=== PATIENT | male | born 1945 | race Caucasian/White ===

== ENCOUNTER → 2016-10-08 | Outpatient (CLI) | payer BC ==
[~2016-10-08] MED LIST: ADVIN10/60 INH; ADVIN25/60 INH; ASPEC325 PO; ATEN-175 PO; ATEN50TA8 PO; HYDR-5688 PO; LISI-729 PO; METF-384 PO; MULT-506 PO; SIMV20TA2 PO; SIMV80TA2 PO; SITA100T3 PO; TRAZ100T29 PO; VENL150C PO; VNTHFA/IN INH
--- NOTE | 2016-10-08 08:49 | DIAGNOSTIC IMAGING REPORT ---
TWO VIEW CHEST CLINICAL HISTORY: Hemoptysis. FINDINGS: PA and lateral chest radiographs are compared to study dated 11/06/2015 and correlated with chest CT dated 03/12/2006. The cardiomediastinal silhouette is unremarkable. There is mild atherosclerotic calcification of the thoracic aorta. Emphysema and chronic interstitial thickening are similar to previous. Scarring in the left upper lobe is again noted. No airspace consolidation or pleural effusion is identified. A nipple shadow projects over the right lower lobe. There is no pneumothorax. The skeletal structures are osteopenic. Mild degenerative change is seen throughout the thoracic spine. IMPRESSION: 1. Emphysema and chronic parenchymal changes as above. No acute cardiopulmonary abnormality is identified. 2. No concerning pulmonary lesion is seen by x-ray. Note that chest x-ray is insensitive in screening for lung cancer. If there is clinical concern for pulmonary neoplasm then a CT scan of the chest should be considered. Electronically signed by: Adrián Armenta M.D. 10/08/2016 8:47 AM Dictated Date/Time: 10/08/2016 8:45 AM
== END | disposition home or self-care (01) ==
LOC: C.RAD1850 08:31
PROVIDERS: ATTEND Internal Medicine Pulmonary Disease
DX: R04.2 Hemoptysis (principal); J43.9 Emphysema, unspecified

== ENCOUNTER → 2016-10-16 | Outpatient (CLI) | payer BC ==
--- NOTE | 2016-10-16 11:45 | DIAGNOSTIC IMAGING REPORT ---
CHEST CT WITHOUT CONTRAST CT DOSE: 267.90 mGy.cm HISTORY: Hemoptysis R04.2 [id number] TECHNIQUE: Multiaxial CT images of the chest were performed without contrast. COMPARISON: 03/12/2006 FINDINGS: Mild/moderate emphysematous change. Several small blebs primarily in the upper lung regions. Several low suspicion mediastinal nodes unchanged from the prior exam. Scattered basilar atelectatic change. This is dependent in nature. Bronchiectatic change. Is a described in the left upper lung has resolved. There is no significant new or interval finding. IMPRESSION: 1. Improved exam . The left upper lobe bronchiectatic change has shown near complete resolution. 3. No new or interval process. 4. Several low suspicion mediastinal nodes unchanged from the prior exam. 5. Mild Baseline emphysematous change unaltered. Electronically signed by: Ludwin Hernandez M.D. 10/16/2016 11:44 AM Dictated Date/Time: 10/16/2016 11:39 AM
== END | disposition home or self-care (01) ==
LOC: C.CTS 10:25
PROVIDERS: ATTEND Internal Medicine Pulmonary Disease
DX: R04.2 Hemoptysis (principal)

== ENCOUNTER → 2017-01-09 | Day surgery (SDC) | payer BC ==
[2016-12-17 12:53] VITALS: BMI 25.0
[~2017-01-09] VITALS: Ht 180.3 cm; Wt 83.2 kg
[~2017-01-09] MED LIST changes: -ADVIN10/60 INH; -ATEN-175 PO; -HYDR-5688 PO; +LIDOCAINE HCL 2% 2 ML VIAL (20MG/ML) ONE; +MIDAZOLAM HCL 1 MG/ML 2ML VIAL ONE; +ONDANSETRON INJ 2 MG/ML 2 ML VIAL ONE; +PROPOFOL IV EMULSION 10 MG/ML 20 ML VIAL IV ONE; -SIMV20TA2 PO; +SODIUM CHLORIDE 0.9% 500ML 500 ML IV ONE
[2017-01-09 08:11] VITALS: Ht 180.3 cm; Wt 83.2 kg
--- NOTE | 2017-01-09 08:48 | Endo History and Physical ---
History & Physical Date of Service: January 09, 2017. Chief Complaint: Anemia Referring Physician: DR ENRIQUE History of Present Illness 71 yo CM who presents for colonoscopy secondary to anemia. Past Surgical History Hx Cardiac Surgery: No Hx Internal Defibrillator: No Hx Pacemaker: No Hx Abdominal Surgery: Yes (APPY) Hx of Implantable Prosthesis: No Hx Post-Op Nausea and Vomiting: No Hx Cancer Surgery: No Hx Thoracic Surgery: No Hx Orthopedic: Yes (RT MIDDLE FINGER AMPUTATION) Hx Urinary Tract Surgery: No Family History None Social History Smoking Status: Former Smoker Hx Substance Use: No Hx Alcohol Use: No Allergies Coded Allergies: NO KNOWN DRUG ALLERGIES (Verified Allergy, Unknown, ., 01/09/17) Current Medications Reported Home Medications Medications Dose Route/Sig Max Daily Dose Days Date Category Ventolin Hfa (Albuterol) 200 Puffs/19067 Mcg Aers 2-4 Puffs INH Q6H PRN 12/17/16 Reported Advair Diskus 250/50 60 Dose (Fluticasone Prop/Salmeterol) 1 Ea Aerp 1 Puff INH BID 12/17/16 Reported Zocor (Simvastatin) 80 Mg Tab 80 Mg PO QPM 12/17/16 Reported Trazodone (Trazodone HCl) 100 Mg Tab 100 Mg PO HS 12/17/16 Reported Multivitamin (Multivitamins) Tab 1 Tab PO QPM 12/17/16 Reported Zestril (Lisinopril) 5 Mg Tab 5 Mg PO QAM 12/17/16 Reported Januvia (Sitagliptin Phosphate) 100 Mg Tab 100 Mg PO QAM 12/17/16 Reported Tenormin (Atenolol) 50 Mg Tab 50 Mg PO QAM 12/17/16 Reported Glucophage (Metformin Hcl) 1,000 Mg Tab 1,000 Mg PO BID 12/02/14 Reported Effexor Xr (Venlafaxine Hcl) 150 Mg Cap 150 Mg PO BID 12/02/14 Reported Ecotrin Or Generic * (Aspirin) 325 Mg Ectab 325 Mg PO QAM 04/08/09 Reported Vital Signs Weight (Kilograms): 83.18 Height (Feet): 5 Height (Inches): 11 Physical Exam General Appearance: WD/WN, no apparent distress Respiratory/Chest: Auscultation: breath sounds normal Cardiovascular: Heart Auscultation: RRR Abdomen: Bowel Sounds: normal Inspection & Palpation: soft, non-distended, no tenderness, guarding & rebound Assessment and Plan Assessment: 71 yo CM who presents for colonoscopy secondary to anemia. Plan: Proceed with colonoscopy.
--- NOTE | 2017-01-09 09:10 | Discharge Instructions ---
Endoscopy Patient Instructions Date / Procedure(s) Performed January 09, 2017. Colonoscopy Allergy Information Coded Allergies: NO KNOWN DRUG ALLERGIES (Verified Allergy, Unknown, ., 01/09/17) Discharge Date / Findings January 09, 2017. Colon polyp Internal hemorrhoids Medication Instructions Stopped Medication(s): NOT SURE WHAT HE WAS TO STOP SO STOPPED ALL MEDS WED NIGHT OK to resume all medications today as prescribed Reported Home Medications Medications Dose Route/Sig Max Daily Dose Days Date Category Ventolin Hfa (Albuterol) 200 Puffs/56771 Mcg Aers 2-4 Puffs INH Q6H PRN 12/17/16 Reported Advair Diskus 250/50 60 Dose (Fluticasone Prop/Salmeterol) 1 Ea Aerp 1 Puff INH BID 12/17/16 Reported Zocor (Simvastatin) 80 Mg Tab 80 Mg PO QPM 12/17/16 Reported Trazodone (Trazodone HCl) 100 Mg Tab 100 Mg PO HS 12/17/16 Reported Multivitamin (Multivitamins) Tab 1 Tab PO QPM 12/17/16 Reported Zestril (Lisinopril) 5 Mg Tab 5 Mg PO QAM 12/17/16 Reported Januvia (Sitagliptin Phosphate) 100 Mg Tab 100 Mg PO QAM 12/17/16 Reported Tenormin (Atenolol) 50 Mg Tab 50 Mg PO QAM 12/17/16 Reported Glucophage (Metformin Hcl) 1,000 Mg Tab 1,000 Mg PO BID 12/02/14 Reported Effexor Xr (Venlafaxine Hcl) 150 Mg Cap 150 Mg PO BID 12/02/14 Reported Ecotrin Or Generic * (Aspirin) 325 Mg Ectab 325 Mg PO QAM 04/08/09 Reported Provider Instructions Activity Restrictions - No exercising or heavy lifting for 24 hours. - Do not drink alcohol the day of the procedure. - Do not drive a car or operate machinery until the day after the procedure. - Do not make any important decisions or sign important papers in 24 hours after the procedure. Following Day: - Return to full activity which may include returning to work/school. Diet Start your diet with liquids and light foods (jello, soup, juice, toast). Then eat your usual diet if not nauseated. Treatment For Common After Affects For mild abdominal pain, bloating, or excessive gas: - Rest - Eat lightly - Lie on right side Follow-Up Information Follow-up with DR ENRIQUE as scheduled Anesthesia Information What You Should Know You have had a procedure that required some medicine to reduce anxiety and discomfort. This treatment is called moderate sedation. After receiving the treatment, you may be sleepy, but you will be able to breathe on your own. The effects of the treatment may last for several hours. Follow these instructions along with Activity/Diet recommendations noted above: * Do NOT do anything where dizziness or clumsiness would be dangerous. * Rest quietly at home today, then you can be up and about tomorrow. * Have a responsible person stay with you the rest of today. * You may have had an I.V. today. If so, you may take the dressing off later today. Recommendations Call your doctor if: * Trouble breathing * Continuous vomiting for more than 24 hours * Temperature above 101 degrees * Severe abdominal pain or bloating * Pain not relieved by pain medicine ordered * There is increased drainage or redness from any incision * A large amount of rectal bleeding greater than 2-3 tablespoons. (If you had a polyp/s removed or have hemorrhoids, a small amount of blood - from the rectum is to be expected.) * You have any unanswered questions or concerns. IN THE EVENT OF A SERIOUS EMERGENCY, GO TO THE NEAREST EMERGENCY ROOM Your discharge instructions were prepared by provider Vlad Johnson. Patient Instructions Signature Page Danial Mariee Patient (or Guardian) Signature/Date: I have read and understand the instructions given to me by my caregivers. Caregiver/RN/Doctor Signature/Date: The above-named patient and/or guardian has received patient instructions on this date. + Original Patient Signature Page (only) stays with chart. Please make copy for patient.
--- NOTE | 2017-01-09 09:17 | GI REPORT ---
Procedure Date: 01/09/2017 8:29 AM Procedure: Colonoscopy Indications: Iron deficiency anemia Medicines: Monitored Anesthesia Care Complications: No immediate complications. Estimated Blood Loss: Estimated blood loss: none. Procedure: Pre-Anesthesia Assessment: - Prior to the procedure, a History and Physical was performed, and patient medications and allergies were reviewed. The patient's tolerance of previous anesthesia was also reviewed. The risks and benefits of the procedure and the sedation options and risks were discussed with the patient. All questions were answered, and informed consent was obtained. Prior Anticoagulants: The patient has taken aspirin, last dose was 1 day prior to procedure. ASA Grade Assessment: III - A patient with severe systemic disease. After reviewing the risks and benefits, the patient was deemed in satisfactory condition to undergo the procedure. After I obtained informed consent, the scope was passed under direct vision. Throughout the procedure, the patient's blood pressure, pulse, and oxygen saturations were monitored continuously. The scope was introduced through the anus and advanced to the terminal ileum. The colonoscopy was performed without difficulty. The patient tolerated the procedure well. The quality of the bowel preparation was good. The terminal ileum, ileocecal valve, appendiceal orifice, and rectum were photographed. Findings: A 12 mm polyp was found in the ascending colon. The polyp was flat. The polyp was removed with a piecemeal technique using a hot snare. Resection and retrieval were complete. To prevent bleeding after the polypectomy, one hemostatic clip was successfully placed (MR conditional). There was no bleeding at the end of the procedure. Non-bleeding internal hemorrhoids were found during retroflexion. The hemorrhoids were small. Impression: - One 12 mm polyp in the ascending colon, removed piecemeal using a hot snare. Resected and retrieved. Clip (MR conditional) was placed. - Non-bleeding internal hemorrhoids. Recommendation: - Resume previous diet. - Continue present medications. - No repeat colonoscopy due to age. - Return to primary care physician as previously scheduled. Vlad Johnson DO 01/09/2017 9:16:39 AM This report has been signed electronically. Note Initiated On: 01/09/2017 8:29 AM I attest to the content of the Intraoperative Record and orders documented therein, exceptions below
[2017-01-09 09:38] VITALS: BP 110/71; PULSE 92; O2SAT 95
--- NOTE | 2017-01-09 10:31 | Anesthesiology Progress Note ---
Anesthesia Post Op Note Date & Time January 09, 2017 at 10:31 Vital Signs Pain Intensity: 0 Vital Signs Past 12 Hours Date Time Temp Pulse Resp B/P Pulse Ox O2 Delivery O2 Flow Rate FiO2 01/09/17 09:38 92 20 110/71 95 Room Air 01/09/17 09:30 93 20 144/80 93 Room Air 01/09/17 09:20 99 20 133/64 96 Room Air 01/09/17 09:14 98 20 122/65 93 Room Air Notes Mental Status: alert / awake / arousable, participated in evaluation Pt Amnestic to Procedure: Yes Nausea / Vomiting: adequately controlled Pain: adequately controlled Airway Patency, RR, SpO2: stable & adequate BP & HR: stable & adequate Hydration State: stable & adequate Anesthetic Complications: no major complications apparent
== END | disposition home or self-care (01) ==
LOC: C.GI 08:01
PROVIDERS: ATTEND Internal Medicine
DX: D12.2 Benign neoplasm of ascending colon (principal); K64.8 Other hemorrhoids; D50.9 Iron deficiency anemia, unspecified; Z87.891 Personal history of nicotine dependence; Z79.899 Other long term (current) drug therapy

== ENCOUNTER → 2018-03-13 | Outpatient (CLI) | payer BC ==
[~2018-03-13] MED LIST changes: -LIDOCAINE HCL 2% 2 ML VIAL (20MG/ML) ONE; -MIDAZOLAM HCL 1 MG/ML 2ML VIAL ONE; -ONDANSETRON INJ 2 MG/ML 2 ML VIAL ONE; -PROPOFOL IV EMULSION 10 MG/ML 20 ML VIAL IV ONE; -SODIUM CHLORIDE 0.9% 500ML 500 ML IV ONE; -VENL150C PO; +VENL150C71 PO
[2018-03-13 08:20] LABS: HEMOGLOBIN A1C 7.4 % (4.5-5.6)
[2018-03-13 08:36] LABS: BLOOD UREA NITROGEN 18 mg/dl (7-18); CARBON DIOXIDE 26 mmol/L (21-32); CHOLESTEROL 241 mg/dl (0-200); CREATININE 1.26 mg/dl (0.60-1.40); GLUCOSE 135 mg/dl (70-99); LDL CHOLESTEROL CALCULATED 134 mg/dl; POTASSIUM 4.3 mmol/L (3.5-5.1); SODIUM 138 mmol/L (136-145)
== END | disposition home or self-care (01) ==
LOC: C.LAB 07:40
PROVIDERS: ATTEND Internal Medicine
DX: E78.00 Pure hypercholesterolemia, unspecified (principal); E11.9 Type 2 diabetes mellitus without complications; I10 Essential (primary) hypertension

== ENCOUNTER 2021-10-16 16:15 | Inpatient (IN) ==
[2021-10-16 17:18] LABS: Basophils # (auto) 0.03 K/uL (0-0.2); Basophils % (auto) 0.3 %; Eosinophils # (auto) 0.05 K/uL (0-0.5); Eosinophils % (auto) 0.6 %; Hematocrit (blood only) 35.1 % (42-52); Hemoglobin 11.6 g/dL (14.0-18.0); Immature Granulocytes # (auto) 0.02 K/uL (0.00-0.02); Immature Granulocytes % (auto) 0.2 %; Lymphocytes # (auto) 0.74 K/uL (1.2-3.4); Lymphocytes % (auto) 8.5 %; Mean Corpuscular Hemoglobin 31.4 pg (25-34); Mean Corpuscular Volume 94.9 fL (80-100); Mean Platelet Volume 11.7 fL (7.4-10.4); Monocytes # (auto) 0.38 K/uL (0.11-0.59); Monocytes % (auto) 4.4 %; Neutrophils # (auto) 7.44 K/uL (1.4-6.5); Platelet Count 123 K/uL (130-400); RDW Coefficient of Variation 14.3 % (11.5-14.5); White Blood Count 8.66 K/uL (4.8-10.8)
[2021-10-16 17:43] LABS: Alanine Aminotransferase 23 U/L (7-52); Albumin Globulin Ratio 1.3 (0.9-2); Albumin Level 3.9 gm/dl (3.4-5.0); Alkaline Phosphatase 75 U/L (34-104); Anion Gap 11 (3-11); Aspartate Aminotransferase 28 U/L (13-39); BUN Creatinine Ratio 18.9 (10-20); Bilirubin,Total 0.5 mg/dl (0.2-1.0); Blood Urea Nitrogen 43 mg/dl (6-23); Calcium 8.7 mg/dl (8.5-10.1); Carbon Dioxide 23 mmol/L (21-32); Chloride 98 mmol/L (98-107); Est GFR (African American) 31.3 ml/min; Globulin 2.9 gm/dl (2.5-4.0); Glucose 303 mg/dl (70-99(Fasting)); Potassium 4.5 mmol/L (3.5-5.1); Sodium 132 mmol/L (136-145); Total Protein 6.8 gm/dl (6.0-8.3)
--- NOTE | 2021-10-16 18:21 | Emergency Department Note ---
History of Present Illness General Chief complaint: Altered Mental Status Stated complaint: PAST 2 WEEKS AMS, FALLS, CONFUSED, DR REFERRED Time Seen by Provider: 10/16/21 18:06 Source: patient and family () History of Present Illness Provider complaint: Altered mental status Onset (ago): week(s) Location: head Pain Consistency: + constant Quality: + other (Confusion) Relieved By: + none Associated symptoms: + weakness; no chest pain, no cough, no fever/chills, no headaches, no nausea/vomiting or no shortness of breath This is a 75-year-old male sent here from his doctor's office for evaluation of altered mental status. His states that he has been confused for about 2 to 3 weeks. He will try to put wear a longsleeve shirt like pants. 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 He seems overly euphoric for no reason. He has no history of bipolar disorder. He urinated without taking his pants down today. He lost his wallet. He is unable to take his medications by himself. He eats nothing but candy and will not eat a regular meal and so has lost about 16 pounds over 2 to 3 weeks. He is very unsteady on his feet when he tries to get up and has fallen several times. She prevented him from falling about three times today. It is unclear if he hit his head but he denies any headache. He has had no fever, cough or cold symptoms, chest pain, shortness of breath, abdominal pain, vomiting, or black or bloody stools. He has had some diarrhea. He also complains of mouth pain. He states that his mouth is burning. He is not sure how long that is going on. Home Medications Medication Instructions Recorded Confirmed Type albuterol sulfate 90 mcg/actuation 2 puff INHALATION Q8H PRN #1 gm 03/23/19 10/16/21 History aerosol inhaler aspirin 325 mg tablet,delayed 325 mg PO DAILY tab 03/23/19 10/16/21 History release [id number] acid 300 1 tab PO DAILY 09/17/20 10/16/21 History mcg-lycopene 600 mcg-lutein 300 mcg tablet (Centrum Silver Men) folic acid 1 mg tablet 1 mg PO DAILY #30 tab 04/30/21 02/23/22 Rx atenolol 100 mg tablet 100 mg PO DAILY #90 tab 02/06/21 10/16/21 Rx lisinopril 5 mg tablet 5 mg PO DAILY #90 tab 02/06/21 10/16/21 Rx simvastatin 40 mg tablet 40 mg PO QPM #90 tab 02/06/21 10/16/21 Rx trazodone 100 mg tablet 100 mg PO QPM #90 tab 02/06/21 10/16/21 Rx venlafaxine 150 mg 150 mg PO BID #180 cap 02/06/21 10/16/21 Rx capsule,extended release 24 hr cyanocobalamin (vitamin B-12) 1,000 mcg PO DAILY 04/12/21 10/16/21 History 1,000 mcg tablet (Vitamin B-12) diclofenac sodium 1 % topical gel 2 g TOPICAL QID PRN 04/12/21 10/16/21 History glimepiride 2 mg tablet 2 mg PO BIDM 04/12/21 10/16/21 History sitagliptin 100 mg tablet (Januvia) 100 mg PO DAILY 04/12/21 10/16/21 History tamsulosin 0.4 mg capsule 0.4 mg PO DAILY #30 cap 08/09/21 10/16/21 Rx leflunomide 10 mg tablet 10 mg PO DAILY 10/16/21 10/16/21 History Allergies Allergy/AdvReac Type Severity Reaction Status Date / Time No Known Allergies Allergy Verified 10/16/21 19:58 Past Med/Surg History Medical History Altered mental status Arthritis of both knees Chronic obstructive pulmonary disease CKD (chronic kidney disease) COVID-19 Depression with anxiety Diabetes mellitus Diverticulitis Erectile dysfunction History of alcoholism History of memory loss Hypercholesterolemia Rheumatoid arthritis involving multiple sites with positive rheumatoid factor Sensorineural hearing loss of both ears Tinnitus, bilateral Surgical History History of appendectomy Family History Mother Cancer Denies family history of Ovarian cancer Prostate cancer Myocardial infarction Breast cancer Colorectal cancer Social History Smoking Status: Never smoker Second Hand Exposure: No; Hx Alcohol Use: No Hx Substance Use: No Preferred Language: Beninese Visual Impairment: No Limitations Hearing Ability: Use of Hearing Aid marital status: Current Living Situation: Spouse current occupational status: retired Feels Safe at Home: Yes Childhood Exposure to Second-Hand Smoke: No Dental Care, Regularly: Yes Physical Activity Frequency: Does not Exercise Seatbelt Use: always Sunscreen Use: Yes Review of Systems See HPI for pertinent positives & negatives. and A total of 10 systems reviewed and were otherwise negative Physical Exam Vital Signs Vital Signs - 24 hr 10/16/21 16:19 Temperature 36.4 C L Temperature Source Temporal Artery Scan Pulse Rate 67 Respiratory Rate 18 Respiratory Effort / Characteristics Non-Labored Respiratory Depth Normal Blood Pressure 111/52 L Blood Pressure Mean 71 Pulse Oximetry 93 Oxygen Delivery Method Room Air Sepsis Recent Fever Within 48 Hours No Sepsis New/Unexplained Change in Mental Status No Sepsis Action Taken by Nursing No Action Required Constitutional: Vital signs reviewed. Eyes: Pupils are equal round reactive to light. Conjunctiva are noninjected. ENT: Pharynx is clear without erythema or exudate. Mucous membranes are dry. No dental tenderness. No gingival hyperemia. Neck supple without meningeal si gns. Respiratory: Clear to auscultation bilaterally. Breath sounds are equal bilaterally. Cardiovascular: Regular rate and rhythm. No rubs or gallops. GI: Soft, nondistended and nontender. Bowel sounds are present. Musculoskeletal: No peripheral edema. No lower extremity tenderness. Integumentary: No cyanosis. or jaundice. Neurological: The patient is awake and alert. Somewhat confused. No focal deficits. Psychiatric: Normal affect. Course Administered Medications Sodium Chloride (Nss) 500 mls @ 125 mls/hr IV .Q4H MARJORIE Stop: 11/15/21 18:29 Last Admin: 10/16/21 20:10 Dose: 125 mls/hr Documented by: [id number] Medical Decision Making Differential Diagnosis Dementia, delirium, polypharmacy, intracranial mass, CVA, metabolic derangement Medical Records Attestation: I reviewed the patient's medical records. I did perform a limited focused review of portions of the patient's old chart on the electronic medical record. The patient was seen by his primary care provider earlier today for altered mental status and sent here for further evaluation. Home Medications Current Medication List: was personally reviewed by me Laboratory Data Attestation: I reviewed the patient's lab results. Result diagrams: 10/16/21 17:06 10/16/21 17:06 Lab Results 10/16/21 10/16/21 Range/Units 17:06 17:06 WBC 8.66 (4.8-10.8) K/uL RBC 3.70 L (4.7-6.1) M/uL Hgb 11.6 L (14.0-18.0) g/dL Hct 35.1 L (42-52) % MCV 94.9 (80-100) fL MCH 31.4 (25-34) pg MCHC 33.0 (32-36) g/dL RDW Std Deviation 49.0 H (36.4-46.3) fL RDW Coeff of Sherrell 14.3 (11.5-14.5) % Plt Count 123 L (130-400) K/uL MPV 11.7 H (7.4-10.4) fL Immature Gran % (Auto) 0.2 % Neut % (Auto) 86.0 % Lymph % (Auto) 8.5 % [place] % (Auto) 4.4 % Eos % (Auto) 0.6 % Baso % (Auto) 0.3 % Neut # (Auto) 7.44 H (1.4-6.5) K/uL Lymph # (Auto) 0.74 L (1.2-3.4) K/uL [place] # (Auto) 0.38 (0.11-0.59) K/uL Eos # (Auto) 0.05 (0-0.5) K/uL Baso # (Auto) 0.03 (0-0.2) K/uL Immature Gran # (Auto) 0.02 (0.00-0.02) K/uL Sodium 132 L (136-145) mmol/L Potassium 4.5 (3.5-5.1) mmol/L Chloride 98 (98-107) mmol/L Carbon Dioxide 23 (21-32) mmol/L Anion Gap 11 (3-11) BUN 43 H (6-23) mg/dl Creatinine 2.27 H (0.6-1.4) mg/dl Est Cr Clr Drug Dosing Not Reportable Est GFR ( Amer) 31.3 ml/min Est GFR (Non-Af Amer) 27.0 ml/min BUN/Creatinine Ratio 18.9 (10-20) Glucose 303 H* (70-99(Fasting)) mg/dl Calcium 8.7 (8.5-10.1) mg/dl Total Bilirubin 0.5 (0.2-1.0) mg/dl AST 28 (13-39) U/L ALT 23 (7-52) U/L Alkaline Phosphatase 75 (34-104) U/L Total Protein 6.8 (6.0-8.3) gm/dl Albumin 3.9 (3.4-5.0) gm/dl Globulin 2.9 (2.5-4.0) gm/dl Albumin/Globulin Ratio 1.3 (0.9-2) Imaging Data Radiologist's Impression: Chest X-Ray 10/16/21 18:17 XR chest 1V portable HISTORY: 75 years-old Male ams acutely altered mental status. COMPARISON: Chest radiograph 04/12/2021 TECHNIQUE: Portable AP view of the chest FINDINGS: Cardiac silhouette is enlarged. Emphysema with chronic interstitial coarsening. Mild bibasilar densities. No pneumothorax, pleural effusion or overt pulmonary edema. Degenerative changes of the shoulders and spine. IMPRESSION: 1. Cardiomegaly without pulmonary edema. 2. Emphysema with chronic interstitial coarsening. 3. Mild bibasilar densities suggest atelectasis/scarring. A mild pneumonitis would be difficult to exclude.. ACT 112: Negative or not required by law. The above report was generated using voice recognition software. It may contain grammatical, syntax or spelling errors. Electronically signed by: Jun Faust M.D. 10/16/2021 6:[address] 10/16/21 18:17 CT head/brain wo con CLINICAL HISTORY: 75 years-old Male with AMS. Acutely altered mental status TECHNIQUE: Multiple axial CT images of the head were obtained without contrast. A dose lowering technique was utilized adhering to the principles of ALARA. CT DOSE: 537.48 mGy.cm COMPARISON: None. FINDINGS: No acute intracranial hemorrhage, midline shift, intracranial mass, hydrocephalus, territorial ischemia or abnormal extra-axial collection. Age- related involutional changes with ex vacuo ventriculomegaly. White matter hypode nsities suggest chronic microvascular ischemic disease. Cerebral vascular calcifications. The calvarium is intact. Prior bilateral lens repair. Bilateral wagner bullosa. The paranasal sinuses, mastoid air cells, and middle ear cavities are clear. IMPRESSION: No acute intracranial abnormality. ACT 112: Negative or not required by law. The above report was generated using voice recognition software. It may contain grammatical, syntax or spelling errors. Electronically signed by: Jun Faust M.D. 10/16/2021 7:40 PM MDM Narrative I did evaluate the patient as noted above. I did obtain history from the patient as well as his . He is presenting with confusion and altered mental status for 2 to 3 weeks. He is falling frequently as well. He is unable to ambulate safely on his own. IV access was established. I did order and personally reviewed the images of the patient's chest x-ray as described above. He has bibasilar atelectasis. No pneumonia. I did order a urine analysis. I did order and review the patient's blood work as noted in the electronic medical record. His white count is not elevated. He has mild thrombocytopenia with a platelet count of 123. Hemoglobin is 11.6 which is above his last value. Electrolytes show sodium 132 which is likely falsely decreased from his glucose of 303. Creatinine is above baseline at 2.27. He was last 1.7 a month ago. LFTs are unremarkable. I did order a CT of the head. I did review the images myself as well as the radiology report as described above. There is no evidence of acute intracranial abnormality. I did discuss the test results with the patient and his . He will be hospitalized for further care and evaluation. I did discuss case with the hospitalist and case maker. A screening COVID test was ordered. Impression & Plan Acute alteration in mental status, Acute confusion, Frequent falls, Ambulatory dysfunction, Acute kidney injury superimposed on chronic kidney disease, Acute hyperglycemia, Thrombocytopenia Discharge Plan Visit Data Chief Complaint: Altered Mental Status Stated Complaint: PAST 2 WEEKS AMS, FALLS, CONFUSED, DR REFERRED ED Provider: Jarrett Kapoor Discharge Problem: Acute alteration in mental status, Acute confusion, Frequent falls, Ambulatory dysfunction, Acute kidney injury superimposed on chronic kidney disease, Acute hyperglycemia, Thrombocytopenia Patient Disposition: Being Evaluated by Hospitalist Forms Stand Alone Forms: My [facility] Prescriptions Prescriptions: No Action folic acid 1 mg tablet 1 mg PO DAILY Qty: 30 RF: 2 atenolol 100 mg tablet 100 mg PO DAILY Qty: 90 RF: 3 lisinopril 5 mg tablet 5 mg PO DAILY Qty: 90 RF: 3 simvastatin 40 mg tablet 40 mg PO QPM Qty: 90 RF: 3 trazodone 100 mg tablet 100 mg PO QPM Qty: 90 RF: 3 venlafaxine 150 mg capsule,extended release 24hr 150 mg PO BID Qty: 180 RF: 3 aspirin 325 mg tablet,delayed release (DR/EC) 325 mg PO DAILY RF: 0 albuterol sulfate 90 mcg/actuation HFA aerosol inhaler 2 puff inhalation Q8H PRN (Reason: Shortness Of Breath) Qty: 1 RF: 0 Centrum Silver Men 300-600-300 mcg tablet 1 tab PO DAILY RF: 0 tamsulosin 0.4 mg capsule 0.4 mg PO DAILY Qty: 30 RF: 2 cyanocobalamin (vitamin B-12) [Vitamin B-12] 1,000 mcg Tablet 1,000 mcg PO DAILY RF: 0 glimepiride 2 mg tablet 2 mg PO BIDM RF: 0 Januvia 100 mg tablet 100 mg PO DAILY RF: 0 diclofenac sodium 1 % gel 2 g topical QID PRN (Reason: Knee Pain) RF: 0 leflunomide 10 mg tablet 10 mg PO DAILY RF: 0 Referrals Referrals: Gael Rogers MD [Primary Care Provider] -
[2021-10-16] MEDS ORDERED: SODIUM CHLORIDE 0.9% 500 ML IV SCH (18:30)
--- NOTE | 2021-10-16 18:59 | XRay Report ---
XR chest 1V portable HISTORY: 75 years-old Male ams acutely altered mental status. COMPARISON: Chest radiograph 04/12/2021 TECHNIQUE: Portable AP view of the chest FINDINGS: Cardiac silhouette is enlarged. Emphysema with chronic interstitial coarsening. Mild bibasilar densit ies. No pneumothorax, pleural effusion or overt pulmonary edema. Degenerative changes of the shoulder s and spine. IMPRESSION: 1. Cardiomegaly without pulmonary edema. 2. Emphysema with chronic interstitial coarsening. 3. Mild bibasilar densities suggest atelectasis/scarring. A mild pneumonitis would be difficult to ex clude.. ACT 112: Negative or not required by law. The above report was generated using voice recognition software. It may contain grammatical, syntax o r spelling errors. Electronically signed by: Jun Faust M.D. 10/16/2021 6:58 PM
--- NOTE | 2021-10-16 19:42 | CT Scan Report ---
CT head/brain wo con CLINICAL HISTORY: 75 years-old Male with AMS. Acutely altered mental status TECHNIQUE: Multiple axial CT images of the head were obtained without contrast. A dose lowering tech nique was utilized adhering to the principles of ALARA. CT DOSE: 537.48 mGy.cm COMPARISON: None. FINDINGS: No acute intracranial hemorrhage, midline shift, intracranial mass, hydrocephalus, territorial ischem ia or abnormal extra-axial collection. Age-related involutional changes with ex vacuo ventriculomegal y. White matter hypodensities suggest chronic microvascular ischemic disease. Cerebral vascular calci fications. The calvarium is intact. Prior bilateral lens repair. Bilateral wagner bullosa. The paranasal sinuses , mastoid air cells, and middle ear cavities are clear. IMPRESSION: No acute intracranial abnormality. ACT 112: Negative or not required by law. The above report was generated using voice recognition software. It may contain grammatical, syntax o r spelling errors. Electronically signed by: Jun Faust M.D. 10/16/2021 7:40 PM
[2021-10-16] MEDS ORDERED: NovoLIN-R INSULIN PER UNIT CHARGE IV STA (20:20)
[2021-10-16] MEDS ORDERED: THIAMINE HCL 300 MG in SODIUM CHLORIDE 0.9% 50 ML IV STA (20:20)
[2021-10-16] MEDS ORDERED: LACTATED RINGER'S 1,000 ML IV ONE (20:30)
[2021-10-16 21:23] LABS: Appearance Urine Clear (Clear); Bilirubin Urine Negative (Negative); Blood Urine Negative (Negative); Color Urine Yellow; Glucose Urine UA Trace (Negative); Ketones Urine Negative (Negative); Leukocyte Esterase Urine Negative (Negative); Nitrite Urine Negative (Negative); Protein Urine Negative (Negative); Specific Gravity Urine 1.015 (1.000-1.030); Urobilinogen Urine Negative (Negative)
--- NOTE | 2021-10-16 21:32 | History & Physical Report ---
Date of Service October 16, 2021 Assessment & Plan (1) Delirium: Plan: Acute delirium with decrease in overall function and decision making - Multiple causes at this time to include- poor dietary intake, medication non- compliance, poor sleep hygiene, underlying dementia - Head CT without acute pathology - TSH pending, glucose elevated without gap and normal HCO3, he has not been on steroids for his RA in some time - UA negative - Urine tox screen negative - B12 Folate in the morning - Not infectious appearing at this time with normal WBC and Normal NLR Will start with getting his glucose <250 and then <180 Thiamine 300 mg IV now and then daily He will be getting his medications in house on a scheduled manner May need neurological evaluation and possibly psychiatric evaluation if this does not improve ? psychosis As he has no other sensory or motor deficits do not think he had an acute CVA- MRI may be an option, but at this time would not be able to sit still to tolerate (2) Dementia: Plan: Patient with neurocognitive testing performed in 2013- noted with mild cognitive impairment likely related to microvascular disease - worsening with short term memory and function - was previously not on any medications - Treat above and follow (3) Ambulatory dysfunction: Plan: Worsening with ambulation and balance - check B12 Folate - Start with above and PT/OT consult (4) Weight loss: Plan: reports possibly 13 pound weight loss over the past few months - as above poor dietary intake (5) Acute kidney injury superimposed on chronic kidney disease: Plan: Likely pre-renal at this time - Hold his lisinopril - LR x1 liter overnight - HCO3 stable (6) Hyperglycemia: Plan: DMII at home with notable dietary indiscretion and uncontrolled DM with HGB A1C >10 last check - 4 units IV regular insulin now to get <280 - Aspart sliding scale- CF 20 with carb ration 1:15 - Carb consistent diet (7) Rheumatoid arthritis involving multiple sites with positive rheumatoid factor: Plan: Restart his Leflunomide as he has not been taking (8) Sensorineural hearing loss of both ears: Plan: [facility] - very hard of hearing- this may be adding to his delirium (9) Depression with anxiety: Plan: Continue with his Venlafaxine- unsure if he has been taking - He has no other psychological history that his is aware of - He had a crying episode upon coming to the hospital today (10) Chronic obstructive pulmonary disease: Plan: Continue albuterol (11) Anemia: Plan: Was likely macrocytic at one point - currently normal RBC and normocytic/normochromic History of Present Illness Primary Care Provider: Gael Rogers MD 75 YOM with past medical history of: COPD, Rheumatoid Arthritis, B12 deficiency, HTN, DM II, CKD III. Patient was sent over today from his PCP office following requested walk-in appointment secondary to declination in his status over the past 2-3 weeks/months. Per his - the patient had been declining in his ability to do things for himself at home, memory declining, and not eating regular food that she buys over the past few months. This has gotten significantly worse over the past 2-3 weeks where his short term memory and ability to reason and or dress himself has gotten worse. She recently reports that he has been sitting blankly looking out the window wandering through the house, falls, and worsening of his gait. He normally will sit at his computer watching [employer] videos all day and staying up throughout the night and has been able to mostly manage his medicines previously, his mood is normally low with wanting to mostly be by himself. She notes his mood now to be overly excessive with a "euphoria". He is currently jovial and laughing with all his responses and facial expression are animated- he is cooperative. She reports that now he has not been taking his medications, has bought OTC testosterone supplementation and has been taking these and she is not sure of how much. He is now mostly eating, doughnuts, candy, cookies, ice-cream, and chips. Over this past 2 weeks she has noted his gait change to now with him walking with wide based hunched over shuffling his feet, and when he has to change course he will stumble. He is also using objects to hold on to to stabilize his gait. Today he was trying to put his shirt on his legs, urinating with pants on and unable to get his medications or ADLS. Patient will be admitted and continue to work up his acute change. 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 Patient COVID test on admission is: NEGATIVE Allergies Allergy/AdvReac Type Severity Reaction Status Date / Time No Known Allergies Allergy Verified 10/16/21 19:58 Home Medications Medication Instructions Recorded Confirmed Type albuterol sulfate 90 mcg/actuation 2 puff INHALATION Q8H PRN #1 gm 03/23/19 10/16/21 History aerosol inhaler aspirin 325 mg tablet,delayed 325 mg PO DAILY tab 03/23/19 10/16/21 History release tqgldfje-asa-wdooa acid 300 1 tab PO DAILY 09/17/20 10/16/21 History mcg-lycopene 600 mcg-lutein 300 mcg tablet (Centrum Silver Men) folic acid 1 mg tablet 1 mg PO DAILY #30 tab 12/21/20 10/16/21 Rx atenolol 100 mg tablet 100 mg PO DAILY #90 tab 02/06/21 10/16/21 Rx lisinopril 5 mg tablet 5 mg PO DAILY #90 tab 02/06/21 10/16/21 Rx simvastatin 40 mg tablet 40 mg PO QPM #90 tab 02/06/21 10/16/21 Rx trazodone 100 mg tablet 100 mg PO QPM #90 tab 02/06/21 10/16/21 Rx venlafaxine 150 mg 150 mg PO BID #180 cap 02/06/21 10/16/21 Rx capsule,extended release 24 hr cyanocobalamin (vitamin B-12) 1,000 mcg PO DAILY 04/12/21 10/16/21 History 1,000 mcg tablet (Vitamin B-12) diclofenac sodium 1 % topical gel 2 g TOPICAL QID PRN 04/12/21 10/16/21 History glimepiride 2 mg tablet 2 mg PO BIDM 04/12/21 10/16/21 History sitagliptin 100 mg tablet (Januvia) 100 mg PO DAILY 04/12/21 10/16/21 History tamsulosin 0.4 mg capsule 0.4 mg PO DAILY #30 cap 08/09/21 10/16/21 Rx leflunomide 10 mg tablet 10 mg PO DAILY 10/16/21 10/16/21 History Past Med/Surg History Medical History Altered mental status Arthritis of both knees Chronic obstructive pulmonary disease CKD (chronic kidney disease) COVID-19 Depression with anxiety Diabetes mellitus Diverticulitis Erectile dysfunction History of alcoholism History of memory loss Hypercholesterolemia Rheumatoid arthritis involving multiple sites with positive rheumatoid factor Sensorineural hearing loss of both ears Tinnitus, bilateral Surgical History History of appendectomy Family History Mother Cancer Denies family history of Ovarian cancer Prostate cancer Myocardial infarction Breast cancer Colorectal cancer Social History Smoking Status: Unknown if ever smoked Second Hand Exposure: No; Hx Alcohol Use: No Preferred Language: Slovenian Communication Ability: Effective Visual Impairment: No Limitations Hearing Ability: Use of Hearing Aid Porcelain Technician Required: No Beliefs That Will Affect Care: None marital status: Current Living Situation: Spouse Current Living Situation Comment: Lives with current occupational status: retired Feels Safe at Home: Yes Childhood Exposure to Second-Hand Smoke: No Dental Care, Regularly: Yes Physical Activity Frequency: Does not Exercise Seatbelt Use: always Sunscreen Use: Yes Assistive Devices: Cane Review of Systems Review of Systems: REVIEW OF SYSTEMS: Constitutional: No fever, sweats or chills Eyes: No diplopia, no worsening or blurred vision ENT: (+) "mouth feels hot" normal hearing, no trouble swallowing Respiratory: No cough, sputum, dyspnea at rest or on exertion Cardiovascular: No chest pain, tightness or palpitations Abdomen: No pain, nausea, vomiting, diarrhea or constipation Musculoskeletal: No joint pain, calf pain, swelling Neurologic: (+) alteration in gait, memory changes, functional decline, balance problems Psychiatric: (+) depression Skin: No rash or itch Physical Exam Physical Exam: PHYSICAL EXAM: General: awake, alert, no apparent distress, calm sitting in bed disheveled appearance Head: Normocephalic, atraumatic ENT: Very hard of hearing, PERRLA, EOMI, mucous membranes dry Neuro: AAO x 2 (person and place), speech clear but inappropriate, strength intact bilaterally 5/5, sensation intact, no pronator drift, weak when trying to stand, loss of coordination, he is able to recall his events from his stay in the emergency room and from Office today. Chest: equal rise and fall of the chest, no accessory muscle use, no heaves or thrills, Clear to auscultation, on room air, Cardiac: Regular rate and rhythm, telemetry reviewed-NSR, skin warm dry, cap refill <3 seconds, peripheral pulses +2 no JVD, no murmur, no edema GI: NABS x 4 quadrants, soft, nontender to palpation, no rebound, guarding or tenderness : Spontaneously voiding, no pain, no CVA tenderness, Extremities: Normal inspection, no peripheral edema or erythema, calfs nontender to palpation Psych: overly animated, but calm and cooperative Results & Data Results & Data ([facility]) Vital Signs (Past 12 Hours) Vital Signs Temp Pulse Resp BP Pulse Ox 10/16/21 16:19 36.4 C L 67 18 111/52 L 93 Laboratory Results Abnormal lab results 10/16/21 10/16/21 10/16/21 Range/Units 17:06 17:06 20:53 RBC 3.70 L (4.7-6.1) M/uL Hgb 11.6 L (14.0-18.0) g/dL Hct 35.1 L (42-52) % RDW Std Deviation 49.0 H (36.4-46.3) fL Plt Count 123 L (130-400) K/uL MPV 11.7 H (7.4-10.4) fL Neut # (Auto) 7.44 H (1.4-6.5) K/uL Lymph # (Auto) 0.74 L (1.2-3.4) K/uL Sodium 132 L (136-145) mmol/L BUN 43 H (6-23) mg/dl Creatinine 2.27 H (0.6-1.4) mg/dl Glucose 303 H* (70-99(Fasting)) mg/dl POC Glucose 247 H (70-99) mg/dl Urine Glucose (UA) (Negative) 10/16/21 Range/Units 21:15 RBC (4.7-6.1) M/uL Hgb (14.0-18.0) g/dL Hct (42-52) % RDW Std Deviation (36.4-46.3) fL Plt Count (130-400) K/uL MPV (7.4-10.4) fL Neut # (Auto) (1.4-6.5) K/uL Lymph # (Auto) (1.2-3.4) K/uL Sodium (136-145) mmol/L BUN (6-23) mg/dl Creatinine (0.6-1.4) mg/dl Glucose (70-99(Fasting)) mg/dl POC Glucose (70-99) mg/dl Urine Glucose (UA) Trace H (Negative) Diagnostic Findings Chest X-Ray 10/16/21 18:17 XR chest 1V portable HISTORY: 75 years-old Male ams acutely altered mental status. COMPARISON: Chest radiograph 04/12/2021 TECHNIQUE: Portable AP view of the chest FINDINGS: Cardiac silhouette is enlarged. Emphysema with chronic interstitial coarsening. Mild bibasilar densities. No pneumothorax, pleural effusion or overt pulmonary edema. Degenerative changes of the shoulders and spine. IMPRESSION: 1. Cardiomegaly without pulmonary edema. 2. Emphysema with chronic interstitial coarsening. 3. Mild bibasilar densities suggest atelectasis/scarring. A mild pneumonitis would be difficult to exclude.. ACT 112: Negative or not required by law. The above report was generated using voice recognition software. It may contain grammatical, syntax or spelling errors. Electronically signed by: Jun Faust M.D. 10/16/2021 6:[address] 10/16/21 18:17 CT head/brain wo con CLINICAL HISTORY: 75 years-old Male with AMS. Acutely altered mental status TECHNIQUE: Multiple axial CT images of the head were obtained without contrast. A dose lowering technique was utilized adhering to the principles of ALARA. CT DOSE: 537.48 mGy.cm COMPARISON: None. FINDINGS: No acute intracranial hemorrhage, midline shift, intracranial mass, hydrocephalus, territorial ischemia or abnormal extra-axial collection. Age- related involutional changes with ex vacuo ventriculomegaly. White matter hypodensities suggest chronic microvascular ischemic disease. Cerebral vascular calcifications. The calvarium is intact. Prior bilateral lens repair. Bilateral wagner bullosa. The paranasal sinuses, mastoid air cells, and middle ear cavities are clear. IMPRESSION: No acute intracranial abnormality. ACT 112: Negative or not required by law. The above report was generated using voice recognition software. It may contain grammatical, syntax or spelling errors. Electronically signed by: Jun Faust M.D. 10/16/2021 7:40 PM Medications Administered Home Medications albuterol sulfate 90 mcg/actuation aerosol inhaler 2 puff INHALATION Q8H PRN #1 gm 03/23/19 [History Confirmed 10/16/21] aspirin 325 mg tablet,delayed release 325 mg PO DAILY tab 03/23/19 [History Confirmed 10/16/21] kvbmqtvv-rfp-aloth acid 300 mcg-lycopene 600 mcg-lutein 300 mcg tablet (Centrum Silver Men) 1 tab PO DAILY 09/17/20 [History Confirmed 10/16/21] folic acid 1 mg tablet 1 mg PO DAILY #30 tab 12/21/20 [Rx Confirmed 10/16/21] atenolol 100 mg tablet 100 mg PO DAILY #90 tab 02/06/21 [Rx Confirmed 10/16/21] lisinopril 5 mg tablet 5 mg PO DAILY #90 tab 02/06/21 [Rx Confirmed 10/16/21] simvastatin 40 mg tablet 40 mg PO QPM #90 tab 02/06/21 [Rx Confirmed 10/16/21] trazodone 100 mg tablet 100 mg PO QPM #90 tab 02/06/21 [Rx Confirmed 10/16/21] venlafaxine 150 mg capsule,extended release 24 hr 150 mg PO BID #180 cap 02/06/21 [Rx Confirmed 10/16/21] cyanocobalamin (vitamin B-12) 1,000 mcg tablet (Vitamin B-12) 1,000 mcg PO DAILY 04/12/21 [History Confirmed 10/16/21] diclofenac sodium 1 % topical gel 2 g TOPICAL QID PRN 04/12/21 [History Confirmed 10/16/21] glimepiride 2 mg tablet 2 mg PO BIDM 04/12/21 [History Confirmed 10/16/21] sitagliptin 100 mg tablet (Januvia) 100 mg PO DAILY 04/12/21 [History Confirmed 10/16/21] tamsulosin 0.4 mg capsule 0.4 mg PO DAILY #30 cap 08/09/21 [Rx Confirmed 10/16/21] leflunomide 10 mg tablet 10 mg PO DAILY 10/16/21 [History Confirmed 10/16/21] Active Medications Sodium Chloride (Nss) 500 mls @ 125 mls/hr IV .Q4H MARJORIE Stop: 11/15/21 18:29 Last Admin: 10/16/21 20:10 Dose: 125 mls/hr Documented by: Lactated Ringer's (Lr) 1,000 mls @ 100 mls/hr IV .Q10H ONE Stop: 10/17/21 06:29 Sodium Chloride (Nss) 500 mls @ 125 mls/hr IV .Q4H MARJORIE Stop: 11/15/21 18:29 Last Admin: 10/16/21 20:10 Dose: 125 mls/hr Documented by: [id number] Discontinued Medications Thiamine HCl 300 mg/ Sodium (Chloride) 53 mls @ 212 mls/hr IV NOW STA Stop: 10/16/21 20:34 Last Admin: 10/16/21 21:09 Dose: 212 mls/hr Documented by: [id number] Insulin Human Regular (Novolin-R Insulin Per Unit Charge) 4 units IV NOW STA Stop: 10/16/21 20:21 Last Admin: 10/16/21 21:10 Dose: 4 units Documented by: [id number] Cosigned by: [id number] ECG Additional Comments: Pending on admission Code Status & VTE Plan Code Status CODE: DNR/DNI- discussed with as patient comprehension is questionable VTE: SCDs, VTE Prophylaxis Plan VTE Prophylaxis will be ordered: Yes Supervising Physician Co-Signing Physician Notes Patient seen and examined, chart reviewed, case discussed with MILVIA Nance and I agree with the assessment and plan as above. PG Care Time/CCT Total # of Minutes Spent Total Time Spent with Patient: Total time spent is greater than 50% in coordination of care (as documented) at patient's floor/unit and/or counseling patient: Coding Level of Care Code 68929 Initial Inpt Care Lvl 3 Diagnoses Dementia F03.90 Delirium R41.0 Ambulatory dysfunction R26.2 Acute kidney injury superimposed on chronic kidney disease N17.9; N18.9 Hyperglycemia R73.9 Rheumatoid arthritis involving multiple sites with positive rheumatoid factor M05.79 Sensorineural hearing loss of both ears H90.3 Depression with anxiety F41.8 Chronic obstructive pulmonary disease J44.9 Anemia D64.9 Weight loss R63.4
[2021-10-16 21:54] LABS: Amphetamines+Metham, Urine Neg (Neg); Barbiturates, Urine Neg (Neg); Benzodiazepine, Urine Neg (Neg); Cocaine, Urine Neg (Neg); MDMA (Ecstacy), Urine Neg (Neg); Methadone, Urine Neg (Neg); Opiate, Urine Neg (Neg); Phencyclidine, Urine Neg (Neg)
[2021-10-16] MEDS ORDERED: CARBOHYDRATES FOR HYPOGLYCEMIA PO PRN (22:17)
[2021-10-16] MEDS ORDERED: ALBUTEROL HFA 8 GM INHALER INH PRN (22:17)
[2021-10-16] MEDS ORDERED: GLUCOSE 10 TABS/TUBE PO PRN (22:17)
[2021-10-16] MEDS ORDERED: GLUCAGON FOR INJ 1 MG VIAL SQ PRN (22:17)
[2021-10-16] MEDS ORDERED: GLUCOSE 40% GEL 15 GM TUBE PO PRN (22:17)
[2021-10-16] MEDS ORDERED: SIMVASTATIN 40 MG TAB PO SCH (22:17)
[2021-10-16] MEDS ORDERED: DEXTROSE 50% 50 ML SYRINGE IV PRN (22:17)
[2021-10-16] MEDS: VENLAFAXINE HCL XR 150 MG CAPXR PO SCH (23:02)
[2021-10-17 06:01] LABS: Basophils # (auto) 0.03 K/uL (0-0.2); Basophils % (auto) 0.4 %; Eosinophils # (auto) 0.19 K/uL (0-0.5); Eosinophils % (auto) 2.5 %; Hematocrit (blood only) 32.8 % (42-52); Immature Granulocytes # (auto) 0.01 K/uL (0.00-0.02); Immature Granulocytes % (auto) 0.1 %; Lymphocytes # (auto) 1.24 K/uL (1.2-3.4); Lymphocytes % (auto) 16.4 %; Mean Corpuscular Hemoglobin 31.2 pg (25-34); Mean Corpuscular Hgb Conc 33.5 g/dL (32-36); Mean Corpuscular Volume 92.9 fL (80-100); Mean Platelet Volume 11.6 fL (7.4-10.4); Monocytes # (auto) 0.28 K/uL (0.11-0.59); Monocytes % (auto) 3.7 %; Neutrophils # (auto) 5.81 K/uL (1.4-6.5); Neutrophils % (auto) 76.9 %; Platelet Count 113 K/uL (130-400); RDW Coefficient of Variation 14.1 % (11.5-14.5); RDW Standard Deviation 47.7 fL (36.4-46.3); Red Blood Count 3.53 M/uL (4.7-6.1); White Blood Count 7.56 K/uL (4.8-10.8)
[2021-10-17 06:19] LABS: BUN Creatinine Ratio 22.9 (10-20); Calcium 8.4 mg/dl (8.5-10.1); Creatinine Clr Calc Pharmacy 34.5 ml/min; Est GFR (African American) 39.3 ml/min; Est GFR (Non-African American) 33.9 ml/min; Magnesium 1.9 mg/dl (1.7-2.4); Potassium 3.8 mmol/L (3.5-5.1)
[2021-10-17 07:00] LABS: Folate (Folic Acid) 5.48 ng/ml (>5.38)
[2021-10-17] MEDS: FOLIC ACID 1 MG TAB PO SCH (08:09)
[2021-10-17] MEDS: LEFLUNOMIDE 10 MG TAB PO SCH (08:10)
[2021-10-17] MEDS: VENLAFAXINE HCL XR 150 MG CAPXR PO SCH ×2 (08:10→20:29)
[2021-10-17] MEDS: ASPIRIN 325 MG ECTAB PO SCH (08:10)
[2021-10-17] MEDS ORDERED: MELATONIN 3 MG TAB PO PRN (08:49)
[2021-10-17] MEDS: INSULIN ASPART PER UNIT SC SCH ×4 (09:11→20:30)
--- NOTE | 2021-10-17 10:41 | Electroencephalogram ---
EEG Procedure Note Date of Service October 17, 2021 Start / End Times Start Time: 8:34 AM End Time: 8:54 AM Referring Physician Aundrea Jimenez History Absence seizure's? Delirium, dementia. Home Medication List Medication Instructions Recorded Confirmed Type albuterol sulfate 90 mcg/actuation 2 puff INHALATION Q8H PRN #1 gm 03/23/19 10/16/21 History aerosol inhaler aspirin 325 mg tablet,delayed 325 mg PO DAILY tab 03/23/19 10/16/21 History release gtbovdmc-vmn-dwflv acid 300 1 tab PO DAILY 09/17/20 10/16/21 History mcg-lycopene 600 mcg-lutein 300 mcg tablet (Centrum Silver Men) folic acid 1 mg tablet 1 mg PO DAILY #30 tab 12/21/20 10/16/21 Rx atenolol 100 mg tablet 100 mg PO DAILY #90 tab 02/06/21 10/16/21 Rx lisinopril 5 mg tablet 5 mg PO DAILY #90 tab 02/06/21 10/16/21 Rx simvastatin 40 mg tablet 40 mg PO QPM #90 tab 02/06/21 10/16/21 Rx trazodone 100 mg tablet 100 mg PO QPM #90 tab 02/06/21 10/16/21 Rx venlafaxine 150 mg 150 mg PO BID #180 cap 02/06/21 10/16/21 Rx capsule,extended release 24 hr cyanocobalamin (vitamin B-12) 1,000 mcg PO DAILY 04/12/21 10/16/21 History 1,000 mcg tablet (Vitamin B-12) diclofenac sodium 1 % topical gel 2 g TOPICAL QID PRN 04/12/21 10/16/21 History glimepiride 2 mg tablet 2 mg PO BIDM 04/12/21 10/16/21 History sitagliptin 100 mg tablet (Januvia) 100 mg PO DAILY 04/12/21 10/16/21 History tamsulosin 0.4 mg capsule 0.4 mg PO DAILY #30 cap 08/09/21 10/16/21 Rx leflunomide 10 mg tablet 10 mg PO DAILY 10/16/21 10/16/21 History Inpatient Medication List Aspirin (Aspirin 325 Mg Ectab) 325 mg PO DAILY MARJORIE Stop: 11/16/21 08:59 Last Admin: 10/17/21 08:10 Dose: 325 mg Documented by: [id number] Folic Acid (Folic Acid 1 Mg Tab) 1 mg PO DAILY MARJORIE Stop: 11/16/21 08:59 Last Admin: 10/17/21 08:09 Dose: 1 mg Documented by: [id number] Insulin Aspart (Insulin Aspart Per Unit) 0 units SC ACHS MARJORIE Stop: 11/16/21 07:29 Last Admin: 10/17/21 09:11 Dose: 4 units Documented by: [id number] Cosigned by: [id number] Leflunomide (Leflunomide 10 Mg Tab) 10 mg PO DAILY MARJORIE Stop: 11/16/21 08:59 Last Admin: 10/17/21 08:10 Dose: 10 mg Documented by: [id number] Simvastatin (Simvastatin 40 Mg Tab) 40 mg PO QPM MARJORIE Stop: 11/15/21 22:16 Last Admin: 10/16/21 23:02 Dose: 40 mg Documented by: [id number] Venlafaxine HCl (Venlafaxine Hcl Xr 150 Mg Capxr) 150 mg PO BID MARJORIE Stop: 11/15/21 22:16 Last Admin: 10/17/21 08:10 Dose: 150 mg Documented by: [id number] Admin: 10/16/21 23:02 Dose: 150 mg Documented by: [id number] Discontinued Medications Sodium Chloride (Nss) 500 mls @ 125 mls/hr IV .Q4H MARJORIE Stop: 11/15/21 18:29 Last Infusion: 10/16/21 22:24 Dose: 0 mls/hr Documented by: [id number] Infusion: 10/16/21 22:23 Dose: 0 mls/hr Documented by: [id number] Admin: 10/16/21 20:10 Dose: 125 mls/hr Documented by: [id number] Thiamine HCl 300 mg/ Sodium (Chloride) 53 mls @ 212 mls/hr IV NOW STA Stop: 10/16/21 20:34 Last Infusion: 10/16/21 21:40 Dose: 0 mls/hr Documented by: [id number] Admin: 10/16/21 21:09 Dose: 212 mls/hr Documented by: [id number] Lactated Ringer's (Lr) 1,000 mls @ 100 mls/hr IV .Q10H ONE Stop: 10/17/21 06:29 Last Infusion: 10/17/21 09:06 Dose: 0 mls/hr Documented by: [id number] Admin: 10/16/21 22:35 Dose: 100 mls/hr Documented by: [id number] Insulin Human Regular (Novolin-R Insulin Per Unit Charge) 4 units IV NOW STA Stop: 10/16/21 20:21 Last Admin: 10/16/21 21:10 Dose: 4 units Documented by: [id number] Cosigned by: [id number] Description This is a 21 electrode EEG with a single channel dedicated to limited EKG. The electrodes were placed in accordance with the International 10-20 system. The predominant background rhythm consists largely of low to moderate amplitude 6 Hz theta frequency. A normal-appearing alpha rhythm is not well seen. There is a symmetric frontal beta rhythm. There is frequent intermittent movement artifact throughout the study. Photic stimulation is unremarkable. Hyperventilation is not performed. There is no focal slowing. There are no abnormal rhythmic or synchronous discharges, no epileptiform abnormalities. Interpretation Abnormal awake/drowsy EEG with evidence of a nonspecific encephalopathy of moderate severity. No supportive evidence of subclinical seizure activity. [facility] EEG Procedure Codes Indication for Procedure (1) Delirium: (2) Dementia: Neurology Neurology: [id number] EEG include record awake & drowsy
--- NOTE | 2021-10-17 11:30 | Electrocardiogram Report ---
Test Reason : Blood Pressure : / mmHG Vent. Rate : 075 BPM Atrial Rate : 075 BPM P-R Int : 176 ms QRS Dur : 142 ms QT Int : 458 ms P-R-T Axes : 064 -42 003 degrees QTc Int : 511 ms Normal sinus rhythm Left axis deviation Right bundle branch block Abnormal ECG When compared with ECG of 12-APR-2021 11:47, T wave inversion more evident in Anterior leads QT has lengthened Confirmed by Elio Ann ([id number]) on 10/17/2021 11:30:17 AM Referred By: Gael Rogers Confirmed By:Ernesto Ann
--- NOTE | 2021-10-17 13:02 | XRay Report ---
KUB HISTORY: Acute generalized abdominal pain Abdominal pain COMPARISON: Chest CT 10/16/2016 FINDINGS: Nonobstructive bowel gas pattern. Moderate fecal retention. Cardiomegaly. Renal shadows are mostly obscured by bowel gas. No renal calculi. No ureteral calculi. No pneumoperitoneum or pneumat osis. Degenerative changes of the spine. No fracture. IMPRESSION: 1. Nonobstructive bowel gas pattern. 2. Moderate fecal retention. ACT 112: Negative or not required by law. The above report was generated using voice recognition software. It may contain grammatical, syntax o r spelling errors. Electronically signed by: Jun Faust M.D. 10/17/2021 1:01 PM
--- NOTE | 2021-10-17 13:35 | Hospitalist Progress Note ---
Date of Service October 17, 2021 Assessment & Plan (1) Acute alteration in mental status: Plan: AMS -Acute AMS with decrease in functioning, ADLs, impaired decision-making -Unclear etiology at this time- less likely to be infectious, traumatic, medication/substance-induced. CBC, TSH, UA, urine toxicology negative. Possibly vascular dementia given poorly controlled diabetes, only low-intensity statin use, also supported by history of medication non-compliance -CT Head without acute process -EEG 10/17- abnormal but no evidence of seizure activity, showing moderate severity encephalopathy -MRI brain ordered -Continue thiamine supplementation as Wernicke encephalopathy remains on differential -Neurology consult placed -Consider psychiatry consult as this may be acute psychosis/clemente if other causes excluded Dementia: -Neurocognitive testing in 2013- mild cognitive impairment likely related to microvascular disease -No history of dementia medication, has likely worsened over past 8 years -Consider starting donepezil, possibly on discharge Hyperlipidemia -Lipid panel 10/17 wnl -Home med- simvastatin 40 mg daily -Despite normal lipid panel, given pt's age and DM2 diagnosis, switched to high- intensity rosuvastatin 20 mg Abdominal pain -KUB 10/17- moderate fecal retention, non-obstructive bowel gas pattern -Consistent with clinical history of recent constipation and findings on abdominal exam -Initiated bowel regimen- Senna, Colace, followed by Miralax this evening. Dulcolax PRN. Ambulatory dysfunction: - Worsening with ambulation and balance over past 2 weeks - B12 level slightly high at 1400, folate wnl - Reportedly wide-based shuffling gait but history and neuro exam does not suggest Parkinsonian disease - CT Head- no evidence of hydrocephalus - Continue PT/OT Malnutrition -13 lb weight loss in 6 weeks, due to poor PO intake limited to candy -Current weight 73.9 kg, down from usual weight 79 kg -BMP wnl -Encourage dietary intake, measure weight periodically JONNY on CKD3 -BUN 43, Cr 2.3 on admission. Likely due to dehydration 2/2 poor PO intake -BUN, Cr improved to 43, 1.88 s/p LR bolus -Holding home lisinopril, BP stable -Can resume once Cr back to baseline around 1.7 and BP stable DM2 -Poorly uncontrolled DM with A1C of 10% last month -Suspect inadequate glycemic control contributed to microvascular ischemia- worsening vascular dementia -Novolog ISS, CF 20, CR 1:15 Rheumatoid arthritis -Continue home leflunomide Sensorineural hearing loss of both ears: - [facility] - Very hard of hearing- this may be adding to his delirium - may be able to bring his hearing aids from home Depression with anxiety: -Continue home Venlafaxine Chronic obstructive pulmonary disease: -Continue albuterol PRN -Stable respiratory status at present (2) Delirium: (3) Dementia: (4) Hyperglycemia: (5) Acute kidney injury superimposed on chronic kidney disease: (6) Rheumatoid arthritis involving multiple sites with positive rheumatoid factor: Admission and Anticipated Discharge Date Admission Date: October 16, 2021 Supervising Physician Co-Signing Physician Notes I also saw the patient and confirmed lloyd portions of the history and the physical examination. Agree with the impression and plan as noted in the resident/medical student documentation and as summarized below. 75-year-old male with past medical history of COPD, RA, hypertension, diabetes, and CKD stage III was seen in the emergency department after being referred from his PCP office due to a decline in his overall status for the past 2 to 3 weeks. Per patient's family, the patient declining his ability to do things for himself, including activities of daily living. Also noted to have recurrent falls and a worsening gait. Reportedly, the also noted the patient's mood to be overly/excessively euphoric, being overly jovial, laughing, and animated. He had been taking some [id number] testosterone supplementation, and his diet has been mostly things such as donuts, candy, cookies, ice cream, and chips. Exam 118/68, 77, 18, 36.7, 95% on room air Upon morning rounds, he is awake and oriented. He is hard of hearing. He has no complaints Heart is regular Lungs are clear with nonlabored respirations Data Hemoglobin 11, platelet count 113 Sodium 135, BUN 43, creatinine 1.88. Creatinine is down from 2.27 yesterday. Ammonia 20. LFTs are within normal limits. Vitamin B12 1394 Folate 5.48 TSH 0.452 Urinalysis done upon presentation was unremarkable except for trace glucose. Blood cultures drawn 10/17/2021 are pending Urine toxicology screen is negative An EEG shows an abnormal awake/drowsy EEG with evidence of nonspecific encephalopathy of moderate severity. Imaging A chest x-ray dated 11/13/2021 shows cardiomegaly without edema, chronic interstitial coarsening, and atelectasis. A head CT showed no acute changes KUB showed nonobstructive bowel gas pattern. Moderate fecal retention. Impression and Plan Mental status change/encephalopathy There is noted to be history of mild cognitive impairment, although the significant mental status changes seem to be odd (more behavioral) and more acute than would be associated with a vascular/Alzheimer's dementia. MRI brain today Neurology consult Consider psychiatric consult Check Lyme antibodies with AM studies His history of rheumatoid arthritis is noted, as encephalopathy can be an extra- articular manifestation of RA. Subjective Overnight, pt unresponsive upon arrival to floor from ED- noted to be walking into room and not responding to commands, started to have labored breathing. Pt became responsive shortly after without intervention and VSS remained stable, he could not recall this event afterward. On evaluation this morning, pt states he feels fine, though assessment limited by patient's mental status and hearing impairment. Later stated he hasn't had a bowel movement in quite some time. Review of Systems Review of Systems: All systems reviewed & are unremarkable except as noted in Subjective Physical Exam Physical Exam: General: awake, alert, no apparent distress, sitting calmly in bed, disheveled HEENT: NCAT, moist mucous membranes, EOMI, +moderate-severe hearing impairment CV: RRR, normal S1, S2, no JVD or peripheral edema, capillary refill <2 seconds, distal pulses 2+ Resp: CTAB, unlabored respirations Abd: slightly firm, nondistended, mild epigastric and periumbilical tenderness Skin: warm, dry, no rash or erythema Neuro: AOx2 to person and place, impaired short-term recall, no gross focal motor or sensory deficits Psych: elevated mood, inappropriately friendly affect Results & Data Results & Data ([facility]) Vital Signs (Past 12 Hours) Vital Signs Temp Pulse Resp BP Pulse Ox 10/17/21 11:29 36.8 C 70 18 126/64 93 10/17/21 06:46 36.8 C 67 20 121/63 97 10/17/21 03:05 36.5 C 68 20 119/66 94 Resident Activity Tracking Resident Involvement: Resident Care Provided Care Provided: [facility]
[2021-10-17] MEDS ORDERED: bisacodyL 10 MG SUPP PR PRN (14:25)
[2021-10-17] MEDS: SENNA 8.6 MG TAB PO SCH (15:43)
[2021-10-17] MEDS: TAMSULOSIN HCL 0.4 MG CAP PO SCH (15:44)
[2021-10-17] MEDS ORDERED: hydrOXYzine HCl 10 MG TAB PO PRN (16:35)
[2021-10-17] MEDS ORDERED: GADOBUTROL 65ML VIAL IV ONE (17:02)
--- NOTE | 2021-10-17 17:42 | Magnetic Resonance Report ---
MRI OF THE BRAIN WITHOUT AND WITH IV CONTRAST CLINICAL HISTORY: Acute mental status change, delirium COMPARISON STUDY: MRI of the brain February 02, 2014. Head CT October 16, 2021. TECHNIQUE: Utilizing a 1.5 Gale magnet and dedicated coil, multiplanar, multiecho imaging of the br ain was performed pre and postcontrast administration. IV administration of 7 mL of Gadavist contras t was uneventful. FINDINGS: There are no foci of restricted diffusion to suggest acute infarct. No acute intracranial h emorrhage, midline shift or mass effect is present. Ventricular dilatation is due to central atrophy. Basal cisterns are patent. There are no extra axial collections. No intracranial mass or pathologic enhancement is present. Flow-voids for the major intracranial vessels are present. There is moderate atrophy. White matter T2 hyperintense foci suggest mild small vessel disease. Calvarial signal is nor mal. There is no evidence for sinusitis. IMPRESSION: 1. No acute intracranial findings. 2. No intracranial mass or pathologic enhancement. 3. Moderate atrophy and mild small vessel disease. ACT 112: Negative or not required by law. Electronically signed by: Walter Gomez M.D. 10/17/2021 5:41 PM
[2021-10-17] MEDS: POLYETHYLENE (MIRALAX) 17 GM PACK PO SCH (20:28)
[2021-10-17] MEDS: DOCUSATE SODIUM 100 MG CAP PO SCH (20:29)
[2021-10-18 06:50] LABS: Basophils # (auto) 0.02 K/uL (0-0.2); Basophils % (auto) 0.4 %; Eosinophils # (auto) 0.18 K/uL (0-0.5); Eosinophils % (auto) 3.2 %; Hematocrit (blood only) 32.8 % (42-52); Hemoglobin 11.1 g/dL (14.0-18.0); Immature Granulocytes # (auto) 0.01 K/uL (0.00-0.02); Immature Granulocytes % (auto) 0.2 %; Lymphocytes # (auto) 0.91 K/uL (1.2-3.4); Lymphocytes % (auto) 16.3 %; Mean Corpuscular Hemoglobin 31.3 pg (25-34); Mean Corpuscular Hgb Conc 33.8 g/dL (32-36); Mean Corpuscular Volume 92.4 fL (80-100); Mean Platelet Volume 11.8 fL (7.4-10.4); Monocytes # (auto) 0.15 K/uL (0.11-0.59); Monocytes % (auto) 2.7 %; Neutrophils # (auto) 4.33 K/uL (1.4-6.5); Neutrophils % (auto) 77.2 %; Platelet Count 106 K/uL (130-400); RDW Coefficient of Variation 13.8 % (11.5-14.5); Red Blood Count 3.55 M/uL (4.7-6.1)
[2021-10-18 07:21] LABS: BUN Creatinine Ratio 23.3 (10-20); Calcium 8.5 mg/dl (8.5-10.1); Creatinine Clr Calc Pharmacy 44.4 ml/min; Est GFR (African American) 53.4 ml/min; Est GFR (Non-African American) 46.1 ml/min; Magnesium 1.6 mg/dl (1.7-2.4); Potassium 4.1 mmol/L (3.5-5.1)
[2021-10-18 07:57] LABS: Lyme Ab IgG w/WB Rflx Negative (Negative); Lyme Ab IgM w/WB Rflx Negative (Negative)
--- NOTE | 2021-10-18 10:06 | Hospitalist Progress Note ---
Date of Service October 18, 2021 Assessment & Plan (1) Acute alteration in mental status: Plan: AMS -Acute AMS with decrease in functioning, ADLs, impaired decision-making -Unclear etiology at this time- less likely to be infectious, traumatic, medication/substance-induced. CBC, TSH, UA, urine toxicology, Lyme negative. Possibly vascular dementia given poorly controlled diabetes, only low-intensity statin use, also supported by history of medication non-compliance -CT Head without acute process, MRI brain also negative -EEG 10/17- abnormal but no evidence of seizure activity, showing moderate severity encephalopath -Continue thiamine supplementation as Wernicke encephalopathy remains on differential -Psychiatry consulted Dementia: -Neurocognitive testing in 2013- mild cognitive impairment likely related to microvascular disease -No history of dementia medication, has likely worsened over past 8 years -Neurology consulted: started memantine 10 mg daily today, plan to continue dose for 1 month then 10 mg BID afterward Hyperlipidemia -Lipid panel 10/17 wnl -Home med- simvastatin 40 mg daily -Despite normal lipid panel, given pt's age and DM2 diagnosis, switched to high- intensity rosuvastatin 20 mg on 10/17 -Continue rosuvastatin 20 mg, will monitor liver function as statin therapy continues Constipation, improving -KUB 10/17- moderate fecal retention, non-obstructive bowel gas pattern -Consistent with clinical history of recent constipation and findings on abdominal exam -Initiated bowel regimen 10/18- Senna, Colace, followed by Miralax this evening. Dulcolax PRN. -Pt having normal BMs since initiation, continue bowel regimen Ambulatory dysfunction: - Worsening with ambulation and balance over past 2 weeks - B12 level slightly high at 1400, folate wnl - Reportedly wide-based shuffling gait but history and neuro exam does not suggest Parkinsonian disease - CT Head- no evidence of hydrocephalus - Continue PT/OT Malnutrition -13 lb weight loss in 6 weeks, due to poor PO intake limited to candy -Current weight 73.9 kg, down from usual weight 79 kg -BMP wnl with Mg 1.6 today, repleted -Encourage dietary intake, measure weight periodically JONNY on CKD3, resolving -BUN 43, Cr 2.3 on admission. Likely due to dehydration 2/2 poor PO intake -BUN, Cr improving with LR boluses, Cr 1.5 today -Will resume home lisinopril once Cr remains stable around baseline 1.5-1.7 DM2 -Poorly uncontrolled DM with A1C of 10% last month -Suspect inadequate glycemic control contributed to microvascular ischemia- worsening vascular dementia -Novolog ISS, CF 20, CR 1:15 -BSGs typically 200s, started Lantus 10u daily Rheumatoid arthritis -Continue home leflunomide Sensorineural hearing loss of both ears: - [facility] - Very hard of hearing- this may be adding to his delirium - may be able to bring his hearing aids from home Depression with anxiety: -Continue home Venlafaxine Chronic obstructive pulmonary disease: -Continue albuterol PRN -Stable respiratory status at present (2) Delirium: (3) Dementia: (4) Hyperglycemia: (5) Acute kidney injury superimposed on chronic kidney disease: (6) Rheumatoid arthritis involving multiple sites with positive rheumatoid factor: Admission and Anticipated Discharge Date Admission Date: October 16, 2021 Supervising Physician Co-Signing Physician Notes Patient seen and examined independently of PGY-1 Dr. Yadav. Agree with history, exam findings, assessment and plan of care as outlined. 75 year old male with history of COPD, RA, HTN, DM and CKD Stage 3 referred to the emergency room due to 2 to 3 weeks of overall decline in ability care for himself, recurrent falls. Reporting mouth pain with eating. Notes that he has poor dentition and hurts to chew some foods. Does use hearing aids at home, but does not have them here with him. VS and nursing notes reviewed. Poor dentitionmissing many teeth. No oral lesions or inflammation of the gums. Very hard of hearing. Heart with regular rate and rhythm. Lungs are clear to auscultation. Abdomen is soft, nontender. +bs. Labs, imaging and testing reviewed. 1. Encephalopathy, mental status change. Unclear etiology, but likely related to underlying dementia. MRI brain without acute pathology. EEG showed moderate encephalopathy. Hopeful can bring hearing aids to minimize delirium due to limited hearing. Appreciate neurology and psychiatry recommendations. 2. Dementia. 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 Has not been on donepezil or memantine in the past. Started on memantine 10mg. 3. HLD. Switched to crestor 20mg. 4. Abdominal pain. KUB with moderate fecal retention. Started bowel regimen (senna, colcace, miralax) 5. Ambulatory dysfunction. PT/OT. 6. Protein-calorie malnutrition. Weight has been down. Changed diet to easy to chew given poor dentition. RD consult. 7. JONNY on CKD. Improving following IVFs. Baseline Cr 1.7 8. DM2. A1C >10%. Basal-bolus insulin regiment. 9. RA. Continue home leflunomide. 10. Depression with anxiety. Continue home Effexor. Dispo: pending remaining work up and placement. Subjective No acute events overnight. Pt stated he had a bowel movement yesterday and shortly before evaluation this morning. Reports feeling fine right now aside from poor sleep due to the TV being on all night. Denies acute complaints. Review of Systems Review of Systems: All systems reviewed & are unremarkable except as noted in Subjective Physical Exam Physical Exam: General: awake, alert, no apparent distress, sitting calmly in bed, disheveled HEENT: NCAT, moist mucous membranes, EOMI, +moderate-severe hearing impairment CV: RRR, normal S1, S2, no JVD or peripheral edema, capillary refill <2 seconds, distal pulses 2+ b/l Resp: CTAB, unlabored respirations Abd: less firm, nondistended, non-tender Skin: warm, dry, no rash or erythema Neuro: AOx2 to person and place, poor short-term recall, no gross focal motor or sensory deficits, more steady gait, negative Romberg Psych: elevated mood, inappropriately friendly affect Results & Data Results & Data ([facility]) Vital Signs (Past 12 Hours) Vital Signs Temp Pulse Resp BP Pulse Ox 10/18/21 07:33 36.8 C 81 20 164/79 H 99 10/17/21 22:20 36.7 C 82 20 137/66 95 Resident Activity Tracking Resident Involvement: Resident Care Provided Care Provided: Adult Hospital Medicine
[2021-10-18] MEDS: LEFLUNOMIDE 10 MG TAB PO SCH (10:26)
[2021-10-18] MEDS: ROSUVASTATIN CALCIUM 20 MG TAB PO SCH (10:26)
[2021-10-18] MEDS: FOLIC ACID 1 MG TAB PO SCH (10:26)
[2021-10-18] MEDS: DOCUSATE SODIUM 100 MG CAP PO SCH ×2 (10:26→20:22)
[2021-10-18] MEDS: ASPIRIN 325 MG ECTAB PO SCH (10:26)
[2021-10-18] MEDS: SENNA 8.6 MG TAB PO SCH (10:26)
[2021-10-18] MEDS: VENLAFAXINE HCL XR 150 MG CAPXR PO SCH (10:27)
[2021-10-18] MEDS: INSULIN ASPART PER UNIT SC SCH ×4 (10:32→20:22)
[2021-10-18] MEDS: POLYETHYLENE (MIRALAX) 17 GM PACK PO SCH (10:35)
--- NOTE | 2021-10-18 10:52 | Neurology Consultation ---
Date of Consultation October 18, 2021 Assessment & Plan (1) Acute encephalopathy: (2) Dementia: (3) Frequent falls: (4) Depression with anxiety: (5) Emotional lability: this patient has a fairly significant underlying dementia, likely progressive over time. Etiology is likely mixed with vascular and aging components. 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 MRI of the brain did not show any significant stroke or tumor but there was mild -to-moderate old small vessel ischemic changes. EEG showed no potentially epileptogenic activity. The moderate generalized slowing is nonspecific fits with encephalopathy or dementia. The fact that he had increased confusion more recently is likely a superimposed encephalopathy over his dementia. This is probably multifactorial and may be related to hyperglycemia, mild anemia, and or renal failure, but otherwise no other specific etiologies were identified The patient has some emotional lability (very mild pseudobulbar affect ) which is likely related to the dementia ). Finally, if he was not taking his medications correctly this could lead to a worsening of his mental status. Recommendations: 1. consider memantine 10 mg a day for 1 month and then 10 mg twice a day. 2. physical, occupational, and speech therapy and increase activity as able. 3. I see no need for lumbar puncture or other neurologic testing at this time. 4. The patient should not be driving and probably cannot manage at home unless there is strong home health to support his . Otherwise he may need to be placed. Overall, I spent a total of 100 minutes with this case including review of records, review of MRI films, direct evaluation the patient bedside, and discussion of the case with the patient and RN at bedside, and Dr. Cerda, including differential diagnosis and treatment options. History of Present Illness Reason for Consultation: Patient is a 75-year-old, who I was asked to see at the request of Dr. Yadav, for neurologic consultation regarding acute confusion and other issues. Requesting Physician: Dr. Russell Attending Physician: Jun Cerda, History of Present Illness This patient has a history of hypertension, diabetes, dyslipidemia, rheumatoid arthritis, COPD, and alcoholism in the past. He was diagnosed with mild cognitive impairment since neuropsych testing in 2013 Over the last several weeks he has had increasing confusion with activities of daily living and has episodes of performing things that he has not done before ( such as urinating with his pants up). He has had some weight loss recently and some cramping and numbness in his left lower extremity. He has had unsteady gait and has had some falling. In addition his mood has been "euphoric or variable with becoming overly jovial or than usual. there is history that he was noncompliant with his medications recently also. He arrived to the emergency room October 16 at 4:19 p.m. with temperature 36.4, pulse 67 and regular, respiratory rate 18, blood pressure 111/52, and O2 saturation 93%. He was confused but had no focal neurologic deficits or meningeal signs. He was afebrile and there was no elevated white count. He did have some mild anemia and and glucose was 303. BUN was 43 and creatinine 2.27. TSH, B12, Lyme antibody titers, and urinalysis were unremarkable. Chest x-ray showed cardiomegaly without pulmonary edema and some emphysematous changes. CT scan of the head was unremarkable. MRI of the brain showed no acute changes and moderate generalized atrophy and old small vessel ischemic changes. EEG showed some moderate generalized slowing but nothing focal or spikes. Laboratory studies today were similar to previous although his BUN and creatinine are approved and sugar is down to 124. Allergies Allergy/AdvReac Type Severity Reaction Status Date / Time No Known Allergies Allergy Verified 10/16/21 19:58 Home Medications Medication Instructions Recorded Confirmed Type albuterol sulfate 90 mcg/actuation 2 puff INHALATION Q8H PRN #1 gm 03/23/19 10/16/21 History aerosol inhaler aspirin 325 mg tablet,delayed 325 mg PO DAILY tab 03/23/19 10/16/21 History release hxucbfxx-qoz-gocnb acid 300 1 tab PO DAILY 09/17/20 10/16/21 History mcg-lycopene 600 mcg-lutein 300 mcg tablet (Centrum Silver Men) folic acid 1 mg tablet 1 mg PO DAILY #30 tab 12/21/20 10/16/21 Rx atenolol 100 mg tablet 100 mg PO DAILY #90 tab 02/06/21 10/16/21 Rx lisinopril 5 mg tablet 5 mg PO DAILY #90 tab 02/06/21 10/16/21 Rx simvastatin 40 mg tablet 40 mg PO QPM #90 tab 02/06/21 10/16/21 Rx trazodone 100 mg tablet 100 mg PO QPM #90 tab 02/06/21 10/16/21 Rx venlafaxine 150 mg 150 mg PO BID #180 cap 02/06/21 10/16/21 Rx capsule,extended release 24 hr cyanocobalamin (vitamin B-12) 1,000 mcg PO DAILY 04/12/21 10/16/21 History 1,000 mcg tablet (Vitamin B-12) diclofenac sodium 1 % topical gel 2 g TOPICAL QID PRN 04/12/21 10/16/21 History glimepiride 2 mg tablet 2 mg PO BIDM 04/12/21 10/16/21 History sitagliptin 100 mg tablet (Januvia) 100 mg PO DAILY 04/12/21 10/16/21 History tamsulosin 0.4 mg capsule 0.4 mg PO DAILY #30 cap 08/09/21 10/16/21 Rx leflunomide 10 mg tablet 10 mg PO DAILY 10/16/21 10/16/21 History Patient History Medical History Altered mental status Arthritis of both knees Chronic obstructive pulmonary disease CKD (chronic kidney disease) COVID-19 Depression with anxiety Diabetes mellitus Diverticulitis Erectile dysfunction History of alcoholism History of memory loss Hypercholesterolemia Rheumatoid arthritis involving multiple sites with positive rheumatoid factor Sensorineural hearing loss of both ears Tinnitus, bilateral Surgical History History of appendectomy Family History Mother Cancer Denies family history of Ovarian cancer Prostate cancer Myocardial infarction Breast cancer Colorectal cancer Social History Smoking Status: Unknown if ever smoked Second Hand Exposure: No; Hx Alcohol Use: No Preferred Language: Hungarian Communication Ability: Effective Visual Impairment: No Limitations Hearing Ability: Use of Hearing Aid Security System Analyst Required: No Beliefs That Will Affect Care: None marital status: Current Living Situation: Spouse Current Living Situation Comment: Lives with current occupational status: retired Feels Safe at Home: Yes Childhood Exposure to Second-Hand Smoke: No Dental Care, Regularly: Yes Physical Activity Frequency: Does not Exercise Seatbelt Use: always Sunscreen Use: Yes Assistive Devices: Cane Exam (Neuro) Physical Exam: The patient is awake, alert, and attentive. Speech is normal without any aphasia or dysarthria. The patient can name objects, repeat phrases, and has normal spontaneous speech. he was oriented to his name and the year but not his address, where he is now, his age, the month, or the day. He did know who the president was. He was pleasant and cooperative. He did have some inappropriate laughing mostly when he was given a question that he could not answer. He was observed by the medical student to get tearful when talking about or were [address] in the [place] with his father and himself. Pupils are 3 mm bilaterally and reactive to light. Extraocular eye muscles are intact without nystagmus. Visual acuity and visual bocanegra seem normal grossly to confrontation. There are no deficits to sensation in the face in all 3 distributions of the fifth cranial nerve bilaterally. Corneal reflexes are positive bilaterally. Facial strength and symmetry was normal bilaterally. Hearing seems normal bilaterally. Palate moves well without asymmetry. There is normal sternocleidomastoid and trapezius (shoulder shrug) strength bilaterally. Tongue is midline with good strength bilaterally. Neck has a full range of motion without discomfort. There are no cervical bruits bilaterally. There are no cranial or ocular bruits. Heart is without murmur. There is a regular rhythm and rate. Cervical, thoracic, and lumbar spine are nontender to palpation. Gait was not tested, but stance sitting was reasonable With outstretched arms there is no drift. There are no resting, postural, or action tremors. There is no ataxia with finger to nose testing. There is good facility in the hands. No other abnormal involuntary movements are noted. Motor strength is 5/5 diffusely in the arms bilaterally including deltoids, biceps, triceps, brachioradialis, wrist flexors and extensors, professional sports scout, and intrinsic hand muscles. Motor strength is 5/5 diffusely in the legs bilaterally including hip flexors, quadriceps, hamstrings, gastrocnemius, tibialis anterior, tibialis posterior, and Peroneii muscles. Toe extensors are normal and there is good bulk in the extensor digitorum brevis muscles bilaterally. The limbs have good tone without rigidity or spasticity. There is no atrophy noted in the muscles. Muscle bulk is normal, there is no tenderness to palpation, no myotonia to percussion, and no fasciculations seen. Sensory examination is intact to touch and pin throughout all 4 limbs diffusely. Reflexes are 1/4 in the biceps, triceps, brachioradialis, and quadriceps, tendons bilaterally. Achilles tendon reflexes were absent bilaterally. There is no clonus bilaterally. Toes are downgoing with plantar stimulation bilaterally. Peripheral pulses are present and of normal quality distally in all 4 limbs. There is no peripheral edema noted in the limbs. Results & Data ([facility]) Vital Signs (Past 12 Hours) Vital Signs Temp Pulse Resp BP Pulse Ox 10/18/21 07:33 36.8 C 81 20 164/79 H 99 PG Care Time/CCT Total # of Minutes Spent Total Time Spent with Patient: Total time spent is greater than 50% in coordination of care (as documented) at patient's floor/unit and/or counseling patient: Coding Level of Care Code 35081 Office/Outpt Visit, New Diagnoses Acute encephalopathy G93.40 Dementia F03.90 Frequent falls R29.6 Depression with anxiety F41.8 Emotional lability R45.86
[2021-10-18] MEDS: MAGNESIUM CHLORIDE 64MG DELAYED REL TAB PO SCH (11:35)
[2021-10-18] MEDS: INSULIN GLARGINE SOLOSTAR 100 UNITS/ML 3 ML PEN SC SCH (13:57)
[2021-10-18] MEDS: MEMANTINE HCL 10 MG TAB PO SCH (13:57)
--- NOTE | 2021-10-18 14:41 | Psychiatric Consultation ---
Date of Consultation October 18, 2021 Impression / Recommendations Impression Diagnostically consistent with encephalopathy/hyperactive delirium superimposed on progressive dementia. Suspect resolving hyponatremia and nutritional deficiencies due to decreased oral intake may have set off delirium and EEG confirms encephalopathic process and consistent with waxing/waning attention and orientation. No evidence for primary psychiatric condition driving symptoms especially with no history of clemente and known history of dementia and worsening memory and behavioral changes in recent months and weeks suggestive of ongoing progression. His changing dietary preference for sweeter foods is also consistent with advanced dementia. Given balance/gait changes, periods of urinary incontinence, more rapid worsening of memory/personality changes and enlarged ventricles would keep normopressure hydrocephalus on the differential though defer to neurology if they feel this could be contributing/requires further workup. Would consider potential interventions to help with mouth pain as this will improve his quality of life and should help improve nutritional intake. Decreased Effexor XR to 150mg qd given his older age, CKD and elevated QTc. Would continue to monitor QTc closely and consider further taper to potential discontinuation if QTc remains >500 ms. (1) Acute hyperactive delirium due to multiple etiologies: (2) Major neurocognitive disorder: -scheduled melatonin 3mg qhs to help with delirium and sundowning -decreased venlafaxine ER to 150mg qd -consider topical cream/mouth rinse to help with mouth pain -would have bring in hearing aids -continue to monitor QTc closely -Continue medical workup to rule out and treat any underlying causes contributing to potential delirium, avoid or limit use of deliriogenic medications (benzodiazepines, opioids, anticholinergics) -Continue with delirium prevention measures: raising blinds during the day, closing at night, frequent re-orientation, contact with family/friends, explaining procedures/nursing care measures prior to physical contact, correct any hearing and visual impairments Psych History Identifying Data 75 yo man with a history of mild neurocognitive impairment d/t vascular changes, RA,diabetes, CKD, depression and alcohol use disorder in sustained remission admitted medically for weight loss, worsening memory with confusion and mood lability. Psychiatry was consulted for recommendations regarding diagnostic clarification. Chief Complaint "I'm good". History of Present Illness Danial has a history of cognitive impairment first diagnosed in 2013 with worsening memory, balance, mood lability and behavioral changes over the last few weeks. He's been falling more frequently/difficulty with ambulation, struggling to dress himself/confused about how to put on pants, wandering, having periods of urinary incontinence, decreased appetite with weight loss/only desiring candy/donuts/chips, decreased sleep (often awake watching youtube videos for hours), decreased adherence with his medications and increased mood lability. He has significant hearing loss and requires hearing aids which his currently has at home as she was understandably concerned he may lose them while in the hospital. His hearing loss significantly limits his ability to participate in an interview but he can endorse "good" mood though notes he is very uncomfortable from mouth pain. States he woke up one morning and "my teeth were like this, dissolved, even my dentist was alarmed". He states the mouth pain is causing him to not want to talk or eat because it hurts. He describes the pain as "imagine if someone cut your gums in all different directions with a knife and then you put salt water in the wounds and then you chewed on glass". He was oriented to pers on, place (hospital), month (Sep) and year (2021). Past Psychiatric History Previous Psych History: hx depression and anxiety; per ED note no history of BPAD nor clemente Outpatient Services: none Previous Psych Admissions: none known Past Medication Trials: had been taking trazodone 100mg qhs and effexor XR 150mg BID up until he stopped taking them due to waning adherence a few months ago Allergies Allergy/AdvReac Type Severity Reaction Status Date / Time No Known Allergies Allergy Verified 10/16/21 19:58 Home Medications Medication Instructions Recorded Confirmed Type albuterol sulfate 90 mcg/actuation 2 puff INHALATION Q8H PRN #1 gm 03/23/19 10/16/21 History aerosol inhaler aspirin 325 mg tablet,delayed 325 mg PO DAILY tab 03/23/19 10/16/21 History release xjkisafr-dqz-kfcbe acid 300 1 tab PO DAILY 09/17/20 10/16/21 History mcg-lycopene 600 mcg-lutein 300 mcg tablet (Centrum Silver Men) folic acid 1 mg tablet 1 mg PO DAILY #30 tab 12/21/20 10/16/21 Rx atenolol 100 mg tablet 100 mg PO DAILY #90 tab 02/06/21 10/16/21 Rx lisinopril 5 mg tablet 5 mg PO DAILY #90 tab 02/06/21 10/16/21 Rx simvastatin 40 mg tablet 40 mg PO QPM #90 tab 02/06/21 10/16/21 Rx trazodone 100 mg tablet 100 mg PO QPM #90 tab 02/06/21 10/16/21 Rx venlafaxine 150 mg 150 mg PO BID #180 cap 02/06/21 10/16/21 Rx capsule,extended release 24 hr cyanocobalamin (vitamin B-12) 1,000 mcg PO DAILY 04/12/21 10/16/21 History 1,000 mcg tablet (Vitamin B-12) diclofenac sodium 1 % topical gel 2 g TOPICAL QID PRN 04/12/21 10/16/21 History glimepiride 2 mg tablet 2 mg PO BIDM 04/12/21 10/16/21 History sitagliptin 100 mg tablet (Januvia) 100 mg PO DAILY 04/12/21 10/16/21 History tamsulosin 0.4 mg capsule 0.4 mg PO DAILY #30 cap 08/09/21 10/16/21 Rx leflunomide 10 mg tablet 10 mg PO DAILY 10/16/21 10/16/21 History Substance Abuse History remote alcohol use, in sustained remission Personal History Living Arrangements: Home (with his ) Marital Status: Beliefs That Will Affect Care: None Patient History Medical History (Updated 10/18/21 @ 15:03 by Corie Candelaria MD) Altered mental status Arthritis of both knees Chronic obstructive pulmonary disease CKD (chronic kidney disease) COVID-19 Depression with anxiety Diabetes mellitus Diverticulitis Erectile dysfunction History of alcoholism History of memory loss Hypercholesterolemia Major neurocognitive disorder Rheumatoid arthritis involving multiple sites with positive rheumatoid factor Sensorineural hearing loss of both ears Tinnitus, bilateral Surgical History History of appendectomy Family History Mother Cancer Denies family history of Ovarian cancer Prostate cancer Myocardial infarction Breast cancer Colorectal cancer Social History Smoking Status: Unknown if ever smoked Second Hand Exposure: No; Hx Alcohol Use: No Preferred Language: Kazakh Communication Ability: Effective Visual Impairment: No Limitations Hearing Ability: Use of Hearing Aid Powder And Primer Canning Leader Required: No Beliefs That Will Affect Care: None marital status: Current Living Situation: Spouse Current Living Situation Comment: Lives with current occupational status: retired Feels Safe at Home: Yes Childhood Exposure to Second-Hand Smoke: No Dental Care, Regularly: Yes Physical Activity Frequency: Does not Exercise Seatbelt Use: always Sunscreen Use: Yes Assistive Devices: Cane Physical Exam Psychiatric: Orientation: alert and oriented x 3 Apperance: appropriately dressed and appropriately groomed Eye Contact: good eye contact Motor Behavior: no abnormal motor movements Speech: normal rate/rhythm/volume of speech Affect: euthymic affect Mood: no depressed mood, no anxious mood and no irritable mood Thought Process: goal directed thought process Thought Content: reality based without delusions Suicidal Thoughts: denies suicidal thoughts Homicidal Thoughts: denies homicidal thoughts Hallucinations: no auditory hallucinations and no visual hallucinations Cognition: remote memory grossly intact, attention grossly intact and language grossly intact; + recent memory not intact Insight: + impaired insight Judgement: + impaired judgement Vital Signs (Past 24 Hours): Last Vital Signs Temp 36.8 C 10/18/21 07:33 Pulse 81 10/18/21 07:33 Resp 20 10/18/21 07:33 BP 164/79 H 10/18/21 07:33 Pulse Ox 99 10/18/21 07:33 Review of Systems All systems reviewed & are unremarkable except as noted in HPI & below Results & Data (PSY) Diagnostic Findings MRI brain showed atrophy and enlarged ventricles EKG QTc 511 ms Medications Administered Aspirin (Aspirin 325 Mg Ectab) 325 mg PO DAILY [facility] Stop: 11/16/21 08:59 Last Admin: 10/18/21 10:26 Dose: 325 mg Documented by: [id number] Admin: 10/17/21 08:10 Dose: 325 mg Documented by: [id number] Docusate Sodium (Docusate Sodium 100 Mg Cap) 100 mg PO BID MARJORIE Stop: 11/16/21 20:59 Last Admin: 10/18/21 10:26 Dose: 100 mg Documented by: [id number] Admin: 10/17/21 20:29 Dose: 100 mg Documented by: [id number] Folic Acid (Folic Acid 1 Mg Tab) 1 mg PO DAILY MARJORIE Stop: 11/16/21 08:59 Last Admin: 10/18/21 10:26 Dose: 1 mg Documented by: [id number] Admin: 10/17/21 08:09 Dose: 1 mg Documented by: [id number] Insulin Aspart (Insulin Aspart Per Unit) 0 units SC ACHS [facility] Stop: 11/16/21 07:29 Last Admin: 10/18/21 12:28 Dose: 6 units Documented by: [id number] Cosigned by: [id number] Admin: 10/18/21 10:32 Dose: 1 units Documented by: [id number] Cosigned by: [id number] Admin: 10/17/21 20:30 Dose: 6 units Documented by: [id number] Cosigned by: [id number] Admin: 10/17/21 17:57 Dose: Not Given Documented by: [id number] Admin: 10/17/21 12:25 Dose: 7 units Documented by: [id number] Cosigned by: [id number] Admin: 10/17/21 09:11 Dose: 4 units Documented by: [id number] Cosigned by: [id number] Insulin Glargine (Insulin Glargine Solostar 100 Units/Ml 3 Ml Pen) 10 units SC DAILY [facility] Stop: 11/17/21 12:59 Last Admin: 10/18/21 13:57 Dose: 10 units Documented by: [id number] Cosigned by: [id number] Leflunomide (Leflunomide 10 Mg Tab) 10 mg PO DAILY [facility] Stop: 11/16/21 08:59 Last Admin: 10/18/21 10:26 Dose: 10 mg Documented by: [id number] Admin: 10/17/21 08:10 Dose: 10 mg Documented by: [id number] Magnesium Chloride (Magnesium Chloride 64mg Delayed Rel Tab) 64 mg PO QAM [facility] Stop: 11/17/21 09:59 Last Admin: 10/18/21 11:35 Dose: 64 mg Documented by: [id number] Memantine (Memantine Hcl 10 Mg Tab) 10 mg PO QAM [facility] Stop: 11/17/21 12:14 Last Admin: 10/18/21 13:57 Dose: 10 mg Documented by: [id number] Polyethylene Glycol (Polyethylene (Miralax) 17 Gm Pack) 17 gm PO DAILY MARJORIE Stop: 11/16/21 19:59 Last Admin: 10/18/21 10:35 Dose: 17 gm Documented by: [id number] Admin: 10/17/21 20:28 Dose: 17 gm Documented by: [id number] Rosuvastatin Calcium (Rosuvastatin Calcium 20 Mg Tab) 20 mg PO QAM [facility] Stop: 11/17/21 08:59 Last Admin: 10/18/21 10:26 Dose: 20 mg Documented by: [id number] Sennosides (Senna 8.6 Mg Tab) 17.2 mg PO [facility] Stop: 11/16/21 14:44 Last Admin: 10/18/21 10:26 Dose: 17.2 mg Documented by: [id number] Admin: 10/17/21 15:43 Dose: 17.2 mg Documented by: [id number] Simvastatin (Simvastatin 40 Mg Tab) 40 mg PO QPM [facility] Stop: 11/15/21 22:16 Last Admin: 10/16/21 23:02 Dose: 40 mg Documented by: [id number] Tamsulosin HCl (Tamsulosin Hcl 0.4 Mg Cap) 0.4 mg PO DAILY@1630 [facility] Stop: 11/16/21 16:29 Last Admin: 10/17/21 15:44 Dose: 0.4 mg Documented by: [id number] Coding Level of Care Code 04027 Inpt Consult Level 3 Diagnoses Acute hyperactive delirium due to multiple etiologies F05 Major neurocognitive disorder F03.90
[2021-10-18] MEDS ORDERED: BENZOCAINE 20% (ORAJEL) 11.9 GM TUBE MT PRN (14:44)
[2021-10-18] MEDS: TAMSULOSIN HCL 0.4 MG CAP PO SCH (17:15)
[2021-10-18] MEDS ORDERED: COUGH DROP (SUGAR FREE) LOZ 24 LOZ/1 BOX BUCCAL PRN (17:20)
[2021-10-18] MEDS: MELATONIN 3 MG TAB PO SCH (20:22)
[2021-10-19 06:39] LABS: Basophils # (auto) 0.02 K/uL (0-0.2); Basophils % (auto) 0.4 %; Eosinophils % (auto) 2.1 %; Hematocrit (blood only) 35.5 % (42-52); Hemoglobin 11.9 g/dL (14.0-18.0); Immature Granulocytes # (auto) 0.01 K/uL (0.00-0.02); Immature Granulocytes % (auto) 0.2 %; Lymphocytes # (auto) 0.74 K/uL (1.2-3.4); Lymphocytes % (auto) 15.4 %; Mean Corpuscular Hemoglobin 31.3 pg (25-34); Mean Corpuscular Hgb Conc 33.5 g/dL (32-36); Mean Corpuscular Volume 93.4 fL (80-100); Mean Platelet Volume 11.6 fL (7.4-10.4); Monocytes # (auto) 0.19 K/uL (0.11-0.59); Neutrophils # (auto) 3.73 K/uL (1.4-6.5); Neutrophils % (auto) 77.9 %; Platelet Count 115 K/uL (130-400); RDW Coefficient of Variation 13.9 % (11.5-14.5); RDW Standard Deviation 47.7 fL (36.4-46.3); White Blood Count 4.79 K/uL (4.8-10.8)
[2021-10-19 07:04] LABS: BUN Creatinine Ratio 18.5 (10-20); Calcium 8.3 mg/dl (8.5-10.1); Creatinine Clr Calc Pharmacy 54.5 ml/min; Est GFR (African American) 68.4 ml/min; Magnesium 1.4 mg/dl (1.7-2.4); Potassium 4.5 mmol/L (3.5-5.1)
[2021-10-19] MEDS: VENLAFAXINE HCL XR 150 MG CAPXR PO SCH (08:55)
[2021-10-19] MEDS: ASPIRIN 325 MG ECTAB PO SCH (08:55)
[2021-10-19] MEDS: DOCUSATE SODIUM 100 MG CAP PO SCH ×2 (08:55→20:53)
[2021-10-19] MEDS: INSULIN GLARGINE SOLOSTAR 100 UNITS/ML 3 ML PEN SC SCH (08:57)
[2021-10-19] MEDS: MAGNESIUM CHLORIDE 64MG DELAYED REL TAB PO SCH (08:57)
[2021-10-19] MEDS: MEMANTINE HCL 10 MG TAB PO SCH (08:57)
[2021-10-19] MEDS: FOLIC ACID 1 MG TAB PO SCH (08:57)
[2021-10-19] MEDS: LEFLUNOMIDE 10 MG TAB PO SCH (08:57)
[2021-10-19] MEDS: SENNA 8.6 MG TAB PO SCH (08:58)
[2021-10-19] MEDS: POLYETHYLENE (MIRALAX) 17 GM PACK PO SCH (08:58)
[2021-10-19] MEDS: ROSUVASTATIN CALCIUM 20 MG TAB PO SCH (08:58)
[2021-10-19] MEDS: INSULIN ASPART PER UNIT SC SCH ×4 (09:00→20:59)
[2021-10-19] MEDS: MAGNESIUM SULFATE / D5W 1 GM/100 ML BAG IV SCH ×4 (10:33→16:27)
--- NOTE | 2021-10-19 11:05 | Hospitalist Progress Note ---
Date of Service October 19, 2021 Assessment & Plan (1) Acute alteration in mental status: Plan: 75yo Male with PMH Dementia, HLD, ambulatory dysfunction, DM2, malnutrition, COPD, RA, sensorineural hearing loss, CKD, depression on anxiety here for AMS. AMS -Acute AMS with decrease in functioning, ADLs, impaired decision-making -Unclear etiology at this time- less likely to be infectious, traumatic, medication/substance-induced. CBC, TSH, UA, urine toxicology, Lyme negative. Possibly vascular dementia given poorly controlled diabetes, only low-intensity statin use, also supported by history of medication non-compliance -CT Head without acute process, MRI brain also negative -EEG 10/17- abnormal but no evidence of seizure activity, showing moderate severity encephalopath -Continue thiamine supplementation as Wernicke encephalopathy remains on differential -Psychiatry consulted: Diagnostically consistent with encephalopathy/hyperactive delirium superimposed on progressive dementia. suggest decrease to venlafaxine 150mg qd scheduled melatonin 3mg qhs to help with delirium and sundowning have bring hearing aids --> still pending monitor QTc interval treat mouth pain to hopefully incrase oral intake Mouth Pain -ordered menthol lozenges, patient stated they were too strong -switched to sepicol spray Dementia: -Neurocognitive testing in 2013- mild cognitive impairment likely related to microvascular disease -No history of dementia medication, has likely worsened over past 8 years -Neurology consulted: started memantine 10 mg daily today, plan to continue dose for 1 month then 10 mg BID afterward Hyperlipidemia -Lipid panel 10/17 wnl -Home med- simvastatin 40 mg daily -Despite normal lipid panel, given pt's age and DM2 diagnosis, switched to high- intensity rosuvastatin 20 mg on 10/17 -Continue rosuvastatin 20 mg, will monitor liver function as statin therapy continues Constipation, improving -KUB 10/17- moderate fecal retention, non-obstructive bowel gas pattern -Consistent with clinical history of recent constipation and findings on abdominal exam -Initiated bowel regimen 10/18- Senna, Colace, followed by Miralax this evening. Dulcolax PRN. -Pt having normal BMs since initiation, continue bowel regimen Ambulatory dysfunction: - Worsening with ambulation and balance over past 2 weeks - B12 level slightly high at 1400, folate wnl - Reportedly wide-based shuffling gait but history and neuro exam does not suggest Parkinsonian disease - CT Head- no evidence of hydrocephalus - Continue PT/OT Malnutrition -13 lb weight loss in 6 weeks, due to poor PO intake limited to candy -Current weight 73.9 kg, down from usual weight 79 kg -BMP Mg 1.4 today despite repletion with slow mag, ordered 4g IV Mg, recheck am -Encourage dietary intake, measure weight periodically JONNY on CKD3, resolving -BUN 43, Cr 2.3 on admission. Likely due to dehydration 2/2 poor PO intake -BUN, Cr improving with LR boluses, Cr 1.19 today -Will resume home lisinopril once Cr remains stable around baseline 1.5-1.7 DM2 -Poorly uncontrolled DM with A1C of 10% last month -Suspect inadequate glycemic control contributed to microvascular ischemia- worsening vascular dementia -Novolog ISS, CF 20, CR 1:15 -BSGs typically 200s, started Lantus 10u daily Rheumatoid arthritis -Continue home leflunomide Sensorineural hearing loss of both ears: - [facility] - Very hard of hearing- this may be adding to his delirium - may be able to bring his hearing aids from home Depression with anxiety: -Continue home Venlafaxine, decreased to 150mg daily Chronic obstructive pulmonary disease: -Continue albuterol PRN -Stable respiratory status at present FENa: DM2 easy to chew Code Status: DNR/DNI DVT PPX: SCDs PT/OT: ordered, recommend SNF Case Management: looking into [facility] Ludmila Bull Do PGY 1, FCM (2) Delirium: (3) Dementia: (4) Hyperglycemia: (5) Acute kidney injury superimposed on chronic kidney disease: (6) Rheumatoid arthritis involving multiple sites with positive rheumatoid factor: Admission and Anticipated Discharge Date Admission Date: October 18, 2021 Supervising Physician Co-Signing Physician Notes Patient seen and examined with PGY-1 Dr. Bull. Agree with history, exam findings, assessment and plan of care as outlined. 75 year old male with history of COPD, RA, HTN, DM and CKD Stage 3 referred to the emergency room due to 2 to 3 weeks of overall decline in ability care for himself, recurrent falls. Reports sore throat this morning. Later in the afternoon, developed tachycardia that appeared to be SVT. AT the time, he felt well and BPs were stable. No history of arrhythmia in the past. VS and nursing notes reviewed. Otherwise, no complaints. Poor dentitionmissing many teeth. No oral lesions or inflammation of the gums. Posterior oropharynx is not erythematous. Very hard of hearing. Labs, imaging and testing reviewed. 1. SVT/Atrial flutter. Attempted vagal maneuvers without success. Given adenosine 6 then 12 without correction. However, as heart rate slowed, appeared to be in atrial flutter. Given 25mg Cardizem bolus with conversion to sinus rhythm, confirmed by EKG. Transferred to PCU. [facility]. If he goes into atrial flutter or atrial fibrillation overnight, can start Cardizem drip. TTE ordered. 2. Encephalopathy, mental status change. Likely related to underlying dementia. MRI brain without acute pathology. EEG showed moderate encephalopathy. Hopeful can bring hearing aids to minimize delirium due to limited hearing. Appreciate neurology and psychiatry recommendations. 3. Dementia. 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 Has not been on donepezil or memantine in the past. Started on memantine 10mg. 4. Sore throat. No signs of infection or post-nasal drip. Has been using [employer] Friend, will add cloraseptic spray. 5. Hypomagnesemia. 4mg IV mag. Recheck mag in the morning. 6. HLD. Switched to crestor 20mg. 7. Abdominal pain. KUB with moderate fecal retention. Started bowel regimen (senna, colcace, miralax) 8. Ambulatory dysfunction. PT/OT. 9. Protein-calorie malnutrition. Weight has been down. Changed diet to easy to chew given poor dentition. RD consult. 10. DM2. A1C >10%. Basal-bolus insulin regimen. Subjective 75yo Male seen at bedside, calm comfortable cooperative. Patient hard of hearing. He is AAOx2, can identify date after seeing it written on the board. Patient states he slept ate well, normal bowel movements. He states the lozenges were too strong for his sore throat and requests a spray for his throat instead. Review of Systems Review of Systems: Negative fever chills Negative headache dizziness Negative chest pain palpitations SOB Negative nausea vomitting diarrhea constipation Negative numbness tingling rash swelling Physical Exam Constitutional: WD/WN, vitals as above + thin, cooperative and comfortable Eyes: PERRL, conjunctivae normal, anicteric sclerae ENMT: external ear and nose normal, oropharynx normal Neck: trachea midline, no thyromegaly Respiratory: normal respiratory effort, lungs clear to auscultation Cardiovascular: RRR, no murmur, no edema Chest (Breasts): Chest: normal inspection of chest Gastrointestinal (Abdomen): normal bowel sounds, soft, nontender, no hepatosplenomegaly Skin: no rashes, warm and dry Results & Data Results & Data ([facility]) Vital Signs (Past 12 Hours) Vital Signs Temp Pulse Resp BP Pulse Ox 10/19/21 06:40 36.7 C 102 H 18 151/67 H 93 10/18/21 23:08 36.8 C 89 16 140/64 93 Resident Activity Tracking Resident Involvement: Resident Care Provided Care Provided: Adult Hospital Medicine
--- NOTE | 2021-10-19 11:20 | Communication Note ---
Date of Service: October 19, 2021 case reviewed as change in clinical responsibility for psych consult service. Per Dr. Candelaria patient with hyperactive delirium superimposed on underlying cognitive disorder. Per liaison patient remains disinhibited and laughing at most of her questions. Effexor XR decreased from 150 mg BID to 150 mg daily following initial consultation. suspect some mild serotonin syndrome or disinhibition from SNRI contributing to confusion and change in behavior. Too soon to decrease Effexor XR again as at significant risk of discontinuation syndrome. Will follow.
[2021-10-19] MEDS: CHLORASEPTIC 1.4% SOLN 180 ML BTL MT PRN ×2 (11:38→20:52)
[2021-10-19] MEDS: TAMSULOSIN HCL 0.4 MG CAP PO SCH (16:26)
[2021-10-19] MEDS ORDERED: ADENOSINE IV SOLN 3 MG/ML 2 ML VIAL IV STA ×2 (17:00→17:01)
[2021-10-19] MEDS ORDERED: STAT IV Infusion **Titration per Protocol STA (17:13)
[2021-10-19] MEDS ORDERED: dilTIAZem HCl 5 MG/ML 5 ML VIAL IV STA (17:13)
[2021-10-19] MEDS ORDERED: dilTIAZem HCl 5 MG/ML 5 ML VIAL IV ONE ×2 (17:14→17:16)
[2021-10-19] MEDS ORDERED: dilTIAZem HCL 125 MG in DEXTROSE 5% 100 ML IV SCH (17:30)
[2021-10-19] MEDS ORDERED: Heparin IV Adult Wt-Based Standard *NO* Bolus Protocol IV SCH (18:00)
[2021-10-19] MEDS: HEPARIN SODIUM/DEXTROSE 25,000 UNITS/500 ML BAG IV SCH (18:04)
[2021-10-19] MEDS: MELATONIN 3 MG TAB PO SCH (20:59)
[2021-10-19] MEDS ORDERED: MELATONIN 3 MG TAB PO STA (23:08)
[2021-10-19] MEDS ORDERED: MELATONIN 3 MG TAB PO ONE (23:10)
[2021-10-19] MEDS: ACETAMINOPHEN 325 MG TAB PO PRN (23:15)
[2021-10-20 01:14] LABS: Partial Thromboplastin Ratio 2.6
[2021-10-20 01:29] LABS: Partial Thromboplastin Time 66.8 Seconds (21.0-31.0)
--- NOTE | 2021-10-20 07:09 | Hospitalist Progress Note ---
Date of Service October 20, 2021 Assessment & Plan (1) Acute alteration in mental status: Plan: 75yo Male with PMH Dementia, HLD, ambulatory dysfunction, DM2, malnutrition, COPD, RA, sensorineural hearing loss, CKD, depression on anxiety here for AMS. Atrial flutter- resolved -10/19 developed what appeared to be SVT but later confirmed aflutter during periods of slowing following adenosine pushes (6 then 12mg). Converted to sinus rhythm with a 25mg bolus of cardizem. -started on heparin drip -continue telemetry -no further events on telemetry, will continue to monitor, still slightly tachy at 103 AMS -Acute AMS with decrease in functioning, ADLs, impaired decision-making -Unclear etiology at this time- less likely to be infectious, traumatic, medication/substance-induced. CBC, TSH, UA, urine toxicology, Lyme negative. Likely vascular dementia given poorly controlled diabetes, only low-intensity statin use, also supported by history of medication non-compliance -CT Head without acute process, MRI brain also negative -EEG 10/17- abnormal but no evidence of seizure activity, showing moderate severity encephalopath -Continue thiamine supplementation as Wernicke encephalopathy remains on differential -Psychiatry consulted: Diagnostically consistent with encephalopathy/hyperactive delirium superimposed on progressive dementia. suggest decrease to venlafaxine 150mg qd scheduled melatonin 3mg qhs to help with delirium and sundowning have bring hearing aids --> arrived monitor QTc interval treat mouth pain to hopefully increase oral intake Mouth Pain -ordered menthol lozenges, patient stated they were too strong -switched to sepicol spray Dementia: -Neurocognitive testing in 2013- mild cognitive impairment likely related to microvascular disease -No history of dementia medication, has likely worsened over past 8 years -Neurology consulted: started 10/18 memantine 10 mg daily, plan to continue dose for 1 month then 10 mg BID afterward Hyperlipidemia -Lipid panel 10/17 wnl -Home med- simvastatin 40 mg daily -Despite normal lipid panel, given pt's age and DM2 diagnosis, switched to high- intensity rosuvastatin 20 mg on 10/17 -Continue rosuvastatin 20 mg, will monitor liver function as statin therapy continues Constipation, improving -KUB 10/17- moderate fecal retention, non-obstructive bowel gas pattern -Consistent with clinical history of recent constipation and findings on abdominal exam -Initiated bowel regimen 10/18- Senna, Colace, followed by Miralax this evening. Dulcolax PRN. -Pt having normal BMs since initiation, continue bowel regimen Ambulatory dysfunction: - Worsening with ambulation and balance over past 2 weeks - B12 level slightly high at 1400, folate wnl - Reportedly wide-based shuffling gait but history and neuro exam does not suggest Parkinsonian disease - CT Head- no evidence of hydrocephalus - Continue PT/OT Malnutrition -13 lb weight loss in 6 weeks, due to poor PO intake limited to candy -Current weight 73.9 kg, down from usual weight 79 kg -BMP low Mg 1.4 despite repletion with slow mag, ordered 4g IV Mg --> recheck 1.9 -Encourage dietary intake, measure weight periodically JONNY on CKD3, resolving -BUN 43, Cr 2.3 on admission. Likely due to dehydration 2/2 poor PO intake -BUN, Cr improving with LR boluses, Cr 1.20 today -Will resume home lisinopril once Cr remains stable around baseline 1.5-1.7 given his BP fluctuations from high to normal, will continue to hold lisinopril for now. DM2 -Poorly uncontrolled DM with A1C of 10% last month -Suspect inadequate glycemic control contributed to microvascular ischemia- worsening vascular dementia -Novolog ISS, CF 20, CR 1:15 -BSGs typically 200s, started Lantus 10u daily Rheumatoid arthritis -Continue home leflunomide Sensorineural hearing loss of both ears: - [facility] - Very hard of hearing- this may be adding to his delirium - brought his hearing aids from home Depression with anxiety: -Continue home Venlafaxine, decreased to 150mg daily Chronic obstructive pulmonary disease: -Continue albuterol PRN -Stable respiratory status at present FENa: DM2 easy to chew Code Status: DNR/DNI DVT PPX: heparin drip PT/OT: ordered, recommend SNF Case Management: looking into [facility] Ludmila Bull Do PGY 1, FCM (2) Delirium: (3) Dementia: (4) Hyperglycemia: (5) Acute kidney injury superimposed on chronic kidney disease: (6) Rheumatoid arthritis involving multiple sites with positive rheumatoid factor: Admission and Anticipated Discharge Date Admission Date: October 18, 2021 Supervising Physician Co-Signing Physician Notes Patient seen and examined with PGY-1 Dr. Bull. Agree with history, exam findings, assessment and plan of care as outlined. 75 year old male with history of COPD, RA, HTN, DM and CKD Stage 3 referred to the emergency room due to 2 to 3 weeks of overall decline in ability care for himself, recurrent falls. No chest pain, dyspnea. Has remained in sinus rhythm overnight. Throat still is a bit bothersome. VS and nursing notes reviewed. Poor dentitionmissing many teeth. No oral lesions or inflammation of the gums. Heart with regular rate and rhythm. Lungs are clear to auscultation. Very hard of hearing. Labs, imaging and testing reviewed. 1. SVT/Atrial flutter now converted to sinus rhythm but slightly tachycardic. TTE with EF 65-70%, mild concentric LVH. Optimize electrolytes. 2. Encephalopathy, mental status change. Likely related to underlying dementia. MRI brain without acute pathology. EEG showed moderate encephalopathy. Hearing aids are here, hopefully that will be helpful for him in minimizing delirium. Tapering Effexor per psychiatry. 3. Dementia. 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 Has not been on donepezil or memantine in the past. Started on memantine 10mg; increase to 20mg after 1 month. 4. Sore throat. No signs of infection or post-nasal drip. Has been using [employer], add cloraseptic spray. 5. Hypomagnesemia. Improved to 1.9, extra 1g of mag today with goal to get mg to 2. 6. HLD. Switched to crestor 20mg. 7. Ambulatory dysfunction. PT/OT. 8. Protein-calorie malnutrition. Weight has been down. Changed diet to easy to chew given poor dentition. RD consult. 9. DM2. A1C >10%. Basal-bolus insulin regimen. Dispo: pending clinical improvement and placement. Subjective 75yo Male seen at bedside, calm comfortable cooperative, hard of hearing. Yesterday patient had an episode of SVT converted with cardizem bolus, started on heparin placed on telemetry moved to PCU. Per tele he has not had additional events overnight. Patient denies any SOB chest pain, no acute complaints as of today. Slept ate well voiding without difficulty. Review of Systems Review of Systems: Negative fever chills Negative headache dizziness Negative chest pain palpitations SOB Negative nausea vomitting diarrhea constipation Negative numbness tingling rash swelling Physical Exam Constitutional: WD/WN, vitals as above + thin, cooperative and comfortable Eyes: PERRL, conjunctivae normal, anicteric sclerae ENMT: external ear and nose normal, oropharynx normal Neck: trachea midline, no thyromegaly Respiratory: normal respiratory effort, lungs clear to auscultation Cardiovascular: RRR, no murmur, no edema Chest (Breasts): Chest: normal inspection of chest Gastrointestinal (Abdomen): normal bowel sounds, soft, nontender, no hepatosplenomegaly Skin: no rashes, warm and dry Results & Data Results & Data ([facility]) Vital Signs (Past 12 Hours) Vital Signs Temp Pulse Pulse Resp BP Pulse Ox 10/20/21 05:50 102 H 10/20/21 03:05 36.6 C 88 18 151/81 H 95 10/19/21 23:11 36.8 C 100 H 14 137/67 91 10/19/21 19:16 36.8 C 100 H 18 129/78 93 Resident Activity Tracking Resident Involvement: Resident Care Provided Care Provided: Adult [facility] Medicine
[2021-10-20] MEDS: VENLAFAXINE HCL XR 150 MG CAPXR PO SCH (08:02)
[2021-10-20] MEDS: DOCUSATE SODIUM 100 MG CAP PO SCH ×2 (08:02→21:19)
[2021-10-20] MEDS: ASPIRIN 325 MG ECTAB PO SCH (08:02)
[2021-10-20] MEDS: FOLIC ACID 1 MG TAB PO SCH (08:03)
[2021-10-20] MEDS: LEFLUNOMIDE 10 MG TAB PO SCH (08:03)
[2021-10-20] MEDS: INSULIN GLARGINE SOLOSTAR 100 UNITS/ML 3 ML PEN SC SCH (08:03)
[2021-10-20] MEDS: MAGNESIUM CHLORIDE 64MG DELAYED REL TAB PO SCH (08:04)
[2021-10-20] MEDS: MEMANTINE HCL 10 MG TAB PO SCH (08:04)
[2021-10-20] MEDS: POLYETHYLENE (MIRALAX) 17 GM PACK PO SCH (08:04)
[2021-10-20] MEDS: ROSUVASTATIN CALCIUM 20 MG TAB PO SCH (08:04)
[2021-10-20] MEDS: SENNA 8.6 MG TAB PO SCH (08:05)
[2021-10-20] MEDS: INSULIN ASPART PER UNIT SC SCH ×4 (08:07→21:20)
[2021-10-20 09:08] LABS: Hematocrit (blood only) 35.2 % (42-52); Mean Corpuscular Hemoglobin 31.6 pg (25-34); Mean Corpuscular Hgb Conc 34.1 g/dL (32-36); Mean Corpuscular Volume 92.6 fL (80-100); Platelet Count 100 K/uL (130-400); RDW Coefficient of Variation 13.8 % (11.5-14.5); RDW Standard Deviation 46.8 fL (36.4-46.3); White Blood Count 2.87 K/uL (4.8-10.8)
[2021-10-20 09:26] LABS: Albumin Globulin Ratio 1.2 (0.9-2); Albumin Level 3.4 gm/dl (3.4-5.0); Bilirubin,Total 0.4 mg/dl (0.2-1.0); Calcium 7.8 mg/dl (8.5-10.1); Creatinine Clr Calc Pharmacy 52.3 ml/min; Est GFR (African American) 67.7 ml/min; Est GFR (Non-African American) 58.4 ml/min; Globulin 2.8 gm/dl (2.5-4.0); Magnesium 1.9 mg/dl (1.7-2.4); Potassium 3.7 mmol/L (3.5-5.1); Total Protein 6.2 gm/dl (6.0-8.3)
[2021-10-20 09:33] LABS: Partial Thromboplastin Ratio 3.6
[2021-10-20 09:51] LABS: Partial Thromboplastin Time 93.4 Seconds (21.0-31.0)
[2021-10-20] MEDS ORDERED: MAGNESIUM SULFATE / D5W 1 GM/100 ML BAG IV ONE (10:35)
--- NOTE | 2021-10-20 12:10 | XCELERA ---
[id number]
--- NOTE | 2021-10-20 12:46 | Electrocardiogram Report ---
Test Reason : Blood Pressure : / mmHG Vent. Rate : 152 BPM Atrial Rate : 153 BPM P-R Int : 000 ms QRS Dur : 126 ms QT Int : 342 ms P-R-T Axes : 000 -59 -50 degrees QTc Int : 543 ms Sinus tachycardia vs atrial flutter with 2:1 conduction Left axis deviation Right bundle branch block T wave abnormality, consider inferior ischemia Abnormal ECG When compared with ECG of 17-OCT-2021 09:25, Significant changes have occurred Confirmed by Gael Veloz ([id number]) on 10/20/2021 12:46:37 PM Referred By: Gael Pro Confirmed By:Gael Veloz
--- NOTE | 2021-10-20 12:48 | Electrocardiogram Report ---
Test Reason : Blood Pressure : / mmHG Vent. Rate : 086 BPM Atrial Rate : 086 BPM P-R Int : 182 ms QRS Dur : 124 ms QT Int : 384 ms P-R-T Axes : 064 -31 -10 degrees QTc Int : 459 ms Normal sinus rhythm Left axis deviation Right bundle branch block Abnormal ECG When compared with ECG of 19-OCT-2021 16:08, (unconfirmed) Vent. rate has decreased BY 66 BPM Confirmed by Gael Veloz ([id number]) on 10/20/2021 12:48:08 PM Referred By: Gael Rogers Confirmed By:Gael Veloz
[2021-10-20] MEDS: HEPARIN SODIUM/DEXTROSE 25,000 UNITS/500 ML BAG IV SCH ×2 (16:01→21:24)
[2021-10-20] MEDS: TAMSULOSIN HCL 0.4 MG CAP PO SCH (16:38)
[2021-10-20 17:43] LABS: Partial Thromboplastin Ratio 2.5
[2021-10-20 18:04] LABS: Partial Thromboplastin Time 66.7 Seconds (21.0-31.0)
[2021-10-20] MEDS ORDERED: MELATONIN 3 MG TAB PO ONE (21:12)
[2021-10-20] MEDS: ACETAMINOPHEN 325 MG TAB PO PRN (21:15)
[2021-10-20] MEDS: MELATONIN 3 MG TAB PO PRN (21:20)
[2021-10-21 01:37] LABS: Partial Thromboplastin Ratio 2.7
[2021-10-21 01:45] LABS: Partial Thromboplastin Time 70.9 Seconds (21.0-31.0)
[2021-10-21] MEDS ORDERED: dilTIAZem HCl 5 MG/ML 5 ML VIAL IV STA ×2 (05:15→05:56)
[2021-10-21] MEDS ORDERED: STAT IV Infusion **Titration per Protocol STA (05:56)
[2021-10-21] MEDS: dilTIAZem HCL 125 MG in DEXTROSE 5% 100 ML IV SCH ×2 (06:29→18:24)
--- NOTE | 2021-10-21 06:54 | Hospitalist Progress Note ---
Date of Service October 21, 2021 Assessment & Plan (1) Acute alteration in mental status: Plan: 75yo Male with PMH Dementia, HLD, ambulatory dysfunction, DM2, malnutrition, COPD, RA, sensorineural hearing loss, CKD, depression on anxiety here for AMS. Afib with RVR -10/19 developed sinus tachycardia vs. aflutter on EKG -received 6mg and 12mg adenosine, converted to sinus on 25mg cardizem -started on heparin drip -moved to PCU, placed on telemetry -10/21 overnight became tachycardic HR 150's telemetry suggested afib RVR, given 2 bolus cardizem and started on cardizem drip. Patient initially converted to sinus then reverted. Increased cardizem drip, patient converted again, HR still elevated at 120's -will continue to monitor, if still sinus tomorrow will transition to oral medication. AMS -Acute AMS with decrease in functioning, ADLs, impaired decision-making -Unclear etiology at this time- less likely to be infectious, traumatic, medication/substance-induced. CBC, TSH, UA, urine toxicology, Lyme negative. Possibly vascular dementia given poorly controlled diabetes, only low-intensity statin use, also supported by history of medication non-compliance -CT Head without acute process, MRI brain also negative -EEG 10/17- abnormal but no evidence of seizure activity, showing moderate severity encephalopath -Continue thiamine supplementation as Wernicke encephalopathy remains on differential -Psychiatry consulted: Diagnostically consistent with encephalopathy/hyperactive delirium superimposed on progressive dementia. suggest decrease to venlafaxine 150mg qd scheduled melatonin 3mg qhs to help with delirium and sundowning have bring hearing aids --> arrived monitor QTc interval treat mouth pain to hopefully increase oral intake -10/21 per neurology he is less emotional liability compared to on admission Dementia: -Neurocognitive testing in 2013- mild cognitive impairment likely related to microvascular disease -No history of dementia medication, has likely worsened over past 8 years -Neurology consulted: started 10/18 memantine 10 mg daily, plan to continue dose for 1 month then 10 mg BID afterward -mentation waxing and waning throughout the day Ambulatory dysfunction: - Worsening with ambulation and balance over past 2 weeks - B12 level slightly high at 1400, folate wnl - Reportedly wide-based shuffling gait but history and neuro exam does not suggest Parkinsonian disease - CT Head- no evidence of hydrocephalus - Continue PT/OT, recommends inpatient rehab -[facility] Mouth Pain -possibly contributory to poor diet -ordered menthol lozenges, patient stated they were too strong -switched to sepicol spray Hyperlipidemia -Lipid panel 10/17 wnl -Home med- simvastatin 40 mg daily -Despite normal lipid panel, given pt's age and DM2 diagnosis, switched to high- intensity rosuvastatin 20 mg on 10/17 -Continue rosuvastatin 20 mg, will monitor liver function as statin therapy continues Constipation, improving -KUB 10/17- moderate fecal retention, non-obstructive bowel gas pattern -Consistent with clinical history of recent constipation and findings on abdominal exam -Initiated bowel regimen 10/18- Senna, Colace, followed by Miralax this evening. Dulcolax PRN. -Pt having normal BMs since initiation, continue bowel regimen Pancytopenia -present since admission -WBC decreased since 10/19 -continue to monitor Malnutrition -13 lb weight loss in 6 weeks, due to poor PO intake limited to candy -Current weight 73.9 kg, down from usual weight 79 kg -BMP low Mg 1.4 despite repletion with slow mag, ordered 4g IV Mg --> recheck 1.9 -Encourage dietary intake, measure weight periodically JONNY on CKD3, resolving -BUN 43, Cr 2.3 on admission. Likely due to dehydration 2/2 poor PO intake -BUN, Cr improving with LR boluses -Will resume home lisinopril once Cr remains stable around baseline 1.5-1.7 given his BP fluctuations from high to normal, will continue to hold lisinopril for now. -creat today elevated at 1.41 -trend bmp DM2 -Poorly uncontrolled DM with A1C of 10% last month -Suspect inadequate glycemic control contributed to microvascular ischemia- worsening vascular dementia -Novolog ISS, CF 20, CR 1:15 -BSGs typically 200s, started Lantus 10u daily -consulted pharmacy glycemic management Rheumatoid arthritis -Continue home leflunomide Sensorineural hearing loss of both ears: - [facility] - Very hard of hearing- this may be adding to his delirium - brought his hearing aids from home Depression with anxiety: -Continue home Venlafaxine, decreased to 150mg daily Chronic obstructive pulmonary disease: -Continue albuterol PRN -Stable respiratory status at present FENa: DM2 easy to chew Code Status: DNR/DNI DVT PPX: heparin drip PT/OT: ordered, recommend SNF Case Management: looking into [facility] Ludmila Bull Do PGY 1, FCM (2) Delirium: (3) Dementia: (4) Hyperglycemia: (5) Acute kidney injury superimposed on chronic kidney disease: (6) Rheumatoid arthritis involving multiple sites with positive rheumatoid factor: Admission and Anticipated Discharge Date Admission Date: October 18, 2021 Supervising Physician Co-Signing Physician Notes I personally examined the patient and verified all lloyd points of history and exam, discussed case, and agree with decision making with Dr Bull Feeling better overall. No complaints. No chest pain or shortness of breath. present. Nursing notes that his mental status has been up and down throughout the day, waxing and waning. Apparently had a rather significant nearly violent outburst whenever his first came. Vitals noted, in general he is in no distress. Heart rate about 120 on the monitor whenever I am talking to him. HEENT normocephalic atraumatic mucous membranes moist. Breathing unlabored no accessory muscle use good effort. Skin shows no rashes no pallor or icterus. Neuro no focal deficits. Mental status a little bit hard to assessconversationally he is overall appropriate and oriented to person and place does not know time, but it really seems to be unaware of the situation that brought him to the hospital etc. 1.A. fib/flutterhad converted to sinusnow tachycardic again. Improving on diltiazem drip. Anticoagulated. 2.Delirium on dementiaprobably polypharmacy being the biggest culprit. Seems to have improved, but given overall lack of awareness of situation, and waxing and waning of his coherence, still does not seem like he would be safe on his own 3. Dementia. 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 Memantine started by neurology. Increase in about a month Otherwise as above Dispo: pending clinical improvement and placement. Subjective Patient seen at bedside, calm comfortable cooperative. He states he has not noticed his elevated heart rate, denies chest pain SOB, good appetite/sleep/bowel movements. Patient had an episode of delirium breakdown in afternoon, shouting threatening to throw objects after visited. Nursing able to calm patient down. Patient states he would like to go home. Patient understands he requires more time to recover from his delirium and current cardiac condition, is agreeable to go somewhere to recover first. Overnight patient went into Afib RVR, given bolus cardizem 10mg, patient temporarily converted to sinus then converted back to afib RVR, placed on cardizem drip, patient converted back to sinus. Review of Systems Review of Systems: Negative fever chills Negative headache dizziness Negative chest pain palpitations SOB Negative nausea vomitting diarrhea constipation Negative numbness tingling rash swelling Physical Exam Constitutional: WD/WN, vitals as above + thin, cooperative and comfortable Eyes: PERRL, conjunctivae normal, anicteric sclerae ENMT: external ear and nose normal, oropharynx normal Neck: trachea midline, no thyromegaly Respiratory: normal respiratory effort, lungs clear to auscultation Cardiovascular: RRR, no murmur, no edema Chest (Breasts): Chest: normal inspection of chest Gastrointestinal (Abdomen): normal bowel sounds, soft, nontender, no hepatosplenomegaly Skin: no rashes, warm and dry Results & Data Results & Data ([facility]) Vital Signs (Past 12 Hours) Vital Signs Temp Pulse Pulse Resp BP BP Pulse Ox 10/21/21 06:30 135 H 111/68 10/21/21 03:45 36.7 C 109 H 17 121/84 94 10/20/21 23:00 109 H 10/20/21 20:00 36.7 C 109 H 19 116/75 94 10/20/21 19:39 36.6 C 109 H 21 131/74 96 Resident Activity Tracking Resident Involvement: Resident Care Provided Care Provided: Adult [facility]
[2021-10-21 07:43] LABS: Hematocrit (blood only) 38.2 % (42-52); Hemoglobin 13.1 g/dL (14.0-18.0); Mean Corpuscular Hemoglobin 31.8 pg (25-34); Mean Corpuscular Hgb Conc 34.3 g/dL (32-36); Mean Corpuscular Volume 92.7 fL (80-100); Mean Platelet Volume 11.3 fL (7.4-10.4); Platelet Count 104 K/uL (130-400); RDW Coefficient of Variation 13.8 % (11.5-14.5); RDW Standard Deviation 46.6 fL (36.4-46.3); Red Blood Count 4.12 M/uL (4.7-6.1); White Blood Count 3.51 K/uL (4.8-10.8)
[2021-10-21 08:01] LABS: BUN Creatinine Ratio 12.8 (10-20); Creatinine Clr Calc Pharmacy 44.5 ml/min; Est GFR (African American) 55.7 ml/min; Magnesium 1.7 mg/dl (1.7-2.4); Potassium 4.1 mmol/L (3.5-5.1)
[2021-10-21 08:09] LABS: Partial Thromboplastin Ratio 2.8
[2021-10-21 08:18] LABS: Partial Thromboplastin Time 73.2 Seconds (21.0-31.0)
--- NOTE | 2021-10-21 08:24 | Neurology Progress Note ---
Date of Service October 21, 2021 Assessment & Plan (1) Acute encephalopathy: (2) Dementia: (3) Frequent falls: (4) Depression with anxiety: (5) Emotional lability: Plan: The patient has a fairly significant underlying dementia, likely progressive over time. Etiology is likely mixed, with vascular and aging components. 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 MRI of the brain did not show any significant stroke or tumor but there was [id number] old small vessel ischemic changes. EEG showed no potentially epileptogenic activity. The moderate generalized slowing is nonspecific fits with encephalopathy or dementia. The fact that he had increased confusion more recently is likely a superimposed encephalopathy over his dementia. This is probably multifactorial and may be related to hyperglycemia, mild anemia, and or renal failure, but otherwise no other specific etiologies were identified . If he was not taking his medications correctly this could lead to a worsening of his mental status. in addition, he was on a very high dose of venlafaxine for age. He is now decreased to 150 milligrams once a day. Currently, his mental status is reasonable although has an underlying dementia. He does not have any evidence of delirium/acute encephalopathy today. The patient had some emotional lability on admission (very mild pseudobulbar affect ) which is likely related to the dementia. today he seems to less emotional lability when I saw him October 18. Recommendations: 1. Continue memantine 10 mg a day for 1 month, and then 10 mg twice a day. 2. physical, occupational, and speech therapy and increase activity as able. 3. The patient should not be driving and probably cannot manage at home unless there is strong home health to support his . Otherwise he may need to be placed. 4. please contact me if I can be of further assistance. We could follow him up in Neurology as an outpatient with the PA visit in 2-3 weeks. Overall, I spent a total of 35 minutes with this case including review of records, direct evaluation the patient bedside, and discussion of the case with the patient, and Dr. Bull, including differential diagnosis and treatment options. Admission and Anticipated Discharge Date Admission Date: October 18, 2021 Subjective The patient has no complaint of pain or headache. He is not dizzy, and he believes that he is feeling stronger and more alert than he was several days ago. Memantine was initiated several days ago 10 milligrams once daily. Echocardiogram was largely. Psychiatry evaluation was performed the and they recommended decreasing venlafaxine to 150 once daily. CBC today was remarkable for a very mild anemia ( improved from admission). Blood pressure is 132 and he is afebrile. Pulse is 122 Results & Data ([facility]) Vital Signs (Past 12 Hours) Vital Signs Temp Pulse Pulse Resp BP BP Pulse Ox 10/21/21 07:19 36.7 C 122 H 20 138/82 95 10/21/21 06:30 135 H 111/68 10/21/21 03:45 36.7 C 109 H 17 121/84 94 10/20/21 23:00 109 H Exam (Neuro) Physical Exam: He is awake and alert. Speech is without aphasia or dysarthria. Mood is normal and affect is appropriate. He is hard of hearing but seems to answer questions fairly well when he hears. He is oriented to name , place, and the year. The patient had no obvious emotional lability today. Extraocular eye muscles are intact without nystagmus. There is no facial droop and tongue is midline. With outstretched arms there is no obvious drift. Coordination is reasonable and no obvious ataxia [id number] testing. There is no tremor either. Strength is 5/5 diffusely in the arms and legs bilaterally. PG Care Time/CCT Total # of Minutes Spent Total Time Spent with Patient: Total time spent is greater than 50% in coordination of care (as documented) at patient's floor/unit and/or counseling patient: Coding Level of Care Code 94658 Subseq Hosp Care Lvl 3 Diagnoses Acute encephalopathy G93.40 Dementia F03.90 Frequent falls R29.6 Depression with anxiety F41.8 Emotional lability R45.86 Time Spent (min) 35
[2021-10-21] MEDS: VENLAFAXINE HCL XR 150 MG CAPXR PO SCH (08:44)
[2021-10-21] MEDS: ASPIRIN 325 MG ECTAB PO SCH (08:45)
[2021-10-21] MEDS: INSULIN GLARGINE SOLOSTAR 100 UNITS/ML 3 ML PEN SC SCH (08:45)
[2021-10-21] MEDS: FOLIC ACID 1 MG TAB PO SCH (08:45)
[2021-10-21] MEDS: MAGNESIUM CHLORIDE 64MG DELAYED REL TAB PO SCH (08:46)
[2021-10-21] MEDS: LEFLUNOMIDE 10 MG TAB PO SCH (08:46)
[2021-10-21] MEDS: SENNA 8.6 MG TAB PO SCH (08:47)
[2021-10-21] MEDS: ROSUVASTATIN CALCIUM 20 MG TAB PO SCH (08:47)
[2021-10-21] MEDS: MEMANTINE HCL 10 MG TAB PO SCH (08:47)
--- NOTE | 2021-10-21 08:50 | Hospitalist Progress Note ---
Date of Service October 21, 2021 Assessment & Plan (1) Acute encephalopathy: Plan: Afib and Tachycardia -10/19 developed sinus tachycardia vs. aflutter on telemetry monitoring - overnight flipped into Afib from Aflutter, started on cardizem drip - continue heparin drip - moved to PCU - improved rate control with cardizem, will continue to monitor and convert to oral equivalent when stable AMS -Acute AMS with decrease in functioning, ADLs, impaired decision-making -Unclear etiology at this time- less likely to be infectious, traumatic, medication/substance-induced. CBC, TSH, UA, urine toxicology, Lyme negative. Most likely multifactorial due to vascular dementia given poorly controlled diabetes, only low-intensity statin use, also supported by history of medication non-compliance -CT Head without acute process, MRI brain also negative -EEG 10/17- abnormal but no evidence of seizure activity, showing moderate severity encephalopath -Continue thiamine supplementation with hx of alcohol abuse -Psychiatry consulted: Diagnostically consistent with encephalopathy/hyperactive delirium superimposed on progressive dementia. suggest decrease to venlafaxine 150mg qd scheduled melatonin 3mg qhs to help with delirium and sundowning was able to bring hearing aids monitor QTc interval -10/21 per neurology he is less emotional liability compared to on admission Dementia: -Neurocognitive testing in 2013- mild cognitive impairment likely related to microvascular disease -No history of dementia medication, has likely worsened over past 8 years -Neurology consulted: started 10/18 memantine 10 mg daily, plan to continue dose for 1 month then 10 mg BID afterward Mouth Pain -ordered menthol lozenges, patient stated they were too strong -switched to sepicol spray Hyperlipidemia -Lipid panel 10/17 wnl -Home med- simvastatin 40 mg daily -Despite normal lipid panel, given pt's age and DM2 diagnosis, switched to high- intensity rosuvastatin 20 mg on 10/17 -Continue rosuvastatin 20 mg, will monitor liver function as statin therapy continues Constipation, improving -KUB 10/17- moderate fecal retention, non-obstructive bowel gas pattern -Consistent with clinical history of recent constipation and findings on abdominal exam -Initiated bowel regimen 10/18- Senna, Colace, followed by Miralax this evening. Dulcolax PRN. -Pt having normal BMs since initiation, continue bowel regimen Ambulatory dysfunction: - Worsening with ambulation and balance over past 2 weeks - B12 level slightly high at 1400, folate wnl - Reportedly wide-based shuffling gait but history and neuro exam does not suggest Parkinsonian disease - CT Head- no evidence of hydrocephalus - Continue PT/OT Malnutrition -13 lb weight loss in 6 weeks, due to poor PO intake limited to candy -Current weight 73.9 kg, down from usual weight 79 kg -BMP low Mg 1.4 despite repletion with slow mag, ordered 4g IV Mg --> recheck 1.9 -Encourage dietary intake, measure weight periodically JONNY on CKD3, resolved -BUN, Cr improving with LR boluses, Cr 1.20 - given his BP fluctuations from high to normal, will continue to hold lisinopril for now. DM2 -Poorly uncontrolled DM with A1C of 10% last month -Suspect inadequate glycemic control contributed to microvascular ischemia- worsening vascular dementia -Novolog ISS, CF 20, CR 1:15 -BSGs typically 200s, started Lantus 10u daily Rheumatoid arthritis -Continue home leflunomide Sensorineural hearing loss of both ears: - using hearing aids Depression with anxiety: -Continue home Venlafaxine, decreased to 150mg daily Chronic obstructive pulmonary disease: -Continue albuterol PRN -Stable respiratory status at present FENa: DM2 easy to chew Code Status: DNR/DNI DVT PPX: heparin drip PT/OT: ordered, recommend SNF Case Management: [facility] Admission and Anticipated Discharge Date Admission Date: October 18, 2021 Supervising Physician Co-Signing Physician Notes I personally examined the patient and verified all lloyd points of history and exam, discussed case, and agree with decision making with Ibeth Pat MS2 Feeling better overall. No complaints. No chest pain or shortness of breath. present. Nursing notes that his mental status has been up and down throughout the day, waxing and waning. Apparently had a rather significant nearly violent outburst whenever his first came. Vitals noted, in general he is in no distress. Heart rate about 120 on the monitor whenever I am talking to him. HEENT normocephalic atraumatic mucous membranes moist. Breathing unlabored no accessory muscle use good effort. Skin shows no rashes no pallor or icterus. Neuro no focal deficits. Mental status a little bit hard to assessconversationally he is overall appropriate and oriented to person and place does not know time, but it really seems to be unaware of the situation that brought him to the hospital etc. 1.A. fib/flutterhad converted to sinusnow tachycardic again. Improving on diltiazem drip. Anticoagulated. 2.Delirium on dementiaprobably polypharmacy being the biggest culprit. Seems to have improved, but given overall lack of awareness of situation, and waxing and waning of his coherence, still does not seem like he would be safe on his own 3. Dementia. 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 Memantine started by neurology. Increase in about a month Otherwise as above Dispo: pending clinical improvement and placement. Subjective 75 y/o male with h.o of dementia, hearing loss, depression and remote hx of EtOH abuse who is 5 days s/p admission for AMS. He states he is feeling much better and is ready to return home. He states his appetite has improved since being admitted. In addition, his constipation has improved as well. He cannot remember his last bowel movement but states he does not feel constipated. He is able to walk to the toilet without issues. He denies any recent falls. He denies dizziness, confusion and hallucinations. He denies SIG E CAPS. He has no CP or dyspnea at rest or with exertion. Review of Systems Review of Systems: All systems reviewed & are unremarkable except as noted in Subjective Physical Exam Physical Exam: General: NAD, responding appropriately to questions. HEENT: No discharge from his eyes. Hard of hearing, he does not have his hearing aids with him. Cardio: Tachycardic at 144 bpm. Regular Rhythm. No rubs, murmurs or gallops. No swelling to his legs. Pulm: Lungs CTA BL. No wheezing. No labored breaths. ABD: Non tender to palpation. No ascites. MSK: No lesions to exposed areas. Neuro: AOx3. Remembers Dr. Nick from a few days ago. Making good eye contact and he is coherent. No slurring to his talking. UE and LE sensation and strength in tact. Psych: He is in good mood. No signs of depression. Eating well. Smiling when speaking with me. Denies thoughts of hurting himself or others. Results & Data Results & Data ([facility]) Vital Signs (Past 12 Hours) Vital Signs Temp Pulse Pulse Resp BP BP Pulse Ox 10/21/21 07:19 36.7 C 122 H 20 138/82 95 10/21/21 06:30 135 H 111/68 10/21/21 03:45 36.7 C 109 H 17 121/84 94 10/20/21 23:00 109 H Laboratory Results 10/21/21 10/21/21 10/21/21 07:33 07:30 07:30 WBC 3.51 L RBC 4.12 L Hgb 13.1 L Hct 38.2 L MCV 92.7 MCH 31.8 MCHC 34.3 RDW Std Deviation 46.6 H RDW Coeff of Sherrell 13.8 Plt Count 104 L MPV 11.3 H APTT 73.2 H* PTT Ratio 2.8 Sodium 137 Potassium 4.1 Chloride 104 Carbon Dioxide 21 Anion Gap 12 H BUN 18 Creatinine 1.41 H Est Cr Clr Drug Dosing 44.5 Est GFR ( Amer) 55.7 Est GFR (Non-Af Amer) 48.0 BUN/Creatinine Ratio 12.8 Glucose 188 H POC Glucose Calcium 8.0 L Magnesium 1.7 Total Bilirubin AST ALT Alkaline Phosphatase Total Protein Albumin Globulin Albumin/Globulin Ratio 10/21/21 10/21/21 10/20/21 07:18 01:01 20:50 WBC RBC Hgb Hct MCV MCH MCHC RDW Std Deviation RDW Coeff of Sherrell Plt Count MPV APTT 70.9 H* PTT Ratio 2.7 Sodium Potassium Chloride Carbon Dioxide Anion Gap BUN Creatinine Est Cr Clr Drug Dosing Est GFR ( Amer) Est GFR (Non-Af Amer) BUN/Creatinine Ratio Glucose POC Glucose 203 H 186 H Calcium Magnesium Total Bilirubin AST ALT Alkaline Phosphatase Total Protein Albumin Globulin Albumin/Globulin Ratio 10/20/21 10/20/21 10/20/21 17:04 16:08 11:22 WBC RBC Hgb Hct MCV MCH MCHC RDW Std Deviation RDW Coeff of Sherrell Plt Count MPV APTT 66.7 H* PTT Ratio 2.5 Sodium Potassium Chloride Carbon Dioxide Anion Gap BUN Creatinine Est Cr Clr Drug Dosing Est GFR ( Amer) Est GFR (Non-Af Amer) BUN/Creatinine Ratio Glucose POC Glucose 182 H 168 H Calcium Magnesium Total Bilirubin AST ALT Alkaline Phosphatase Total Protein Albumin Globulin Albumin/Globulin Ratio 10/20/21 10/20/21 10/20/21 11:13 08:46 08:46 WBC 2.87 L RBC 3.80 L Hgb 12.0 L Hct 35.2 L MCV 92.6 MCH 31.6 MCHC 34.1 RDW Std Deviation 46.8 H RDW Coeff of Sherrell 13.8 Plt Count 100 L MPV 11.0 H APTT 93.4 H* PTT Ratio 3.6 Sodium Potassium Chloride Carbon Dioxide Anion Gap BUN Creatinine Est Cr Clr Drug Dosing Est GFR ( Amer) Est GFR (Non-Af Amer) BUN/Creatinine Ratio Glucose POC Glucose 149 H Calcium Magnesium Total Bilirubin AST ALT Alkaline Phosphatase Total Protein Albumin Globulin Albumin/Globulin Ratio 10/20/21 08:46 WBC RBC Hgb Hct MCV MCH MCHC RDW Std Deviation RDW Coeff of Sherrell Plt Count MPV APTT PTT Ratio Sodium 134 L Potassium 3.7 Chloride 101 Carbon Dioxide 25 Anion Gap 8 BUN 18 Creatinine 1.20 Est Cr Clr Drug Dosing 52.3 Est GFR ( Amer) 67.7 Est GFR (Non-Af Amer) 58.4 BUN/Creatinine Ratio 15.0 Glucose 208 H POC Glucose Calcium 7.8 L Magnesium 1.9 Total Bilirubin 0.4 AST 71 H ALT 71 H Alkaline Phosphatase 65 Total Protein 6.2 Albumin 3.4 Globulin 2.8 Albumin/Globulin Ratio 1.2
[2021-10-21] MEDS: INSULIN ASPART PER UNIT SC SCH ×4 (08:55→21:17)
[2021-10-21] MEDS: DOCUSATE SODIUM 100 MG CAP PO SCH ×2 (08:56→21:16)
[2021-10-21] MEDS: POLYETHYLENE (MIRALAX) 17 GM PACK PO SCH (08:56)
[2021-10-21] MEDS: THIAMINE HCL 100 MG TAB PO SCH (09:16)
--- NOTE | 2021-10-21 12:11 | Psychiatric Progress Note ---
Date of Service October 21, 2021 Impression / Recommendations Impression 75 yo male with resolving delirium superimposed on underlying cognitive disorder, was previously disinhibited and/or more restless on higher dose of Effexor XR 300 mg. Decreased to 150 mg following consultation on 10/18/21 by Corie Candelaria MD. (1) Acute hyperactive delirium due to multiple etiologies: (2) Major neurocognitive disorder: continue current medications and treatment plan. 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 Chief Complaint ongoing intermittent confusion and restlessness Review of Systems Notes unable to provide Subjective Subjective Interval progress reviewed. Becomes confused and wants to get out of bed. BP and P slightly elevated. Physical Exam Psychiatric sitting up to eat his lunch, oriented to name only, no psychomotor restlessness at this time. Vital Signs (Past 24 Hours) Last Vital Signs Temp 36.7 C 10/21/21 11:16 Pulse 104 H 10/21/21 11:16 Resp 18 10/21/21 11:16 BP 150/71 H 10/21/21 11:16 Pulse Ox 94 10/21/21 11:16 Results & Data ([facility]) Laboratory Results Laboratory Results - last 24 hr 10/20/21 10/20/21 10/20/21 16:08 17:04 20:50 WBC RBC Hgb Hct MCV MCH MCHC RDW Std Deviation RDW Coeff of Sherrell Plt Count MPV APTT 66.7 H* PTT Ratio 2.5 Sodium Potassium Chloride Carbon Dioxide Anion Gap BUN Creatinine Est Cr Clr Drug Dosing Est GFR ( Amer) Est GFR (Non-Af Amer) BUN/Creatinine Ratio Glucose POC Glucose 182 H 186 H Calcium Magnesium 10/21/21 10/21/21 10/21/21 01:01 07:18 07:30 WBC 3.51 L RBC 4.12 L Hgb 13.1 L Hct 38.2 L MCV 92.7 MCH 31.8 MCHC 34.3 RDW Std Deviation 46.6 H RDW Coeff of Sherrell 13.8 Plt Count 104 L MPV 11.3 H APTT 70.9 H* PTT Ratio 2.7 Sodium Potassium Chloride Carbon Dioxide Anion Gap BUN Creatinine Est Cr Clr Drug Dosing Est GFR ( Amer) Est GFR (Non-Af Amer) BUN/Creatinine Ratio Glucose POC Glucose 203 H Calcium Magnesium 10/21/21 10/21/21 10/21/21 07:30 07:33 11:15 WBC RBC Hgb Hct MCV MCH MCHC RDW Std Deviation RDW Coeff of Sherrell Plt Count MPV APTT 73.2 H* PTT Ratio 2.8 Sodium 137 Potassium 4.1 Chloride 104 Carbon Dioxide 21 Anion Gap 12 H BUN 18 Creatinine 1.41 H Est Cr Clr Drug Dosing 44.5 Est GFR ( Amer) 55.7 Est GFR (Non-Af Amer) 48.0 BUN/Creatinine Ratio 12.8 Glucose 188 H POC Glucose 231 H Calcium 8.0 L Magnesium 1.7 Current Inpatient Medications Current Inpatient Medications: Current Inpatient Medications Acetaminophen (Acetaminophen 325 Mg Tab) 650 mg PO Q4H PRN PRN Reason: pain/fever Stop: 11/15/21 22:16 Last Admin: 10/20/21 21:15 Dose: 650 mg Documented by: Albuterol (Albuterol Hfa 8 Gm Inhaler) 2 puffs INH Q8H PRN PRN Reason: Shortness Of Breath Stop: 11/15/21 22:16 Aspirin (Aspirin 325 Mg Ectab) 325 mg PO DAILY MARJORIE Stop: 11/16/21 08:59 Last Admin: 10/21/21 08:45 Dose: 325 mg Documented by: Benzocaine (Benzocaine 20% (Orajel) 11.9 Gm Tube) 1 appln MT Q4H PRN PRN Reason: mouth pain Stop: 11/17/21 14:43 Bisacodyl (Bisacodyl 10 Mg Supp) 10 mg [place] DAILY PRN PRN Reason: Constipation Stop: 11/16/21 14:24 Dextrose (Dextrose 50% 50 Ml Syringe) 25 - 50 ml IV UD PRN; Protocol PRN Reason: Hypoglycemia Protocol Stop: 11/15/21 22:16 Docusate Sodium (Docusate Sodium 100 Mg Cap) 100 mg PO BID MARJORIE Stop: 11/16/21 20:59 Last Admin: 10/21/21 08:56 Dose: 100 mg Documented by: Folic Acid (Folic Acid 1 Mg Tab) 1 mg PO DAILY MARJORIE Stop: 11/16/21 08:59 Last Admin: 10/21/21 08:45 Dose: 1 mg Documented by: Glucagon (Glucagon For Inj 1 Mg Vial) 1 mg SQ UD PRN; Protocol PRN Reason: Hypoglycemia Protocol Stop: 11/15/21 22:16 Glucose (Glucose 10 Tabs/Tube) 4 - 8 tabs PO UD PRN; Protocol PRN Reason: Hypoglycemia Protocol Stop: 11/15/21 22:16 Glucose (Glucose 40% Gel 15 Gm Tube) 15 - 30 gm PO UD PRN; Protocol PRN Reason: Hypoglycemia Protocol Stop: 11/15/21 22:16 Hydroxyzine HCl (Hydroxyzine Hcl 10 Mg Tab) 10 mg PO Q6H PRN PRN Reason: Agitation Stop: 11/16/21 16:34 Heparin Sodium/Dextrose (Heparin Sodium/Dextrose) 25,000 units in 500 mls @ 19 mls/hr IV .Q24H MARJORIE; Protocol Stop: 11/18/21 17:59 Last Titration: 10/21/21 08:20 Dose: 950 units/hr, 19 mls/hr Documented by: Diltiazem HCl 125 mg/ Dextrose 125 mls @ 5 mls/hr IV .Q24H MARJORIE; Protocol Stop: 11/20/21 05:59 Last Admin: 10/21/21 06:29 Dose: 5 mg/hr, 5 mls/hr Documented by: Insulin Aspart (Insulin Aspart Per Unit) 0 units SC ACHS [facility] Stop: 11/16/21 07:29 Last Admin: 10/21/21 12:08 Dose: 7 units Documented by: Insulin Glargine (Insulin Glargine Solostar 100 Units/Ml 3 Ml Pen) 10 units SC DAILY [facility] Stop: 11/17/21 12:59 Last Admin: 10/21/21 08:45 Dose: 10 units Documented by: Leflunomide (Leflunomide 10 Mg Tab) 10 mg PO DAILY MARJORIE Stop: 11/16/21 08:59 Last Admin: 10/21/21 08:46 Dose: 10 mg Documented by: Magnesium Chloride (Magnesium Chloride 64mg Delayed Rel Tab) 64 mg PO QAM [facility] Stop: 11/17/21 09:59 Last Admin: 10/21/21 08:46 Dose: 64 mg Documented by: Melatonin (Melatonin 3 Mg Tab) 9 mg PO HS PRN PRN Reason: Sleep Stop: 11/19/21 21:00 Last Admin: 02/27/22 21:20 Dose: 9 mg Documented by: Memantine (Memantine Hcl 10 Mg Tab) [facility] Stop: 11/17/21 12:14 Last Admin: 10/21/21 08:47 Dose: 10 mg Documented by: Menthol (Cough Drop (Sugar Free) Shannon 24 Shannon/1 Box) 1 shannon BUCCAL PRN PRN PRN Reason: Sore Throat Stop: 11/17/21 17:19 Last Admin: 10/19/21 08:54 Dose: 1 shannon Documented by: Miscellaneous (Carbohydrates For Hypoglycemia ) 15 - 30 gm PO UD PRN PRN Reason: Hypoglycemia Protocol Stop: 11/15/21 22:16 Phenol (Chloraseptic 1.4% Soln 180 Ml Btl) 2 sprays MT Q4H PRN PRN Reason: Sore throat Stop: 11/18/21 10:01 Last Admin: 10/19/21 20:52 Dose: 2 sprays Documented by: Polyethylene Glycol (Polyethylene (Miralax) 17 Gm Pack) 17 gm PO DAILY [facility] Stop: 11/16/21 19:59 Last Admin: 10/21/21 08:56 Dose: 17 gm Documented by: Rosuvastatin Calcium (Rosuvastatin Calcium 20 Mg Tab) 20 mg PO [facility] Stop: 11/17/21 08:59 Last Admin: 10/21/21 08:47 Dose: 20 mg Documented by: Sennosides (Senna 8.6 Mg Tab) 17.2 mg PO [facility] Stop: 11/16/21 14:44 Last Admin: 10/21/21 08:47 Dose: 17.2 mg Documented by: Tamsulosin HCl (Tamsulosin Hcl 0.4 Mg Cap) 0.4 mg PO DAILY@1630 [facility] Stop: 11/16/21 16:29 Last Admin: 10/20/21 16:38 Dose: 0.4 mg Documented by: Thiamine HCl (Thiamine Hcl 100 Mg Tab) 100 mg PO [facility] Stop: 11/20/21 08:59 Last Admin: 10/21/21 09:16 Dose: 100 mg Documented by: Venlafaxine HCl (Venlafaxine Hcl Xr 150 Mg Capxr) 150 mg PO QD@08 [facility] Stop: 11/18/21 07:59 Last Admin: 10/21/21 08:44 Dose: 150 mg Documented by:
--- NOTE | 2021-10-21 12:48 | Electrocardiogram Report ---
Test Reason : Blood Pressure : / mmHG Vent. Rate : 110 BPM Atrial Rate : 110 BPM P-R Int : 158 ms QRS Dur : 114 ms QT Int : 378 ms P-R-T Axes : 053 -47 -25 degrees QTc Int : 511 ms Sinus tachycardia Left axis deviation Right bundle branch block Abnormal ECG When compared with ECG of 19-OCT-2021 17:28, ST now depressed in Anterior leads T wave inversion more evident in Anterior leads Confirmed by Gael Veloz ([id number]) on 10/21/2021 12:48:19 PM Referred By: Gael Rogers Confirmed By:Gael Veloz
[2021-10-21 14:52] LABS: Partial Thromboplastin Ratio 2.4
[2021-10-21 14:55] LABS: Partial Thromboplastin Time 64.3 Seconds (21.0-31.0)
[2021-10-21] MEDS ORDERED: PHARMACY GLYCEMIC MGMT CONSULT PRN (15:47)
[2021-10-21] MEDS: HEPARIN SODIUM/DEXTROSE 25,000 UNITS/500 ML BAG IV SCH (16:50)
[2021-10-21] MEDS: TAMSULOSIN HCL 0.4 MG CAP PO SCH (16:51)
--- NOTE | 2021-10-21 17:16 | Billing Data ---
Date of Service October 21, 2021 Coding Level of Care Code 84594 Subseq Hosp Care Lvl 3
[2021-10-21] MEDS ORDERED: INSULIN GLARGINE SOLOSTAR 100 UNITS/ML 3 ML PEN SC ONE (21:00)
[2021-10-21] MEDS: MELATONIN 3 MG TAB PO PRN (21:16)
[2021-10-21] MEDS: ACETAMINOPHEN 325 MG TAB PO PRN (21:16)
[2021-10-22 06:10] LABS: Hematocrit (blood only) 35.1 % (42-52); Hemoglobin 11.9 g/dL (14.0-18.0); Mean Corpuscular Hemoglobin 31.4 pg (25-34); Mean Corpuscular Hgb Conc 33.9 g/dL (32-36); Mean Corpuscular Volume 92.6 fL (80-100); RDW Coefficient of Variation 13.7 % (11.5-14.5); RDW Standard Deviation 46.1 fL (36.4-46.3); Red Blood Count 3.79 M/uL (4.7-6.1); White Blood Count 4.25 K/uL (4.8-10.8)
[2021-10-22 06:34] LABS: BUN Creatinine Ratio 12.1 (10-20); Calcium 8.9 mg/dl (8.5-10.1); Creatinine Clr Calc Pharmacy 49.1 ml/min; Est GFR (African American) 60.3 ml/min
[2021-10-22 06:35] LABS: Partial Thromboplastin Ratio 2.4
[2021-10-22 06:38] LABS: Mean Platelet Volume 11.2 fL (7.4-10.4); Platelet Count 94 K/uL (130-400); Platelet Estimate Decreased (Normal)
[2021-10-22 06:41] LABS: Partial Thromboplastin Time 63.4 Seconds (21.0-31.0)
--- NOTE | 2021-10-22 07:41 | Hospitalist Progress Note ---
Date of Service October 22, 2021 Assessment & Plan (1) Acute alteration in mental status: Plan: 75yo Male with PMH Dementia, HLD, ambulatory dysfunction, DM2, malnutrition, COPD, RA, sensorineural hearing loss, CKD, depression on anxiety here for AMS. Afib with RVR -10/19 developed sinus tachycardia vs. aflutter on EKG -received 6mg and 12mg adenosine, converted to sinus on 25mg cardizem -started on heparin drip -moved to PCU, placed on telemetry -10/21 overnight became tachycardic HR 150's telemetry suggested afib RVR, given 2 bolus cardizem and started on cardizem drip. Patient initially converted to sinus then reverted. Increased cardizem drip, patient converted again, HR still elevated at 120's -will continue to monitor, if still sinus tomorrow will transition to oral medication. AMS -Acute AMS with decrease in functioning, ADLs, impaired decision-making -Unclear etiology at this time- less likely to be infectious, traumatic, medication/substance-induced. CBC, TSH, UA, urine toxicology, Lyme negative. Possibly vascular dementia given poorly controlled diabetes, only low-intensity statin use, also supported by history of medication non-compliance -CT Head without acute process, MRI brain also negative -EEG 10/17- abnormal but no evidence of seizure activity, showing moderate severity encephalopath -Continue thiamine supplementation as Wernicke encephalopathy remains on differential -Psychiatry consulted: Diagnostically consistent with encephalopathy/hyperactive delirium superimposed on progressive dementia. suggest decrease to venlafaxine 150mg qd scheduled melatonin 3mg qhs to help with delirium and sundowning have bring hearing aids --> arrived monitor QTc interval treat mouth pain to hopefully increase oral intake -10/21 per neurology he is less emotional liability compared to on admission Dementia: -Neurocognitive testing in 2013- mild cognitive impairment likely related to microvascular disease -No history of dementia medication, has likely worsened over past 8 years -Neurology consulted: started 10/18 memantine 10 mg daily, plan to continue dose for 1 month then 10 mg BID afterward -mentation waxing and waning throughout the day Ambulatory dysfunction: - Worsening with ambulation and balance over past 2 weeks - B12 level slightly high at 1400, folate wnl - Reportedly wide-based shuffling gait but history and neuro exam does not suggest Parkinsonian disease - CT Head- no evidence of hydrocephalus - Continue PT/OT, recommends inpatient rehab -[facility] management [facility] Mouth Pain -possibly contributory to poor diet -ordered menthol lozenges, patient stated they were too strong -switched to sepicol spray Hyperlipidemia -Lipid panel 10/17 wnl -Home med- simvastatin 40 mg daily -Despite normal lipid panel, given pt's age and DM2 diagnosis, switched to high- intensity rosuvastatin 20 mg on 10/17 -Continue rosuvastatin 20 mg, will monitor liver function as statin therapy continues Constipation, improving -KUB 10/17- moderate fecal retention, non-obstructive bowel gas pattern -Consistent with clinical history of recent constipation and findings on abdominal exam -Initiated bowel regimen 10/18- Senna, Colace, followed by Miralax this evening. Dulcolax PRN. -Pt having normal BMs since initiation, continue bowel regimen Pancytopenia -present since admission -WBC decreased since 10/19 -continue to monitor Malnutrition -13 lb weight loss in 6 weeks, due to poor PO intake limited to candy -Current weight 73.9 kg, down from usual weight 79 kg -BMP low Mg 1.4 despite repletion with slow mag, ordered 4g IV Mg --> recheck 1.9 -Encourage dietary intake, measure weight periodically JONNY on CKD3, resolving -BUN 43, Cr 2.3 on admission. Likely due to dehydration 2/2 poor PO intake -BUN, Cr improving with LR boluses -Will resume home lisinopril once Cr remains stable around baseline 1.5-1.7 given his BP fluctuations from high to normal, will continue to hold lisinopril for now. -creat today elevated at 1.41 -trend bmp DM2 -Poorly uncontrolled DM with A1C of 10% last month -Suspect inadequate glycemic control contributed to microvascular ischemia- worsening vascular dementia -Novolog ISS, CF 20, CR 1:15 -BSGs typically 200s, started Lantus 10u daily -consulted pharmacy glycemic management Rheumatoid arthritis -Continue home leflunomide Sensorineural hearing loss of both ears: - [facility] - Very hard of hearing- this may be adding to his delirium - brought his hearing aids from home Depression with anxiety: -Continue home Venlafaxine, decreased to 150mg daily Chronic obstructive pulmonary disease: -Continue albuterol PRN -Stable respiratory status at present FENa: DM2 easy to chew Code Status: DNR/DNI DVT PPX: heparin drip PT/OT: ordered, recommend SNF Case Management: looking into [facility] Ludmila Bull Do PGY 1, FCM (2) Delirium: (3) Dementia: (4) Hyperglycemia: (5) Acute kidney injury superimposed on chronic kidney disease: (6) Rheumatoid arthritis involving multiple sites with positive rheumatoid factor: Admission and Anticipated Discharge Date Admission Date: October 18, 2021 Results & Data Results & Data ([facility]) Vital Signs (Past 12 Hours) Vital Signs Temp Pulse Pulse Pulse Resp BP BP 10/22/21 07:26 36.6 C 99 H 19 102/53 L 10/22/21 04:19 37.0 C 91 H 16 147/72 H 10/21/21 23:33 36.7 C 100 H 18 124/60 10/21/21 23:10 114 H Pulse Ox 10/22/21 07:26 92 10/22/21 04:19 92 10/21/21 23:33 94 10/21/21 23:10
--- NOTE | 2021-10-22 07:48 | Hospitalist Progress Note ---
Date of Service October 22, 2021 Assessment & Plan (1) Acute hyperactive delirium due to multiple etiologies: Plan: Afib and Tachycardia -10/19 developed sinus tachycardia vs. aflutter on telemetry monitoring - continue heparin drip - stable rate control with IV diltiazem, will remove from telemetry - discharge with diltiazem PO 60 mg QID AMS -Unclear etiology at this time- less likely to be infectious, traumatic, medication/substance-induced. CBC, TSH, UA, urine toxicology, Lyme negative. Most likely multifactorial due to vascular dementia given poorly controlled diabetes, only low-intensity statin use, also supported by history of medication non-compliance -CT Head without acute process, MRI brain also negative -Continue thiamine supplementation with hx of alcohol abuse -Psychiatry consulted: Diagnostically consistent with encephalopathy/hyperactive delirium superimposed on progressive dementia. suggest decrease to venlafaxine 150mg qd scheduled melatonin 3mg qhs to help with delirium and sundowning was able to bring hearing aids monitor QTc interval -10/21 per neurology he is less emotional liability compared to on admission Dementia: -Neurocognitive testing in 2013- mild cognitive impairment likely related to microvascular disease -No history of dementia medication, has likely worsened over past 8 years -Neurology consulted: started 10/18 memantine 10 mg daily, plan to continue dose for 1 month then 10 mg BID afterward Mouth Pain - continue sepicol spray Hyperlipidemia -Lipid panel 10/17 wnl -Home med- simvastatin 40 mg daily -Despite normal lipid panel, given pt's age and DM2 diagnosis, switched to high- intensity rosuvastatin 20 mg on 10/17 -Continue rosuvastatin 20 mg, will monitor liver function as statin therapy continues Constipation, improving -KUB 10/17- moderate fecal retention, non-obstructive bowel gas pattern -Consistent with clinical history of recent constipation and findings on abdominal exam -Initiated bowel regimen 10/18- Senna, Colace, followed by Miralax this evening. Dulcolax PRN. -Pt having normal BMs since initiation, continue bowel regimen Ambulatory dysfunction: - Worsening with ambulation and balance over past 2 weeks - B12 level slightly high at 1400, folate wnl - Reportedly wide-based shuffling gait but history and neuro exam does not suggest Parkinsonian disease - CT Head- no evidence of hydrocephalus - Continue PT/OT Malnutrition -13 lb weight loss in 6 weeks, due to poor PO intake limited to candy -Current weight 73.9 kg, down from usual weight 79 kg -BMP low Mg 1.4 despite repletion with slow mag, ordered 4g IV Mg --> recheck 1.9 -Encourage dietary intake, measure weight periodically JONNY on CKD3, resolved -BUN, Cr improving with LR boluses, Cr 1.20 -given his BP fluctuations from high to normal, will continue to hold lisinopril for now. DM2 -Poorly uncontrolled DM with A1C of 10% last month -Suspect inadequate glycemic control contributed to microvascular ischemia- worsening vascular dementia -Novolog ISS, CF 20, CR 1:15 -BSGs typically 200s, started Lantus 10u daily Rheumatoid arthritis -Continue home leflunomide Sensorineural hearing loss of both ears: - using hearing aids Depression with anxiety: -Continue home Venlafaxine, decreased to 150mg daily Chronic obstructive pulmonary disease: -Continue albuterol PRN -Stable respiratory status at present FENa: DM2 easy to chew Code Status: DNR/DNI DVT PPX: Stop Heparin Drip this evening. Start Eloquis PO 5mg BID. PT/OT: ordered, recommend SNF Case Management: [facility] into [facility] Admission and Anticipated Discharge Date Admission Date: October 18, 2021 Supervising Physician Co-Signing Physician Notes I personally examined the patient and verified all lloyd points of history and exam, discussed case, and agree with decision making with Ibeth TUCKER No significant complaints today. Is willing to consider placement. asks good questions, answered to the best of my ability.. Vitals noted, in general he is in no distress. Rates now overall controlled HEENT normocephalic atraumatic mucous membranes moist. Breathing unlabored no accessory muscle use good effort. Skin shows no rashes no pallor or icterus. Neuro no focal deficits. Mental status conversationally he is overall appropriate seems loosely oriented to his current situation, otherwise seems fairly coherent. 1.A. fib/flutterrate controlled, anticoagulatedswitch to DOAC later today 2.Delirium on dementiaprobably polypharmacy being the biggest culprit in causing an acute metabolic encephalopathy present on admission. Seems to have improved, but given overall lack of awareness of situation, and waxing and waning of his coherence, still does not seem like he would be safe on his own acutelyfortunately he is willing to consider placement at this time which would provide a stable environment. Once his delirium is fully cleared, if a situation can be set up that avoids polypharmacy in the future, it would be reasonable to reassess his safety/ability to be independent at that time 3.Dementia. 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 Memantine started by neurology. Increase in about a month 4. Acute protein calorie malnutritionpresent on admissiondue to poor self- care, seems to be severe in the recent weeks with 13 pounds weight loss. Uncertain on overall chronicityreassured that his albumin is normal. Nutrition on consult Otherwise as above Dispo: pending placement. move to medical [facility] 75 y/o male presents with CC of AMS. Upon evaluation and management during admission incidental finding of A-fib was discovered. He states he continues to do well today. He has a good appetite and had a bowel movement yesterday. He longer feels constipated. He state he is able to walk from the bed to the toilet without feeling unsteady. He denies any recent falls. Continues to deny CP with exertion or at rest. Lastly he states he slept well last night. He spoke with his yesterday and said the conversation went well. He continues to state he feels well enough to go home. He is open to being discharged to a nursing facility but does state that his preference is to return home. Physical Exam Physical Exam: General: NAD, well nourished, pleasant affect HEENT: no discharge from eyes and ears Cardio: RRR, no rubs, no murmurs, no gallops Pulm: Lungs CTA BL. No labored breaths. MSK: no edema in his legs Skin: no lesions to exposed areas Results & Data Results & Data ([facility]) Vital Signs (Past 12 Hours) Vital Signs Temp Pulse Pulse Pulse Resp BP BP 10/22/21 07:26 36.6 C 99 H 19 102/53 L 10/22/21 04:19 37.0 C 91 H 16 147/72 H 10/21/21 23:33 36.7 C 100 H 18 124/60 10/21/21 23:10 114 H Pulse Ox 10/22/21 07:26 92 10/22/21 04:19 92 10/21/21 23:33 94 10/21/21 23:10 Laboratory Results 10/22/21 10/22/2122 07:26 06:01 06:01 WBC 4.25 L RBC 3.79 L Hgb 11.9 L Hct 35.1 L MCV 92.6 MCH 31.4 MCHC 33.9 RDW Std Deviation 46.1 RDW Coeff of Sherrell 13.7 Plt Count 94 L MPV 11.2 H Platelet Estimate Decreased L APTT PTT Ratio Sodium 135 L Potassium 4.0 Chloride 103 Carbon Dioxide 24 Anion Gap 8 BUN 16 Creatinine 1.32 Est Cr Clr Drug Dosing 49.1 Est GFR ( Amer) 60.3 Est GFR (Non-Af Amer) 52.0 BUN/Creatinine Ratio 12.1 Glucose 212 H POC Glucose 230 H Calcium 8.9 Magnesium 10/22/21 10/21/21 10/21/21 06:01 20:21 16:33 WBC RBC Hgb Hct MCV MCH MCHC RDW Std Deviation RDW Coeff of Sherrell Plt Count MPV Platelet Estimate APTT 63.4 H* PTT Ratio 2.4 Sodium Potassium Chloride Carbon Dioxide Anion Gap BUN Creatinine Est Cr Clr Drug Dosing Est GFR ( Amer) Est GFR (Non-Af Amer) BUN/Creatinine Ratio Glucose POC Glucose 252 H 194 H Calcium Magnesium 10/21/21 10/21/21 10/21/21 14:10 11:15 07:33 WBC RBC Hgb Hct MCV MCH MCHC RDW Std Deviation RDW Coeff of Sherrell Plt Count MPV Platelet Estimate APTT 64.3 H* 73.2 H* PTT Ratio 2.4 2.8 Sodium Potassium Chloride Carbon Dioxide Anion Gap BUN Creatinine Est Cr Clr Drug Dosing Est GFR ( Amer) Est GFR (Non-Af Amer) BUN/Creatinine Ratio Glucose POC Glucose 231 H Calcium Magnesium 10/21/21 07:30 WBC RBC Hgb Hct MCV MCH MCHC RDW Std Deviation RDW Coeff of Sherrell Plt Count MPV Platelet Estimate APTT PTT Ratio Sodium 137 Potassium 4.1 Chloride 104 Carbon Dioxide 21 Anion Gap 12 H BUN 18 Creatinine 1.41 H Est Cr Clr Drug Dosing 44.5 Est GFR ( Amer) 55.7 Est GFR (Non-Af Amer) 48.0 BUN/Creatinine Ratio 12.8 Glucose 188 H POC Glucose Calcium 8.0 L Magnesium 1.7
[2021-10-22] MEDS: INSULIN ASPART PER UNIT SC SCH ×4 (07:56→21:39)
[2021-10-22] MEDS: dilTIAZem HCL 125 MG in DEXTROSE 5% 100 ML IV SCH (07:59)
[2021-10-22] MEDS: INSULIN GLARGINE SOLOSTAR 100 UNITS/ML 3 ML PEN SC SCH ×2 (08:00→21:39)
[2021-10-22] MEDS: POLYETHYLENE (MIRALAX) 17 GM PACK PO SCH (08:06)
[2021-10-22] MEDS: DOCUSATE SODIUM 100 MG CAP PO SCH ×2 (08:06→20:52)
[2021-10-22] MEDS: dilTIAZem HCl 60 MG TAB PO SCH ×4 (08:06→20:53)
[2021-10-22] MEDS: ROSUVASTATIN CALCIUM 20 MG TAB PO SCH (08:07)
[2021-10-22] MEDS: SENNA 8.6 MG TAB PO SCH (08:07)
[2021-10-22] MEDS: MEMANTINE HCL 10 MG TAB PO SCH (08:07)
[2021-10-22] MEDS: MAGNESIUM CHLORIDE 64MG DELAYED REL TAB PO SCH (08:08)
[2021-10-22] MEDS: THIAMINE HCL 100 MG TAB PO SCH (08:08)
[2021-10-22] MEDS: LEFLUNOMIDE 10 MG TAB PO SCH (08:08)
[2021-10-22] MEDS: FOLIC ACID 1 MG TAB PO SCH (08:08)
[2021-10-22] MEDS: ASPIRIN 325 MG ECTAB PO SCH (08:08)
[2021-10-22] MEDS: VENLAFAXINE HCL XR 150 MG CAPXR PO SCH (08:08)
[2021-10-22] MEDS ORDERED: BENZOCAINE 20% (ORAJEL) 11.9 GM TUBE MT SCH (08:45)
[2021-10-22] MEDS: BENZOCAINE 20% (ORAJEL) 11.9 GM TUBE MT SCH ×4 (10:04→20:57)
--- NOTE | 2021-10-22 10:11 | Pharmacy Report ---
Pharmacy Glycemic Short Note 2 - Date of Service October 22, 2021 - Glycemic Short BSG Results (Last 24 hours): 10/21/21 10/21/21 10/21/21 11:15 16:33 20:21 Glucose POC Glucose 231 H 194 H 252 H 10/22/21 10/22/21 06:01 07:26 Glucose 212 H POC Glucose 230 H OUTPATIENT ANTIDIABETIC REGIMEN: * Sitagliptin * Glimepiride * HbA1c 10% on 09/02/21 ASSESSMENT: * 75 yo M with T2DM and hyperglycemia * Diltiazem gtt (mixed in D5W) stopped today, although impact on glycemic regimen likely minimal due to low rates. Heparin drip continues. T2DM diet ordered, although CHO intake yesterday low * Etiology of hyperglycemia likely 2nd insufficient basal insulin and possibly prandial insulin as well. Will increase Lantus and will tighten CHO ratio PLAN FOR INPATIENT GLYCEMIC CONTROL: * Hold outpatient oral diabetes medications * Basal insulin * Lantus 10+12 units SQ this AM and an additional 5-10 units tonight based on BSG * Bolus insulin * NovoLog per scale ACHS or Q6hrs while NPO * Goal Range: Low 110 mg/dL - High 140 mg/dL * Correction Factor: 20 mg/dL/unit * Nutritional / Prandial insulin per carb ratio of 1 unit per 11 grams CHO consumed PLAN FOR DISCHARGE: * tbd
[2021-10-22] MEDS ORDERED: INSULIN GLARGINE SOLOSTAR 100 UNITS/ML 3 ML PEN SC ONE (11:30)
[2021-10-22] MEDS: HEPARIN SODIUM/DEXTROSE 25,000 UNITS/500 ML BAG IV SCH (14:43)
--- NOTE | 2021-10-22 17:45 | Billing Data ---
Date of Service October 22, 2021 Coding Level of Care Code 97826 Subseq Hosp Care Lvl 3
[2021-10-22] MEDS: TAMSULOSIN HCL 0.4 MG CAP PO SCH (17:48)
[2021-10-22] MEDS ORDERED: HEPARIN STOP ORDER ONE (20:45)
[2021-10-22] MEDS: APIXABAN 5 MG TABLET PO SCH (20:52)
[2021-10-23 05:49] LABS: Hemoglobin 12.2 g/dL (14.0-18.0); Mean Corpuscular Hemoglobin 31.4 pg (25-34); Mean Corpuscular Hgb Conc 33.9 g/dL (32-36); Mean Corpuscular Volume 92.8 fL (80-100); Mean Platelet Volume 10.7 fL (7.4-10.4); Platelet Count 102 K/uL (130-400); RDW Coefficient of Variation 13.8 % (11.5-14.5); RDW Standard Deviation 46.2 fL (36.4-46.3); Red Blood Count 3.88 M/uL (4.7-6.1); White Blood Count 6.59 K/uL (4.8-10.8)
[2021-10-23 06:00] LABS: Partial Thromboplastin Ratio 1.1; Partial Thromboplastin Time 30.8 Seconds (21.0-31.0)
[2021-10-23 06:14] LABS: BUN Creatinine Ratio 14.5 (10-20); Calcium 8.9 mg/dl (8.5-10.1); Creatinine Clr Calc Pharmacy 52.3 ml/min; Est GFR (Non-African American) 56.1 ml/min; Magnesium 1.4 mg/dl (1.7-2.4); Potassium 4.1 mmol/L (3.5-5.1)
[2021-10-23] MEDS: MAGNESIUM SULFATE / D5W 1 GM/100 ML BAG IV SCH ×4 (07:50→13:51)
[2021-10-23] MEDS: SENNA 8.6 MG TAB PO SCH (08:23)
[2021-10-23] MEDS: POLYETHYLENE (MIRALAX) 17 GM PACK PO SCH (08:23)
[2021-10-23] MEDS: THIAMINE HCL 100 MG TAB PO SCH (08:23)
[2021-10-23] MEDS: VENLAFAXINE HCL XR 150 MG CAPXR PO SCH (08:23)
[2021-10-23] MEDS: MAGNESIUM CHLORIDE 64MG DELAYED REL TAB PO SCH (08:23)
[2021-10-23] MEDS: APIXABAN 5 MG TABLET PO SCH ×2 (08:23→21:00)
[2021-10-23] MEDS: FOLIC ACID 1 MG TAB PO SCH (08:24)
[2021-10-23] MEDS: ASPIRIN 81 MG ECTAB PO SCH (08:24)
[2021-10-23] MEDS: MEMANTINE HCL 10 MG TAB PO SCH (08:24)
[2021-10-23] MEDS: dilTIAZem HCl 60 MG TAB PO SCH ×4 (08:24→21:00)
[2021-10-23] MEDS: BENZOCAINE 20% (ORAJEL) 11.9 GM TUBE MT SCH ×3 (08:25→20:59)
[2021-10-23] MEDS: INSULIN ASPART PER UNIT SC SCH ×5 (08:31→21:11)
[2021-10-23] MEDS ORDERED: INSULIN GLARGINE SOLOSTAR 100 UNITS/ML 3 ML PEN SC SCH (09:00)
[2021-10-23] MEDS: LEFLUNOMIDE 10 MG TAB PO SCH (09:24)
[2021-10-23] MEDS: ROSUVASTATIN CALCIUM 20 MG TAB PO SCH (09:24)
[2021-10-23] MEDS: DOCUSATE SODIUM 100 MG CAP PO SCH ×2 (09:24→21:10)
--- NOTE | 2021-10-23 13:01 | Hospitalist Progress Note ---
Date of Service October 23, 2021 Assessment & Plan (1) Acute encephalopathy: Plan: Afib and Tachycardia -10/19 developed sinus tachycardia vs. aflutter on telemetry monitoring - continue heparin drip - continue PO diltiazem - discharge with diltiazem PO 60 mg QID AMS -Unclear etiology at this time- less likely to be infectious, traumatic, medication/substance-induced. CBC, TSH, UA, urine toxicology, Lyme negative. Most likely multifactorial due to vascular dementia given poorly controlled diabetes, only low-intensity statin use, also supported by history of medication non-compliance -CT Head without acute process, MRI brain also negative -Continue thiamine supplementation with hx of alcohol abuse -Psychiatry consulted: Diagnostically consistent with encephalopathy/hyperactive delirium superimposed on progressive dementia. suggest decrease to venlafaxine 150mg qd scheduled melatonin 3mg qhs to help with delirium and sundowning was able to bring hearing aids monitor QTc interval -10/21 per neurology he is less emotional liability compared to on admission Dementia: -Neurocognitive testing in 2013- mild cognitive impairment likely related to microvascular disease -No history of dementia medication, has likely worsened over past 8 years -Neurology consulted: started 10/18 memantine 10 mg daily, plan to continue dose for 1 month then 10 mg BID afterward Mouth Pain - continue sepicol spray Hyperlipidemia -Lipid panel 10/17 wnl -Home med- simvastatin 40 mg daily -Despite normal lipid panel, given pt's age and DM2 diagnosis, switched to high-intensity rosuvastatin 20 mg on 10/17 -Continue rosuvastatin 20 mg, will monitor liver function as statin therapy continues Constipation, improving -KUB 10/17- moderate fecal retention, non-obstructive bowel gas pattern -Consistent with clinical history of recent constipation and findings on abdominal exam -Initiated bowel regimen 10/18- Senna, Colace, followed by Miralax this evening. Dulcolax PRN. -Pt having normal BMs since initiation, continue bowel regimen Ambulatory dysfunction: - Worsening with ambulation and balance over past 2 weeks - B12 level slightly high at 1400, folate wnl - Reportedly wide-based shuffling gait but history and neuro exam does not suggest Parkinsonian disease - CT Head- no evidence of hydrocephalus - Continue PT/OT Malnutrition -13 lb weight loss in 6 weeks, due to poor PO intake limited to candy -Current weight 73.9 kg, down from usual weight 79 kg -BMP low Mg 1.4 despite repletion with slow mag, ordered 4g IV Mg --> recheck 1.9 -Encourage dietary intake, measure weight periodically JONNY on CKD3, resolved -BUN, Cr improving with LR boluses, Cr 1.20 -given his BP fluctuations from high to normal, will continue to hold lisinopril for now. DM2 -Poorly uncontrolled DM with A1C of 10% last month -Suspect inadequate glycemic control contributed to microvascular ischemia- worsening vascular dementia -Novolog ISS, CF 20, CR 1:15 -BSGs typically 200s, started Lantus 10u daily Rheumatoid arthritis -Continue home leflunomide Sensorineural hearing loss of both ears: - using hearing aids Depression with anxiety: -Continue home Venlafaxine, decreased to 150mg daily Chronic obstructive pulmonary disease: -Continue albuterol PRN -Stable respiratory status at present FENa: DM2 easy to chew Code Status: DNR/DNI DVT PPX: Stop Heparin Drip this evening. Start Eloquis PO 5mg BID. PT/OT: ordered, recommend SNF Case Management: looking into [place] [facility] Admission and Anticipated Discharge Date Admission Date: October 18, 2021 Supervising Physician Co-Signing Physician Notes I personally examined the patient and verified all lloyd points of history and exam, discussed case, and agree with decision making with Ibeth Pat MS2 feeling OK. still OK w placement. no acute complaints Vitals noted, in general he is in no distress. Rates now overall controlled HEENT normocephalic atraumatic mucous membranes moist. Breathing unlabored no accessory muscle use good effort. Skin shows no rashes no pallor or icterus. Neuro no focal deficits. 1.A. fib/flutterrate controlled, anticoagulated 2.Delirium on dementiaprobably polypharmacy being the biggest culprit in causing an acute metabolic encephalopathy present on admission. Seems to have improved, but given overall lack of awareness of situation, and waxing and waning of his coherence, still does not seem like he would be safe on his own acutelyfortunately he is willing to consider placement at this time which would provide a stable environment. Once his delirium is fully cleared, if a situation can be set up that avoids polypharmacy in the future, it would be reasonable to reassess his safety/ability to be independent at that time 3.Dementia. 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 Memantine started by neurology. Increase in about a month 4. Acute protein calorie malnutritionpresent on admissiondue to poor self- care, seems to be severe in the recent weeks with 13 pounds weight loss. Uncertain on overall chronicityreassured that his albumin is normal. Nutrition on consult Otherwise as above Dispo: pending placement. move to medical Subjective 75 y/o male presents with CC of AMS. Upon evaluation and management during admission incidental finding of A-fib was discovered. No changes from yesterday, states he continues to do well today. Continues to deny CP with exertion or at rest. Looking forward to being discharged from the hospital. Results & Data Results & Data ([facility]) Vital Signs (Past 12 Hours) Vital Signs Temp Pulse Resp BP Pulse Ox 10/23/21 07:43 36.5 C 87 18 148/71 H 94
--- NOTE | 2021-10-23 15:06 | Pharmacy Report ---
Pharmacy Glycemic Short Note 2 - Date of Service October 23, 2021 - Glycemic Short BSG Results (Last 24 hours): 10/22/21 10/22/21 10/23/21 16:33 20:36 05:42 Glucose 180 H POC Glucose 206 H 213 H 10/23/21 08:03 Glucose POC Glucose 218 H OUTPATIENT ANTIDIABETIC REGIMEN: * Sitagliptin * Glimepiride * HbA1c 10% on 09/02/21 ASSESSMENT: 10/23: * Patient received total 52 units of insulin yesterday of which 32 units were basal and 20 units bolus. * Fasting BSG today was 218 mg/dl. Lantus dose increased to 25 units this AM and added HS dose scale based on BSG. * Novolog CF loosened slightly but CR tightened. * However BSG check was forgotten at lunch, so a Novolog correctional insulin was not given but the carbs were covered afterwards. Discussed this with nurse. Expect BSG to trend up over 200 mg/dl at dinner. Background 10/22/21: * 75 yo M with T2DM and hyperglycemia * Diltiazem gtt (mixed in D5W) stopped today, although impact on glycemic regimen likely minimal due to low rates. Heparin drip continues. T2DM diet ordered, although CHO intake yesterday low * Etiology of hyperglycemia likely 2nd insufficient basal insulin and possibly prandial insulin as well. Will increase Lantus and will tighten CHO ratio PLAN FOR INPATIENT GLYCEMIC CONTROL: * Hold outpatient oral diabetes medications * Basal insulin * Lantus 25 units SQ this AM and an additional 5-10 units tonight based on BSG * Bolus insulin: tightened CR * NovoLog per scale ACHS or Q6hrs while NPO * Goal Range: Low 110 mg/dL - High 140 mg/dL * Correction Factor: 25 mg/dL/unit * Nutritional / Prandial insulin per carb ratio of 1 unit per 9 grams CHO consumed PLAN FOR DISCHARGE: * tbd
[2021-10-23] MEDS: TAMSULOSIN HCL 0.4 MG CAP PO SCH (17:41)
--- NOTE | 2021-10-23 18:06 | Pharmacy Report ---
Pharmacy Abx/Gly Intl Consult - Date of Service October 23, 2021 - Scope Pharmacy has been consulted by [ ] to manage [antibiotic dosing therapy] and glycemic control for this patient as per the Pharmacy & Therapeutics Committee approved dosing protocols. - Subjective The patient is a 75 year old M admitted on 10/18/21 15:46. - Objective Vital Signs (Past 12hrs): Vital Signs Temp Pulse Pulse Resp BP BP Pulse Ox 10/23/21 15:43 36.5 C 86 18 137/73 95 10/23/21 13:34 96 H 146/74 H 10/23/21 07:43 36.5 C 87 18 148/71 H 94 Accuchecks BSG (last 24hrs): 10/22/21 10/23/21 10/23/21 20:36 05:42 08:03 Glucose 180 H POC Glucose 213 H 218 H 10/23/21 10/23/21 10/23/21 17:00 17:01 17:03 Glucose POC Glucose 318 H* 284 H 315 H* Lab Results (24hrs): Laboratory Results - last 24 hr 10/22/21 10/23/21 10/23/21 20:36 05:42 05:42 WBC 6.59 RBC 3.88 L Hgb 12.2 L Hct 36.0 L MCV 92.8 MCH 31.4 MCHC 33.9 RDW Std Deviation 46.2 RDW Coeff of Sherrell 13.8 Plt Count 102 L MPV 10.7 H APTT 30.8 PTT Ratio 1.1 Sodium Potassium Chloride Carbon Dioxide Anion Gap BUN Creatinine Est Cr Clr Drug Dosing Est GFR ( Amer) Est GFR (Non-Af Amer) BUN/Creatinine Ratio Glucose POC Glucose 213 H Calcium Magnesium 10/23/21 10/23/21 10/23/21 05:42 08:03 11:10 WBC RBC Hgb Hct MCV MCH MCHC RDW Std Deviation RDW Coeff of Sherrell Plt Count MPV APTT PTT Ratio Sodium 136 Potassium 4.1 Chloride 105 Carbon Dioxide 23 Anion Gap 8 BUN 18 Creatinine 1.24 Est Cr Clr Drug Dosing 52.3 Est GFR ( Amer) 65.0 Est GFR (Non-Af Amer) 56.1 BUN/Creatinine Ratio 14.5 Glucose 180 H POC Glucose 218 H Calcium 8.9 Magnesium 1.4 L 2.4 10/23/21 10/23/21 10/23/21 17:00 17:01 17:03 WBC RBC Hgb Hct MCV MCH MCHC RDW Std Deviation RDW Coeff of Sherrell Plt Count MPV APTT PTT Ratio Sodium Potassium Chloride Carbon Dioxide Anion Gap BUN Creatinine Est Cr Clr Drug Dosing Est GFR ( Amer) Est GFR (Non-Af Amer) BUN/Creatinine Ratio Glucose POC Glucose 318 H* 284 H 315 H* Calcium Magnesium Micro Results: 10/17/21 11:55 Aerobic Blood Culture - Final Blood No growth in Aerobic bottle after 5 days. Anaerobic Blood Culture - Final No growth in Anaerobic bottle after 5 days. 10/17/21 12:09 Aerobic Blood Culture - Final Blood No growth in Aerobic bottle after 5 days. Anaerobic Blood Culture - Final No growth in Anaerobic bottle after 5 days. 10/18/21 10:40 Urine Culture - Final Urine,Clean Catch Three types of organisms present, all low counts probable skin afsaneh. No further identifications or sensitivities to follow. - Risk Factors for Resistance Risk Factors for Antimicrobial Resistance: * Resident in a [facility] or extended-care facility * Hospitalization for 48 hours or more within the past 90 days * Current hospitalization > 5 days * Chronic dialysis within the past 30 days * Immunocompromised (chronic steroid therapy, chemotherapy, immunomodulators) * History of infection with a multidrug-resistant organism: [organism] [site of infection] [date] * Antimicrobial use within the last 90 days [include specific drugs, if known] - Recent Pertinent Medications Recent Pertinent Medications/Risk Factors for Insulin Resist: Outpatient Anti-diabetic Regimen: * [] * A1c = [] % [date] The patient is currently receiving: * Basal insulin: Lantus [] units every [] hours * Correctional Insulin: Novolog Correction per scale ACHS Goal Range: Low [] mg/dL - High [] mg/dL Correction Factor: [] mg/dL/unit * Prandial insulin: Per carb ratio of 1 unit per [] grams CHO consumed * Oral Agents: Risk Factors for Insulin Resistance: * Steroids: * Infection: * Pressors: * IVF: * Recent Surgery * Diet: * Mechanical Ventilation: - Plan ANTIMICROBIAL THERAPY Vancomycin IV * Loading dose: [ ] mg ([ ] mg/kg) * Maintenance dose: [ ] mg IV ([ ] mg/kg) every [ ] hours * Goal trough level for [indication] : [ ] to [ ] mcg/mL * Trough/Random level ordered for [ ]/[ ]/[ ] * A less than traditional dose and/or extended dosing interval has/have been selected due to likelihood of drug accumulation in obese patient/patient with h/o CKD. Piperacillin/Tazobactam * [ ] g bolus administered over 30 minutes, then [ ] g IV extended infusion every 8 hours for CrCl greater than 20 mL/min OR every 12 hours for CrCl 20 mL/min or less and dialysis. * Aggressive dosing selected due to critically ill status/BMI 35 or more/history of cystic fibrosis. Tobramycin/Gentamicin/Amikacin * Patient meets criteria for extended-interval aminoglycoside dosing per the Yoly nomogram * A dose of [ ] mg (7 mg/kg) or (15 mg/kg) IV every [ ] hours * Dosage based on adjusted body weight for patients weighing > 120% of ideal body weight. * Random level ordered for 6-14 hours after the start of the infusion to ensure dosing interval is appropriate. Tobramycin/Gentamicin/Amikacin * Patient is not a candidate for extended-interval dosing due to age/CrCl less than 20 mL/min/end stage renal disease/dialysis/fluctuating kidney function/treatment of Enterococcal endocarditis OR Altered pharmacokinetics in the setting of /less than six weeks post- /ascites/significant morataya/cystic fibrosis. * Dose: [ ] mg ([ ] mg/kg) IV every [ ] hours * Dosage based on adjusted body weight for patients weighing > 120% of ideal body weight. * Goal trough level for [indication] : [ ] to [ ] mcg/mL * Goal peak level for [indication] : [ ] to [ ] mcg/mL * Peak and trough level ordered for [ ]/[ ]/[ ] around the [ ] dose. INPATIENT GLYCEMIC CONTROL: * Start IV insulin infusion per [] (moderate/severe) stress protocol * Goal Range [] - [] mg/dl * In the critical care setting, continuous IV insulin infusion has been shown to be the best method for achieving glycemic targets. Oral Agents * Hold outpatient oral diabetes medications. Basal Insulin * Lantus [] units SQ BID Bolus Insulin * NovoLog per scale ACHS or Q6hrs while NPO * Goal Range: Low [] mg/dL - High [] mg/dL * Correction Factor: [] mg/dL/unit * Nutritional / Prandial insulin per carb ratio of 1 unit per [] grams CHO consumed RECOMMENDATIONS FOR DISCHARGE: * Please note that the plan above was derived based on current level of insulin resistance and hospital stress. These recommendations are appropriate for inpatient admission only. Plan of care upon discharge will need to be reassessed to avoid potential outpatient hypo/hyperglycemia. Pharmacy will follow patient and adjust orders on a daily basis. Thank you for allowing us to participate in this patients care.
[2021-10-23] MEDS: INSULIN GLARGINE SOLOSTAR 100 UNITS/ML 3 ML PEN SC SCH (21:11)
[2021-10-24] MEDS ORDERED: INSULIN ASPART PER UNIT SC SCH (02:00)
[2021-10-24 05:28] LABS: Hematocrit (blood only) 32.9 % (42-52); Hemoglobin 11.1 g/dL (14.0-18.0); Mean Corpuscular Hemoglobin 31.5 pg (25-34); Mean Corpuscular Hgb Conc 33.7 g/dL (32-36); Mean Corpuscular Volume 93.5 fL (80-100); RDW Standard Deviation 47.5 fL (36.4-46.3); Red Blood Count 3.52 M/uL (4.7-6.1)
[2021-10-24 05:34] LABS: Mean Platelet Volume 10.4 fL (7.4-10.4); Platelet Count 98 K/uL (130-400)
[2021-10-24 06:04] LABS: BUN Creatinine Ratio 13.8 (10-20); Calcium 8.9 mg/dl (8.5-10.1); Creatinine Clr Calc Pharmacy 42.6 ml/min; Est GFR (African American) 50.9 ml/min; Est GFR (Non-African American) 43.9 ml/min; Potassium 4.1 mmol/L (3.5-5.1)
--- NOTE | 2021-10-24 07:22 | Hospitalist Progress Note ---
Date of Service October 24, 2021 Assessment & Plan (1) Acute alteration in mental status: Plan: 75yo Male with PMH Dementia, HLD, ambulatory dysfunction, DM2, malnutrition, COPD, RA, sensorineural hearing loss, CKD, depression on anxiety here for AMS. Afib with RVR -10/19 developed sinus tachycardia vs. aflutter on EKG -received adenosine, cardizem, converted back to sinus, patient transitioned from IV to oral cardizem -started on heparin drip, transitioned to eliquis -no further events, continue to monitor AMS -Acute AMS with decrease in functioning, ADLs, impaired decision-making -Unclear etiology at this time- less likely to be infectious, traumatic, medication/substance-induced. CBC, TSH, UA, urine toxicology, Lyme negative. Possibly vascular dementia given poorly controlled diabetes, only low-intensity statin use, also supported by history of medication non-compliance -CT Head without acute process, MRI brain also negative -EEG 10/17- abnormal but no evidence of seizure activity, showing moderate sev erity encephalopath -Continue thiamine supplementation as Wernicke encephalopathy remains on differential -Psychiatry consulted: Diagnostically consistent with encephalopathy/hyperactive delirium superimposed on progressive dementia. suggest decrease to venlafaxine 150mg qd scheduled melatonin 3mg qhs to help with delirium and sundowning have bring hearing aids --> arrived monitor QTc interval treat mouth pain to hopefully increase oral intake -10/21 per neurology he is less emotional liability compared to on admission -currently awaiting SNF placement Dementia: -Neurocognitive testing in 2013- mild cognitive impairment likely related to microvascular disease -No history of dementia medication, has likely worsened over past 8 years -Neurology consulted: started 10/18 memantine 10 mg daily, plan to continue dose for 1 month then 10 mg BID afterward -mentation waxing and waning throughout the day Ambulatory dysfunction: - Worsening with ambulation and balance over past 2 weeks - B12 level slightly high at 1400, folate wnl - Reportedly wide-based shuffling gait but history and neuro exam does not suggest Parkinsonian disease - CT Head- no evidence of hydrocephalus - Continue PT/OT, recommends inpatient rehab - case management looking into SNF Mouth Pain -possibly contributory to poor diet -ordered scheduled benzocaine gel, patient states mouth pain well controlled Hyperlipidemia -Lipid panel 10/17 wnl -Home med- simvastatin 40 mg daily -Despite normal lipid panel, given pt's age and DM2 diagnosis, switched to high- intensity rosuvastatin 20 mg on 10/17 -Continue rosuvastatin 20 mg, will monitor liver function as statin therapy continues Constipation, improving -KUB 10/17- moderate fecal retention, non-obstructive bowel gas pattern -Consistent with clinical history of recent constipation and findings on abdominal exam -Initiated bowel regimen 10/18- Senna, Colace, followed by Miralax this evening. Dulcolax PRN. -Pt having normal BMs since initiation, continue bowel regimen Pancytopenia -present since admission -WBC decreased since 10/19 -continue to monitor Malnutrition -13 lb weight loss in 6 weeks, due to poor PO intake limited to candy -Current weight 73.9 kg, down from usual weight 79 kg -BMP low Mg 1.4 despite repletion with slow mag, ordered 4g IV Mg --> recheck 1.9 -Encourage dietary intake, measure weight periodically JONNY on CKD3, resolving -BUN 43, Cr 2.3 on admission. Likely due to dehydration 09/25 poor PO intake -BUN, Cr improving with LR boluses -Will resume home lisinopril once Cr remains stable around baseline 1.5-1.7 given his BP fluctuations from high to normal, will continue to hold lisinopril for now. -creat today elevated at 1.52 -trend bmp DM2 -Poorly uncontrolled DM with A1C of 10% last month -Suspect inadequate glycemic control contributed to microvascular ischemia- worsening vascular dementia -Novolog ISS, CF 20, CR 1:15 -BSGs typically 200s, started Lantus 10u daily -consulted pharmacy glycemic management Rheumatoid arthritis -Continue home leflunomide Sensorineural hearing loss of both ears: - [facility] - Very hard of hearing- this may be adding to his delirium - brought his hearing aids from home Depression with anxiety: -Continue home Venlafaxine, decreased to 150mg daily per psychiatry Chronic obstructive pulmonary disease: -Continue albuterol PRN -Stable respiratory status at present FENa: DM2 easy to chew Code Status: DNR/DNI DVT PPX: eliquis 5mg BID PT/OT: ordered, recommend SNF Case Management: looking into SNF [facility] PGY 1, FCM (2) Delirium: (3) Dementia: (4) Hyperglycemia: (5) Acute kidney injury superimposed on chronic kidney disease: (6) Rheumatoid arthritis involving multiple sites with positive rheumatoid factor: Admission and Anticipated Discharge Date Admission Date: October 18, 2021 Supervising Physician Co-Signing Physician Notes I personally examined the patient and verified all lloyd points of history and exam, discussed case, and agree with decision making with Ibeth TUCKER feeling OK. HR slightly higher Vitals noted, in general he is in no distress. Rates now overall controlled but slightly higher today HEENT normocephalic atraumatic mucous membranes moist. Breathing unlabored no accessory muscle use good effort. Skin shows no rashes no pallor or icterus. Neuro no focal deficits. 1.A. fib/flutterrate control a little worse - follow for now, low threshold to increase dilt., anticoagulated 2.Delirium on dementiaprobably polypharmacy being the biggest culprit in causing an acute metabolic encephalopathy present on admission. Seems to have improved, but given overall lack of awareness of situation, and waxing and waning of his coherence, still does not seem like he would be safe on his own acutelyfortunately he is willing to consider placement at this time which would provide a stable environment. Once his delirium is fully cleared, if a situation can be set up that avoids polypharmacy in the future, it would be reasonable to reassess his safety/ability to be independent at that time 3.Dementia. 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 Memantine started by neurology. Increase in about a month 4. Acute protein calorie malnutritionpresent on admissiondue to poor self- care, seems to be severe in the recent weeks with 13 pounds weight loss. Uncertain on overall chronicityreassured that his albumin is normal. Nutrition on consult Otherwise as above Dispo: pending placement. move to medical Subjective Patient seen at bedside, sleeping, calm comfortable cooperative, woke up upon prompting, states he is sleepy but looking forward to breakfast. Patient denies mouth pain, chest pain, abd pain. No other complaints. Review of Systems Review of Systems: Negative fever chills Negative headache dizziness Negative chest pain palpitations SOB Negative nausea vomitting diarrhea constipation Negative numbness tingling rash swelling Physical Exam Constitutional: WD/WN, vitals as above + thin, cooperative and comfortable Eyes: PERRL, conjunctivae normal, anicteric sclerae ENMT: external ear and nose normal, oropharynx normal Neck: trachea midline, no thyromegaly Respiratory: normal respiratory effort, lungs clear to auscultation Cardiovascular: RRR, no murmur, no edema Chest (Breasts): Chest: normal inspection of chest Gastrointestinal (Abdomen): normal bowel sounds, soft, nontender, no hepatosplenomegaly Skin: no rashes, warm and dry Results & Data Results & Data ([facility]) Vital Signs (Past 12 Hours) Vital Signs Temp Pulse Resp BP Pulse Ox 10/23/21 21:40 36.4 C L 95 H 16 143/73 H 94 Resident Activity Tracking Resident Involvement: Resident Care Provided Care Provided: Adult Hospital Medicine
[2021-10-24] MEDS ORDERED: INSULIN GLARGINE SOLOSTAR 100 UNITS/ML 3 ML PEN SC SCH (09:00)
[2021-10-24] MEDS: SENNA 8.6 MG TAB PO SCH (09:13)
[2021-10-24] MEDS: ASPIRIN 81 MG ECTAB PO SCH (09:13)
[2021-10-24] MEDS: FOLIC ACID 1 MG TAB PO SCH (09:13)
[2021-10-24] MEDS: THIAMINE HCL 100 MG TAB PO SCH (09:13)
[2021-10-24] MEDS: ROSUVASTATIN CALCIUM 20 MG TAB PO SCH (09:13)
[2021-10-24] MEDS: LEFLUNOMIDE 10 MG TAB PO SCH (09:13)
[2021-10-24] MEDS: dilTIAZem HCl 60 MG TAB PO SCH ×4 (09:13→20:35)
[2021-10-24] MEDS: MEMANTINE HCL 10 MG TAB PO SCH (09:13)
[2021-10-24] MEDS: APIXABAN 5 MG TABLET PO SCH ×2 (09:13→20:35)
[2021-10-24] MEDS: MAGNESIUM CHLORIDE 64MG DELAYED REL TAB PO SCH (09:13)
[2021-10-24] MEDS: VENLAFAXINE HCL XR 150 MG CAPXR PO SCH (09:13)
[2021-10-24] MEDS: DOCUSATE SODIUM 100 MG CAP PO SCH ×2 (09:14→20:35)
[2021-10-24] MEDS: POLYETHYLENE (MIRALAX) 17 GM PACK PO SCH (09:14)
[2021-10-24] MEDS: BENZOCAINE 20% (ORAJEL) 11.9 GM TUBE MT SCH ×4 (09:14→20:37)
[2021-10-24] MEDS: INSULIN ASPART PER UNIT SC SCH ×4 (09:14→21:07)
--- NOTE | 2021-10-24 13:06 | Pharmacy Report ---
Pharmacy Glycemic Short Note 2 - Date of Service October 24, 2021 - Glycemic Short BSG Results (Last 24 hours): 10/23/21 10/23/21 10/23/21 17:00 17:01 17:03 Glucose POC Glucose 318 H* 284 H 315 H* 10/23/21 10/24/21 10/24/21 21:05 01:56 05:09 Glucose 176 H POC Glucose 284 H 236 H 10/24/21 10/24/21 10/24/21 08:05 11:50 11:51 Glucose POC Glucose 203 H 363 H* 335 H* 10/24/21 11:53 Glucose POC Glucose 360 H* OUTPATIENT ANTIDIABETIC REGIMEN: * Sitagliptin * Glimepiride * HbA1c 10% on 09/02/21 ASSESSMENT: 10/24: * Patient received total 75 units of insulin yesterday: 35 units basal and 40 units bolus. * BSGs yesterday were 218-no check at qttob-112-703 mg/dl. Fasting BSG today was 203 mg/dl. * Basal dose increased this AM to 35 units and added additional 10-20 unit scale for tonight based on BSG. * Pre-lunch BSG shayla to 360 mg/dl. Tightened Novolog CF/CR with lunch today. 10/23: * Patient received total 52 units of insulin yesterday of which 32 units were basal and 20 units bolus. * Fasting BSG today was 218 mg/dl. Lantus dose increased to 25 units this AM and added HS dose scale based on BSG. * Novolog CF loosened slightly but CR tightened. * However BSG check was forgotten at lunch, so a Novolog correctional insulin was not given but the carbs were covered afterwards. Discussed this with nurse. Expect BSG to trend up over 200 mg/dl at dinner. Background 10/22/21: * 75 yo M with T2DM and hyperglycemia * Diltiazem gtt (mixed in D5W) stopped today, although impact on glycemic regimen likely minimal due to low rates. Heparin drip continues. T2DM diet ordered, although CHO intake yesterday low * Etiology of hyperglycemia likely 2nd insufficient basal insulin and possibly prandial insulin as well. Will increase Lantus and will tighten CHO ratio PLAN FOR INPATIENT GLYCEMIC CONTROL: * Hold outpatient oral diabetes medications * Basal insulin * Lantus 35 units SQ this AM and an additional 10-20 unit scale tonight based on BSG * Bolus insulin: tightened CF/CR * NovoLog per scale ACHS or Q6hrs while NPO * Goal Range: Low 110 mg/dL - High 140 mg/dL * Correction Factor: 12 mg/dL/unit * Nutritional / Prandial insulin per carb ratio of 1 unit per 6 grams CHO consumed PLAN FOR DISCHARGE: * HbA1c = 10%. Goal A1c is less than 8% for this patient given his age and co- morbidities. * Recommend discontinue Glimepiride on discharge and adding once daily basal insulin such as Lantus. * Appropriate Lantus dose is yet to be determined while patient is admitted but he can benefit from a starting dose of Lantus 30 units once daily in AM on discharge. * Recommend continue Januvia 100 mg PO daily.
[2021-10-24] MEDS: TAMSULOSIN HCL 0.4 MG CAP PO SCH (17:35)
--- NOTE | 2021-10-24 18:27 | Billing Data ---
Date of Service October 24, 2021 Coding Level of Care Code 40021 Subseq Hosp Care Lvl 2
--- NOTE | 2021-10-24 18:28 | Billing Data ---
Date of Service October 24, 2021 Coding Level of Care Code 84296 Subseq Hosp Care Lvl 2
[2021-10-24] MEDS: INSULIN GLARGINE SOLOSTAR 100 UNITS/ML 3 ML PEN SC SCH (20:48)
[2021-10-25 06:21] LABS: Hematocrit (blood only) 34.9 % (42-52); Hemoglobin 11.5 g/dL (14.0-18.0); Mean Corpuscular Hemoglobin 30.7 pg (25-34); Mean Corpuscular Volume 93.1 fL (80-100); Mean Platelet Volume 10.9 fL (7.4-10.4); Platelet Count 123 K/uL (130-400); RDW Coefficient of Variation 14.1 % (11.5-14.5); Red Blood Count 3.75 M/uL (4.7-6.1)
[2021-10-25 06:39] LABS: BUN Creatinine Ratio 14.9 (10-20); Calcium 9.4 mg/dl (8.5-10.1); Creatinine Clr Calc Pharmacy 40.2 ml/min; Est GFR (African American) 47.4 ml/min; Est GFR (Non-African American) 40.9 ml/min; Potassium 4.5 mmol/L (3.5-5.1)
--- NOTE | 2021-10-25 07:32 | Hospitalist Progress Note ---
Date of Service October 25, 2021 Assessment & Plan (1) Acute alteration in mental status: Plan: 75yo Male with PMH Dementia, HLD, ambulatory dysfunction, DM2, malnutrition, COPD, RA, sensorineural hearing loss, CKD, depression on anxiety here for AMS. Afib with RVR -10/19 developed sinus tachycardia vs. aflutter on EKG -received adenosine, cardizem, converted back to sinus, patient transitioned from IV to oral cardizem -started on heparin drip, transitioned to eliquis -no further events, continue to monitor, slightly tachy at 114 AMS -Acute AMS with decrease in functioning, ADLs, impaired decision-making -Unclear etiology at this time- less likely to be infectious, traumatic, medication/substance-induced. CBC, TSH, UA, urine toxicology, Lyme negative. Possibly vascular dementia given poorly controlled diabetes, only low-intensity statin use, also supported by history of medication non-compliance -CT Head without acute process, MRI brain also negative -EEG 10/17- abnormal but no evidence of seizure activity, showing moderate severity encephalopath -Continue thiamine supplementation as Wernicke encephalopathy remains on differential -Psychiatry consulted: Diagnostically consistent with encephalopathy/hyperactive delirium superimposed on progressive dementia. suggest decrease to venlafaxine 150mg qd scheduled melatonin 3mg qhs to help with delirium and sundowning have bring hearing aids --> arrived monitor QTc interval treat mouth pain to hopefully increase oral intake -10/21 per neurology he is less emotional liability compared to on admission -Patient to go to [facility] Dementia: -Neurocognitive testing in 2013- mild cognitive impairment likely related to microvascular disease -No history of dementia medication, has likely worsened over past 8 years -Neurology consulted: started 10/18 memantine 10 mg daily, plan to continue dose for 1 month then 10 mg BID afterward -mentation waxing and waning throughout the day Ambulatory dysfunction: - Worsening with ambulation and balance over past 2 weeks - B12 level slightly high at 1400, folate wnl - Reportedly wide-based shuffling gait but history and neuro exam does not suggest Parkinsonian disease - CT Head- no evidence of hydrocephalus - Continue PT/OT, recommends inpatient rehab Mouth Pain -possibly contributory to poor diet -ordered scheduled benzocaine gel, patient states mouth pain well controlled Hyperlipidemia -Lipid panel 10/17 wnl -Home med- simvastatin 40 mg daily -Despite normal lipid panel, given pt's age and DM2 diagnosis, switched to high- intensity rosuvastatin 20 mg on 10/17 -Continue rosuvastatin 20 mg, will monitor liver function as statin therapy continues Constipation, improving -KUB 10/17- moderate fecal retention, non-obstructive bowel gas pattern -Consistent with clinical history of recent constipation and findings on abdominal exam -Initiated bowel regimen 10/18- Senna, Colace, followed by Miralax this evening. Dulcolax PRN. -Pt having normal BMs since initiation, continue bowel regimen Pancytopenia -present since admission -WBC decreased since 10/19 -continue to monitor Malnutrition -13 lb weight loss in 6 weeks, due to poor PO intake limited to candy -Current weight 73.9 kg, down from usual weight 79 kg -BMP low Mg 1.4 despite repletion with slow mag, ordered 4g IV Mg --> recheck 1.9 -Encourage dietary intake, measure weight periodically JONNY on CKD3, resolving -BUN 43, Cr 2.3 on admission. Likely due to dehydration 2/ poor PO intake -BUN, Cr improving with LR boluses -Will resume home lisinopril once Cr remains stable around baseline 1.5-1.7 given his BP fluctuations from high to normal, will continue to hold lisinopril for now. -creat today elevated at 1.61, encouraged oral hydration -trend bmp DM2 -Poorly uncontrolled DM with A1C of 10% last month -Suspect inadequate glycemic control contributed to microvascular ischemia- worsening vascular dementia -Novolog ISS, CF 20, CR 1:15 -BSGs typically 200s, started Lantus 10u daily -consulted pharmacy glycemic management Rheumatoid arthritis -Continue home leflunomide Sensorineural hearing loss of both ears: - [facility] - Very hard of hearing- this may be adding to his delirium - brought his hearing aids from home Depression with anxiety: -Continue home Venlafaxine, decreased to 150mg daily per psychiatry Chronic obstructive pulmonary disease: -Continue albuterol PRN -Stable respiratory status at present FENa: DM2 easy to chew Code Status: DNR/DNI DVT PPX: eliquis 5mg BID PT/OT: ordered, recommend SNF Case Management: [facility] 10/30 Ludmila Bull Do PGY 1, FCM (2) Delirium: (3) Dementia: (4) Hyperglycemia: (5) Acute kidney injury superimposed on chronic kidney disease: (6) Rheumatoid arthritis involving multiple sites with positive rheumatoid factor: Admission and Anticipated Discharge Date Admission Date: October 18, 2021 Supervising Physician Co-Signing Physician Notes I personally examined the patient and verified all lloyd points of history and exam, discussed case, and agree with decision making with Dr Bull sleeping comfortably. for [facility] thursday Vitals noted, in general he is resting comfortably in no distress. Rates now overall controlled but slightly higher today HEENT normocephalic atraumatic mucous membranes moist. Breathing unlabored no accessory muscle use good effort. Skin shows no rashes no pallor or icterus. Neuro no focal deficits. 1.A. fib/flutterrate control remains little worse - increase dilt slightly and follow. anticoagulated 2.Delirium on dementiaprobably polypharmacy being the biggest culprit in causing an acute metabolic encephalopathy present on admission. Fortunately he is willing to consider placement at this time which would provide a stable environment. Once his delirium is fully cleared, if a situation can be set up that avoids polypharmacy in the future, it would be reasonable to reassess his safety/ability to be independent at that time 3.Dementia. 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 Memantine started by neurology. Increase in about a month 4. Acute protein calorie malnutritionpresent on admissiondue to poor self- care, seems to be severe in the recent weeks with 13 pounds weight loss. Uncertain on overall chronicityreassured that his albumin is normal. Nutrition on consult Otherwise as above Dispo: pending placement. stable on medical Subjective Patient seen at bedside, calm comfortable cooperative. Patient happy to know he has placement on 10/30 at [facility]. Patient states he feels well hydrated, drinks 1 [place] cup per day. He states sleeping eating voiding well, no complaints at this time Review of Systems Review of Systems: Negative fever chills Negative headache dizziness Negative chest pain palpitations SOB Negative nausea vomitting diarrhea constipation Negative numbness tingling rash swelling Physical Exam Constitutional: WD/WN, vitals as above + thin, cooperative and comfortable Eyes: PERRL, conjunctivae normal, anicteric sclerae ENMT: external ear and nose normal, oropharynx normal Neck: trachea midline, no thyromegaly Respiratory: normal respiratory effort, lungs clear to auscultation Cardiovascular: RRR, no murmur, no edema Chest (Breasts): Chest: normal inspection of chest Gastrointestinal (Abdomen): normal bowel sounds, soft, nontender, no hepatosplenomegaly Skin: no rashes, warm and dry Results & Data Results & Data ([facility]) Vital Signs (Past 12 Hours) Vital Signs Temp Pulse Resp BP Pulse Ox 10/24/21 22:02 36.4 C L 103 H 16 92/56 L 93 Resident Activity Tracking Resident Involvement: Resident Care Provided Care Provided: Adult Hospital Medicine
[2021-10-25] MEDS: SENNA 8.6 MG TAB PO SCH (07:47)
[2021-10-25] MEDS: MEMANTINE HCL 10 MG TAB PO SCH (07:47)
[2021-10-25] MEDS: VENLAFAXINE HCL XR 150 MG CAPXR PO SCH ×2 (07:47→07:48)
[2021-10-25] MEDS: ROSUVASTATIN CALCIUM 20 MG TAB PO SCH (07:47)
[2021-10-25] MEDS: LEFLUNOMIDE 10 MG TAB PO SCH (07:48)
[2021-10-25] MEDS: FOLIC ACID 1 MG TAB PO SCH (07:48)
[2021-10-25] MEDS: APIXABAN 5 MG TABLET PO SCH ×2 (07:48→21:10)
[2021-10-25] MEDS: DOCUSATE SODIUM 100 MG CAP PO SCH ×2 (07:48→21:10)
[2021-10-25] MEDS: THIAMINE HCL 100 MG TAB PO SCH (07:48)
[2021-10-25] MEDS: ASPIRIN 81 MG ECTAB PO SCH (07:48)
[2021-10-25] MEDS: dilTIAZem HCl 60 MG TAB PO SCH (07:48)
[2021-10-25] MEDS: MAGNESIUM CHLORIDE 64MG DELAYED REL TAB PO SCH (07:48)
[2021-10-25] MEDS: BENZOCAINE 20% (ORAJEL) 11.9 GM TUBE MT SCH ×3 (07:48→21:10)
[2021-10-25] MEDS: POLYETHYLENE (MIRALAX) 17 GM PACK PO SCH (07:49)
[2021-10-25] MEDS: INSULIN GLARGINE SOLOSTAR 100 UNITS/ML 3 ML PEN SC SCH ×2 (08:41→21:12)
[2021-10-25] MEDS: INSULIN ASPART PER UNIT SC SCH ×4 (08:42→21:10)
--- NOTE | 2021-10-25 11:10 | Pharmacy Report ---
Pharmacy Glycemic Short Note 2 - Date of Service October 25, 2021 - Glycemic Short BSG Results (Last 24 hours): 10/24/21 10/24/21 10/24/21 11:50 11:51 11:53 Glucose POC Glucose 363 H* 335 H* 360 H* 10/24/21 10/24/21 10/24/21 17:00 20:40 20:41 Glucose POC Glucose 273 H 377 H* 350 H* 10/25/21 10/25/21 05:44 08:11 Glucose 206 H POC Glucose 230 H OUTPATIENT ANTIDIABETIC REGIMEN: * Sitagliptin * Glimepiride * HbA1c 10% on 09/02/21 ASSESSMENT: 10/25/21: * Mr Mariee rec'd 135 units of insulin yesterday, with persistent hyperglycemia throughout the day. * Basal insulin: 55 units * Bolus insulin: 80 units * Plan to increase basal insulin today and also tighten Novolog parameters to provide additional prandial coverage. * Will work toward once-daily basal insulin, in case pt will require insulin at discharge. * Patient's SCr has been trending up throughout admission, which could affect insulin sensitivity. * Will follow and adjust cautiously. 10/24 * Patient received total 75 units of insulin yesterday: 35 units basal and 40 units bolus. * BSGs yesterday were 218-no check at lvqds-922-443 mg/dl. Fasting BSG today was 203 mg/dl. * Basal dose increased this AM to 35 units and added additional 10-20 unit scale for tonight based on BSG. * Pre-lunch BSG shayla to 360 mg/dl. Tightened Novolog CF/CR with lunch today. 10/23 * Patient received total 52 units of insulin yesterday of which 32 units were basal and 20 units bolus. * Fasting BSG today was 218 mg/dl. Lantus dose increased to 25 units this AM and added HS dose scale based on BSG. * Novolog CF loosened slightly but CR tightened. * However BSG check was forgotten at lunch, so a Novolog correctional insulin was not given but the carbs were covered afterwards. Discussed this with nurse. Expect BSG to trend up over 200 mg/dl at dinner. Background 10/22/21: * 75 yo M with T2DM and hyperglycemia * Diltiazem gtt (mixed in D5W) stopped today, although impact on glycemic regimen likely minimal due to low rates. Heparin drip continues. T2DM diet ordered, although CHO intake yesterday low * Etiology of hyperglycemia likely 2nd insufficient basal insulin and possibly prandial insulin as well. Will increase Lantus and will tighten CHO ratio PLAN FOR INPATIENT GLYCEMIC CONTROL: * Hold outpatient oral diabetes medications * Basal insulin * Lantus 50 units SQ qAM * additional Lantus at HS, based on BSG * Bolus insulin: * NovoLog per scale ACHS or Q6hrs while NPO * Goal Range: Low 110 mg/dL - High 140 mg/dL * Correction Factor: 12 mg/dL/unit * Nutritional / Prandial insulin per carb ratio of 1 unit per 5 grams CHO consumed
[2021-10-25] MEDS ORDERED: dilTIAZem HCl 60 MG TAB PO SCH (13:00)
[2021-10-25] MEDS: dilTIAZem HCL 30 MG TAB PO SCH ×3 (13:09→21:10)
[2021-10-25] MEDS: TAMSULOSIN HCL 0.4 MG CAP PO SCH (17:33)
--- NOTE | 2021-10-25 18:34 | Billing Data ---
Date of Service October 25, 2021 Coding Level of Care Code 45097 Subseq Hosp Care Lvl 2
[2021-10-26 06:27] LABS: Hematocrit (blood only) 33.3 % (42-52); Hemoglobin 11.3 g/dL (14.0-18.0); Mean Corpuscular Hemoglobin 31.4 pg (25-34); Mean Corpuscular Hgb Conc 33.9 g/dL (32-36); Mean Corpuscular Volume 92.5 fL (80-100); Mean Platelet Volume 10.6 fL (7.4-10.4); Platelet Count 124 K/uL (130-400); RDW Coefficient of Variation 14.2 % (11.5-14.5); RDW Standard Deviation 46.8 fL (36.4-46.3); White Blood Count 5.84 K/uL (4.8-10.8)
[2021-10-26 06:52] LABS: BUN Creatinine Ratio 18.9 (10-20); Calcium 9.5 mg/dl (8.5-10.1); Creatinine Clr Calc Pharmacy 49.1 ml/min; Est GFR (African American) 60.3 ml/min; Potassium 4.4 mmol/L (3.5-5.1)
[2021-10-26] MEDS: ASPIRIN 81 MG ECTAB PO SCH (08:09)
[2021-10-26] MEDS: LEFLUNOMIDE 10 MG TAB PO SCH (08:09)
[2021-10-26] MEDS: APIXABAN 5 MG TABLET PO SCH ×2 (08:09→21:57)
[2021-10-26] MEDS: SENNA 8.6 MG TAB PO SCH (08:09)
[2021-10-26] MEDS: MAGNESIUM CHLORIDE 64MG DELAYED REL TAB PO SCH (08:09)
[2021-10-26] MEDS: FOLIC ACID 1 MG TAB PO SCH (08:09)
[2021-10-26] MEDS: dilTIAZem HCL 30 MG TAB PO SCH ×4 (08:10→21:57)
[2021-10-26] MEDS: ROSUVASTATIN CALCIUM 20 MG TAB PO SCH (08:10)
[2021-10-26] MEDS: THIAMINE HCL 100 MG TAB PO SCH (08:10)
[2021-10-26] MEDS: MEMANTINE HCL 10 MG TAB PO SCH (08:10)
[2021-10-26] MEDS: BENZOCAINE 20% (ORAJEL) 11.9 GM TUBE MT SCH ×3 (08:11→22:01)
[2021-10-26] MEDS: DOCUSATE SODIUM 100 MG CAP PO SCH ×2 (08:13→21:57)
[2021-10-26] MEDS: POLYETHYLENE (MIRALAX) 17 GM PACK PO SCH (08:13)
[2021-10-26] MEDS: INSULIN GLARGINE SOLOSTAR 100 UNITS/ML 3 ML PEN SC SCH ×2 (08:56→21:55)
[2021-10-26] MEDS: INSULIN ASPART PER UNIT SC SCH ×4 (08:57→21:56)
--- NOTE | 2021-10-26 10:05 | Pharmacy Report ---
Pharmacy Glycemic Short Note 2 - Date of Service October 26, 2021 - Glycemic Short BSG Results (Last 24 hours): 10/25/21 10/25/21 10/25/21 12:08 17:13 20:43 Glucose POC Glucose 273 H 255 H 295 H 10/26/21 10/26/21 06:13 08:14 Glucose 196 H POC Glucose 270 H OUTPATIENT ANTIDIABETIC REGIMEN: * Sitagliptin * Glimepiride * HbA1c 10% on 09/02/21 ASSESSMENT: 10/26/21 * Patient's BSGs were [phone] mg/dL and fasting today was 196 mg/dL on PRP but 270 mg/dL on POC. * Patient received 135 units yesterday (65 units of basal and 70 units of bolus). * Increase basal to 60 units in AM and continue scale in the evening. * Tighten CR. 10/25/21: * Mr Mariee rec'd 135 units of insulin yesterday, with persistent hyperglycemia throughout the day. * Basal insulin: 55 units * Bolus insulin: 80 units * Plan to increase basal insulin today and also tighten Novolog parameters to provide additional prandial coverage. * Will work toward once-daily basal insulin, in case pt will require insulin at discharge. * Patient's SCr has been trending up throughout admission, which could affect insulin sensitivity. * Will follow and adjust cautiously. 10/24 * Patient received total 75 units of insulin yesterday: 35 units basal and 40 units bolus. * BSGs yesterday were 218-no check at ylchw-283-645 mg/dl. Fasting BSG today was 203 mg/dl. * Basal dose increased this AM to 35 units and added additional 10-20 unit scale for tonight based on BSG. * Pre-lunch BSG shayla to 360 mg/dl. Tightened Novolog CF/CR with lunch today. 10/23 * Patient received total 52 units of insulin yesterday of which 32 units were basal and 20 units bolus. * Fasting BSG today was 218 mg/dl. Lantus dose increased to 25 units this AM and added HS dose scale based on BSG. * Novolog CF loosened slightly but CR tightened. * However BSG check was forgotten at lunch, so a Novolog correctional insulin was not given but the carbs were covered afterwards. Discussed this with nurse. Expect BSG to trend up over 200 mg/dl at dinner. Background 10/22/21: * 75 yo M with T2DM and hyperglycemia * Diltiazem gtt (mixed in D5W) stopped today, although impact on glycemic regimen likely minimal due to low rates. Heparin drip continues. T2DM diet ordered, although CHO intake yesterday low * Etiology of hyperglycemia likely 2nd insufficient basal insulin and possibly prandial insulin as well. Will increase Lantus and will tighten CHO ratio PLAN FOR INPATIENT GLYCEMIC CONTROL: * Hold outpatient oral diabetes medications * Basal insulin * Lantus 60 units SQ qAM * additional Lantus at HS, based on BSG * Bolus insulin: * NovoLog per scale ACHS or Q6hrs while NPO * Goal Range: Low 110 mg/dL - High 140 mg/dL * Correction Factor: 12 mg/dL/unit * Nutritional / Prandial insulin per carb ratio of 1 unit per 4
[2021-10-26] MEDS ORDERED: INSULIN GLARGINE SOLOSTAR 100 UNITS/ML 3 ML PEN SC ONE (12:00)
[2021-10-26] MEDS ORDERED: INSULIN HUMAN REGULAR PER UNIT 7 UNITS in SYRINGE 6.93 ML IV ONE (13:00)
--- NOTE | 2021-10-26 13:05 | Hospitalist Progress Note ---
Date of Service October 26, 2021 Assessment & Plan (1) Acute alteration in mental status: Plan: 75yo Male with PMH Dementia, HLD, ambulatory dysfunction, DM2, malnutrition, COPD, RA, sensorineural hearing loss, CKD, depression on anxiety here for AMS. Afib with RVR -10/19 developed sinus tachycardia vs. aflutter on EKG -received adenosine, cardizem, converted back to sinus, patient transitioned from IV to oral cardizem. Oral Cardizem changed to Metoprolol succinate 150 po qd due to tachycardia. Will monitor. -started on heparin drip, transitioned to eliquis -no further events, continue to monitor, slightly tachy at 114 AMS -Acute AMS with decrease in functioning, ADLs, impaired decision-making -Unclear etiology at this time- less likely to be infectious, traumatic, medication/substance-induced. CBC, TSH, UA, urine toxicology, Lyme negative. Possibly vascular dementia given poorly controlled diabetes, only low-intensity statin use, also supported by history of medication non-compliance -CT Head without acute process, MRI brain also negative -EEG 10/17- abnormal but no evidence of seizure activity, showing moderate severity encephalopath -Continue thiamine supplementation as Wernicke encephalopathy remains on differential -Psychiatry consulted: Diagnostically consistent with encephalopathy/hyperactive delirium superimposed on progressive dementia. suggest decrease to venlafaxine 150mg qd scheduled melatonin 3mg qhs to help with delirium and sundowning have bring hearing aids --> arrived monitor QTc interval treat mouth pain to hopefully increase oral intake -10/21 per neurology he is less emotional liability compared to on admission -Patient to go to [facility] [place] [facility] 10/30 Dementia: -Neurocognitive testing in 2013- mild cognitive impairment likely related to microvascular disease -No history of dementia medication, has likely worsened over past 8 years -Neurology consulted: started 10/18 memantine 10 mg daily, plan to continue dose for 1 month then 10 mg BID afterward -mentation waxing and waning throughout the day Ambulatory dysfunction: - Worsening with ambulation and balance over past 2 weeks - B12 level slightly high at 1400, folate wnl - Reportedly wide-based shuffling gait but history and neuro exam does not suggest Parkinsonian disease - CT Head- no evidence of hydrocephalus - Continue PT/OT, recommends inpatient rehab Mouth Pain -possibly contributory to poor diet -ordered scheduled benzocaine gel, patient states mouth pain well controlled Hyperlipidemia -Lipid panel 2/24 wnl -Home med- simvastatin 40 mg daily switch to atorvastatin 40mg due to HLD and DM2 -Despite normal lipid panel, given pt's age and DM2 diagnosis, switched to high- intensity rosuvastatin 20 mg on 10/17 -Continue rosuvastatin 20 mg, will monitor liver function as statin therapy continues Constipation, improving -KUB 10/17- moderate fecal retention, non-obstructive bowel gas pattern -Consistent with clinical history of recent constipation and findings on abdominal exam -Initiated bowel regimen 10/18- Senna, Colace, followed by Miralax this evening. Dulcolax PRN. -Pt having normal BMs since initiation, continue bowel regimen Pancytopenia -present since admission -WBC decreased since 10/19 -continue to monitor Malnutrition -13 lb weight loss in 6 weeks, due to poor PO intake limited to candy -Current weight 73.9 kg, down from usual weight 79 kg -BMP low Mg 1.4 despite repletion with slow mag, ordered 4g IV Mg --> recheck 1.9 -Encourage dietary intake, measure weight periodically JONNY on CKD3, resolving -BUN 43, Cr 2.3 on admission. Likely due to dehydration 2/2 poor PO intake -BUN, Cr improving with LR boluses -Will resume home lisinopril once Cr remains stable around baseline 1.5-1.7 given his BP fluctuations from high to normal, will continue to hold lisinopril for now. -creat today elevated at 1.61, encouraged oral hydration -trend bmp DM2 -Poorly uncontrolled DM with A1C of 10% last month -Suspect inadequate glycemic control contributed to microvascular ischemia- worsening vascular dementia -Novolog ISS, CF 20, CR 1:15 -BSGs typically 200s, started Lantus 10u daily -consulted pharmacy glycemic management Rheumatoid arthritis -Continue home leflunomide Sensorineural hearing loss of both ears: - [facility] - Very hard of hearing- this may be adding to his delirium - brought his hearing aids from home Depression with anxiety: -Continue home Venlafaxine, decreased to 150mg daily per psychiatry Chronic obstructive pulmonary disease: -Continue albuterol PRN -Stable respiratory status at present FENa: DM2 easy to chew Code Status: DNR/DNI DVT PPX: eliquis 5mg BID PT/OT: ordered, recommend SNF Case Management: [facility] 10/30 (2) Delirium: (3) Dementia: (4) Hyperglycemia: (5) Acute kidney injury superimposed on chronic kidney disease: (6) Rheumatoid arthritis involving multiple sites with positive rheumatoid factor: Admission and Anticipated Discharge Date Admission Date: October 18, 2021 Supervising Physician Co-Signing Physician Notes I personally examined the patient and verified all lloyd points of history and exam, discussed case, and agree with decision making with Dr Rockwell again sleeping comfortably. [facility] th[facility] Vitals noted, in general he is resting comfortably in no distress. Rates now overall controlled but slightly higher today HEENT normocephalic atraumatic mucous membranes moist. Breathing unlabored no accessory muscle use good e ffort. Skin shows no rashes no pallor or icterus. Neuro no focal deficits. 1.A. fib/fluttertransition rate control to long acting (toprol XL) and follow. anticoagulated 2.Delirium on dementiaprobably polypharmacy being the biggest culprit in causing an acute metabolic encephalopathy present on admission. Fortunately he is willing to consider placement at this time which would provide a stable environment. Once his delirium is fully cleared, if a situation can be set up that avoids polypharmacy in the future, it would be reasonable to reassess his safety/ability to be independent at that time 3.Dementia. 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 Memantine started by neurology. Increase in about a month 4. Acute protein calorie malnutritionpresent on admissiondue to poor self- care, seems to be severe in the recent weeks with 13 pounds weight loss. Uncertain on overall chronicityreassured that his albumin is normal. Nutrition on consult Otherwise as above Dispo: pending placement next week. stable on medical Subjective Patient seen at bedside. No acute events overnight. Patient is very pleasant today and is lying down in bed. Has no complaints at this time. Patient has placement at [facility] on 10/30/2021. Review of Systems Review of Systems: All systems reviewed & are unremarkable except as noted in HPI & below Physical Exam Constitutional: WD/WN, vitals as above + thin, cooperative and comfortable Eyes: PERRL, conjunctivae normal, anicteric sclerae ENMT: external ear and nose normal, oropharynx normal Neck: trachea midline, no thyromegaly Respiratory: normal respiratory effort, lungs clear to auscultation Cardiovascular: RRR, no murmur, no edema Chest (Breasts): Chest: normal inspection of chest Gastrointestinal (Abdomen): normal bowel sounds, soft, nontender, no hepatosplenomegaly Skin: no rashes, warm and dry Results & Data Results & Data ([facility]) Vital Signs (Past 12 Hours) Vital Signs Temp Pulse Resp BP BP Pulse Ox 10/26/21 12:50 120 H 159/81 H 10/26/21 07:23 36.5 C 104 H 14 153/73 H 95
[2021-10-26] MEDS: TAMSULOSIN HCL 0.4 MG CAP PO SCH (17:34)
--- NOTE | 2021-10-26 17:46 | Billing Data ---
Date of Service October 26, 2021 Coding Level of Care Code 59398 Subseq Hosp Care Lvl 1
[2021-10-26] MEDS ORDERED: INSULIN HUMAN REGULAR PER UNIT 8 UNITS in SYRINGE 7.92 ML IV ONE (18:45)
[2021-10-27] MEDS: INSULIN ASPART PER UNIT SC SCH ×6 (01:01→22:00)
[2021-10-27] MEDS: LEFLUNOMIDE 10 MG TAB PO SCH (08:18)
[2021-10-27] MEDS: ROSUVASTATIN CALCIUM 20 MG TAB PO SCH (08:18)
[2021-10-27] MEDS: ASPIRIN 81 MG ECTAB PO SCH (08:18)
[2021-10-27] MEDS: APIXABAN 5 MG TABLET PO SCH ×2 (08:18→21:44)
[2021-10-27] MEDS: THIAMINE HCL 100 MG TAB PO SCH (08:18)
[2021-10-27] MEDS: SENNA 8.6 MG TAB PO SCH (08:18)
[2021-10-27] MEDS: MEMANTINE HCL 10 MG TAB PO SCH (08:18)
[2021-10-27] MEDS: BENZOCAINE 20% (ORAJEL) 11.9 GM TUBE MT SCH ×3 (08:18→21:44)
[2021-10-27] MEDS: MAGNESIUM CHLORIDE 64MG DELAYED REL TAB PO SCH (08:18)
[2021-10-27] MEDS: FOLIC ACID 1 MG TAB PO SCH (08:18)
[2021-10-27] MEDS: VENLAFAXINE HCL XR 150 MG CAPXR PO SCH (08:18)
[2021-10-27] MEDS: POLYETHYLENE (MIRALAX) 17 GM PACK PO SCH (08:19)
[2021-10-27] MEDS: DOCUSATE SODIUM 100 MG CAP PO SCH ×2 (08:19→21:44)
[2021-10-27] MEDS ORDERED: INSULIN GLARGINE SOLOSTAR 100 UNITS/ML 3 ML PEN SC SCH ×2 (09:00)
[2021-10-27] MEDS ORDERED: METOPROLOL SUCC 50MG EXT REL TAB PO SCH (09:00)
[2021-10-27 09:36] LABS: Basophils # (auto) 0.02 K/uL (0-0.2); Basophils % (auto) 0.4 %; Eosinophils # (auto) 0.22 K/uL (0-0.5); Eosinophils % (auto) 3.9 %; Hematocrit (blood only) 35.4 % (42-52); Immature Granulocytes # (auto) 0.01 K/uL (0.00-0.02); Immature Granulocytes % (auto) 0.2 %; Lymphocytes # (auto) 0.92 K/uL (1.2-3.4); Lymphocytes % (auto) 16.4 %; Mean Corpuscular Hemoglobin 31.7 pg (25-34); Mean Corpuscular Hgb Conc 33.9 g/dL (32-36); Mean Corpuscular Volume 93.7 fL (80-100); Mean Platelet Volume 10.9 fL (7.4-10.4); Monocytes # (auto) 0.38 K/uL (0.11-0.59); Monocytes % (auto) 6.8 %; Neutrophils # (auto) 4.06 K/uL (1.4-6.5); Neutrophils % (auto) 72.3 %; Platelet Count 145 K/uL (130-400); RDW Coefficient of Variation 14.6 % (11.5-14.5); RDW Standard Deviation 48.5 fL (36.4-46.3); Red Blood Count 3.78 M/uL (4.7-6.1); White Blood Count 5.61 K/uL (4.8-10.8)
[2021-10-27 10:25] LABS: Calcium 9.5 mg/dl (8.5-10.1); Creatinine Clr Calc Pharmacy 40.8 ml/min; Est GFR (African American) 48.2 ml/min; Est GFR (Non-African American) 41.6 ml/min; Potassium 4.6 mmol/L (3.5-5.1)
--- NOTE | 2021-10-27 12:12 | Hospitalist Progress Note ---
Date of Service October 27, 2021 Assessment & Plan (1) Acute alteration in mental status: Plan: 75yo Male with PMH Dementia, HLD, ambulatory dysfunction, DM2, malnutrition, COPD, RA, sensorineural hearing loss, CKD, depression on anxiety here for AMS. Afib with RVR -10/19 developed sinus tachycardia vs. aflutter on EKG -received adenosine, cardizem, converted back to sinus, patient transitioned from IV to oral cardizem. Oral Cardizem changed to Metoprolol succinate 150 po qd due to tachycardia. Will monitor. -started on heparin drip, transitioned to eliquis -no further events, continue to monitor, slightly tachy at 114 AMS -Acute AMS with decrease in functioning, ADLs, impaired decision-making -Unclear etiology at this time- less likely to be infectious, traumatic, medication/substance-induced. CBC, TSH, UA, urine toxicology, Lyme negative. Possibly vascular dementia given poorly controlled diabetes, only low-intensity statin use, also supported by history of medication non-compliance -CT Head without acute process, MRI brain also negative -EEG 10/17- abnormal but no evidence of seizure activity, showing moderate severity encephalopath -Continue thiamine supplementation as Wernicke encephalopathy remains on differential -Psychiatry consulted: Diagnostically consistent with encephalopathy/hyperactive delirium superimposed on progressive dementia. suggest decrease to venlafaxine 150mg qd scheduled melatonin 3mg qhs to help with delirium and sundowning have bring hearing aids --> arrived monitor QTc interval treat mouth pain to hopefully increase oral intake -10/21 per neurology he is less emotional liability compared to on admission -Patient to go to [facility] [place] [facility] 10/30 Dementia: -Neurocognitive testing in 2013- mild cognitive impairment likely related to microvascular disease -No history of dementia medication, has likely worsened over past 8 years -Neurology consulted: started 10/18 memantine 10 mg daily, plan to continue dose for 1 month then 10 mg BID afterward -mentation waxing and waning throughout the day Ambulatory dysfunction: - Worsening with ambulation and balance over past 2 weeks - B12 level slightly high at 1400, folate wnl - Reportedly wide-based shuffling gait but history and neuro exam does not suggest Parkinsonian disease - CT Head- no evidence of hydrocephalus - Continue PT/OT, recommends inpatient rehab Mouth Pain -possibly contributory to poor diet -ordered scheduled benzocaine gel, patient states mouth pain well controlled Hyperlipidemia -Lipid panel 2/24 wnl -Home med- simvastatin 40 mg daily switch to atorvastatin 40mg due to HLD and DM2 -Despite normal lipid panel, given pt's age and DM2 diagnosis, switched to high- intensity rosuvastatin 20 mg on 10/17 -Continue rosuvastatin 20 mg, will monitor liver function as statin therapy continues Constipation, improving -KUB 10/17- moderate fecal retention, non-obstructive bowel gas pattern -Consistent with clinical history of recent constipation and findings on abdominal exam -Initiated bowel regimen 10/18- Senna, Colace, followed by Miralax this evening. Dulcolax PRN. -Pt having normal BMs since initiation, continue bowel regimen Pancytopenia -present since admission -WBC decreased since 10/19 -continue to monitor Malnutrition -13 lb weight loss in 6 weeks, due to poor PO intake limited to candy -Current weight 73.9 kg, down from usual weight 79 kg -BMP low Mg 1.4 despite repletion with slow mag, ordered 4g IV Mg --> recheck 1.9 -Encourage dietary intake, measure weight periodically JONNY on CKD3, resolving -BUN 43, Cr 2.3 on admission. Likely due to dehydration 2/2 poor PO intake -BUN, Cr improving with LR boluses -Will resume home lisinopril once Cr remains stable around baseline 1.5-1.7 given his BP fluctuations from high to normal, will continue to hold lisinopril for now. -creat today elevated at 1.61, encouraged oral hydration -trend bmp DM2 -Poorly uncontrolled DM with A1C of 10% last month -Suspect inadequate glycemic control contributed to microvascular ischemia- worsening vascular dementia -Novolog ISS, CF 20, CR 1:15 -BSGs typically 200s, started Lantus 10u daily -consulted pharmacy glycemic management Rheumatoid arthritis -Continue home leflunomide Sensorineural hearing loss of both ears: - [facility] - Very hard of hearing- this may be adding to his delirium - brought his hearing aids from home Depression with anxiety: -Continue home Venlafaxine, decreased to 150mg daily per psychiatry Chronic obstructive pulmonary disease: -Continue albuterol PRN -Stable respiratory status at present FENa: DM2 easy to chew Code Status: DNR/DNI DVT PPX: eliquis 5mg BID PT/OT: ordered, recommend SNF Case Management: [facility] 10/30 (2) Delirium: (3) Dementia: (4) Hyperglycemia: (5) Acute kidney injury superimposed on chronic kidney disease: (6) Rheumatoid arthritis involving multiple sites with positive rheumatoid factor: Admission and Anticipated Discharge Date Admission Date: October 18, 2021 Supervising Physician Co-Signing Physician Notes I personally examined the patient and verified all lloyd points of history and exam, discussed case, and agree with decision making with Dr Rockwell again sleeping comfortably. for [facility] thursday. nursing notes that he has been eating ~100% Vitals noted, in general he is resting comfortably in no distress. Rates now overall controlled but slightly higher today HEENT normocephalic atraumatic mucous membranes moist. Breathing unlabored no accessory muscle use good effort. Skin shows no rashes no pallor or icterus. Neuro no focal deficits. 1.A. fib/fluttertitrate toprol. anticoagulated 2.Delirium on dementiaprobably polypharmacy being the biggest culprit in causing an acute metabolic encephalopathy present on admission. Fortunately he is willing to consider placement at this time which would provide a stable environment. Once his delirium is fully cleared, if a situation can be set up that avoids polypharmacy in the future, it would be reasonable to reassess his safety/ability to be independent at that time 3.Dementia. 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 Memantine started by neurology. Increase in about a month 4. Acute protein calorie malnutritionpresent on admissiondue to poor self- care, seems to be severe in the recent weeks with 13 pounds weight loss. U ncertain on overall chronicityreassured that his albumin is normal. Nutrition on consult Otherwise as above 5. uncontrolled DM2 - insulin resistant. off PO meds/insulin sensitizers. insulins being titrated up - doubt there is any strange endocrine issues at play as much as just that with an A1c of 10% he probably is quite insulin resistant and we are likely just titrating to his requirements. conitnue to follow though, and w/u further if insulin requirements don't level off Dispo: pending placement next week. stable on medical Physical Exam Constitutional: WD/WN, vitals as above cooperative and comfortable Eyes: PERRL, conjunctivae normal, anicteric sclerae ENMT: external ear and nose normal, oropharynx normal Neck: trachea midline, no thyromegaly Respiratory: normal respiratory effort, lungs clear to auscultation Cardiovascular: RRR, no murmur, no edema Chest (Breasts): Chest: normal inspection of chest Gastrointestinal (Abdomen): normal bowel sounds, soft, nontender, no hepatosplenomegaly Skin: no rashes, warm and dry Results & Data Results & Data ([facility]) Vital Signs (Past 12 Hours) Vital Signs Temp Pulse Resp BP Pulse Ox 10/27/21 07:34 36.7 C 104 H 14 144/77 H 94
[2021-10-27] MEDS ORDERED: INSULIN HUMAN REGULAR PER UNIT 7 UNITS in SYRINGE 6.93 ML IV ONE (12:30)
--- NOTE | 2021-10-27 14:05 | Pharmacy Report ---
Pharmacy Glycemic Short Note 2 - Date of Service October 27, 2021 - Glycemic Short BSG Results (Last 24 hours): 10/26/21 10/26/21 10/26/21 17:04 17:04 17:06 Glucose POC Glucose 361 H* 289 H 318 H* 10/26/21 10/26/21 10/26/21 19:21 21:34 21:36 Glucose POC Glucose 360 H* 324 H* 305 H* 10/26/21 10/27/21 10/27/21 23:57 03:57 08:10 Glucose POC Glucose 221 H 169 H 162 H 10/27/21 10/27/21 10/27/21 09:27 12:00 12:00 Glucose 336 H* POC Glucose 443 H* 411 H* OUTPATIENT ANTIDIABETIC REGIMEN: * Sitagliptin * Glimepiride * HbA1c 10% on 09/02/21 ASSESSMENT: 10/27/21 * Patient's BSGs yesterday were [phone] mg/dL. * Patient received 186 units of insulin yesterday (75 units of basal plus 111 units of bolus) + 15 units of IV insulin. This is a 40% increase compared to 10/25/21. He received 10 units of Novolog overnight. * For basal insulin, will give all 75 units of basal this morning. Will continue with scale for evening but will increase thresholds. Patient's fasting did decrease by 100 points compared with 10/26/21. * For Novolog, will tighten. * Patient's BSG at lunch was again 410 mg/dL. Conferred with nurse - patient had yakut toast plus banana. * Discussed with dietary who altered patient's diet orders. * Give 7 units IV bolus and ordered recheck 2 hours after IV insulin bolus given. * Primary team updated with plan. 10/26/21 * Patient's BSGs were [phone] mg/dL and fasting today was 196 mg/dL on PRP but 270 mg/dL on POC. * Patient received 135 units yesterday (65 units of basal and 70 units of bolus). * Increase basal to 60 units in AM and continue scale in the evening. * Tighten CR. 10/25/21: * Mr Mariee rec'd 135 units of insulin yesterday, with persistent hyperglycemia throughout the day. * Basal insulin: 55 units * Bolus insulin: 80 units * Plan to increase basal insulin today and also tighten Novolog parameters to provide additional prandial coverage. * Will work toward once-daily basal insulin, in case pt will require insulin at discharge. * Patient's SCr has been trending up throughout admission, which could affect insulin sensitivity. * Will follow and adjust cautiously. 10/24 * Patient received total 75 units of insulin yesterday: 35 units basal and 40 units bolus. * BSGs yesterday were 218-no check at [id number]-[id number] mg/dl. Fasting BSG today was 203 mg/dl. * Basal dose increased this AM to 35 units and added additional 10-20 unit scale for tonight based on BSG. * Pre-lunch BSG shayla to 360 mg/dl. Tightened Novolog CF/CR with lunch today. 10/23 * Patient received total 52 units of insulin yesterday of which 32 units were basal and 20 units bolus. * Fasting BSG today was 218 mg/dl. Lantus dose increased to 25 units this AM and added HS dose scale based on BSG. * Novolog CF loosened slightly but CR tightened. * However BSG check was forgotten at lunch, so a Novolog correctional insulin was not given but the carbs were covered afterwards. Discussed this with nurse. Expect BSG to trend up over 200 mg/dl at dinner. Background 10/22/21: * 75 yo M with T2DM and hyperglycemia * Diltiazem gtt (mixed in D5W) stopped today, although impact on glycemic regimen likely minimal due to low rates. Heparin drip continues. T2DM diet ordered, although CHO intake yesterday low * Etiology of hyperglycemia likely 2nd insufficient basal insulin and possibly prandial insulin as well. Will increase Lantus and will tighten CHO ratio PLAN FOR INPATIENT GLYCEMIC CONTROL: * Hold outpatient oral diabetes medications * Basal insulin * Lantus 75 units SQ qAM * additional Lantus at HS, based on BSG * Bolus insulin: * NovoLog per scale ACHS or Q6hrs while NPO * Goal Range: Low 110 mg/dL - High 140 mg/dL * Correction Factor: 10 mg/dL/unit * Nutritional / Prandial insulin per carb ratio of 1 unit per 2.5
--- NOTE | 2021-10-27 14:46 | Billing Data ---
Date of Service October 27, 2021 Coding Level of Care Code 21652 Subseq Hosp Care Lvl 1
[2021-10-27] MEDS ORDERED: STAT IV Infusion **Titration per Protocol STA (15:35)
[2021-10-27] MEDS ORDERED: INSULIN HUMAN REGULAR IV BOLUS 5 UNITS in SYRINGE 0 ML IV ONE (16:00)
[2021-10-27] MEDS ORDERED: INSULIN REGULAR 250 UNITS in SODIUM CHLORIDE 0.9% 247.5 ML IV SCH (16:00)
[2021-10-27] MEDS: TAMSULOSIN HCL 0.4 MG CAP PO SCH (17:30)
[2021-10-28] MEDS ORDERED: INSULIN GLARGINE SOLOSTAR 100 UNITS/ML 3 ML PEN SC ONE ×2 (07:30→12:30)
[2021-10-28] MEDS: POLYETHYLENE (MIRALAX) 17 GM PACK PO SCH (08:16)
[2021-10-28] MEDS: SENNA 8.6 MG TAB PO SCH (08:16)
[2021-10-28] MEDS: VENLAFAXINE HCL XR 150 MG CAPXR PO SCH (08:16)
[2021-10-28] MEDS: ASPIRIN 81 MG ECTAB PO SCH (08:16)
[2021-10-28] MEDS: METOPROLOL SUCC 50MG EXT REL TAB PO SCH (08:16)
[2021-10-28] MEDS: LEFLUNOMIDE 10 MG TAB PO SCH (08:16)
[2021-10-28] MEDS: FOLIC ACID 1 MG TAB PO SCH (08:16)
[2021-10-28] MEDS: MAGNESIUM CHLORIDE 64MG DELAYED REL TAB PO SCH (08:17)
[2021-10-28] MEDS: ROSUVASTATIN CALCIUM 20 MG TAB PO SCH (08:17)
[2021-10-28] MEDS: APIXABAN 5 MG TABLET PO SCH ×2 (08:17→21:19)
[2021-10-28] MEDS: MEMANTINE HCL 10 MG TAB PO SCH (08:17)
[2021-10-28] MEDS: THIAMINE HCL 100 MG TAB PO SCH (08:17)
[2021-10-28] MEDS: SITagliptin PHOSPHATE 25 MG TAB PO SCH (08:17)
[2021-10-28] MEDS: BENZOCAINE 20% (ORAJEL) 11.9 GM TUBE MT SCH ×3 (08:18→21:19)
[2021-10-28] MEDS: INSULIN ASPART PER UNIT SC SCH ×5 (08:23→23:45)
[2021-10-28] MEDS: DOCUSATE SODIUM 100 MG CAP PO SCH ×2 (08:26→21:19)
--- NOTE | 2021-10-28 08:37 | Hospitalist Progress Note ---
Date of Service October 28, 2021 Assessment & Plan (1) Acute alteration in mental status: Plan: 75yo Male with PMH Dementia, HLD, ambulatory dysfunction, DM2, malnutrition, COPD, RA, sensorineural hearing loss, CKD, depression on anxiety here for AMS. Afib with RVR -10/19 developed sinus tachycardia vs. aflutter on EKG -received adenosine, cardizem, converted back to sinus, patient transitioned from IV to oral cardizem. Oral Cardizem changed to Metoprolol succinate 150 po qd due to tachycardia. Will monitor. -started on heparin drip, transitioned to eliquis -no further events, continue to monitor Encephalopathy ? Toxic with underlying dementia -Acute AMS with decrease in functioning, ADLs, impaired decision-making -CBC, TSH, UA, urine toxicology, Lyme negative. -CT Head without acute process, MRI brain also negative -EEG 10/17- abnormal but no evidence of seizure activity, showing moderate severity encephalopath -Psychiatry consulted: Diagnostically consistent with encephalopathy/hyperactive delirium superimposed on progressive dementia. suggest decrease to venlafaxine 150mg qd scheduled melatonin 3mg qhs to help with delirium and sundowning have bring hearing aids --> arrived monitor QTc interval Pain control - treat mouth pain to help increase oral intake -10/21 per neurology he is less emotional liability compared to on admission -Continue thiamine supplementation -Patient to go to SNF [facility] 10/30 DM2 -Poorly uncontrolled DM with A1C of 10% last month -Suspect inadequate glycemic control contributed to microvascular ischemia- worsening vascular dementia -Novolog ISS, CF 20, CR 1:15 -restarted rosuvastatin 10/17 -BSGs typically 200s, started Lantus 10u daily -consulted pharmacy glycemic management noted patient has been requiring increased levels of insulin daily, 10/27 required 186U insulin total. Started patient on Sitagliptin. Dementia: -Neurocognitive testing in 2013- mild cognitive impairment likely related to microvascular disease -No history of dementia medication, has likely worsened over past 8 years -Neurology consulted: started 10/18 memantine 10 mg daily, plan to continue dose for 1 month then 10 mg BID afterward -mentation waxing and waning throughout the day Ambulatory dysfunction: - Worsening with ambulation and balance over past 2 weeks - B12 level slightly high at 1400, folate wnl - Reportedly wide-based shuffling gait but history and neuro exam does not suggest Parkinsonian disease - CT Head- no evidence of hydrocephalus - Continue PT/OT, recommends inpatient rehab Mouth Pain -possibly contributory to poor diet -ordered scheduled benzocaine gel, patient states mouth pain well controlled Hyperlipidemia -Lipid panel 10/17 wnl -Home med- simvastatin 40 mg daily -Despite normal lipid panel, given pt's age and DM2 diagnosis, switched to high- intensity rosuvastatin 20 mg on 10/17 -Continue rosuvastatin 20 mg, will monitor liver function as statin therapy continues Constipation, improving -KUB 10/17- moderate fecal retention, non-obstructive bowel gas pattern -Initiated bowel regimen 10/18- Senna, Colace, followed by Miralax this evening. Dulcolax PRN. -Pt having normal BMs since initiation, continue bowel regimen Pancytopenia -present since admission -WBC decreased since 10/19 -continue to monitor Malnutrition -13 lb weight loss in 6 weeks, due to poor PO intake limited to candy -Current weight 73.9 kg, down from usual weight 79 kg -BMP low Mg 1.4 despite repletion with slow mag, ordered 4g IV Mg --> recheck 1.9 -Encourage dietary intake, measure weight periodically JONNY on CKD3, resolving -BUN 43, Cr 2.3 on admission. Likely due to dehydration 09/25 poor PO intake -BUN, Cr improving with LR boluses -Will resume home lisinopril once Cr remains stable around baseline 1.5-1.7 lisinopril resumed 10/28 -creat last elevated at 1.61, encouraged oral hydration -trend bmp Rheumatoid arthritis -Continue home leflunomide Sensorineural hearing loss of both ears: - [facility] - Very hard of hearing- this may be adding to his delirium - brought his hearing aids from home Depression with anxiety: -Continue home Venlafaxine, decreased to 150mg daily per psychiatry Chronic obstructive pulmonary disease: -Continue albuterol PRN -Stable respiratory status at present FENa: DM2 easy to chew Code Status: DNR/DNI DVT PPX: eliquis 5mg BID PT/OT: ordered, recommend SNF Case Management: [facility] 10/30 (2) Delirium: (3) Dementia: (4) Hyperglycemia: (5) Acute kidney injury superimposed on chronic kidney disease: (6) Rheumatoid arthritis involving multiple sites with positive rheumatoid factor: Admission and Anticipated Discharge Date Admission Date: October 18, 2021 Supervising Physician Co-Signing Physician Notes Resident Physician Supervision Note: I independently interviewed and examined the patient and verified the lloyd history and physical, reviewed labs and image studies and agree with resident Dr. Bull findings and care plan. Subjective Patient seen at bedside, calm comfortable cooperative. Patient states he slept ate well voiding normally. He is aware placement is available for him on Thursday. Patient made aware he has elevated blood sugars that we are managing in the hospital. No other concerns at this time. Review of Systems Review of Systems: Negative fever chills Negative headache dizziness Negative chest pain palpitations SOB Negative nausea vomitting diarrhea constipation Negative numbness tingling rash swelling Physical Exam Constitutional: WD/WN, vitals as above + thin, cooperative and comfortable Eyes: PERRL, conjunctivae normal, anicteric sclerae ENMT: external ear and nose normal, oropharynx normal Neck: trachea midline, no thyromegaly Respiratory: normal respiratory effort, lungs clear to auscultation Cardiovascular: RRR, no murmur, no edema Chest (Breasts): Chest: normal inspection of chest Gastrointestinal (Abdomen): normal bowel sounds, soft, nontender, no hepatosplenomegaly Skin: no rashes, warm and dry Results & Data Results & Data ([facility]) Vital Signs (Past 12 Hours) Vital Signs Temp Pulse Resp BP BP Pulse Ox 10/28/21 07:53 36.4 C L 73 16 151/90 H 98 10/27/21 21:55 36.6 C 88 18 113/66 93 Resident Activity Tracking Resident Involvement: Resident Care Provided Care Provided: Adult Hospital Medicine
--- NOTE | 2021-10-28 10:37 | Pharmacy Report ---
Pharmacy Glycemic Short Note 2 - Date of Service October 28, 2021 - Glycemic Short BSG Results (Last 24 hours): 10/27/21 10/27/21 10/27/21 12:00 12:00 14:35 POC Glucose 443 H* 411 H* 408 H* 10/27/21 10/27/21 10/27/21 14:36 16:10 17:10 POC Glucose 413 H* 366 H* 276 H 10/27/21 10/27/21 10/27/21 18:09 19:16 20:29 POC Glucose 279 H 283 H 198 H 10/27/21 10/27/21 10/27/21 21:46 22:51 22:54 POC Glucose 161 H 117 H 121 H 10/28/21 10/28/21 10/28/21 00:01 01:54 01:57 POC Glucose 105 H 67 L* 75 10/28/21 10/28/21 10/28/21 02:22 03:32 05:15 POC Glucose 252 H 164 H 133 H 10/28/21 10/28/21 10/28/21 06:17 07:07 07:45 POC Glucose 101 H 109 H 107 H 10/28/21 10/28/21 08:05 10:06 POC Glucose 124 H 172 H OUTPATIENT ANTIDIABETIC REGIMEN: * Sitagliptin * Glimepiride * HbA1c 10% on 09/02/21 ASSESSMENT: 10/28/21: * Insulin infusion transitioned off this morning, will go back to SC basal/bolus insulin regimen * Tighten Novolog parameters, Frandy restarted this morning, gave 65 units of Lantus at time of drip transition * Lunch BSG of 245 mg/dL, will give additional 10 units of Lantus and add 00,04 Novolog checks 10/27/21 * Patient's BSGs yesterday were [phone] mg/dL. * Patient received 186 units of insulin yesterday (75 units of basal plus 111 units of bolus) + 15 units of IV insulin. This is a 40% increase compared to 10/25/21. He received 10 units of Novolog overnight. * For basal insulin, will give all 75 units of basal this morning. Will continue with scale for evening but will increase thresholds. Patient's fasting did decrease by 100 points compared with 10/26/21. * For Novolog, will tighten. * Patient's BSG at lunch was again 410 mg/dL. Conferred with nurse - patient had ethiopian toast plus banana. * Discussed with dietary who altered patient's diet orders. * Give 7 units IV bolus and ordered recheck 2 hours after IV insulin bolus given. * Primary team updated with plan. 10/26/21 * Patient's BSGs were [phone] mg/dL and fasting today was 196 mg/dL on PRP but 270 mg/dL on POC. * Patient received 135 units yesterday (65 units of basal and 70 units of bolus). * Increase basal to 60 units in AM and continue scale in the evening. * Tighten CR. Background 10/22/21: * 75 yo M with T2DM and hyperglycemia * Diltiazem gtt (mixed in D5W) stopped today, although impact on glycemic regimen likely minimal due to low rates. Heparin drip continues. T2DM diet ordered, although CHO intake yesterday low * Etiology of hyperglycemia likely 2nd insufficient basal insulin and possibly prandial insulin as well. Will increase Lantus and will tighten CHO ratio PLAN FOR INPATIENT GLYCEMIC CONTROL: * Restart home Januvia 50 mg PO daily * Basal insulin * Lantus 65 units SC qAM, 10 units SC x 1 at lunch * Bolus insulin: * NovoLog per scale ACHS or Q6hrs while NPO * Goal Range: Low 110 mg/dL - High 140 mg/dL * Correction Factor: 10 mg/dL/unit * Nutritional / Prandial insulin per carb ratio of 1 unit per 2 * 00,04 checks with same parameters
[2021-10-28] MEDS: lisinopril 5 MG TAB PO SCH (12:43)
[2021-10-28] MEDS: TAMSULOSIN HCL 0.4 MG CAP PO SCH (17:30)
[2021-10-29] MEDS: INSULIN ASPART PER UNIT SC SCH ×5 (04:08→20:40)
--- NOTE | 2021-10-29 08:06 | Hospitalist Progress Note ---
Date of Service October 29, 2021 Assessment & Plan (1) Acute alteration in mental status: Plan: 75yo Male with PMH Dementia, HLD, ambulatory dysfunction, DM2, malnutrition, COPD, RA, sensorineural hearing loss, CKD, depression on anxiety here for AMS. Afib with RVR -10/19 developed sinus tachycardia vs. aflutter on EKG -received adenosine, cardizem, converted back to sinus, patient transitioned from IV to oral cardizem. Oral Cardizem changed to Metoprolol succinate 150 po qd due to tachycardia. Will monitor. -started on heparin drip, transitioned to eliquis -no further events, continue to monitor Change in mental status sec to pain with underlying dementia -Acute change in mental status with decrease in functioning, ADLs, impaired decision-making -CBC, TSH, UA, urine toxicology, Lyme negative. -CT Head without acute process, MRI brain also negative -EEG 10/17- abnormal but no evidence of seizure activity, showing moderate severity encephalopath -Psychiatry consulted: Diagnostically consistent with encephalopathy/hyperactive delirium superimposed on progressive dementia. suggest decrease to venlafaxine 150mg qd - last ekg from 10/20 with Qtc of 511. recheck EKG to f/u on increased QTc. scheduled melatonin 3mg qhs to help with delirium and sundowning have bring hearing aids --> arrived Pain control - treat mouth pain to help increase oral intake -10/21 per neurology he is less emotional liability compared to on admission -Continue thiamine supplementation -Patient to go to [facility] 10/30 DM2 -Poorly uncontrolled DM with A1C of 10% last month -Suspect inadequate glycemic control contributed to microvascular ischemia- worsening vascular dementia -Per glycemic consult. Now on 75 glargine and log. Dementia: -Neurocognitive testing in 2013- mild cognitive impairment likely microvascular disease -worsening over past 8 years -Neurology consulted: started 10/18 memantine 10 mg daily, plan to continue dose for 1 month then 10 mg BID afterward -mentation waxing and waning throughout the day Ambulatory dysfunction: - Worsening with ambulation and balance over past 2 weeks - B12 level slightly high at 1400, folate wnl - Reportedly wide-based shuffling gait but history and neuro exam does not suggest Parkinsonian disease - CT Head- no evidence of hydrocephalus - Continue PT/OT, recommends inpatient rehab Mouth Pain -possibly contributory to poor diet -ordered scheduled benzocaine gel, patient states mouth pain well controlled Hyperlipidemia -continue statin Constipation, improving -KUB 10/17- moderate fecal retention, non-obstructive bowel gas pattern -Consistent with clinical history of recent constipation and findings on abdominal exam -Initiated bowel regimen 10/18- Senna, Colace, followed by Miralax this evening. Dulcolax PRN. -Pt having normal BMs since initiation, continue bowel regimen Pancytopenia -present since admission -WBC decreased since 10/19 -continue to monitor Malnutrition -13 lb weight loss in 6 weeks, due to poor PO intake limited to candy -Encourage dietary intake, measure weight periodically JONNY on CKD3, -BUN 43, Cr 2.3 on admission. Likely due to dehydration 09/25 poor PO intake -Received IVF -lisinopril resumed 10/28 -trend bmp Rheumatoid arthritis -Continue home leflunomide Sensorineural hearing loss of both ears: - [facility] - Very hard of hearing- this may be adding to his delirium - brought his hearing aids from home Depression with anxiety: -Continue home Venlafaxine, decreased to 150mg daily per psychiatry. - recheck ekg to follow on QTc Chronic obstructive pulmonary disease: -Continue albuterol PRN -Stable respiratory status at present FENa: DM2 easy to chew Code Status: DNR/DNI DVT PPX: eliquis 5mg BID PT/OT: ordered, recommend SNF Case Management: [facility] 10/30 (2) Delirium: (3) Dementia: (4) Hyperglycemia: (5) Acute kidney injury superimposed on chronic kidney disease: (6) Rheumatoid arthritis involving multiple sites with positive rheumatoid factor: Admission and Anticipated Discharge Date Admission Date: October 18, 2021 Supervising Physician Co-Signing Physician Notes Resident Physician Supervision Note: I independently interviewed and examined the patient and verified the lloyd history and physical, reviewed labs and image studies and agree with resident Dr. Bull findings and care plan. Subjective Patient seen at bedside, calm comfortable cooperative. Patient states he slept ate well voiding normally. No other concerns at this time. Review of Systems Review of Systems: Negative fever chills Negative headache dizziness Negative chest pain palpitations SOB Negative nausea vomitting diarrhea constipation Negative numbness tingling rash swelling Physical Exam Constitutional: WD/WN, vitals as above + thin, cooperative and comfortable Eyes: PERRL, conjunctivae normal, anicteric sclerae ENMT: external ear and nose normal, oropharynx normal Neck: trachea midline, no thyromegaly Respiratory: normal respiratory effort, lungs clear to auscultation Cardiovascular: RRR, no murmur, no edema Chest (Breasts): Chest: normal inspection of chest Gastrointestinal (Abdomen): normal bowel sounds, soft, nontender, no hepatosplenomegaly Skin: no rashes, warm and dry Results & Data Results & Data ([facility]) Vital Signs (Past 12 Hours) Vital Signs Temp Pulse Resp BP Pulse Ox 10/29/21 07:44 36.6 C 78 16 118/68 94 10/28/21 22:22 37.0 C 85 16 97/61 L 95 Resident Activity Tracking Resident Involvement: Resident Care Provided Care Provided: Adult Hospital Medicine
[2021-10-29] MEDS ORDERED: INSULIN GLARGINE SOLOSTAR 100 UNITS/ML 3 ML PEN SC ONE (09:00)
[2021-10-29] MEDS: FOLIC ACID 1 MG TAB PO SCH (09:20)
[2021-10-29] MEDS: SENNA 8.6 MG TAB PO SCH (09:20)
[2021-10-29] MEDS: ROSUVASTATIN CALCIUM 20 MG TAB PO SCH (09:20)
[2021-10-29] MEDS: LEFLUNOMIDE 10 MG TAB PO SCH (09:20)
[2021-10-29] MEDS: SITagliptin PHOSPHATE 25 MG TAB PO SCH (09:20)
[2021-10-29] MEDS: MEMANTINE HCL 10 MG TAB PO SCH (09:20)
[2021-10-29] MEDS: VENLAFAXINE HCL XR 150 MG CAPXR PO SCH (09:20)
[2021-10-29] MEDS: ASPIRIN 81 MG ECTAB PO SCH (09:20)
[2021-10-29] MEDS: METOPROLOL SUCC 50MG EXT REL TAB PO SCH (09:20)
[2021-10-29] MEDS: THIAMINE HCL 100 MG TAB PO SCH (09:20)
[2021-10-29] MEDS: lisinopril 5 MG TAB PO SCH (09:21)
[2021-10-29] MEDS: MAGNESIUM CHLORIDE 64MG DELAYED REL TAB PO SCH (09:21)
[2021-10-29] MEDS: APIXABAN 5 MG TABLET PO SCH ×2 (09:21→20:40)
[2021-10-29] MEDS: BENZOCAINE 20% (ORAJEL) 11.9 GM TUBE MT SCH ×3 (09:21→20:40)
[2021-10-29] MEDS: DOCUSATE SODIUM 100 MG CAP PO SCH ×2 (09:23→20:40)
[2021-10-29] MEDS: POLYETHYLENE (MIRALAX) 17 GM PACK PO SCH (09:23)
--- NOTE | 2021-10-29 13:21 | Pharmacy Report ---
Pharmacy Glycemic Short Note 2 - Date of Service October 29, 2021 - Glycemic Short BSG Results (Last 24 hours): 10/28/21 10/28/21 10/28/21 17:13 20:38 23:44 POC Glucose 173 H 198 H 127 H 10/29/21 10/29/21 10/29/21 03:52 07:41 12:01 POC Glucose 105 H 123 H 167 H OUTPATIENT ANTIDIABETIC REGIMEN: * Sitagliptin * Glimepiride * HbA1c 10% on 09/02/21 ASSESSMENT: 10/29/21 * Patient BSG well controlled since transitioning off insulin infusion. * Fasting BSG much improved today at 123mg/dL. Will empirically start decreasing basal insulin to prevent hypoglycemia. Can consider additional basal dose this evening if BSG trend up * Patient is tolerating a diet, however did not appear to eat breakfast today. 10/28/21: * Insulin infusion transitioned off this morning, will go back to SC basal/bolus insulin regimen * Tighten Novolog parameters, Frandy restarted this morning, gave 65 units of Lantus at time of drip transition * Lunch BSG of 245 mg/dL, will give additional 10 units of Lantus and add 00,04 Novolog checks 10/27/21 * Patient's BSGs yesterday were [phone] mg/dL. * Patient received 186 units of insulin yesterday (75 units of basal plus 111 units of bolus) + 15 units of IV insulin. This is a 40% increase compared to 10/25/21. He received 10 units of Novolog overnight. * For basal insulin, will give all 75 units of basal this morning. Will continue with scale for evening but will increase thresholds. Patient's fasting did decrease by 100 points compared with 10/26/21. * For Novolog, will tighten. * Patient's BSG at lunch was again 410 mg/dL. Conferred with nurse - patient had fijian toast plus banana. * Discussed with dietary who altered patient's diet orders. * Give 7 units IV bolus and ordered recheck 2 hours after IV insulin bolus given. * Primary team updated with plan. 10/26/21 * Patient's BSGs were [phone] mg/dL and fasting today was 196 mg/dL on PRP but 270 mg/dL on POC. * Patient received 135 units yesterday (65 units of basal and 70 units of bolus). * Increase basal to 60 units in AM and continue scale in the evening. * Tighten CR. Background 10/22/21: * 75 yo M with T2DM and hyperglycemia * Diltiazem gtt (mixed in D5W) stopped today, although impact on glycemic regimen likely minimal due to low rates. Heparin drip continues. T2DM diet ordered, although CHO intake yesterday low * Etiology of hyperglycemia likely 2nd insufficient basal insulin and possibly prandial insulin as well. Will increase Lantus and will tighten CHO ratio PLAN FOR INPATIENT GLYCEMIC CONTROL: * Restart home Januvia 50 mg PO daily * Basal insulin * Lantus 50 units SC qAM * Bolus insulin: * NovoLog per scale ACHS or Q6hrs while NPO * Goal Range: Low 110 mg/dL - High 140 mg/dL * Correction Factor: 10 mg/dL/unit * Nutritional / Prandial insulin per carb ratio of 1 unit per 2 * 00,04 checks with same parameters
[2021-10-29] MEDS: TAMSULOSIN HCL 0.4 MG CAP PO SCH (18:02)
[2021-10-30] MEDS: INSULIN ASPART PER UNIT SC SCH ×6 (00:14→22:07)
[2021-10-30 06:55] LABS: Hematocrit (blood only) 35.3 % (42-52); Hemoglobin 11.8 g/dL (14.0-18.0); Mean Corpuscular Hemoglobin 31.4 pg (25-34); Mean Corpuscular Hgb Conc 33.4 g/dL (32-36); Mean Corpuscular Volume 93.9 fL (80-100); Mean Platelet Volume 10.7 fL (7.4-10.4); Platelet Count 161 K/uL (130-400); RDW Coefficient of Variation 14.8 % (11.5-14.5); RDW Standard Deviation 49.4 fL (36.4-46.3); Red Blood Count 3.76 M/uL (4.7-6.1); White Blood Count 4.42 K/uL (4.8-10.8)
[2021-10-30 06:56] LABS: BUN Creatinine Ratio 19.3 (10-20); Calcium 9.3 mg/dl (8.5-10.1); Creatinine Clr Calc Pharmacy 43.2 ml/min; Est GFR (African American) 51.7 ml/min; Est GFR (Non-African American) 44.6 ml/min; Magnesium 1.7 mg/dl (1.7-2.4); Potassium 4.2 mmol/L (3.5-5.1)
--- NOTE | 2021-10-30 07:16 | Discharge Summary ---
Date of Service October 30, 2021 Admission HPI Per Admitting Provider 75 YOM with past medical history of: COPD, Rheumatoid Arthritis, B12 deficiency, HTN, DM II, CKD III. Patient was sent over today from his PCP office following requested walk-in appointment secondary to declination in his status over the past 2-3 weeks/months. Per his - the patient had been declining in his ability to do things for himself at home, memory declining, and not eating regular food that she buys over the past few months. This has gotten significantly worse over the past 2-3 weeks where his short term memory and ability to reason and or dress himself has gotten worse. She recently reports that he has been sitting blankly looking out the window wandering through the house, falls, and worsening of his gait. He normally will sit at his computer watching [employer] videos all day and staying up throughout the night and has been able to mostly manage his medicines previously, his mood is normally low with wanting to mostly be by himself. She notes his mood now to be overly excessive with a "euphoria". He is currently jovial and laughing with all his responses and facial expression are animated- he is cooperative. She reports that now he has not been taking his medications, has bought OTC testosterone supplementation and has been taking these and she is not sure of how much. He is now mostly eating, doughnuts, candy, cookies, ice-cream, and chips. Over this past 2 weeks she has noted his gait change to now with him walking with wide based hunched over shuffling his feet, and when he has to change course he will stumble. He is also using objects to hold on to to stabilize his gait. Today he was trying to put his shirt on his legs, urinating with pants on and unable to get his medications or ADLS. Patient will be admitted and continue to work up his acute change. 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 Patient COVID test on admission is: NEGATIVE Admission Exam Per Admitting Provider General: awake, alert, no apparent distress, calm sitting in bed disheveled appearance Head: Normocephalic, atraumatic ENT: Very hard of hearing, PERRLA, EOMI, mucous membranes dry Neuro: AAO x 2 (person and place), speech clear but inappropriate, strength intact bilaterally 5/5, sensation intact, no pronator drift, weak when trying to stand, loss of coordination, he is able to recall his events from his stay in the emergency room and from Office today. Chest: equal rise and fall of the chest, no accessory muscle use, no heaves or thrills, Clear to auscultation, on room air, Cardiac: Regular rate and rhythm, telemetry reviewed-NSR, skin warm dry, cap refill <3 seconds, peripheral pulses +2 no JVD, no murmur, no edema GI: NABS x 4 quadrants, soft, nontender to palpation, no rebound, guarding or tenderness : Spontaneously voiding, no pain, no CVA tenderness, Extremities: Normal inspection, no peripheral edema or erythema, calfs nontender to palpation Psych: overly animated, but calm and cooperative Principal Diagnosis Delirium Discharge Exam Constitutional WD/WN, vitals as above + thin, cooperative and comfortable Eyes PERRL, conjunctivae normal, anicteric sclerae ENMT external ear and nose normal, oropharynx normal Neck trachea midline, no thyromegaly Respiratory normal respiratory effort, lungs clear to auscultation Cardiovascular RRR, no murmur, no edema Chest (Breasts) Chest: normal inspection of chest Gastrointestinal (Abdomen) normal bowel sounds, soft, nontender, no hepatosplenomegaly Skin no rashes, warm and dry Discharge Data Allergies Allergy/AdvReac Type Severity Reaction Status Date / Time No Known Allergies Allergy Verified 10/16/21 19:58 Consultations 10/16/21 19:52 ED Decision to Admit Stat 10/17/21 14:16 Consult Neurology Routine 10/18/21 11:43 Consult Psychiatry Routine Ordered Studies 10/16/21 18:17 CT head/brain wo con Stat 10/17/21 10:23 MR brain wo/w con Routine Hospital Course (1) Acute alteration in mental status: 75yo Male with PMH Dementia, HLD, ambulatory dysfunction, DM2, malnutrition, COPD, RA, sensorineural hearing loss, CKD, depression on anxiety here for AMS. Started memantine 10mg daily, transition to 10mg BID in 1 month Started metoprolol 200mg daily. Stop Atenolol. Switched simvastatin to Rosuvastatin 20mg daily Switched Venlafaxine to 150mg daily Started Eliquis 5mg BID. Stop Aspirin 325mg Change in mental status sec to pain with underlying dementia Acute change in mental status with decrease in functioning, ADLs, impaired decision-making -CBC, TSH, UA, urine toxicology, Lyme negative. -CT Head without acute process, MRI brain also negative -EEG 10/17- abnormal but no evidence of seizure activity, showing moderate severity encephalopath -Psychiatry consulted: Diagnostically consistent with encephalopathy/hyperactive delirium superimposed on progressive dementia. Decreased venlafaxine to 150mg qd - last ekg from 10/20 with Qtc of 511. recheck EKG to f/u on increased QTc. scheduled melatonin 3mg qhs to help with delirium and sundowning brought hearing aids Pain control - treat mouth pain to help increase oral intake -10/21 per neurology he is less emotional liability compared to on admission -Continue thiamine supplementation -Patient to go to [facility] 10/30 Afib with RVR, resolved -10/19 developed sinus tachycardia vs. aflutter on EKG -received adenosine, cardizem, converted back to sinus, patient transitioned from IV to oral cardizem. Oral Cardizem changed to Metoprolol succinate 150 po qd due to tachycardia. -started on eliquis 5mg BID DM2 -Poorly uncontrolled DM with A1C of 10% last month -Suspect inadequate glycemic control contributed to microvascular ischemia- worsening vascular dementia -Per glycemic consult switched to insulin in hospital -may resume home sitagliptin and glimepiride in outpatient Dementia: -Neurocognitive testing in 2013- mild cognitive impairment likely microvascular disease -worsening over past 8 years -Neurology consulted: started 10/18 memantine 10 mg daily, plan to continue dose for 1 month then 10 mg BID afterward -mentation waxing and waning throughout the day Ambulatory dysfunction: - Worsening with ambulation and balance over past 2 weeks - B12 level slightly high at 1400, folate wnl - Reportedly wide-based shuffling gait but history and neuro exam does not sugg est Parkinsonian disease - CT Head- no evidence of hydrocephalus Mouth Pain -possibly contributory to poor diet -ordered scheduled TID benzocaine gel, patient states mouth pain well controlled Hyperlipidemia -continue rosuvastatin 20mg daily Hypertension -continue lisinopril 5mg daily -continue metoprolol 200mg daily -continue aspirin 81mg daily Constipation, resolved -KUB 10/17- moderate fecal retention, non-obstructive bowel gas pattern -Consistent with clinical history of recent constipation and findings on abdominal exam -Initiated bowel regimen 10/18- Senna, Colace, followed by Miralax this evening. Dulcolax PRN. Pancytopenia -present since admission -continue to monitor Malnutrition -13 lb weight loss in 6 weeks, due to poor PO intake limited to candy -Encourage dietary intake, measure weight periodically -continue magnesium supplementation JONNY on CKD3, resolved -BUN 43, Cr 2.3 on admission. Likely due to dehydration 09/25 poor PO intake -Received IVF -lisinopril resumed 10/28 Rheumatoid arthritis -Continue home leflunomide Sensorineural hearing loss of both ears: - [facility] - Very hard of hearing- this may be adding to his delirium - brought his hearing aids from home BPH -continue tamsulosin Depression with anxiety: -Continue home Venlafaxine 150mg daily per psychiatry. - recheck ekg to follow on QTc Chronic obstructive pulmonary disease: -Continue albuterol PRN (2) Delirium: (3) Dementia: (4) Hyperglycemia: (5) Acute kidney injury superimposed on chronic kidney disease: (6) Rheumatoid arthritis involving multiple sites with positive rheumatoid factor: Total Time Total Time Spent Total Time Spent (In Minutes): see attending attestation Discharge Plan Discharge Items Patient Disposition: Transfer Inpatient Rehab Fac Reason For Visit: ENCEPHALOPATHY, DELIRIUM Discharge Diagnosis: Delirium Activity: Per Instructions section Non-emergency contact: Primary Care Provider Call non-emergency contact if: you have any medication questions, your symptoms worsen and you have a fever Follow-up/Referrals: Pro,Gael Daily MD [Primary Care Provider] - Diet: Carb Consistent or DM2 Diet Texture: Easy to Chew Addtl Attending Provider Instructions: 75yo Male with PMH Dementia, HLD, ambulatory dysfunction, DM2, malnutrition, COPD, RA, sensorineural hearing loss, CKD, depression on anxiety here for AMS. Change in mental status sec to pain with underlying dementia Acute change in mental status with decrease in functioning, ADLs, impaired decision-making -CBC, TSH, UA, urine toxicology, Lyme negative. -CT Head without acute process, MRI brain also negative -EEG 10/17- abnormal but no evidence of seizure activity, showing moderate severity encephalopath -Psychiatry consulted: Diagnostically consistent with encephalopathy/hyperactive delirium superimposed on progressive dementia. Decreased venlafaxine to 150mg qd - last ekg from 10/20 with Qtc of 511. recheck EKG to f/u on increased QTc. scheduled melatonin 3mg qhs to help with delirium and sundowning brought hearing aids Pain control - treat mouth pain to help increase oral intake -10/21 per neurology he is less emotional liability compared to on admission -Continue thiamine supplementation -Patient to go to [facility] 10/30 Afib with RVR, resolved -10/19 developed sinus tachycardia vs. aflutter on EKG -received adenosine, cardizem, converted back to sinus, patient transitioned from IV to oral cardizem. Oral Cardizem changed to Metoprolol succinate 150 po qd due to tachycardia. -started on eliquis 5mg BID DM2 -Poorly uncontrolled DM with A1C of 10% last month -Suspect inadequate glycemic control contributed to microvascular ischemia- worsening vascular dementia -Per glycemic consult switched to insulin in hospital -may resume home sitagliptin and glimepiride in outpatient Dementia: -Neurocognitive testing in 2013- mild cognitive impairment likely microvascular disease -worsening over past 8 years -Neurology consulted: started 10/18 memantine 10 mg daily, plan to continue dose for 1 month then 10 mg BID afterward -mentation waxing and waning throughout the day Ambulatory dysfunction: - Worsening with ambulation and balance over past 2 weeks - B12 level slightly high at 1400, folate wnl - Reportedly wide-based shuffling gait but history and neuro exam does not suggest Parkinsonian disease - CT Head- no evidence of hydrocephalus Mouth Pain -possibly contributory to poor diet -ordered scheduled TID benzocaine gel, patient states mouth pain well controlled Hyperlipidemia -continue rosuvastatin 20mg daily Hypertension -continue lisinopril 5mg daily -continue metoprolol 200mg daily -continue aspirin 81mg daily Constipation, resolved -KUB 10/17- moderate fecal retention, non-obstructive bowel gas pattern -Consistent with clinical history of recent constipation and findings on abdominal exam -Initiated bowel regimen 10/18- Senna, Colace, followed by Miralax this evening. Dulcolax PRN. Pancytopenia -present since admission -continue to monitor Malnutrition -13 lb weight loss in 6 weeks, due to poor PO intake limited to candy -Encourage dietary intake, measure weight periodically -continue magnesium supplementation JONNY on CKD3, resolved -BUN 43, Cr 2.3 on admission. Likely due to dehydration 2/2 poor PO intake -Received IVF -lisinopril resumed 10/28 Rheumatoid arthritis -Continue home leflunomide Sensorineural hearing loss of both ears: - [facility] - Very hard of hearing- this may be adding to his delirium - brought his hearing aids from home BPH -continue tamsulosin Depression with anxiety: -Continue home Venlafaxine 150mg daily per psychiatry. - recheck ekg to follow on QTc Chronic obstructive pulmonary disease: -Continue albuterol PRN Pending Studies at Discharge: No Stand-Alone Forms: My [facility] Skilled Items Patient informed of condition?: Yes DNR: Yes Discharge Level of Care: Skilled Communicable Disease: No Discharge Prognosis: Stable Lines: None Urinary Catheter: No Medications and DC Order Prescriptions: New metoprolol succinate 50 mg Tablet Extended Release 24 Hr 200 mg PO QAM 30 Days Qty: 120 RF: 0 rosuvastatin [Crestor] 20 mg Tablet 20 mg PO QAM 30 Days Qty: 30 RF: 0 memantine [Namenda] 10 mg Tablet 10 mg PO QAM 30 Days Qty: 30 RF: 0 Eliquis 5 mg Tablet 5 mg PO BID 30 Days Qty: 60 RF: 0 Continued folic acid 1 mg tablet 1 mg PO DAILY Qty: 30 RF: 2 lisinopril 5 mg tablet 5 mg PO DAILY Qty: 90 RF: 3 albuterol sulfate 90 mcg/actuation HFA aerosol inhaler 2 puff inhalation Q8H PRN (Reason: Shortness Of Breath) Qty: 1 RF: 0 Centrum Silver Men 300-600-300 mcg tablet 1 tab PO DAILY RF: 0 tamsulosin 0.4 mg capsule 0.4 mg PO DAILY Qty: 30 RF: 2 cyanocobalamin (vitamin B-12) [Vitamin B-12] 1,000 mcg Tablet 1,000 mcg PO DAILY RF: 0 glimepiride 2 mg tablet 2 mg PO BIDM RF: 0 Januvia 100 mg tablet 100 mg PO DAILY RF: 0 diclofenac sodium 1 % gel 2 g topical QID PRN (Reason: Knee Pain) RF: 0 leflunomide 10 mg tablet 10 mg PO DAILY RF: 0 Changed venlafaxine 150 mg capsule,extended release 24hr 150 mg PO DAILY Qty: 180 RF: 3 Discontinued atenolol 100 mg tablet 100 mg PO DAILY Qty: 90 RF: 3 simvastatin 40 mg tablet 40 mg PO QPM Qty: 90 RF: 3 trazodone 100 mg tablet 100 mg PO QPM Qty: 90 RF: 3 aspirin 325 mg tablet,delayed release (DR/EC) 325 mg PO DAILY RF: 0 Admission Data Admit Date/Time: 10/18/21 15:46 Attending Provider: Beata Lynne Admit Provider: Jerrod Yadav Primary Care Provider: Gael Rogers Other Providers: [facility] ; Jun Cerda ; Aundrea Jimenez Brian A. ; Corie Candelaria ; Darby Robles ; Jaylyn Horne ; Will Smalls ; Rafi Esteban Resident Activity Tracking Resident Involvement: Resident Care Provided Care Provided: Adult Hospital Medicine
--- NOTE | 2021-10-30 08:33 | Electrocardiogram Report ---
Test Reason : Blood Pressure : / mmHG Vent. Rate : 077 BPM Atrial Rate : 077 BPM P-R Int : 166 ms QRS Dur : 130 ms QT Int : 442 ms P-R-T Axes : 066 -34 035 degrees QTc Int : 500 ms Normal sinus rhythm Left axis deviation Right bundle branch block Abnormal ECG When compared with ECG of 20-OCT-2021 15:25, ST no longer depressed in Anterior leads T wave inversion no longer evident in Anterior leads Confirmed by Abdifatah Payan ([id number]) on 10/30/2021 8:33:31 AM Referred By: Gael Rogers Confirmed By:Abdifatah Payan
[2021-10-30] MEDS: METOPROLOL SUCC 50MG EXT REL TAB PO SCH (08:58)
[2021-10-30] MEDS: APIXABAN 5 MG TABLET PO SCH ×2 (08:58→20:28)
[2021-10-30] MEDS: MEMANTINE HCL 10 MG TAB PO SCH (08:58)
[2021-10-30] MEDS: THIAMINE HCL 100 MG TAB PO SCH (08:58)
[2021-10-30] MEDS: VENLAFAXINE HCL XR 150 MG CAPXR PO SCH (08:58)
[2021-10-30] MEDS: SENNA 8.6 MG TAB PO SCH (08:58)
[2021-10-30] MEDS: ASPIRIN 81 MG ECTAB PO SCH (08:58)
[2021-10-30] MEDS: lisinopril 5 MG TAB PO SCH (08:58)
[2021-10-30] MEDS: FOLIC ACID 1 MG TAB PO SCH (08:58)
[2021-10-30] MEDS: ROSUVASTATIN CALCIUM 20 MG TAB PO SCH (08:59)
[2021-10-30] MEDS: SITagliptin PHOSPHATE 25 MG TAB PO SCH (08:59)
[2021-10-30] MEDS: LEFLUNOMIDE 10 MG TAB PO SCH (08:59)
[2021-10-30] MEDS: MAGNESIUM CHLORIDE 64MG DELAYED REL TAB PO SCH (08:59)
[2021-10-30] MEDS: BENZOCAINE 20% (ORAJEL) 11.9 GM TUBE MT SCH ×3 (08:59→20:28)
[2021-10-30] MEDS ORDERED: INSULIN GLARGINE SOLOSTAR 100 UNITS/ML 3 ML PEN SC SCH (09:00)
[2021-10-30] MEDS: DOCUSATE SODIUM 100 MG CAP PO SCH ×2 (09:05→20:32)
[2021-10-30] MEDS: POLYETHYLENE (MIRALAX) 17 GM PACK PO SCH (09:05)
--- NOTE | 2021-10-30 16:49 | Hospitalist Progress Note ---
Date of Service October 30, 2021 Assessment & Plan (1) Acute alteration in mental status: Plan: 75yo Male with PMH Dementia, HLD, ambulatory dysfunction, DM2, malnutrition, COPD, RA, sensorineural hearing loss, CKD, depression on anxiety here for AMS. Change in mental status sec to pain with underlying dementia Acute change in mental status with decrease in functioning, ADLs, impaired decision-making -CBC, TSH, UA, urine toxicology, Lyme negative. -CT Head without acute process, MRI brain also negative -EEG 10/17- abnormal but no evidence of seizure activity, showing moderate severity encephalopath -Psychiatry consulted: Diagnostically consistent with encephalopathy/hyperactive delirium superimposed on progressive dementia. Decreased venlafaxine to 150mg qd - last ekg from 10/20 with Qtc of 511. recheck EKG 10/30 QTc 500. scheduled melatonin 3mg qhs to help with delirium and sundowning brought hearing aids Pain control - treat mouth pain to help increase oral intake -10/21 per neurology he is less emotional liability compared to on admission -Continue thiamine supplementation -Case management looking into personal care homes Prolonged Qtc - Noted on admission. Effexor dose decreased. - Recheck EKG with persistently elevated Qtc. - ? a fib contributing to higher reading. - Patient doing well on current dose of effexor. - Further discuss regarding shared decision to continue effexor at current dose. - avoid any other Qt prolonging agent Afib with RVR, resolved -10/19 developed sinus tachycardia vs. aflutter on EKG -received adenosine, cardizem, converted back to sinus, patient transitioned from IV to oral cardizem. Oral Cardizem changed to Metoprolol succinate 150 po qd due to tachycardia. -started on eliquis 5mg BID DM2 -Poorly uncontrolled DM with A1C of 10% last month -Suspect inadequate glycemic control contributed to microvascular ischemia- worsening vascular dementia -Glycemic consult placed, resume home sitagliptin -may resume home glimepiride in outpatient Dementia: -Neurocognitive testing in 2013- mild cognitive impairment likely microvascular disease -worsening over past 8 years -Neurology consulted: started 10/18 memantine 10 mg daily, plan to continue dose for 1 month then 10 mg BID afterward -mentation waxing and waning throughout the day Ambulatory dysfunction: - Worsening with ambulation and balance over past 2 weeks - B12 level slightly high at 1400, folate wnl - Reportedly wide-based shuffling gait but history and neuro exam does not suggest Parkinsonian disease - CT Head- no evidence of hydrocephalus Mouth Pain -possibly contributory to poor diet -ordered scheduled TID benzocaine gel, patient states mouth pain well controlled Hyperlipidemia -continue rosuvastatin 20mg daily Hypertension -continue lisinopril 5mg daily -continue metoprolol 200mg daily -continue aspirin 81mg daily Constipation, resolved -KUB 10/17- moderate fecal retention, non-obstructive bowel gas pattern -Consistent with clinical history of recent constipation and findings on abdominal exam -Initiated bowel regimen 10/18- Senna, Colace, followed by Miralax. Dulcolax PRN. Pancytopenia -present since admission -continue to monitor Malnutrition -13 lb weight loss in 6 weeks, due to poor PO intake limited to candy -Overall oral intake better - mouth pain resolved. -Encourage dietary intake, measure weight periodically -continue magnesium supplementation JONNY on CKD3, resolved -BUN 43, Cr 2.3 on admission. Likely due to dehydration 09/25 poor PO intake -Received IVF -lisinopril resumed 10/28 Rheumatoid arthritis -Continue home leflunomide Sensorineural hearing loss of both ears: - [facility] - Very hard of hearing- this may be adding to his delirium - brought his hearing aids from home BPH -continue tamsulosin Depression with anxiety: -Continue home Venlafaxine 150mg daily per psychiatry. Chronic obstructive pulmonary disease: -Continue albuterol PRN (2) Delirium: (3) Dementia: (4) Hyperglycemia: (5) Acute kidney injury superimposed on chronic kidney disease: (6) Rheumatoid arthritis involving multiple sites with positive rheumatoid factor: Admission and Anticipated Discharge Date Admission Date: October 18, 2021 Supervising Physician Co-Signing Physician Notes Resident Physician Supervision Note: I independently interviewed and examined the patient and verified the lloyd history and physical, reviewed labs and image studies and agree with resident Dr. Bull findings and care plan. Subjective Patient seen at bedside, calm comfortable cooperative. He states he is eating voiding well, looking forward to placement today. Edit: placement was denied by insurance, updated, looking into assisted living facilities. Review of Systems Review of Systems: Negative fever chills Negative headache dizziness Negative chest pain palpitations SOB Negative nausea vomitting diarrhea constipation Negative numbness tingling rash swelling Physical Exam Constitutional: WD/WN, vitals as above + thin, cooperative and comfortable Eyes: PERRL, conjunctivae normal, anicteric sclerae ENMT: external ear and nose normal, oropharynx normal Neck: trachea midline, no thyromegaly Respiratory: normal respiratory effort, lungs clear to auscultation Cardiovascular: RRR, no murmur, no edema Chest (Breasts): Chest: normal inspection of chest Gastrointestinal (Abdomen): normal bowel sounds, soft, nontender, no hepatosplenomegaly Skin: no rashes, warm and dry Results & Data Results & Data ([facility]) Vital Signs (Past 12 Hours) Vital Signs Temp Pulse Resp BP Pulse Ox 10/30/21 15:39 36.6 C 69 16 91/54 L 96 10/30/21 08:06 36.6 C 68 16 99/61 L 93 Resident Activity Tracking Resident Involvement: Resident Care Provided Care Provided: Adult Hospital Medicine
[2021-10-30] MEDS: TAMSULOSIN HCL 0.4 MG CAP PO SCH (18:03)
[2021-10-30] MEDS: MELATONIN 3 MG TAB PO PRN (20:32)
--- NOTE | 2021-10-31 07:33 | Hospitalist Progress Note ---
Date of Service October 31, 2021 Assessment & Plan (1) Acute alteration in mental status: Plan: 75yo Male with PMH Dementia, HLD, ambulatory dysfunction, DM2, malnutrition, COPD, RA, sensorineural hearing loss, CKD, depression on anxiety here for AMS. Change in mental status sec to pain with underlying dementia Acute change in mental status with decrease in functioning, ADLs, impaired decision-making -CBC, TSH, UA, urine toxicology, Lyme negative. -CT Head without acute process, MRI brain also negative -EEG 10/17- abnormal but no evidence of seizure activity, showing moderate severity encephalopath -Psychiatry consulted: Diagnostically consistent with encephalopathy/hyperactive delirium superimposed on progressive dementia. Decreased venlafaxine to 150mg qd - last ekg from 10/20 with Qtc of 511. recheck EKG 10/30 - Qtc 500 scheduled melatonin 3mg qhs to help with delirium and sundowning brought hearing aids Pain control - treat mouth pain to help increase oral intake -mentation now at baseline. -Continue thiamine supplementation -Case management looking into personal care homes, pending Prolonged Qtc - noted on admission - effexor dose decreased - recheck ekg Qtc 500 - to have shared decision regarding continuing effexor. Afib with RVR, resolved -10/19 developed sinus tachycardia vs. aflutter on EKG -received adenosine, cardizem, converted back to sinus, patient transitioned from IV to oral cardizem. Oral Cardizem changed to Metoprolol succinate 150 po qd due to tachycardia. -started on eliquis 5mg BID DM2 -Poorly uncontrolled DM with A1C of 10% last month -Suspect inadequate glycemic control contributed to microvascular ischemia- worsening vascular dementia -Glycemic consult placed, resume home sitagliptin -may resume home glimepiride in outpatient Dementia: -Neurocognitive testing in 2013- mild cognitive impairment likely microvascular disease -worsening over past 8 years -Neurology consulted: started 10/18 memantine 10 mg daily, plan to continue dose for 1 month then 10 mg BID afterward -mentation waxing and waning throughout the day Ambulatory dysfunction: - Worsening with ambulation and balance over past 2 weeks - B12 level slightly high at 1400, folate wnl - Reportedly wide-based shuffling gait but history and neuro exam does not suggest Parkinsonian disease - CT Head- no evidence of hydrocephalus Mouth Pain -possibly contributory to poor diet -ordered scheduled TID benzocaine gel, -pain resolved. PO intake improved. Hyperlipidemia -continue rosuvastatin 20mg daily Hypertension -continue lisinopril 5mg daily -continue metoprolol 200mg daily -continue aspirin 81mg daily Constipation, resolved -KUB 10/17- moderate fecal retention, non-obstructive bowel gas pattern -Initiated bowel regimen 10/18- Senna, Colace, followed by Miralax. Dulcolax PRN. Pancytopenia -present since admission -continue to monitor Malnutrition -13 lb weight loss in 6 weeks, due to poor PO intake limited to candy -Encourage dietary intake, measure weight periodically -continue magnesium supplementation JONNY on CKD3, resolved -BUN 43, Cr 2.3 on admission. Likely due to dehydration 09/25 poor PO intake -Received IVF -lisinopril resumed 10/28 Rheumatoid arthritis -Continue home leflunomide Sensorineural hearing loss of both ears: - [facility] - Very hard of hearing- this may be adding to his delirium - brought his hearing aids from home BPH -continue tamsulosin Depression with anxiety: -Continue home Venlafaxine 150mg daily per psychiatry. Chronic obstructive pulmonary disease: -Continue albuterol PRN FENa: DM2 easy to chew diet Code Status: DNR/DNI DVT PPX: eliquis 5mg BID PT/OT: ordered, recommend SNF Case Management: looking into personal care homes Dispo: med/surg Ludmila Bull Do PGY 1, FCM (2) Delirium: (3) Dementia: (4) Hyperglycemia: (5) Acute kidney injury superimposed on chronic kidney disease: (6) Rheumatoid arthritis involving multiple sites with positive rheumatoid factor: Admission and Anticipated Discharge Date Admission Date: October 18, 2021 Supervising Physician Co-Signing Physician Notes Resident Physician Supervision Note: I independently interviewed and examined the patient and verified the lloyd history and physical, reviewed labs and image studies and agree with resident Dr. Bull findings and care plan. Subjective Patient seen at bedside, calm comfortable cooperative. He states breakfast was good this morning, slept well last night. He is not upset that his placement is pending again, states the hospital has treated him very well, he is okay with waiting for longer. He has no other concerns at this time. Review of Systems Review of Systems: Negative fever chills Negative headache dizziness Negative chest pain palpitations SOB Negative nausea vomitting diarrhea constipation Negative numbness tingling rash swelling Physical Exam Constitutional: WD/WN, vitals as above + thin, cooperative and comfortable Eyes: PERRL, conjunctivae normal, anicteric sclerae ENMT: external ear and nose normal, oropharynx normal Neck: trachea midline, no thyromegaly Respiratory: normal respiratory effort, lungs clear to auscultation Cardiovascular: RRR, no murmur, no edema Chest (Breasts): Chest: normal inspection of chest Gastrointestinal (Abdomen): normal bowel sounds, soft, nontender, no hepatosplenomegaly Skin: no rashes, warm and dry Results & Data Results & Data ([facility]) Vital Signs (Past 12 Hours) Vital Signs Temp Pulse Resp BP Pulse Ox 10/30/21 22:40 36.6 C 76 16 111/59 L 94 Resident Activity Tracking Resident Involvement: Resident Care Provided Care Provided: Adult Hospital Medicine
[2021-10-31] MEDS: FOLIC ACID 1 MG TAB PO SCH (08:57)
[2021-10-31] MEDS: SENNA 8.6 MG TAB PO SCH (08:57)
[2021-10-31] MEDS: VENLAFAXINE HCL XR 150 MG CAPXR PO SCH (08:57)
[2021-10-31] MEDS: APIXABAN 5 MG TABLET PO SCH ×2 (08:58→20:32)
[2021-10-31] MEDS: MAGNESIUM CHLORIDE 64MG DELAYED REL TAB PO SCH (08:58)
[2021-10-31] MEDS: LEFLUNOMIDE 10 MG TAB PO SCH (08:58)
[2021-10-31] MEDS: ROSUVASTATIN CALCIUM 20 MG TAB PO SCH (08:58)
[2021-10-31] MEDS: SITagliptin PHOSPHATE 25 MG TAB PO SCH (08:58)
[2021-10-31] MEDS: lisinopril 5 MG TAB PO SCH (08:58)
[2021-10-31] MEDS: ASPIRIN 81 MG ECTAB PO SCH (08:58)
[2021-10-31] MEDS: METOPROLOL SUCC 50MG EXT REL TAB PO SCH (08:58)
[2021-10-31] MEDS: MEMANTINE HCL 10 MG TAB PO SCH (08:58)
[2021-10-31] MEDS: THIAMINE HCL 100 MG TAB PO SCH (08:58)
[2021-10-31] MEDS: INSULIN ASPART PER UNIT SC SCH ×4 (09:09→21:34)
[2021-10-31] MEDS: BENZOCAINE 20% (ORAJEL) 11.9 GM TUBE MT SCH ×3 (09:10→20:32)
[2021-10-31] MEDS: INSULIN GLARGINE SOLOSTAR 100 UNITS/ML 3 ML PEN SC SCH (09:31)
[2021-10-31] MEDS: POLYETHYLENE (MIRALAX) 17 GM PACK PO SCH (09:36)
[2021-10-31] MEDS: DOCUSATE SODIUM 100 MG CAP PO SCH ×2 (09:36→20:32)
[2021-10-31] MEDS: TAMSULOSIN HCL 0.4 MG CAP PO SCH (17:50)
--- NOTE | 2021-11-01 07:39 | Discharge Summary ---
Date of Service November 01, 2021 Admission Exam Per Admitting Provider PHYSICAL EXAM: General: awake, alert, no apparent distress, calm sitting in bed disheveled appearance Head: Normocephalic, atraumatic ENT: Very hard of hearing, PERRLA, EOMI, mucous membranes dry Neuro: AAO x 2 (person and place), speech clear but inappropriate, strength intact bilaterally 5/5, sensation intact, no pronator drift, weak when trying to stand, loss of coordination, he is able to recall his events from his stay in the emergency room and from Office today. Chest: equal rise and fall of the chest, no accessory muscle use, no heaves or thrills, Clear to auscultation, on room air, Cardiac: Regular rate and rhythm, telemetry reviewed-NSR, skin warm dry, cap refill <3 seconds, peripheral pulses +2 no JVD, no murmur, no edema GI: NABS x 4 quadrants, soft, nontender to palpation, no rebound, guarding or tenderness : Spontaneously voiding, no pain, no CVA tenderness, Extremities: Normal inspection, no peripheral edema or erythema, calfs nontender to palpation Psych: overly animated, but calm and cooperative Principal Diagnosis Delirium Discharge Exam Constitutional WD/WN, vitals as above + thin, cooperative and comfortable Eyes PERRL, conjunctivae normal, anicteric sclerae ENMT external ear and nose normal, oropharynx normal Neck trachea midline, no thyromegaly Respiratory normal respiratory effort, lungs clear to auscultation Cardiovascular RRR, no murmur, no edema Chest (Breasts) Chest: normal inspection of chest Gastrointestinal (Abdomen) normal bowel sounds, soft, nontender, no hepatosplenomegaly Skin no rashes, warm and dry Discharge Data Allergies Allergy/AdvReac Type Severity Reaction Status Date / Time No Known Allergies Allergy Verified 10/16/21 19:58 Consultations 10/16/21 19:52 ED Decision to Admit Stat 10/17/21 14:16 Consult Neurology Routine 10/18/21 11:43 Consult Psychiatry Routine Ordered Studies 10/16/21 18:17 CT head/brain wo con Stat 10/17/21 10:23 MR brain wo/w con Routine Hospital Course (1) Acute alteration in mental status: 75yo Male with PMH Dementia, HLD, ambulatory dysfunction, DM2, malnutrition, COPD, RA, sensorineural hearing loss, CKD, depression on anxiety here for AMS. Reduced Venlafaxine to 75mg + 37.5mg daily. Keep this dosage for a week, then transition to 75mg daily for 1 week. Afterwards transition to 37.5mg daily for 1 week. Afterwards d/c venlafexine Once patient is on 75mg venlafexine daily, initiate Zoloft 25mg daily for 1 week. Afterwards, go up to 50mg daily for 1 week. Continue to titrate up as tolerated for depressive symptoms. Patient has history of agitated depression. Hence small prescription on lorazapam will be sent to the pharmacy to be used during this titration process as needed. Patient also has a questionable remote history of substance use disorder. Please monitor. Started [id number] daily, please increase to 10mg BID in 1 month Started Eliquis 5mg BID Started Metoprolol 200mg daily Change in mental status sec to pain with underlying dementia Acute change in mental status with decrease in functioning, ADLs, impaired decision-making -CBC, TSH, UA, urine toxicology, Lyme negative. CT Head without acute process, MRI brain also negative -EEG 10/17- abnormal but no evidence of seizure activity, showing moderate severity encephalopathy -Psychiatry consulted: Diagnostically consistent with encephalopathy/hyperactive delirium superimposed on progressive dementia. Decreased venlafaxine to 150mg qd - concern prolonging QTc scheduled melatonin 3mg qhs to help with delirium and sundowning brought hearing aids Pain control - treat mouth pain to help increase oral intake -mentation now at baseline. -Continue thiamine supplementation Prolonged Qtc - noted on admission - last ekg from 10/20 with Qtc of 511. recheck EKG 10/30 - Qtc 500. - Shared decision with to continue SSRI/SNRI in setting of terminal gauger goal discussed. Hx of agitated depression Questionable remote history of substance use ds. - Has been on effexor for 30 yrs with improvement in sympotms. - Considering persistent agitated symptoms and two episode in last 8 days while hospitalized - Discussed with Dr. Candelaria (psychiatry) Plan to taper effexor and transition to zoloft for more calming effect. - titration dose list above. Afib with RVR, resolved -10/19 developed sinus tachycardia - aflutter on EKG -started Metoprolol succinate 200 po qd due to tachycardia. -started on eliquis 5mg BID DM2 -Poorly uncontrolled DM with A1C of 10% last month -Suspect inadequate glycemic control contributed to microvascular ischemia- worsening vascular dementia -Glycemic consult placed -resume home glimepiride in outpatient Dementia: -Neurocognitive testing in 2013- mild cognitive impairment likely microvascular disease -worsening over past 8 years -Neurology consulted: started 10/18 memantine 10 mg daily, plan to continue dose for 1 month then 10 mg BID afterward -mentation waxing and waning throughout the day Ambulatory dysfunction: - Worsening with ambulation and balance over past 2 weeks - B12 level slightly high at 1400, folate wnl - Reportedly wide-based shuffling gait but history and neuro exam does not suggest Parkinsonian disease - CT Head- no evidence of hydrocephalus Mouth Pain -possibly contributory to poor diet -ordered scheduled TID benzocaine gel, -pain resolved. PO intake improved. Hyperlipidemia -continue rosuvastatin 20mg daily. PCP to consider d/c in setting of worsening dementia and shelter goal discussion. Hypertension -continue lisinopril 5mg daily -continue metoprolol 200mg daily -continue aspirin 81mg daily Constipation, resolved -KUB 10/17- moderate fecal retention, non-obstructive bowel gas pattern -Initiated bowel regimen 10/18- Senna, Colace, followed by Miralax. Dulcolax PRN. Pancytopenia -present since admission -continue to monitor Malnutrition -13 lb weight loss in 6 weeks, due to poor PO intake limited to candy -Encourage dietary intake, measure weight periodically -continue magnesium supplementation JONNY on CKD3, resolved -BUN 43, Cr 2.3 on admission. Likely due to dehydration / poor PO intake -Received IVF -lisinopril resumed 10/28 Rheumatoid arthritis -Continue home leflunomide Sensorineural hearing loss of both ears: - [facility] - Very hard of hearing- this may be adding to his delirium - brought his hearing aids from home. BPH -continue tamsulosin Chronic obstructive pulmonary disease: -Continue albuterol PRN (2) Delirium: (3) Dementia: (4) Hyperglycemia: (5) Acute kidney injury superimposed on chronic kidney disease: (6) Rheumatoid arthritis involving multiple sites with positive rheumatoid factor: Total Time Total Time Spent Total Time Spent (In Minutes): see attending attestation Discharge Plan Discharge Items Patient Disposition: Personal Senior Living Reason For Visit: ENCEPHALOPATHY, DELIRIUM Discharge Diagnosis: Delirium Activity: Per Instructions section Non-emergency contact: Primary Care Provider Call non-emergency contact if: you have any medication questions, your symptoms worsen and you have a fever Follow-up/Referrals: Gael Rogers MD [Primary Care Provider] - 11/15/21 10:30 am Diet: Carb Consistent or DM2 Diet Texture: Easy to Chew Addtl Attending Provider Instructions: 75yo Male with PMH Dementia, HLD, ambulatory dysfunction, DM2, malnutrition, COPD, RA, sensorineural hearing loss, CKD, depression on anxiety here for AMS. Reduced Venlafaxine to 75mg + 37.5mg daily. Keep this dosage for a week, then transition to 75mg daily for 1 week. Afterwards transition to 37.5mg daily for 1 week. Afterwards d/c venlafexine Once patient is on 75mg venlafexine daily, initiate Zoloft 25mg daily for 1 week. Afterwards, go up to 50mg daily for 1 week. Continue to titrate up as tolerated for depressive symptoms. Patient has history of agitated depression. Hence small prescription on lorazapam will be sent to the pharmacy to be used during this titration process as needed. Patient also has a questionable remote history of substance use disorder. Please monitor. Started [id number] daily, please increase to 10mg BID in 1 month Started Eliquis 5mg BID Started Metoprolol 200mg daily Change in mental status sec to pain with underlying dementia Acute change in mental status with decrease in functioning, ADLs, impaired decision-making -CBC, TSH, UA, urine toxicology, Lyme negative. CT Head without acute process, MRI brain also negative -EEG 10/17- abnormal but no evidence of seizure activity, showing moderate severity encephalopathy -Psychiatry consulted: Diagnostically consistent with encephalopathy/hyperactive delirium superimposed on progressive dementia. Decreased venlafaxine to 150mg qd - concern prolonging QTc scheduled melatonin 3mg qhs to help with delirium and sundowning brought hearing aids Pain control - treat mouth pain to help increase oral intake -mentation now at baseline. -Continue thiamine supplementation Prolonged Qtc - noted on admission - last ekg from 10/20 with Qtc of 511. recheck EKG 10/30 - Qtc 500. - Shared decision with to continue SSRI/SNRI in setting of terminal gauger goal discussed. Hx of agitated depression Questionable remote history of substance use ds. - Has been on effexor for 30 yrs with improvement in sympotms. - Considering persistent agitated symptoms and two episode in last 8 days while hospitalized - Discussed with Dr. Candelaria (psychiatry) Plan to taper effexor and transition to zoloft for more calming effect. - titration dose list above. Afib with RVR, resolved -10/19 developed sinus tachycardia vs. aflutter on EKG -started Metoprolol succinate 200 po qd due to tachycardia. -started on eliquis 5mg BID DM2 -Poorly uncontrolled DM with A1C of 10% last month -Suspect inadequate glycemic control contributed to microvascular ischemia- worsening vascular dementia -Glycemic consult placed -resume home glimepiride in outpatient Dementia: -Neurocognitive testing in 2013- mild cognitive impairment likely microvascular disease -worsening over past 8 years -Neurology consulted: started 10/18 memantine 10 mg daily, plan to continue dose for 1 month then 10 mg BID afterward -mentation waxing and waning throughout the day Ambulatory dysfunction: - Worsening with ambulation and balance over past 2 weeks - B12 level slightly high at 1400, folate wnl - Reportedly wide-based shuffling gait but history and neuro exam does not suggest Parkinsonian disease - CT Head- no evidence of hydrocephalus Mouth Pain -possibly contributory to poor diet -ordered scheduled TID benzocaine gel, -pain resolved. PO intake improved. Hyperlipidemia -continue rosuvastatin 20mg daily. PCP to consider d/c in setting of worsening dementia and terminal gauger goal discussion. Hypertension -continue lisinopril 5mg daily -continue metoprolol 200mg daily -continue aspirin 81mg daily Constipation, resolved -KUB 10/17- moderate fecal retention, non-obstructive bowel gas pattern -Initiated bowel regimen 10/18- Senna, Colace, followed by Miralax. Dulcolax PRN. Pancytopenia -present since admission -continue to monitor Malnutrition -13 lb weight loss in 6 weeks, due to poor PO intake limited to candy -Encourage dietary intake, measure weight periodically -continue magnesium supplementation JONNY on CKD3, resolved -BUN 43, Cr 2.3 on admission. Likely due to dehydration 2/ poor PO intake -Received IVF -lisinopril resumed 10/28 Rheumatoid arthritis -Continue home leflunomide Sensorineural hearing loss of both ears: - [facility] - Very hard of hearing- this may be adding to his delirium - brought his hearing aids from home. BPH -continue tamsulosin Chronic obstructive pulmonary disease: -Continue albuterol PRN Pending Studies at Discharge: No Stand-Alone [facility] Sm[facility] Cess[facility] Skilled Items Patient informed of condition?: Yes DNR: Yes Discharge Level of Care: Skilled Communicable Disease: No Discharge Prognosis: Stable Lines: None Urinary Catheter: No Medications and DC Order Prescriptions: New metoprolol succinate 50 mg Tablet Extended Release 24 Hr 200 mg PO QAM 30 Days Qty: 120 RF: 0 rosuvastatin [Crestor] 20 mg Tablet 20 mg PO QAM 30 Days Qty: 30 RF: 0 memantine [Namenda] 10 mg Tablet 10 mg PO QAM 30 Days Qty: 30 RF: 0 Eliquis 5 mg Tablet 5 mg PO BID 30 Days Qty: 60 RF: 0 HurriCaine 20 % Gel 1 applic MT TID Qty: 28.4 RF: 0 venlafaxine 75 mg capsule,extended release 24hr 75 mg PO DAILY 30 Days Qty: 30 RF: 0 venlafaxine 37.5 mg capsule,extended release 24hr 37.5 mg PO DAILY 30 Days Qty: 30 RF: 0 lorazepam 0.5 mg tablet 0.5 mg PO BID PRN (Reason: anxiety) Qty: 10 RF: 0 Continued tamsulosin 0.4 mg capsule 0.4 mg PO DAILY Qty: 30 RF: 2 lisinopril 5 mg tablet 5 mg PO DAILY Qty: 90 RF: 3 albuterol sulfate 90 mcg/actuation HFA aerosol inhaler 2 puff inhalation Q8H PRN (Reason: Shortness Of Breath) Qty: 1 RF: 0 glimepiride 2 mg tablet 2 mg PO BIDM 30 Days Qty: 60 RF: 0 Januvia 100 mg tablet 100 mg PO DAILY 30 Days Qty: 30 RF: 0 diclofenac sodium 1 % gel 2 g topical QID PRN (Reason: Knee Pain) Qty: 100 RF: 0 cyanocobalamin (vitamin B-12) [Vitamin B-12] 1,000 mcg Tablet 1,000 mcg PO DAILY 30 Days Qty: 30 RF: 0 leflunomide 10 mg tablet 10 mg PO DAILY 30 Days Qty: 30 RF: 0 folic acid 1 mg tablet 1 mg PO DAILY 30 Days Qty: 30 RF: 2 Centrum Silver Men 300-600-300 mcg tablet 1 tab PO DAILY 30 Days Qty: 30 RF: 0 Discontinued atenolol 100 mg tablet 100 mg PO DAILY Qty: 90 RF: 3 simvastatin 40 mg tablet 40 mg PO QPM Qty: 90 RF: 3 venlafaxine 150 mg capsule,extended release 24hr 150 mg PO BID Qty: 180 RF: 3 aspirin 325 mg tablet,delayed release (DR/EC) 325 mg PO DAILY RF: 0 Discharge Orders: Discharge Order (Routine); Ordered 11/01/21 Ordered By: Ludmila Bull Admission Data Admit Date/Time: 10/18/21 15:46 Attending Provider: Beata Lynne Admit Provider: Jerrod Yadav Primary Care Provider: Gael Rogers Other Providers: [facility] ; Jun Cerda ; Aundrea Jimenez ; Ayden Manning ; Corie Candelaria ; Darby Robles ; Jaylyn Horne ; Will Smalls ; Rafi Esteban Other Interventions: Discharge Summary Assessment (RN) Last Done: 11/01/21 12:43 Supervising Physician Co-Signing Physician Notes Resident Physician Supervision Note: I independently interviewed and examined the patient and verified the lloyd history and physical, reviewed labs and image studies and agree with resident Dr. Bull findings and care plan. Resident Activity Tracking Resident Involvement: Resident Care Provided Care Provided: Adult Hospital Medicine
[2021-11-01] MEDS: APIXABAN 5 MG TABLET PO SCH (08:24)
[2021-11-01] MEDS: SITagliptin PHOSPHATE 25 MG TAB PO SCH (08:24)
[2021-11-01] MEDS: THIAMINE HCL 100 MG TAB PO SCH (08:24)
[2021-11-01] MEDS: lisinopril 5 MG TAB PO SCH (08:24)
[2021-11-01] MEDS: METOPROLOL SUCC 50MG EXT REL TAB PO SCH (08:24)
[2021-11-01] MEDS: SENNA 8.6 MG TAB PO SCH (08:24)
[2021-11-01] MEDS: MAGNESIUM CHLORIDE 64MG DELAYED REL TAB PO SCH (08:24)
[2021-11-01] MEDS: ROSUVASTATIN CALCIUM 20 MG TAB PO SCH (08:24)
[2021-11-01] MEDS: MEMANTINE HCL 10 MG TAB PO SCH (08:24)
[2021-11-01] MEDS: VENLAFAXINE HCL XR 150 MG CAPXR PO SCH (08:24)
[2021-11-01] MEDS: LEFLUNOMIDE 10 MG TAB PO SCH (08:25)
[2021-11-01] MEDS: FOLIC ACID 1 MG TAB PO SCH (08:25)
[2021-11-01] MEDS: BENZOCAINE 20% (ORAJEL) 11.9 GM TUBE MT SCH ×2 (08:25→12:33)
[2021-11-01] MEDS: INSULIN GLARGINE SOLOSTAR 100 UNITS/ML 3 ML PEN SC SCH (08:26)
[2021-11-01] MEDS: DOCUSATE SODIUM 100 MG CAP PO SCH (08:27)
[2021-11-01] MEDS: POLYETHYLENE (MIRALAX) 17 GM PACK PO SCH (08:27)
[2021-11-01] MEDS: ASPIRIN 81 MG ECTAB PO SCH (08:27)
[2021-11-01] MEDS: INSULIN ASPART PER UNIT SC SCH ×2 (08:31→12:29)
== END 2021-11-01 14:29 | disposition home or self-care (01) | DRG 884 ==
LOC: 2W 16:15 → ED 16:15 → SUATTDRO 20:29 → 2W 22:01 → SUATTDRO 10-18 15:46 → 2E 10-19 17:46 → 3E 10-22 20:21
DX: E53.8 Deficiency of other specified B group vitamins; E43 Unspecified severe protein-calorie malnutrition; D69.6 Thrombocytopenia, unspecified; J44.9 Chronic obstructive pulmonary disease, unspecified; I48.91 Unspecified atrial fibrillation; E11.65 Type 2 diabetes mellitus with hyperglycemia; R63.4 Abnormal weight loss; I48.92 Unspecified atrial flutter; D61.818 Other pancytopenia; I12.9 Hypertensive chronic kidney disease with stage 1 through stage 4 chronic kidney disease, or unspecified chronic kidney disease; K59.00 Constipation, unspecified; F03.90 Unspecified dementia, unspecified severity, without behavioral disturbance, psychotic disturbance, mood disturbance, and anxiety; H90.3 Sensorineural hearing loss, bilateral; E86.0 Dehydration; E78.5 Hyperlipidemia, unspecified; E83.42 Hypomagnesemia; Z66 Do not resuscitate; M06.9 Rheumatoid arthritis, unspecified; R29.6 Repeated falls; K13.79 Other lesions of oral mucosa; F41.9 Anxiety disorder, unspecified; N18.30 Chronic kidney disease, stage 3 unspecified; G93.41 Metabolic encephalopathy; R45.86 Emotional lability; J02.9 Acute pharyngitis, unspecified; N40.0 Benign prostatic hyperplasia without lower urinary tract symptoms; N17.9 Acute kidney failure, unspecified; R00.0 Tachycardia, unspecified; F05 Delirium due to known physiological condition; F32.A Depression, unspecified; I45.81 Long QT syndrome; Z91.14 Patient's other noncompliance with medication regimen; Z79.82 Long term (current) use of aspirin; R26.9 Unspecified abnormalities of gait and mobility

== ENCOUNTER 2022-02-14 18:48 | Inpatient (IN) ==
[2022-02-14] MEDS ORDERED: CEFEPIME 2,000 MG/20 ML VIAL IV STA (19:00)
--- NOTE | 2022-02-14 19:07 | Emergency Department Note ---
Impression & Plan Fall, Dementia, Closed fracture of left hip, Hypoxia, Anemia ED Provider Note NAME: SHERLYN MASON AGE: 76 SEX: M : 1945 ARRIVES VIA: Ambulance INFORMANT: [Patient][nursing] ED PROVIDER(S): [Adrián Garrett MD] CHIEF COMPLAINT: Fall HISTORY OF PRESENT ILLNESS: The patient is a 76-year-old male with severe dementia. The patient apparently fell yesterday and today by mobile x-ray, was diagnosed with a hip fracture. The patient was noted today to also have a temperature of 102. A COVID test was done and it was negative. The patient arrives and, as per nursing staff, was hypoxic requiring O2 supplementation. The patient can give no real history because of his dementia. Given the circumstances, no further history obtainable. Looking at old records, he is on [employer] daily REVIEW OF SYSTEMS: Unobtainable given his severe dementia. PMHx/PSHx: See Below SOCIAL HISTORY: See Below. PHYSICAL EXAM: GENERAL: Patient is in no acute distress. HEENT: No acute trauma, normocephalic atraumatic, mucous membranes moist, no nasal congestion, no scleral icterus. NECK: No stridor, no adenopathy, no meningismus, trachea is midline. LUNGS: Clear to auscultation bilaterally when listening anterior, no wheeze, no rhonchi, breath sounds equal. HEART: Without murmurs gallops or rubs, regular rate and rhythm. ABDOMEN: Soft, nontender, bowel sounds positive, no peritonitis. EXTREMITIES: No cyanosis. The patient has the left hip flexed and it does seem painful with movement. No pain really to move the right hip. No edema. NEUROLOGIC: Moves all extremities, awake, confusion consistent with dementia. SKIN: No rash, no jaundice, no diaphoresis. Rectal: Brown stool, heme-negative. DIFFERENTIAL DIAGNOSIS: Hip fracture, UTI, bacteremia, pelvic fracture, COVID-19, influenza, electrolyte imbalance, anemia, dehydration, pneumonia, intracranial bleeding, C- spine injury, among others. EMERGENCY DEPARTMENT COURSE/PROCEDURES: ECG: Indication was fall and weakness. The ECG shows a normal sinus rhythm with a rate of 83. There is a right bundle branch block. No ST elevation, no PVCs. The QTc is 491. Continuous Cardiac Monitoring: An order was placed for continuous cardiac monitoring. The monitor shows a rate of 85 with normal sinus rhythm. MEDICAL DECISION MAKING: There is no leukocytosis. The patient is anemic and the value today is lower than baseline. A rectal exam was performed. The stool was brown and heme-n egative. There is a normal platelet count. INR is 1.2, this slight elevation is likely from his Eliquis use. Creatinine was 1.4, this appears baseline. Lactic acid level was not elevated making severe sepsis less likely. No concerning liver enzyme elevation. ECG showed a normal sinus rhythm, no obvious ischemia. Cardiac enzyme testing x1 was slightly elevated. This elevation could be from mismatch or potentially cardiac injury. COVID test returned negative. Chest x-ray did not show an obvious pneumonia or CHF. Brain CT showed no acute bleed or mass-effect. C-spine CT showed no acute fracture. Pelvis film showed a potential left hip fracture. A CT of the pelvis showed a subcapital left hip fracture. The patient presents after falling. He does appear to have a left subcapital hip fracture by work-up. He has not required anything for pain. He was given a DuoNeb because of his hypoxia. He was given IV cefepime as empiric antibiotic coverage. A fever had been reported prior to arrival but was not present here. I did speak with orthopedics. I spoke with case management and the on-call hospitalist. I spoke to the patient's over the phone and gave her an update on his condition. She is anxious to speak with orthopedics tomorrow morning about her 's options. Past Med/Surg History Medical History Acute alteration in mental status Acute confusion Acute hyperglycemia Acute kidney injury superimposed on chronic kidney disease Altered mental status Arthritis of both knees Chronic obstructive pulmonary disease CKD (chronic kidney disease) COVID-19 Depression with anxiety Diabetes mellitus Diverticulitis Erectile dysfunction History of alcoholism History of memory loss Hypercholesterolemia Major neurocognitive disorder Rheumatoid arthritis involving multiple sites with positive rheumatoid factor Sensorineural hearing loss of both ears Tinnitus, bilateral Surgical History History of appendectomy Family History Mother Cancer Denies family history of Ovarian cancer Prostate cancer Myocardial infarction Breast cancer Colorectal cancer Social History Smoking Status: Unknown if ever smoked Second Hand Exposure: No; Hx Alcohol Use: No Preferred Language: Bengali Communication Ability: Effective Visual Impairment: No Limitations Hearing Ability: Use of Hearing Aid In Room Dining Server Required: No Beliefs That Will Affect Care: None marital status: Current Living Situation: Spouse Current Living Situation Comment: Lives with current occupational status: retired Feels Safe at Home: Yes Childhood Exposure to Second-Hand Smoke: No Dental Care, Regularly: Yes Physical Activity Frequency: Does not Exercise Seatbelt Use: always Sunscreen Use: Yes Assistive Devices: Hearing Aid - Bilateral Allergies Allergies Allergy/AdvReac Type Severity Reaction Status Date / Time No Known Allergies Allergy Verified 12/12/21 15:36 Home Meds Previous Rx's Medication Instructions Recorded albuterol sulfate 90 mcg/actuation 2 puff INHALATION Q8H PRN #1 gm 11/01/21 aerosol inhaler benzocaine 20 % mucosal gel 1 applic MT TID #28.4 g 11/01/21 (HurriCaine) cyanocobalamin (vitamin B-12) 1,000 mcg PO DAILY 30 Days #30 tab 11/01/21 1,000 mcg tablet (Vitamin B-12) diclofenac sodium 1 % topical gel 2 g TOPICAL QID PRN #100 g NS 11/01/21 folic acid 1 mg tablet 1 mg PO DAILY 30 Days #30 tab NS 11/01/21 glimepiride 2 mg tablet 2 mg PO BIDM 30 Days #60 tab 11/01/21 leflunomide 10 mg tablet 10 mg PO DAILY 30 Days #30 tab 11/01/21 lisinopril 5 mg tablet 5 mg PO DAILY #90 tab 11/01/21 lorazepam 0.5 mg tablet 0.5 mg PO BID PRN #10 tab 11/01/21 egliuqfh-kwa-kopul acid 300 1 tab PO DAILY 30 Days #30 tab 11/01/21 mcg-lycopene 600 mcg-lutein 300 mcg tablet (Centrum Silver Men) sitagliptin 100 mg tablet (Januvia) 100 mg PO DAILY 30 Days #30 tab 11/01/21 tamsulosin 0.4 mg capsule 0.4 mg PO DAILY #30 cap 11/01/21 trazodone 50 mg tablet 50 mg PO .QHS PRN #30 tab 11/06/21 apixaban 5 mg tablet (Eliquis) 5 mg PO BID #60 tab 12/19/21 memantine 10 mg tablet 10 mg PO DAILY #60 tab 12/19/21 metoprolol succinate 50 mg 200 mg PO DAILY #90 tab 12/19/21 tablet,extended release 24 hr peg 3350-electrolytes 236 240 ml PO Q10M #4000 ml 01/17/22 gram-22.74 gram-6.74 gram-5.86 gram solution (Golytely) Results & Data (ED) Vital Signs Vital Signs - 24 hr 02/14/22 19:00 02/14/22 19:02 02/14/22 19:30 Temperature 36.9 C Temperature Source Oral Pulse Rate 85 Pulse Rate [Apical] Respiratory Rate 18 18 Respiratory Effort / Characteristics Non-Labored Spontaneous Non-Labored Spontaneous Respiratory Depth Normal Blood Pressure 121/58 L Blood Pressure [Right Arm] Blood Pressure Mean 79 Blood Pressure Mean [Right Arm] Blood Pressure Position Lying Pulse Oximetry 82 L 82 L 94 Oxygen Delivery Method Room Air Room Air Nasal Cannula Nasal Cannula Oxygen Flow Rate 4 Sepsis Recent Fever Within 48 Hours Yes Sepsis New/Unexplained Change in Mental Status No Sepsis Action Taken by Nursing No Action Required Oxygen Flow Rate - Titration 4 Pulse Oximetry Post Tiitration 94 02/14/22 21:00 Temperature Temperature Source Pulse Rate Pulse Rate [Apical] 79 Respiratory Rate 18 Respiratory Effort / Characteristics Non-Labored Spontaneous Respiratory Depth Normal Blood Pressure Blood Pressure [Right Arm] 134/70 Blood Pressure Mean Blood Pressure Mean [Right Arm] 91 Blood Pressure Position Pulse Oximetry 95 Oxygen Delivery Method Nasal Cannula Oxygen Flow Rate 3 Sepsis Recent Fever Within 48 Hours Sepsis New/Unexplained Change in Mental Status Sepsis Action Taken by Nursing Oxygen Flow Rate - Titration Pulse Oximetry Post Tiitration Home Medications Current Medication List: was personally reviewed by me Laboratory Data Attestation: I reviewed the patient's lab results. Result diagrams: 02/14/22 19:05 02/14/22 19:05 Lab Results 02/14/22 02/14/22 02/14/22 Range/Units 19:05 19:05 19:05 WBC 7.08 (4.8-10.8) K/uL RBC 3.39 L (4.7-6.1) M/uL Hgb 9.6 L (14.0-18.0) g/dL Hct 28.2 L (42-52) % MCV 83.2 (80-100) fL MCH 28.3 (25-34) pg MCHC 34.0 (32-36) g/dL RDW Std Deviation 45.2 (36.4-46.3) fL RDW Coeff of Sherrell 14.8 H (11.5-14.5) % Plt Count 185 (130-400) K/uL MPV 9.4 (7.4-10.4) fL Immature Gran % (Auto) 0.3 % Neut % (Auto) 83.8 % Lymph % (Auto) 6.1 % Freestone % (Auto) 6.6 % Eos % (Auto) 3.1 % Baso % (Auto) 0.1 % Neut # (Auto) 5.93 (1.4-6.5) K/uL Lymph # (Auto) 0.43 L (1.2-3.4) K/uL Freestone # (Auto) 0.47 (0.11-0.59) K/uL Eos # (Auto) 0.22 (0-0.5) K/uL Baso # (Auto) 0.01 (0-0.2) K/uL Immature Gran # (Auto) 0.02 (0.00-0.02) K/uL PT 12.6 H (9.0-12.0) Seconds INR 1.2 H (0.9-1.1) APTT 36.0 H (21.0-31.0) Seconds PTT Ratio 1.3 Sodium 134 L (136-145) mmol/L Potassium 4.7 (3.5-5.1) mmol/L Chloride 100 (98-107) mmol/L Carbon Dioxide 25 (21-32) mmol/L Anion Gap 9 (3-11) BUN 27 H (6-23) mg/dl Creatinine 1.41 H (0.6-1.4) mg/dl Est Cr Clr Drug Dosing 42.0 ml/min Est GFR ( Amer) 55.3 ml/min Est GFR (Non-Af Amer) 47.7 ml/min BUN/Creatinine Ratio 19.1 (10-20) Glucose 244 H (70-99(Fasting)) mg/dl Lactate (0.4-2.0) mmol/L Calcium 9.2 (8.5-10.1) mg/dl Magnesium 1.8 (1.7-2.4) mg/dl Total Bilirubin 0.5 (0.2-1.0) mg/dl AST 32 (13-39) U/L ALT 42 (7-52) U/L Alkaline Phosphatase 63 (34-104) U/L Troponin I High Sens 36.1 H (0-20) pg/ml Total Protein 7.6 (6.0-8.3) gm/dl Albumin 3.4 (3.4-5.0) gm/dl Globulin 4.2 H (2.5-4.0) gm/dl Albumin/Globulin Ratio 0.8 L (0.9-2) Procalcitonin (0-0.5) ng/ml SARS-CoV-2, RNA, NAAT (NEGATIVE) 02/14/22 02/14/22 02/14/22 Range/Units 19:05 19:05 19:20 WBC (4.8-10.8) K/uL RBC (4.7-6.1) M/uL Hgb (14.0-18.0) g/dL Hct (42-52) % MCV (80-100) fL MCH (25-34) pg MCHC (32-36) g/dL RDW Std Deviation (36.4-46.3) fL RDW Coeff of Sherrell (11.5-14.5) % Plt Count (130-400) K/uL MPV (7.4-10.4) fL Immature Gran % (Auto) % Neut % (Auto) % Lymph % (Auto) % Freestone % (Auto) % Eos % (Auto) % Baso % (Auto) % Neut # (Auto) (1.4-6.5) K/uL Lymph # (Auto) (1.2-3.4) K/uL Freestone # (Auto) (0.11-0.59) K/uL Eos # (Auto) (0-0.5) K/uL Baso # (Auto) (0-0.2) K/uL Immature Gran # (Auto) (0.00-0.02) K/uL PT (9.0-12.0) Seconds INR (0.9-1.1) APTT (21.0-31.0) Seconds PTT Ratio Sodium (136-145) mmol/L Potassium (3.5-5.1) mmol/L Chloride (98-107) mmol/L Carbon Dioxide (21-32) mmol/L Anion Gap (3-11) BUN (6-23) mg/dl Creatinine (0.6-1.4) mg/dl Est Cr Clr Drug Dosing ml/min Est GFR ( Amer) ml/min Est GFR (Non-Af Amer) ml/min BUN/Creatinine Ratio (10-20) Glucose (70-99(Fasting)) mg/dl Lactate 2.0 (0.4-2.0) mmol/L Calcium (8.5-10.1) mg/dl Magnesium (1.7-2.4) mg/dl Total Bilirubin (0.2-1.0) mg/dl AST (13-39) U/L ALT (7-52) U/L Alkaline Phosphatase (34-104) U/L Troponin I High Sens (0-20) pg/ml Total Protein (6.0-8.3) gm/dl Albumin (3.4-5.0) gm/dl Globulin (2.5-4.0) gm/dl Albumin/Globulin Ratio (0.9-2) Procalcitonin 0.91 H (0-0.5) ng/ml SARS-CoV-2, RNA, NAAT NEGATIVE (NEGATIVE) Administered Medications Discontinued Medications Albuterol (Albut/Ipratrop 3mg/0.5mg Neb 3 Ml Vial) 3 ml NEB NOW STA; Protocol Stop: 02/14/22 20:23 Last Admin: 02/14/22 21:09 Dose: 3 ml Documented by: [id number] Cefepime HCl (Maxipime) 2,000 mg in 20 mls @ 5 mls/min IV NOW STA; Protocol Stop: 02/14/22 19:03 Last Admin: 02/14/22 20:19 Dose: 5 mls/min Documented by: [id number] Imaging Data Radiologist's Impression: Chest X-Ray 02/14/22 19:00 XR chest 1V portable CLINICAL HISTORY: SEPSIS TECHNIQUE: Single frontal radiograph of the chest was obtained. Comparison: Comparison is made to chest radiograph 10/16/2021 FINDINGS: No lines and tubes are seen. The cardiomediastinal silhouette is normal. Reticular interstitial opacities are seen. Lungs are mildly hypoinflated. There may be a faint airspace opacity in the right upper lung. No evidence of pleural effusion or pneumothorax. IMPRESSION: There may be a faint airspace opacity in the right upper lung, although this was not visible on the portion of lung included in the CT cervical spine performed same day. If present, this may represent atelectasis, pneumonia, and/or aspiration. Diffuse interstitial disease is noted. ACT 112: Negative or not required by law. Electronically signed by: Dc Hamilton M.D. 02/14/2022 8:15 PM Pelvis X-Ray 02/14/22 19:00 XR pelvis 1-2V routine CLINICAL HISTORY: fall, poss hip fx TECHNIQUE: A single frontal view of the pelvis was obtained. Comparison: None available at the time of this dictation. FINDINGS: The left hip appears angulated compared to the right and there is a lucency over the femoral head. No pelvic fracture is seen. Degenerative changes are seen in t he lumbar spine. Mild degenerative changes are seen in the bilateral hip joints. IMPRESSION: Limited exam due to single frontal view. There is suggestion of deformity in the left hip compatible with acute left hip fracture. If there is clinical uncertainty, dedicated radiographs of the left hip can be performed. ACT 112: Negative or not required by law. Electronically signed by: Dc Hamilton M.D. 02/14/2022 8:[address] 02/14/22 19:01 CT cervical spine wo con CLINICAL HISTORY: fall TECHNIQUE: Multidetector row helical CT of the cervical spine was performed without administration of intravenous contrast. Coronal and sagittal reformations were obtained. Automated dose lowering techniques and/or adjustment according to patient size were utilized for this exam. Comparison: None available at the time of this dictation. FINDINGS: No acute fractures or subluxations are identified. The vertebral body heights and disk spaces are well maintained. The alignment is normal. Biapical scarring is seen in the lungs. IMPRESSION: No evidence of acute bony injury. ACT 112: Negative or not required by law. Electronically signed by: Dc Hamilton M.D. 02/14/2022 7:[address] 02/14/22 19:01 CT head/brain wo con CLINICAL HISTORY: fall, eliquis Technique: Contiguous axial CT images of the head were acquired from the base of the skull to the vertex without intravenous contrast administration. Images were viewed in brain, subdural and bone windows. Automated dose lowering techniques and/or adjustment according to patient size were utilized for this exam. Comparison: Comparison is made to CT head 10/16/2021 Findings: Areas of decreased attenuation are present in the periventricular and subcortical white matter bilaterally consistent with small vessel ischemic disease. Generalized cerebral atrophy with commensurate enlargement of the ventricles, sulci, and cisterns is also present. There is no acute intracranial hemorrhage or evidence of acute territorial infarction. No shift of the midline structures, mass effect, or extra-axial abnormalities are shown. Atherosclerotic calcifications are present in the intracranial segments of the internal carotid arteries. Imaged portions of the paranasal sinuses and mastoid air cells are clear. The orbits appear normal. There are no acute fractures of the calvaria or scalp swelling. Impression: No acute intracranial hemorrhage, skull fractures, or scalp swelling. ACT 112: Negative or not required by law. Electronically signed by: Dc Hamilton M.D. 02/14/2022 7:[address] 02/14/22 20:08 CT pelvis wo con CLINICAL HISTORY: poss pelvic or hip fx TECHNIQUE: Helical axial images of the pelvis were obtained and displayed at 5 and 1 mm intervals. Automated dose lowering techniques and/or adjustment according to patient size were utilized for this exam. This exam was performed with intravenous contrast. CT DOSE: 269.84 mGy.cm COMPARISON: Comparison is made to pelvic radiograph 02/14/2022 FINDINGS: Bladder: Mejia catheter is seen. Reproductive organs: Prostatomegaly is seen. Bowel: Unremarkable. Lymph nodes Mesenteric: Unremarkable. Pelvic: Unremarkable. Peritoneum: Normal Vessels: Atherosclerotic calcifications are seen. Abdominal wall: Unremarkable. Bones: Degenerative changes are seen in the spine and bilateral hip joints. There is an acute impacted fracture of the left femur at the subcapital station. IMPRESSION: Acute impacted subcapital fracture of the left femoral head. Degenerative c hanges are seen in the skeleton. ACT 112: Negative or not required by law. Electronically signed by: Dc Hamilton M.D. 02/14/2022 9:03 PM Discharge Plan Visit Data Chief Complaint: Fall Stated Complaint: fall ED Provider: Adrián Garrett Discharge Problem: Fall, Dementia, Closed fracture of left hip, Hypoxia, Anemia Patient Disposition: Admitted As Inpatient Condition: Fair Forms Stand Alone Forms: My [facility] [employer] Prescriptions Prescriptions: No Action trazodone 50 mg tablet 50 mg PO .QHS PRN (Reason: sleep) Qty: 30 RF: 2 Eliquis 5 mg tablet 5 mg PO BID Qty: 60 RF: 2 memantine 10 mg tablet 10 mg PO DAILY Qty: 60 RF: 2 metoprolol succinate 50 mg tablet extended release 24 hr 200 mg PO DAILY Qty: 90 RF: 3 peg 3350-electrolytes [Golytely] 236-22.74-6.74 -5.86 gram recon soln 240 ml PO Q10M Qty: 4000 RF: 0 tamsulosin 0.4 mg capsule 0.4 mg PO DAILY Qty: 30 RF: 2 lisinopril 5 mg tablet 5 mg PO DAILY Qty: 90 RF: 3 albuterol sulfate 90 mcg/actuation HFA aerosol inhaler 2 puff inhalation Q8H PRN (Reason: Shortness Of Breath) Qty: 1 RF: 0 HurriCaine 20 % Gel 1 applic MT TID Qty: 28.4 RF: 0 glimepiride 2 mg tablet 2 mg PO BIDM 30 Days Qty: 60 RF: 0 Januvia 100 mg tablet 100 mg PO DAILY 30 Days Qty: 30 RF: 0 diclofenac sodium 1 % gel 2 g topical QID PRN (Reason: Knee Pain) Qty: 100 RF: 0 cyanocobalamin (vitamin B-12) [Vitamin B-12] 1,000 mcg Tablet 1,000 mcg PO DAILY 30 Days Qty: 30 RF: 0 leflunomide 10 mg tablet 10 mg PO DAILY 30 Days Qty: 30 RF: 0 folic acid 1 mg tablet 1 mg PO DAILY 30 Days Qty: 30 RF: 2 Centrum Silver Men 300-600-300 mcg tablet 1 tab PO DAILY 30 Days Qty: 30 RF: 0 lorazepam 0.5 mg tablet 0.5 mg PO BID PRN (Reason: anxiety) Qty: 10 RF: 0 Referrals Referrals: Gael Rogers MD [Primary Care Provider] -
[2022-02-14 19:35] LABS: Basophils # (auto) 0.01 K/uL (0-0.2); Basophils % (auto) 0.1 %; Eosinophils # (auto) 0.22 K/uL (0-0.5); Eosinophils % (auto) 3.1 %; Hematocrit (blood only) 28.2 % (42-52); Hemoglobin 9.6 g/dL (14.0-18.0); Immature Granulocytes # (auto) 0.02 K/uL (0.00-0.02); Immature Granulocytes % (auto) 0.3 %; Lymphocytes # (auto) 0.43 K/uL (1.2-3.4); Lymphocytes % (auto) 6.1 %; Mean Corpuscular Hemoglobin 28.3 pg (25-34); Mean Corpuscular Volume 83.2 fL (80-100); Mean Platelet Volume 9.4 fL (7.4-10.4); Monocytes # (auto) 0.47 K/uL (0.11-0.59); Monocytes % (auto) 6.6 %; Neutrophils # (auto) 5.93 K/uL (1.4-6.5); Neutrophils % (auto) 83.8 %; Platelet Count 185 K/uL (130-400); RDW Coefficient of Variation 14.8 % (11.5-14.5); RDW Standard Deviation 45.2 fL (36.4-46.3); Red Blood Count 3.39 M/uL (4.7-6.1); White Blood Count 7.08 K/uL (4.8-10.8)
[2022-02-14 19:44] LABS: INR 1.2 (0.9-1.1); Partial Thromboplastin Ratio 1.3; Prothrombin Time 12.6 Seconds (9.0-12.0)
--- NOTE | 2022-02-14 19:56 | CT Scan Report ---
CT head/brain wo con CLINICAL HISTORY: fall, eliquis Technique: Contiguous axial CT images of the head were acquired from the base of the skull to the dorothy jael without intravenous contrast administration. Images were viewed in brain, subdural and [facility] Automated dose lowering techniques and/or adjustment according to patient size were utilized for this exam. Comparison: Comparison is made to CT head 10/16/2021 Findings: Areas of decreased attenuation are present in the periventricular and subcortical white matter bilate rally consistent with small vessel ischemic disease. Generalized cerebral atrophy with commensurate e nlargement of the ventricles, sulci, and cisterns is also present. There is no acute intracranial hem orrhage or evidence of acute territorial infarction. No shift of the midline structures, mass effect, or extra-axial abnormalities are shown. Atherosclerotic calcifications are present in the intracran ial segments of the internal carotid arteries. Imaged portions of the paranasal sinuses and mastoid air cells are clear. The orbits appear normal. There are no acute fractures of the calvaria or scalp swelling. Impression: No acute intracranial hemorrhage, skull fractures, or scalp swelling. ACT 112: Negative or not required by law. Electronically signed by: Dc Hamilton M.D. 02/14/2022 7:54 PM
[2022-02-14 19:59] LABS: Troponin I High Sensitivity 36.1 pg/ml (0-20)
--- NOTE | 2022-02-14 20:00 | CT Scan Report ---
CT cervical spine wo con CLINICAL HISTORY: fall TECHNIQUE: Multidetector row helical CT of the cervical spine was performed without administration of intravenous contrast. Coronal and sagittal reformations were obtained. Automated dose lowering techn iques and/or adjustment according to patient size were utilized for this exam. Comparison: None available at the time of this dictation. FINDINGS: No acute fractures or subluxations are identified. The vertebral body heights and disk spaces are wel l maintained. The alignment is normal. Biapical scarring is seen in the lungs. IMPRESSION: No evidence of acute bony injury. ACT 112: Negative or not required by law. Electronically signed by: Dc Hamilton M.D. 02/14/2022 7:57 PM
[2022-02-14 20:04] LABS: Albumin Globulin Ratio 0.8 (0.9-2); Albumin Level 3.4 gm/dl (3.4-5.0); BUN Creatinine Ratio 19.1 (10-20); Bilirubin,Total 0.5 mg/dl (0.2-1.0); Calcium 9.2 mg/dl (8.5-10.1); Est GFR (African American) 55.3 ml/min; Est GFR (Non-African American) 47.7 ml/min; Globulin 4.2 gm/dl (2.5-4.0); Magnesium 1.8 mg/dl (1.7-2.4); Potassium 4.7 mmol/L (3.5-5.1); Total Protein 7.6 gm/dl (6.0-8.3)
--- NOTE | 2022-02-14 20:13 | XRay Report ---
XR pelvis 1-2V routine CLINICAL HISTORY: fall, poss hip fx TECHNIQUE: A single frontal view of the pelvis was obtained. Comparison: None available at the time of this dictation. FINDINGS: The left hip appears angulated compared to the right and there is a lucency over the femoral head. No pelvic fracture is seen. Degenerative changes are seen in the lumbar spine. Mild degenerative change s are seen in the bilateral hip joints. IMPRESSION: Limited exam due to single frontal view. There is suggestion of deformity in the left hip compatible with acute left hip fracture. If there is clinical uncertainty, dedicated radiographs of the left hip can be performed. ACT 112: Negative or not required by law. Electronically signed by: Dc Hamilton M.D. 02/14/2022 8:11 PM
--- NOTE | 2022-02-14 20:17 | XRay Report ---
XR chest 1V portable CLINICAL HISTORY: SEPSIS TECHNIQUE: Single frontal radiograph of the chest was obtained. Comparison: Comparison is made to chest radiograph 10/16/2021 FINDINGS: No lines and tubes are seen. The cardiomediastinal silhouette is normal. Reticular interstitial opaci ties are seen. Lungs are mildly hypoinflated. There may be a faint airspace opacity in the right uppe r lung. No evidence of pleural effusion or pneumothorax. IMPRESSION: There may be a faint airspace opacity in the right upper lung, although this was not visible on the p ortion of lung included in the CT cervical spine performed same day. If present, this may represent a telectasis, pneumonia, and/or aspiration. Diffuse interstitial disease is noted. ACT 112: Negative or not required by law. Electronically signed by: Dc Hamilton M.D. 02/14/2022 8:15 PM
[2022-02-14] MEDS ORDERED: ALBUT/IPRATROP 3MG/0.5MG NEB 3 ML VIAL NEB STA (20:22)
--- NOTE | 2022-02-14 21:04 | History & Physical Report ---
Date of Service February 14, 2022 Assessment & Plan (1) Fall: Plan: 76 year old male w/ PMHx of DM, dementia, RA, COPD, afib on Eliquis, and depression who presents from [facility] for L hip fracture s/p fall and mild pneumonia. - pelvis CT: acute impacted subcapital fracture of the left femoral head. - CT head and c spine w/o acute concerns - last dose of Eliquis unknown; will clarify - consult ortho; tentative OR on 02/16/22, NPO after end of day 02/15/22 - PRN tylenol - bedrest, q4 neurovasc checks, bedsore precautions, meza (2) Hypoxia: Plan: 2-4L new O2 requirement; saturated 82% on room air per EMS - likely 2/2 mild pneumonia and/or mild COPD exacerbation - per my read of cxr, consider aspiration pneumonia for possible mild consolidation of right upper lobe - borderline lactate 2.0 noted; defer repeat at this time - will deescalate cefepime to Unasyn IV 3g q6h for empiric coverage of aspiration pneumonia; given that main findings are respiratory as opposed to urinary, will optimize abx for pulmonary source. UA-cath sample was collected after dose of cefepime; +epithelial cells. (3) Diabetes mellitus: Plan: - A1c 10.0 09/12/21 - pharmacy glycemic consult; SSI+/-basal. hold home PO meds - check A1c in AM (4) Chronic obstructive pulmonary disease: Plan: - hx noted, however, lungs were clear on my exam; more suggestive of aspiration pneumonia than classic copd exac. as such, not treating w/ corticosteroids at this time. (5) Paroxysmal A-fib: Plan: - hold home Eliquis - dvt ppx for now w/ sq heparin (6) CKD (chronic kidney disease): Plan: - chronic, Cr 1.41, at baseline - renally dose as needed - follow BMP (7) Hypertension: Plan: - continue home regimen (8) Hyponatremia: Plan: - mild, chronic. follow bmp (9) Hypercholesterolemia: Plan: - continue home regimen (10) Fever: Plan: - see above (11) Depression with anxiety: Plan: - hold home trazodone (sleep) and home lorazepam for now in setting of recent falls (12) Rheumatoid arthritis involving multiple sites with positive rheumatoid factor: Plan: - chronic, continue home leflunomide (13) Dementia: Plan: - chronic, continue home regimen (14) Hip fracture: Plan: - see above Plan: FEN/GI: DM2. No IV fluids. ppx: SQ heparin code: full dispo: med tele consult PT/OT after treatment of hip fx History of Present Illness Chief Complaint: fall Primary Care Provider: Gael Rogers MD 76 year old male w/ PMHx of DM, dementia, RA, COPD (distant smoker), parox afib on Eliquis, and depression who presents from [facility] ([facility]) for fall x2 yesterday and L hip fx noted on outside xray imaging. Per EMS, Temp of 102.3F and 82% saturation on room air (no home O2). History is limited by patient's baseline dementia. Per ED provider's discussion w/ , would like ortho eval, for discussion of management options, surgical vs conservative. Patient currently has mild LLE and hip pain; exacerbates to severe pain w/ movement. He denies fever, chills, chest pain, or shortness of breath. He has not had cough or sputum production. : Gloria: [phone]. ED course: IV cefepime. Duoneb. Covid neg. Allergies Allergy/AdvReac Type Severity Reaction Status Date / Time No Known Allergies Allergy Verified 12/12/21 15:36 Home Medications Medication Instructions Recorded Confirmed Type albuterol sulfate 90 mcg/actuation 2 puff INHALATION Q8H PRN #1 gm 11/01/21 12/12/21 Rx aerosol inhaler benzocaine 20 % mucosal gel 1 applic MT TID #28.4 g 11/01/21 12/12/21 Rx (HurriCaine) cyanocobalamin (vitamin B-12) 1,000 mcg PO DAILY 30 Days #30 tab 11/01/21 12/12/21 Rx 1,000 mcg tablet (Vitamin B-12) diclofenac sodium 1 % topical gel 2 g TOPICAL QID PRN #100 g NS 11/01/21 12/12/21 Rx folic acid 1 mg tablet 1 mg PO DAILY 30 Days #30 tab NS 11/01/21 12/12/21 Rx glimepiride 2 mg tablet 2 mg PO BIDM 30 Days #60 tab 03/11/22 04/21/22 Rx leflunomide 10 mg tablet 10 mg PO DAILY 30 Days #30 tab 11/01/21 12/12/21 Rx lisinopril 5 mg tablet 5 mg PO DAILY #90 tab 11/01/21 12/12/21 Rx lorazepam 0.5 mg tablet 0.5 mg PO BID PRN #10 tab 11/01/21 12/12/21 Rx ibcwkvdc-oqy-adwsy acid 300 1 tab PO DAILY 30 Days #30 tab 11/01/21 12/12/21 Rx mcg-lycopene 600 mcg-lutein 300 mcg tablet (Centrum Silver Men) sitagliptin 100 mg tablet (Januvia) 100 mg PO DAILY 30 Days #30 tab 11/01/21 12/12/21 Rx tamsulosin 0.4 mg capsule 0.4 mg PO DAILY #30 cap 11/01/21 12/12/21 Rx trazodone 50 mg tablet 50 mg PO .QHS PRN #30 tab 11/06/21 12/12/21 Rx apixaban 5 mg tablet (Eliquis) 5 mg PO BID #60 tab 12/19/21 Rx memantine 10 mg tablet 10 mg PO DAILY #60 tab 12/19/21 Rx metoprolol succinate 50 mg 200 mg PO DAILY #90 tab 12/19/21 Rx tablet,extended release 24 hr peg 3350-electrolytes 236 240 ml PO Q10M #4000 ml 01/17/22 Rx gram-22.74 gram-6.74 gram-5.86 gram solution (Golytely) Past Med/Surg History Medical History Acute alteration in mental status Acute confusion Acute hyperglycemia Acute kidney injury superimposed on chronic kidney disease Altered mental status Arthritis of both knees Chronic obstructive pulmonary disease CKD (chronic kidney disease) COVID-19 Depression with anxiety Diabetes mellitus Diverticulitis Erectile dysfunction History of alcoholism History of memory loss Hypercholesterolemia Major neurocognitive disorder Rheumatoid arthritis involving multiple sites with positive rheumatoid factor Sensorineural hearing loss of both ears Tinnitus, bilateral Surgical History History of appendectomy Family History Mother Cancer Denies family history of Ovarian cancer Prostate cancer Myocardial infarction Breast cancer Colorectal cancer Social History (Updated 02/14/22 @ 23:58 by Gerry Gamez MD) Smoking Status: Former smoker Second Hand Exposure: No; Hx Alcohol Use: No Hx Substance Use: No Preferred Language: Thai Communication Ability: Impaired Visual Impairment: No Limitations Hearing Ability: Use of Hearing Aid Kitchen 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 Required: No Beliefs That Will Affect Care: None marital status: Current Living Situation: Personal Care Facility Current Living Situation Comment: Lives with current occupational status: retired Feels Safe at Home: Yes Safety Concerns: Feels Safe At This Time Childhood Exposure to Second-Hand Smoke: No Dental Care, Regularly: Yes Physical Activity Frequency: Does not Exercise Seatbelt Use: always Sunscreen Use: Yes Assistive Devices: Walker and Wheelchair Review of Systems Review of Systems: All systems reviewed & are unremarkable except as noted in HPI & below Physical Exam Physical Exam: General: A&O to person and place, but not time or context. NAD. Cooperative. HEENT: Atraumatic, normocephalic. EOMI. PERRL. No LAD. Slightly dry MM. Pulm: CTAB. -wheezes, -rales, -rhonchi. No respiratory distress. Cardiac: RRR, -mrg. Abdominal: Nontender, nondistended, soft. Integ: Warm, dry, intact. Msk: Moving all extrem. Pain at L hip w/ movement. Moving foot, ankle, toes. Results & Data Results & Data ([facility]) Vital Signs (Past 12 Hours) Vital Signs Temp Pulse Resp BP Pulse Ox 02/14/22 19:30 18 94 02/14/22 19:02 82 L 02/14/22 19:00 36.9 C 85 18 121/58 L 82 L Laboratory Results Cardiac Enzymes 02/14/22 Range/Units 19:05 AST 32 (13-39) U/L Troponin I High Sens 36.1 H (0-20) pg/ml Coagulation 02/14/22 Range/Units 19:05 PT 12.6 H (9.0-12.0) Seconds APTT 36.0 H (21.0-31.0) Seconds CBC 02/14/22 Range/Units 19:05 WBC 7.08 (4.8-10.8) K/uL RBC 3.39 L (4.7-6.1) M/uL Hgb 9.6 L (14.0-18.0) g/dL Hct 28.2 L (42-52) % Plt Count 185 (130-400) K/uL Neut # (Auto) 5.93 (1.4-6.5) K/uL Lymph # (Auto) 0.43 L (1.2-3.4) K/uL [place] # (Auto) 0.47 (0.11-0.59) K/uL Eos # (Auto) 0.22 (0-0.5) K/uL Baso # (Auto) 0.01 (0-0.2) K/uL Comprehensive Metabolic Panel 02/14/22 Range/Units 19:05 Sodium 134 L (136-145) mmol/L Potassium 4.7 (3.5-5.1) mmol/L Chloride 100 (98-107) mmol/L Carbon Dioxide 25 (21-32) mmol/L BUN 27 H (6-23) mg/dl Creatinine 1.41 H (0.6-1.4) mg/dl Glucose 244 H (70-99(Fasting)) mg/dl Calcium 9.2 (8.5-10.1) mg/dl AST 32 (13-39) U/L ALT 42 (7-52) U/L Alkaline Phosphatase 63 (34-104) U/L Total Protein 7.6 (6.0-8.3) gm/dl Albumin 3.4 (3.4-5.0) gm/dl Intake and Output 02/14/22 02/14/22 02/14/22 06:59 14:59 22:59 Other: Weight 67.6 kg Weight Measurement Method Built in [facility] Patient Weight 02/15/22 06:59 Weight 67.6 kg Diagnostic Findings Chest X-Ray 02/14/22 19:00 XR chest 1V portable CLINICAL HISTORY: SEPSIS TECHNIQUE: Single frontal radiograph of the chest was obtained. Comparison: Comparison is made to chest radiograph 10/16/2021 FINDINGS: No lines and tubes are seen. The cardiomediastinal silhouette is normal. Reticular interstitial opacities are seen. Lungs are mildly hypoinflated. There may be a faint airspace opacity in the right upper lung. No evidence of pleural effusion or pneumothorax. IMPRESSION: There may be a faint airspace opacity in the right upper lung, although this was not visible on the portion of lung included in the CT cervical spine performed same day. If present, this may represent atelectasis, pneumonia, and/or aspiration. Diffuse interstitial disease is noted. ACT 112: Negative or not required by law. Electronically signed by: Dc Hamilton M.D. 02/14/2022 8:15 PM Pelvis X-Ray 02/14/22 19:00 XR pelvis 1-2V routine CLINICAL HISTORY: fall, poss hip fx TECHNIQUE: A single frontal view of the pelvis was obtained. Comparison: None available at the time of this dictation. FINDINGS: The left hip appears angulated compared to the right and there is a lucency over the femoral head. No pelvic fracture is seen. Degenerative changes are seen in the lumbar spine. Mild degenerative changes are seen in the bilateral hip joints. IMPRESSION: Limited exam due to single frontal view. There is suggestion of deformity in the left hip compatible with acute left hip fracture. If there is clinical uncertainty, dedicated radiographs of the left hip can be performed. ACT 112: Negative or not required by law. Electronically signed by: Dc Hamilton M.D. 02/14/2022 8:[address] 02/14/22 19:01 CT cervical spine wo con CLINICAL HISTORY: fall TECHNIQUE: Multidetector row helical CT of the cervical spine was performed without administration of intravenous contrast. Coronal and sagittal reformations were obtained. Automated dose lowering techniques and/or adjustment according to patient size were utilized for this exam. Comparison: None available at the time of this dictation. FINDINGS: No acute fractures or subluxations are identified. The vertebral body heights and disk spaces are well maintained. The alignment is normal. Biapical scarring is seen in the lungs. IMPRESSION: No evidence of acute bony injury. ACT 112: Negative or not required by law. Electronically signed by: Dc Hamilton M.D. 02/14/2022 7:[address] 02/14/22 19:01 CT head/brain wo con CLINICAL HISTORY: fall, eliquis Technique: Contiguous axial CT images of the head were acquired from the base of the skull to the vertex without intravenous contrast administration. Images were viewed in brain, subdural and bone windows. Automated dose lowering techniques and/or adjustment according to patient size were utilized for this exam. Comparison: Comparison is made to CT head 10/16/2021 Findings: Areas of decreased attenuation are present in the periventricular and subcortical white matter bilaterally consistent with small vessel ischemic disease. Generalized cerebral atrophy with commensurate enlargement of the ventricles, sulci, and cisterns is also present. There is no acute intracranial hemorrhage or evidence of acute territorial infarction. No shift of the midline structures, mass effect, or extra-axial abnormalities are shown. Atherosclerotic calcifications are present in the intracranial segments of the internal carotid arteries. Imaged portions of the paranasal sinuses and mastoid air cells are clear. The orbits appear normal. There are no acute fractures of the calvaria or scalp swelling. Impression: No acute intracranial hemorrhage, skull fractures, or scalp swelling. ACT 112: Negative or not required by law. Electronically signed by: Dc Haimlton M.D. 02/14/2022 7:[address] 02/14/22 20:08 CT pelvis wo con CLINICAL HISTORY: poss pelvic or hip fx TECHNIQUE: Helical axial images of the pelvis were obtained and displayed at 5 and 1 mm intervals. Automated dose lowering techniques and/or adjustment according to patient size were utilized for this exam. This exam was performed with intravenous contrast. CT DOSE: 269.84 mGy.cm COMPARISON: Comparison is made to pelvic radiograph 02/14/2022 FINDINGS: Bladder: Meza catheter is seen. Reproductive organs: Prostatomegaly is seen. Bowel: Unremarkable. Lymph nodes Mesenteric: Unremarkable. Pelvic: Unremarkable. Peritoneum: Normal Vessels: Atherosclerotic calcifications are seen. Abdominal wall: Unremarkable. Bones: Degenerative changes are seen in the spine and bilateral hip joints. There is an acute impacted fracture of the left femur at the subcapital station. IMPRESSION: Acute impacted subcapital fracture of the left femoral head. Degenerative changes are seen in the skeleton. ACT 112: Negative or not required by law. Electronically signed by: Dc Hamilton M.D. 02/14/2022 9:03 PM ECG Additional Comments: NSR 83 w/ RBBB. Prolonged qtc 491 RBBB is not new per comparison to previous ecgs. Code Status & VTE Plan Code Status full VTE Prophylaxis Plan VTE Prophylaxis will be ordered: Yes Supervising Physician Co-Signing Physician Notes Attending addendum: I have physically seen this patient, have supervised the medical residents activities, and agree with the H&P unless as otherwise noted. Assessment and Plan: Acute impacted subcapital fracture of the left femoral head status post mechanical fall- CT head, CT spine with no acute findings Hold Eliquis Consult orthopedic surgery, after discussion, tentative OR on 02/16/2022 Pneumonia with hypoxia/COPD- Duonebs every 4 hours while awake and every 2 hours when necessary. Guaifenesin extended release 1200 mg p.o. twice daily Nasal cannula oxygen, titrate to keep pulse ox 92-94% Unasyn IV as noted for possible aspiration pneumoniA Paroxysmal atrial fibrillation- Hold Eliquis for preop Heparin subcu Remaining orders and notations as noted Resident Activity Tracking Resident Involvement: Resident Care Provided Care Provided: Adult Hospital Medicine (1) Diabetes mellitus Diabetes mellitus complication detail: with chronic kidney disease Diabetes mellitus complication status: with kidney complications Diabetes mellitus intermediate teacher insulin use: without longterm use Diabetes mellitus type: type 2 (2) CKD (chronic kidney disease) Chronic kidney disease stage: stage 3 (moderate)
--- NOTE | 2022-02-14 21:06 | CT Scan Report ---
CT pelvis wo con CLINICAL HISTORY: poss pelvic or hip fx TECHNIQUE: Helical axial images of the pelvis were obtained and displayed at 5 and 1 mm intervals. Au tomated dose lowering techniques and/or adjustment according to patient size were utilized for this e xam. This exam was performed with intravenous contrast. CT DOSE: 269.84 mGy.cm COMPARISON: Comparison is made to pelvic radiograph 02/14/2022 FINDINGS: Bladder: Mejia catheter is seen. Reproductive organs: Prostatomegaly is seen. Bowel: Unremarkable. Lymph nodes Mesenteric: Unremarkable. Pelvic: Unremarkable. Peritoneum: Normal Vessels: Atherosclerotic calcifications are seen. Abdominal wall: Unremarkable. Bones: Degenerative changes are seen in the spine and bilateral hip joints. There is an acute impacte d fracture of the left femur at the subcapital station. IMPRESSION: Acute impacted subcapital fracture of the left femoral head. Degenerative changes are seen in the ske leton. ACT 112: Negative or not required by law. Electronically signed by: Dc Hamilton M.D. 02/14/2022 9:03 PM
[2022-02-14 22:38] LABS: Appearance Urine Clear (Clear); Bacteria Urine Automated Negative (Negative); Bilirubin Urine Negative (Negative); Blood Urine 1+ (Negative); Color Urine Yellow; Epithelial Cell Urine Auto >30 /lpf (0-5); Glucose Urine UA Negative (Negative); Ketones Urine Negative (Negative); Leukocyte Esterase Urine Negative (Negative); Nitrite Urine Negative (Negative); Protein Urine 2+ (Negative); Specific Gravity Urine 1.028 (1.000-1.030); Urobilinogen Urine Negative (Negative)
[2022-02-14 22:53] LABS: RBC Urine Automated 0-4 /hpf (0-4)
[2022-02-15] MEDS ORDERED: PHARMACY GLYCEMIC MGMT CONSULT PRN (00:11)
[2022-02-15] MEDS ORDERED: ALBUTEROL HFA 8 GM INHALER INH PRN (00:22)
[2022-02-15] MEDS ORDERED: GLUCAGON FOR INJ 1 MG VIAL IM PRN (00:30)
[2022-02-15] MEDS ORDERED: CARBOHYDRATES FOR HYPOGLYCEMIA PO PRN (00:30)
[2022-02-15] MEDS ORDERED: DEXTROSE 50% 50 ML SYRINGE IV PRN (00:30)
[2022-02-15] MEDS ORDERED: GLUCOSE 10 TABS/TUBE PO PRN (00:30)
[2022-02-15] MEDS ORDERED: GLUCOSE 40% GEL 15 GM TUBE PO PRN (00:30)
[2022-02-15] MEDS: INSULIN ASPART PER UNIT SC SCH ×6 (00:32→20:44)
[2022-02-15 04:15] LABS: Basophils # (auto) 0.01 K/uL (0-0.2); Basophils % (auto) 0.1 %; Eosinophils # (auto) 0.24 K/uL (0-0.5); Hematocrit (blood only) 28.3 % (42-52); Hemoglobin 9.4 g/dL (14.0-18.0); Immature Granulocytes # (auto) 0.02 K/uL (0.00-0.02); Immature Granulocytes % (auto) 0.3 %; Lymphocytes # (auto) 0.71 K/uL (1.2-3.4); Lymphocytes % (auto) 8.9 %; Mean Corpuscular Hemoglobin 27.2 pg (25-34); Mean Corpuscular Hgb Conc 33.2 g/dL (32-36); Mean Platelet Volume 9.6 fL (7.4-10.4); Monocytes # (auto) 0.59 K/uL (0.11-0.59); Monocytes % (auto) 7.4 %; Neutrophils # (auto) 6.43 K/uL (1.4-6.5); Neutrophils % (auto) 80.3 %; Platelet Count 193 K/uL (130-400); RDW Coefficient of Variation 14.9 % (11.5-14.5); RDW Standard Deviation 44.7 fL (36.4-46.3); Red Blood Count 3.45 M/uL (4.7-6.1)
[2022-02-15 04:39] LABS: BUN Creatinine Ratio 19.2 (10-20); Calcium 8.7 mg/dl (8.5-10.1); Creatinine Clr Calc Pharmacy 39.9 ml/min; Est GFR (Non-African American) 55.2 ml/min
[2022-02-15 04:43] LABS: Troponin I High Sensitivity 23.6 pg/ml (0-20)
[2022-02-15] MEDS ORDERED: INSULIN GLARGINE SOLOSTAR 100 UNITS/ML 3 ML PEN SC SCH (09:00)
[2022-02-15] MEDS ORDERED: HEPARIN SOD 5,000 UNIT/0.5 ML VIAL SQ SCH (09:00)
[2022-02-15] MEDS: LEFLUNOMIDE 10 MG TAB PO SCH (09:20)
[2022-02-15] MEDS: AMPICILLIN/SULBACTAM SOD 3,000 MG in 0.9 % SODIUM CHLORIDE 100 ML IV SCH ×3 (10:56→21:50)
--- NOTE | 2022-02-15 11:33 | Consultation Report ---
ORTHOPEDIC CONSULTATION DATE OF CONSULTATION: 02/15/2022. CHIEF COMPLAINT: Left hip fracture. HISTORY OF PRESENT ILLNESS: The patient is a 76-year-old gentleman with a medical history significant for poorly controlled diabetes, severe dementia, rheumatoid arthritis, atrial fibrillation on Eliquis, COPD, chronic kidney disease, who fell yesterday at his assisted living facility and also by report, fell a second time, either that same day or the day before that. He was brought to the emergency room yesterday. X-rays and CT scan demonstrated an impacted left femoral neck fracture. He was admitted to the Internal Medicine service. Orthopedics was consulted for management of the left hip fracture. The patient has difficulty providing much history because of his dementia. I did speak with his , Bella, whose cell phone is [phone], both yesterday evening and this morning. She reports that he has difficulty following commands and has been willing to be transported in a wheelchair at his facility, although he will get up and walk sometimes with poor balance. In interviewing the patient this morning, he reports that he does have some pain. I spoke with his nurse, Tim, who says that he will sometimes call out, but then when asked if he has any pain, he will deny it. The patient reports that the medications he has been given for discomfort have been helping him. He denies any numbness in his left lower extremity. PAST MEDICAL HISTORY: As per HPI. PAST SURGICAL HISTORY: Appendectomy. FAMILY HISTORY: Cancer in his mother. SOCIAL HISTORY: The patient currently resides at assisted [facility]. He does not use tobacco or alcohol. PHYSICAL EXAMINATION: GENERAL: Thin elderly gentleman, lying in bed, awake and arousable. He is oriented to place, but is not oriented to the year or the month. He does have some difficulty answering questions. EXTREMITIES: Left lower extremity exam reveals the patient has very thin skin, but without any skin lacerations. He has a palpable posterior tibial pulse but I am unable to palpate the dorsalis pedis pulse. He has intact sensation to light touch on the dorsal and plantar aspects of the foot as well as around the thigh. He rests with his hip flexed about 45 degrees and his knee bent 90 degrees. With passive movement of the knee, he says this hurts the knee. He does not point to his hip, but he does wince when I gently circumduct his hip. He is able to wiggle his toes and dorsi and plantarflex his ankle. RESULTS REVIEWED: Laboratory results that were done yesterday and this morning are reviewed. His hemoglobin is low at 9.4. His INR and PT are elevated at 1.2 and 12.6 seconds respectively. His creatinine is 1.25 this morning, but was 1.4 yesterday. His hemoglobin A1c done this morning is pending, but the last one on record done back in August of this year was 10. His albumin is borderline low at 3.4. He had a negative COVID test on admission. X-rays and CT scan of the pelvis were reviewed. These show a somewhat posteriorly impacted subcapital femoral neck fracture. IMPRESSION: A 76-year-old gentleman with an impacted left femoral neck fracture with multiple medical comorbidities, most significantly including severe dementia, poorly controlled diabetes on anticoagulation and rheumatoid arthritis. PLAN: As stated above I had a long discussion with the patient's yesterday and today. I think surgery is very high risk in his situation because of the aforementioned risk factors. In addition to the above, his troponins slightly bumped above normal on admission. Not only is at risk for medical complications from surgery, he is at high risk for wound healing complications because of his diabetes and rheumatoid disease. He is at high risk for dislocation because of his dementia. There is a significant risk that he could actually be worse off with surgery should he develop a complication. Furthermore, he is reasonably comfortable at present and is a low demand physically. Considering all these factors as well as his 's values and her interpretation of her 's values, we have decided through shared decision making to treat him nonsurgically at least initially. The recommendation is for patient to be nonweightbearing on the left lower extremity. He can transfer from bed to a chair. He can be transported in a wheelchair. He may have some difficulty following these restrictions because of his dementia. Therefore, I think he needs to be eventually discharged to a higher level care facility such as a senior care facility where it is possible he may even need a sitter at the bedside. We will continue to follow him while he is an inpatient. I would like to see him back 2 weeks after discharge in my office for x-ray followup. The patient can have an oral diet and he can resume his Eliquis to reduce the risk of him developing a DVT. Feel free to contact Orthopedics with any questions. Job ID: [id number] [email or web address]
[2022-02-15] MEDS ORDERED: INSULIN GLARGINE SOLOSTAR 100 UNITS/ML 3 ML PEN SC ONE (12:15)
--- NOTE | 2022-02-15 15:22 | Pharmacy Report ---
Pharmacy Glycemic Short Note 2 - Date of Service February 15, 2022 - Glycemic Short BSG Results (Last 24 hours): 02/14/22 02/15/22 02/15/22 19:05 00:28 03:41 Glucose 244 H 128 H POC Glucose 208 H 02/15/22 02/15/22 02/15/22 04:07 07:29 11:32 Glucose POC Glucose 155 H 179 H 296 H OUTPATIENT ANTIDIABETIC REGIMEN: * Amaryl 2 mg PO BID, Januvia 100 mg PO daily * A1c pending (A1c of 10% in August of 2021) ASSESSMENT: * Mr. Mariee is a 76 yo admitted for L hip fracture s/p fall and pneumonia. * Patient is maintained on oral anti-diabetic agents as an outpatient. These will be held during hospital admission. * Initiated SQ basal + bolus insulin this morning. Severe hyperglycemia at lunchtime, therefore insulin dosing was escalated. PLAN FOR INPATIENT GLYCEMIC CONTROL: * Hold outpatient oral diabetes medications * Basal insulin * Lantus 12 units with breakfast plus additional 10 units with lunch * Start Lantus 0-6-12 units SQ BID this evening - see eMAR for details * Bolus insulin * NovoLog per scale ACHS or Q6hrs while NPO * Goal Range: Low 120 mg/dL - High 150 mg/dL * Correction Factor: 30 mg/dL/unit * Nutritional / Prandial insulin per carb ratio of 1 unit per 10 grams CHO consumed
--- NOTE | 2022-02-15 17:55 | Hospitalist Progress Note ---
Date of Service February 15, 2022 Assessment & Plan (1) Closed fracture of left hip: Plan: Consult orthopedics - discussed with Dr Canada, planing on non-operative management although on minimal movement patient appears to be in significant pain therefore this may change if he is unable to tolerate much movement. (2) Fall: Plan: - pelvis CT: acute impacted subcapital fracture of the left femoral head. - CT head and c spine w/o acute pathology Unclear cause of fall but will hold his lorazepam (3) Hypoxia: Plan: 2-4L new O2 requirement; saturated 82% on room air per EMS - likely 2/2 PNA per CXR findings - borderline lactate 2.0 noted; defer repeat at this time - Continue Unasyn 3g IV q6h (4) Diabetes mellitus: Plan: - A1c 10.0 09/12/21 - pharmacy glycemic consult; SSI+/-basal. hold home PO meds - HbA1C pending. 10.0 in August (5) Chronic obstructive pulmonary disease: Plan: - hx noted, however, lungs were clear on my exam; more suggestive of aspiration pneumonia than classic copd exac. as such, not treating w/ corticosteroids at this time. (6) Paroxysmal A-fib: Plan: - Continue anticoagulation with Eliquis (7) CKD (chronic kidney disease): Plan: - chronic, Cr 1.41, at baseline - renally dose as needed - follow BMP (8) Hypertension: Plan: - continue metoprolol succinate 200mg PO daily (9) Hyponatremia: Plan: - mild, chronic. follow bmp (10) Fever: Plan: - see above (11) Depression with anxiety: Plan: - hold home lorazepam for now in setting of recent falls - continue trazodone PRN (12) Rheumatoid arthritis involving multiple sites with positive rheumatoid factor: Plan: - chronic, continue home leflunomide (13) Dementia: Plan: - chronic, continue home regimen Plan: VTE Prophylaxis - Eliquis Diet - T2DM. No IV fluids. code: full dispo: med tele consult PT/OT -non weight bearing right leg Admission and Anticipated Discharge Date Admission Date: February 14, 2022 Subjective Patient aware he is in hospital but disorientated to time and unaware of why he is here. Denies any pain in his hips. Cannot give me any information regarding his fall. Review of Systems Review of Systems: All systems reviewed & are unremarkable except as noted in Subjective Physical Exam Constitutional: WD/WN, vitals as above Eyes: + anicteric sclerae; normal pupil size Respiratory: normal respiratory effort, lungs clear to auscultation Cardiovascular: Rate/Rhythm: regular rate and regular rhythm Heart Sounds: no murmur Extremities: normal capillary refill; no calf tenderness and no pedal edema Gastrointestinal (Abdomen): Inspection/Auscultation: normal bowel sounds Percussion/Palpation: abdomen soft; abdomen nontender Musculoskeletal: left leg shortened and externally rotated, sensation intact Skin: no rashes, warm and dry Neurologic: moves all extremities and awake; not confused Psychiatric: Orientation: alert, oriented to person and oriented to place; + not oriented to time Results & Data Results & Data ([facility]) Vital Signs (Past 12 Hours) Vital Signs Temp Pulse Resp BP Pulse Ox 02/15/22 15:00 37.0 C 83 20 117/62 91 02/15/22 11:34 36.7 C 86 16 112/64 98 02/15/22 07:33 37.0 C 85 18 145/58 H 90 PG Care Time/CCT Total # of Minutes Spent Total Time Spent with Patient: Total time spent is greater than 50% in coordination of care (as documented) at patient's floor/unit and/or counseling patient: Coding Level of Care Code 96417 Subseq Hosp Care Lvl 2 Diagnoses Fall W19.XXXA Hypoxia R09.02 Diabetes mellitus E11.9 Diabetes mellitus complication detail: with chronic kidney disease Diabetes mellitus complication status: with kidney complications Diabetes mellitus medical terminologist insulin use: without jail use Diabetes mellitus type: type 2 Chronic obstructive pulmonary disease J44.9 Paroxysmal A-fib I48.0 CKD (chronic kidney disease) N18.9 Chronic kidney disease stage: stage 3 (moderate) Hypertension I10 Hyponatremia E87.1 Fever R50.9 Depression with anxiety F41.8 Rheumatoid arthritis involving multiple sites with positive rheumatoid factor M05.79 Dementia F03.90 Closed fracture of left hip S72.002A Encounter type: initial encounter (1) Diabetes mellitus Diabetes mellitus complication detail: with chronic kidney disease Diabetes mellitus complication status: with kidney complications Diabetes mellitus medical terminologist insulin use: without jail use Diabetes mellitus type: type 2 (2) CKD (chronic kidney disease) Chronic kidney disease stage: stage 3 (moderate) (3) Closed fracture of left hip Encounter type: initial encounter Qualified Code(s): S72.002A - Fracture of unspecified part of neck of left femur, initial encounter for closed fracture
--- NOTE | 2022-02-15 19:53 | Billing Data ---
Date of Service February 15, 2022 Coding Level of Care Code 32972 Initial Inpt Care Lvl 3
[2022-02-15] MEDS ORDERED: KETOROLAC TROMETHAMINE 15 MG/ML VIAL IV ONE (20:37)
[2022-02-15] MEDS: INSULIN GLARGINE SOLOSTAR 100 UNITS/ML 3 ML PEN SC SCH (20:44)
[2022-02-15] MEDS: APIXABAN 5 MG TABLET PO SCH (21:27)
[2022-02-15] MEDS: ACETAMINOPHEN 1,000 MG/100 ML VIAL IV SCH (21:32)
[2022-02-15] MEDS ORDERED: traZODone HCL 50 MG TAB PO PRN (22:44)
[2022-02-16] MEDS: AMPICILLIN/SULBACTAM SOD 3,000 MG in 0.9 % SODIUM CHLORIDE 100 ML IV SCH ×4 (04:49→21:22)
[2022-02-16] MEDS: ACETAMINOPHEN 1,000 MG/100 ML VIAL IV SCH (05:36)
--- NOTE | 2022-02-16 07:14 | Hospitalist Progress Note ---
Date of Service February 16, 2022 Assessment & Plan (1) Fall: Plan: 76 year old male w/ PMHx of DM, dementia, RA, COPD, afib on Eliquis, and depression who presents from [facility] for L hip fracture s/p fall and mild pneumonia. - pelvis CT: acute impacted subcapital fracture of the left femoral head. - CT head and c spine w/o acute pathology -Orthopedics consulted. On initial consultation patient was relatively comfortable and moderate to high risk for surgical intervention, case was discussed between family and Dr. Felton cox. Overnight report of worsened pain with transfers, patient does cry out intermittently for help but on bedside assessment denies pain. Seen by orthopedics for subsequent follow-up and continue plan for nonsurgical management Eliquis resumed May progress to placement when available. Does require frequent redirection attention due to impulsivity with dementia (2) Closed fracture of left hip: Plan: As noted (3) Hypoxia: Plan: -- On admit 2-4L new O2 requirement; saturated 82% on room air per EMS - likely 2/2 mild pneumonia vs mild COPD exacerbation - CXR: naf vs ?RUL asp pna - borderline lactate 2.0 noted; defer repeat - PCT 0.91, elevated - Empiric cefepime --> Unasyn 02/15 - Continue unasyn for 5 day course, may convert to Augmentin at discharge Patient's hypoxia has resolved and is now breathing 90% on room air 02/10 (4) Diabetes mellitus: Plan: - A1c 10.0 09/12/21 - pharmacy glycemic consult; SSI+/-basal. hold home PO meds -Continue basal bolus at this time, currently at glargine 9 units with SSI (5) Chronic obstructive pulmonary disease: Plan: - hx noted, - On prior exam lungs clear and without wheezing. suspected Asp PNA due to PCT and no wheezing, steroids deferred - On RA 02/16 (6) Paroxysmal A-fib: Plan: - Continue anticoagulation with Eliquis, temporarily held pending surgical re- evaluation and resumed after (7) CKD (chronic kidney disease): Plan: - chronic, Cr 1.41, at baseline - renally dose as needed - follow BMP (8) Hypertension: Plan: - continue metoprolol succinate 200mg PO daily (9) Hyponatremia: Plan: - mild, chronic. follow bmp (10) Fever: Plan: - see above (11) Depression with anxiety: Plan: - hold home lorazepam for now in setting of recent falls - continue trazodone PRN (12) Rheumatoid arthritis involving multiple sites with positive rheumatoid factor: Plan: - chronic, continue home leflunomide (13) Dementia: Plan: - chronic, continue home regimen Plan: VTE Prophylaxis - Eliquis as noted Diet - T2DM. No IV fluids. code: full dispo: med tele Admission and Anticipated Discharge Date Admission Date: February 14, 2022 Subjective Patient is seen at bedside this morning. Exam is somewhat limited by dementia. Patient is oriented to name and hospital, is not oriented to date or town. Does reorient to town easily. He does not remember if he has been having pain overnight. Thinks he is having pain in his left hip, but reports he is not in pain at rest currently. History overnight symptoms limited by dementia, denies chest pain, chest pressure, lightheadedness, dizziness, shortness of breath, nausea, numbness, tingling at time of assessment. Review of Systems Review of Systems: Unobtainable due to cognitive status Grossly negative as noted in subjective, although limited by cognitive status Physical Exam Physical Exam: General: Oriented to name and building only. No acute distress, redirects easily. Dementia prominent HEENT: Atraumatic, normocephalic. Vision and hearing grossly intact Pulm: CTAB A&P. -wheezes, -rales, -rhonchi. Symmetrical chest rise. No increase in work of breathing. No respiratory distress. Cardiac: RRR, -mrg. Radial pulses intact and symmetrical. Abdominal: Nontender, nondistended, soft. BS present. Extremities: Left lower extremity resting comfortably, does endorse some discomfort on attempted hip flexion. No tenderness to palpation. Cap refill in left and right hallux brisk. Sensation to soft touch intact in feet bilaterally. Sensation of soft touch in hands intact bilaterally. Blood Bank Manager strength intact. Moving upper extremities equally. Results & Data Results & Data ([facility]) Vital Signs (Past 12 Hours) Vital Signs Temp Pulse Pulse Resp BP BP Pulse Ox 02/16/22 06:43 36.7 C 107 H 18 94/56 L 91 02/16/22 04:57 36.3 C L 92 H 20 110/69 91 02/16/22 00:04 94 H 06/25/22 19:59 36.6 C 95 H 20 125/69 93 PG Care Time/CCT Total # of Minutes Spent Total Time Spent with Patient: Total time spent is greater than 50% in coordination of care (as documented) at patient's floor/unit and/or counseling patient: Coding Level of Care Code 55811 Subseq Hosp Care Lvl 2 Diagnoses Fall W19.XXXA Closed fracture of left hip S72.002A Encounter type: initial encounter Hypoxia R09.02 Diabetes mellitus E11.9 Diabetes mellitus complication detail: with chronic kidney disease Diabetes mellitus complication status: with kidney complications Diabetes mellitus usp insulin use: without lobsterman use Diabetes mellitus type: type 2 Chronic obstructive pulmonary disease J44.9 Paroxysmal A-fib I48.0 CKD (chronic kidney disease) N18.9 Chronic kidney disease stage: stage 3 (moderate) Hypertension I10 Hyponatremia E87.1 Fever R50.9 Depression with anxiety F41.8 Rheumatoid arthritis involving multiple sites with positive rheumatoid factor M05.79 Dementia F03.90 (1) Diabetes mellitus Diabetes mellitus complication detail: with chronic kidney disease Diabetes mellitus complication status: with kidney complications Diabetes mellitus usp insulin use: without usp use Diabetes mellitus type: type 2 (2) CKD (chronic kidney disease) Chronic kidney disease stage: stage 3 (moderate) (3) Closed fracture of left hip Encounter type: initial encounter Qualified Code(s): S72.002A - Fracture of unspecified part of neck of left femur, initial encounter for closed fracture
--- NOTE | 2022-02-16 07:16 | Orthopedic Progress Note ---
Date of Service February 16, 2022 Assessment & Plan (1) Closed fracture of left hip: Plan: Continue plan for nonsurgical management NWB LLE May transfer from bed to chair maintaining NWB on the LLE. PT/OT may teach ankle pumps, but would avoid hip ROM and strengthening exercises for at least 2 weeks DVT prophylaxis per primary team May discharge when appropriate placement is found. Will likely need higher level of care, as he will need continual reminders to not get up and try to walk because of his dementia Orthopaedics will continue to follow as an inpatient Follow-up Annabella 2 weeks after discharge Admission and Anticipated Discharge Date Admission Date: February 14, 2022 Subjective Patient seen and examined on AM rounds. He reports his left hip still hurts, but pain level is acceptable, and medications are helping. Denies numbness or tingling down his leg Physical Exam Physical Exam: Resting comfortably in bed in NAD. Hard of hearing. Follows commands and answers questions regarding how he feels at present. L leg: out straight in bed, hip is not flexed like it was yesterday. No tenderness to palpation about the left hip. ROM testing deferred. Distally NVI Results & Data ([facility]) Vital Signs (Past 12 Hours) Vital Signs Temp Pulse Pulse Resp BP BP Pulse Ox 02/16/22 06:43 36.7 C 107 H 18 94/56 L 91 02/16/22 04:57 36.3 C L 92 H 20 110/69 91 02/16/22 00:04 94 H 02/15/22 19:59 36.6 C 95 H 20 125/69 93 (1) Closed fracture of left hip Encounter type: initial encounter Qualified Code(s): S72.002A - Fracture of unspecified part of neck of left femur, initial encounter for closed fracture
[2022-02-16 08:00] LABS: Basophils # (auto) 0.01 K/uL (0-0.2); Basophils % (auto) 0.1 %; Eosinophils # (auto) 0.45 K/uL (0-0.5); Eosinophils % (auto) 6.1 %; Hematocrit (blood only) 26.6 % (42-52); Hemoglobin 8.7 g/dL (14.0-18.0); Immature Granulocytes # (auto) 0.02 K/uL (0.00-0.02); Immature Granulocytes % (auto) 0.3 %; Lymphocytes # (auto) 0.42 K/uL (1.2-3.4); Lymphocytes % (auto) 5.7 %; Mean Corpuscular Hgb Conc 32.7 g/dL (32-36); Mean Corpuscular Volume 82.6 fL (80-100); Mean Platelet Volume 9.8 fL (7.4-10.4); Monocytes # (auto) 0.32 K/uL (0.11-0.59); Monocytes % (auto) 4.3 %; Neutrophils # (auto) 6.19 K/uL (1.4-6.5); Neutrophils % (auto) 83.5 %; Platelet Count 177 K/uL (130-400); RDW Standard Deviation 45.8 fL (36.4-46.3); Red Blood Count 3.22 M/uL (4.7-6.1); White Blood Count 7.41 K/uL (4.8-10.8)
[2022-02-16] MEDS: INSULIN ASPART PER UNIT SC SCH ×4 (08:03→21:16)
[2022-02-16] MEDS: METOPROLOL SUCC 50MG EXT REL TAB PO SCH (08:06)
[2022-02-16] MEDS: MEMANTINE HCL 10 MG TAB PO SCH (08:06)
[2022-02-16] MEDS: CYANOCOBALAMIN (B-12) 500 MCG TABLET PO SCH (08:06)
[2022-02-16] MEDS: TAMSULOSIN HCL 0.4 MG CAP PO SCH (08:06)
[2022-02-16] MEDS: LEFLUNOMIDE 10 MG TAB PO SCH (08:06)
[2022-02-16] MEDS: INSULIN GLARGINE SOLOSTAR 100 UNITS/ML 3 ML PEN SC SCH ×2 (08:24→21:22)
[2022-02-16 08:28] LABS: BUN Creatinine Ratio 19.8 (10-20); Calcium 8.4 mg/dl (8.5-10.1); Creatinine Clr Calc Pharmacy 43.5 ml/min; Est GFR (Non-African American) 60.4 ml/min; Potassium 4.2 mmol/L (3.5-5.1)
[2022-02-16] MEDS ORDERED: INSULIN GLARGINE SOLOSTAR 100 UNITS/ML 3 ML PEN SC ONE (12:00)
--- NOTE | 2022-02-16 15:23 | Pharmacy Report ---
Pharmacy Glycemic Short Note 2 - Date of Service February 16, 2022 - Glycemic Short BSG Results (Last 24 hours): 02/15/22 02/15/22 02/16/22 16:56 20:19 07:34 Glucose POC Glucose 115 H 127 H 127 H 02/16/22 02/16/22 07:40 11:37 Glucose 118 H POC Glucose 242 H OUTPATIENT ANTIDIABETIC REGIMEN: * Amaryl 2 mg PO BID, Januvia 100 mg PO daily * A1c pending (A1c of 10% in August of 2021) ASSESSMENT: 02/16: * Danial received 36 units of insulin yesterday (22 units of Lantus and 14 units novolog) * Fasting BSG of 127 mg/dL this morning. Will reduce Lantus scale to target about 18 units per day. * Post prandial BSG control improved yesterday after tightening CF and CR. Lunch elevated today, however patient refused AM insulin doses. 02/15: * Mr. Mariee is a 76 yo admitted for L hip fracture s/p fall and pneumonia. * Patient is maintained on oral anti-diabetic agents as an outpatient. These will be held during hospital admission. * Initiated SQ basal + bolus insulin this morning. Severe hyperglycemia at lunchtime, therefore insulin dosing was escalated. PLAN FOR INPATIENT GLYCEMIC CONTROL: * Hold outpatient oral diabetes medications * Basal insulin * Lantus 0-9 units SQ BID - see eMAR for details * Bolus insulin * NovoLog per scale ACHS or Q6hrs while NPO * Goal Range: Low 120 mg/dL - High 150 mg/dL * Correction Factor: 30 mg/dL/unit * Nutritional / Prandial insulin per carb ratio of 1 unit per 10 grams CHO consumed
--- NOTE | 2022-02-16 18:19 | Electrocardiogram Report ---
Test Reason : Blood Pressure : / mmHG Vent. Rate : 083 BPM Atrial Rate : 083 BPM P-R Int : 176 ms QRS Dur : 114 ms QT Int : 418 ms P-R-T Axes : 065 -04 030 degrees QTc Int : 491 ms Poor data quality, interpretation may be adversely affected Normal sinus rhythm Right bundle branch block Abnormal ECG When compared with ECG of 29-OCT-2021 18:13, ST no longer elevated in Inferior leads Confirmed by David Appiah [id number]) on 02/16/2022 6:18:23 PM Referred By: REFERRED SELF Confirmed By:David Appiah
[2022-02-16] MEDS: APIXABAN 5 MG TABLET PO SCH (21:21)
[2022-02-16] MEDS: ACETAMINOPHEN 500 MG TAB PO PRN (21:40)
[2022-02-17] MEDS: AMPICILLIN/SULBACTAM SOD 3,000 MG in 0.9 % SODIUM CHLORIDE 100 ML IV SCH ×4 (03:30→20:33)
[2022-02-17 07:00] LABS: Basophils # (auto) 0.02 K/uL (0-0.2); Basophils % (auto) 0.3 %; Eosinophils # (auto) 0.45 K/uL (0-0.5); Eosinophils % (auto) 5.9 %; Hematocrit (blood only) 27.6 % (42-52); Hemoglobin 9.2 g/dL (14.0-18.0); Immature Granulocytes # (auto) 0.02 K/uL (0.00-0.02); Immature Granulocytes % (auto) 0.3 %; Lymphocytes # (auto) 0.62 K/uL (1.2-3.4); Lymphocytes % (auto) 8.2 %; Mean Corpuscular Hemoglobin 27.7 pg (25-34); Mean Corpuscular Hgb Conc 33.3 g/dL (32-36); Mean Corpuscular Volume 83.1 fL (80-100); Mean Platelet Volume 9.5 fL (7.4-10.4); Monocytes % (auto) 5.3 %; Neutrophils # (auto) 6.09 K/uL (1.4-6.5); Platelet Count 192 K/uL (130-400); RDW Coefficient of Variation 15.2 % (11.5-14.5); RDW Standard Deviation 46.7 fL (36.4-46.3); Red Blood Count 3.32 M/uL (4.7-6.1)
[2022-02-17 07:08] LABS: BUN Creatinine Ratio 17.9 (10-20); Calcium 8.8 mg/dl (8.5-10.1); Creatinine Clr Calc Pharmacy 41.2 ml/min; Est GFR (African American) 65.2 ml/min; Est GFR (Non-African American) 56.3 ml/min; Potassium 4.6 mmol/L (3.5-5.1)
[2022-02-17 08:09] LABS: Estimated Average Glucose 146 mg/dl; Hemoglobin A1C 6.7 % (4.5-5.6)
--- NOTE | 2022-02-17 08:39 | Orthopedic Progress Note ---
Date of Service February 17, 2022 Assessment & Plan (1) Closed fracture of left hip: Plan: Continue nonoperative management. Continue repositioning patient to avoid bedsores/ulcers. Pain control seems adequate at this time. He will need placement at a fpc facility. Continue nonweightbearing status for 4 to 6 weeks. Acceptable for transfer from an orthopedic standpoint when a bed is available. Admission and Anticipated Discharge Date Admission Date: February 14, 2022 Subjective Patient is seen in his room this morning. He is more emotional today. He states he is doing well and has no pain. He is currently picking at his breakfast. He seems more lucid today, and greets me by name upon entering. Denies any chest pain, shortness of breath, nausea, or vomiting. No abdominal pain. He states he is being rolled periodically from side to side to alleviate pressure. Physical Exam Physical Exam: General: Well-developed, well-nourished, elderly white male, in no acute distress. Happy this morning. Emotional at times. Conversive. Skin: Warm and dry with fair turgor. No rashes. No erythema or warmth. Musculoskeletal: Patient has no discomfort with palpation around his hips. Intact motor function of the ankles and toes. Discomfort with logrolling of the left hip. No pain with logrolling of the right hip. Neurologic: Gross sensation is intact across the lower extremities by soft touch. Peripheral pulses are 2+. Results & Data ([facility]) Vital Signs (Past 12 Hours) Vital Signs Temp Pulse Pulse Resp BP Pulse Ox 02/17/22 07:51 36.7 C 90 18 127/64 90 02/17/22 07:39 89 02/17/22 04:42 36.6 C 75 18 142/78 H 90 02/17/22 01:26 85 02/16/22 22:47 37 C 85 18 121/62 90 Laboratory Results WBCs normal this morning at 7.6. H&H 9.2 and 27.6. Sodium 134. Potassium 4.6. BUN 22 and creatinine 1.23. Glucose 111 (1) Closed fracture of left hip Encounter type: initial encounter Qualified Code(s): S72.002A - Fracture of unspecified part of neck of left femur, initial encounter for closed fracture
[2022-02-17] MEDS: CYANOCOBALAMIN (B-12) 500 MCG TABLET PO SCH (08:44)
[2022-02-17] MEDS: APIXABAN 5 MG TABLET PO SCH ×2 (08:44→20:29)
[2022-02-17] MEDS: LEFLUNOMIDE 10 MG TAB PO SCH (08:44)
[2022-02-17] MEDS: MEMANTINE HCL 10 MG TAB PO SCH (08:44)
[2022-02-17] MEDS: INSULIN ASPART PER UNIT SC SCH ×4 (08:44→20:28)
[2022-02-17] MEDS: METOPROLOL SUCC 50MG EXT REL TAB PO SCH (08:44)
[2022-02-17] MEDS: TAMSULOSIN HCL 0.4 MG CAP PO SCH (08:45)
[2022-02-17] MEDS: INSULIN GLARGINE SOLOSTAR 100 UNITS/ML 3 ML PEN SC SCH ×2 (08:45→20:28)
--- NOTE | 2022-02-17 13:22 | Pharmacy Report ---
Pharmacy Glycemic Short Note 2 - Date of Service February 17, 2022 - Glycemic Short BSG Results (Last 24 hours): 02/16/22 02/16/22 02/17/22 17:02 20:10 06:11 Glucose 111 H POC Glucose 155 H 151 H 02/17/22 02/17/22 07:25 11:23 Glucose POC Glucose 133 H 234 H OUTPATIENT ANTIDIABETIC REGIMEN: * Amaryl 2 mg PO BID, Januvia 100 mg PO daily * A1c pending (A1c of 10% in August of 2021) * New A1c 02/15/22 6.7% ASSESSMENT: 02/17: * Danial received 34 units of insulin yesterday (18 units of Lantus and 16 units NovoLog) * Fasting BSG of 111mg/dL this AM, will reduce Lantus again slightly to prevent hypoglycemia. * Blood sugar rising prior to lunch, tighten CR, may need to consider only a tighter CR at breakfast if this trend continues or is too much coverage for other meals. * Updated A1c at goal 02/16: * Danial received 36 units of insulin yesterday (22 units of Lantus and 14 units novolog) * Fasting BSG of 127 mg/dL this morning. Will reduce Lantus scale to target about 18 units per day. * Post prandial BSG control improved yesterday after tightening CF and CR. Lunch elevated today, however patient refused AM insulin doses. 02/15: * Mr. Mariee is a 76 yo admitted for L hip fracture s/p fall and pneumonia. * Patient is maintained on oral anti-diabetic agents as an outpatient. These will be held during hospital admission. * Initiated SQ basal + bolus insulin this morning. Severe hyperglycemia at lunchtime, therefore insulin dosing was escalated. PLAN FOR INPATIENT GLYCEMIC CONTROL: * Hold outpatient oral diabetes medications * Basal insulin * Lantus 0-8 units SQ BID - see eMAR for details * Bolus insulin * NovoLog per scale ACHS or Q6hrs while NPO * Goal Range: Low 120 mg/dL - High 150 mg/dL * Correction Factor: 30 mg/dL/unit * Nutritional / Prandial insulin per carb ratio of 1 unit per 7 grams CHO consumed
--- NOTE | 2022-02-17 17:23 | Hospitalist Progress Note ---
Date of Service February 17, 2022 Assessment & Plan (1) Fall: Plan: 76 year old male w/ PMHx of DM, dementia, RA, COPD, afib on Eliquis, and depression who presents from [facility] for L hip fracture s/p fall and mild pneumonia. - pelvis CT: acute impacted subcapital fracture of the left femoral head. - CT head and c spine w/o acute pathology -Orthopedics consulted. On initial consultation patient was relatively comfortable and moderate to high risk for surgical intervention, case was discussed between family and Dr. Pino. Patient clinically improving with tolerable pain at bedside, no plans for surgical management at this time Eliquis resumed May progress to placement when available. Does require frequent redirection attention due to impulsivity with dementia. Nonweightbearing for 4 to 6 weeks. Placement pending. [facility] After CM discussion with family referrals made to [facility] and [facility]. [facility] may have bed open in a few days, referral made. Pending placement (2) Closed fracture of left hip: Plan: As noted (3) Hypoxia: Plan: -- On admit 2-4L new O2 requirement; saturated 82% on room air per EMS - likely 2/2 mild pneumonia vs mild COPD exacerbation - CXR: naf vs ?RUL asp pna - borderline lactate 2.0 noted; defer repeat - PCT 0.91, elevated - Empiric cefepime --> Unasyn 02/15 - Continue unasyn for 5 day course, may convert to Augmentin at discharge. Course complete 02/20/22 Patient's hypoxia has resolved and is now breathing 90% on room air 02/10 (4) Diabetes mellitus: Plan: - A1c 10.0 09/12/21 - pharmacy glycemic consult; SSI+/-basal. hold home PO meds -Continue basal bolus at this time, currently at glargine8 units with SSI Adequate glycemic control today (5) Chronic obstructive pulmonary disease: Plan: - hx noted, - On prior exam lungs clear and without wheezing. suspected Asp PNA due to PCT and no wheezing, steroids deferred - On RA (6) Paroxysmal A-fib: Plan: - Continue anticoagulation with Eliquis, temporarily held pending surgical re- evaluation and resumed after (7) CKD (chronic kidney disease): Plan: - chronic, Cr 1.41, at baseline - renally dose as needed - follow BMP (8) Hypertension: Plan: - continue metoprolol succinate 200mg PO daily (9) Hyponatremia: Plan: - mild, chronic. follow bmp (10) Fever: Plan: - see above (11) Depression with anxiety: Plan: - hold home lorazepam for now in setting of recent falls - continue trazodone PRN (12) Rheumatoid arthritis involving multiple sites with positive rheumatoid factor: Plan: - chronic, continue home leflunomide (13) Dementia: Plan: - chronic, continue home regimen Plan: VTE Prophylaxis - Eliquis as noted Diet - T2DM. No IV fluids. code: full dispo: med tele Admission and Anticipated Discharge Date Admission Date: February 14, 2022 Subjective Denies pain at rest, does have pain rolling with ambulating and cries out at times but overall appears to be improving. No chest pain, chest pressure, lightheadedness, dizziness, as of breath, difficulty breathing. Review of Systems Review of Systems: All systems reviewed & are unremarkable except as noted in Subjective Physical Exam Physical Exam: General: Oriented to name. No acute distress, redirects easily. HEENT: Atraumatic, normocephalic. Vision and hearing grossly intact Pulm: CTAB A&P. -wheezes, -rales, -rhonchi. Symmetrical chest rise. No increase in work of breathing. No respiratory distress. Abdominal: Nontender, nondistended, soft. BS present. Extremities: Left lower extremity resting comfortably. Cap refill in left and right hallux brisk. Sensation to soft touch intact in feet bilaterally. Results & Data Results & Data ([facility]) Vital Signs (Past 12 Hours) Vital Signs Temp Pulse Pulse Resp BP Pulse Ox 02/17/22 15:35 37.1 C 88 18 131/64 91 02/17/22 15:13 88 02/17/22 10:44 36.5 C 18 178/104 H 93 02/17/22 07:51 36.7 C 90 18 127/64 90 02/17/22 07:39 89 PG Care Time/CCT Total # of Minutes Spent Total Time Spent with Patient: Total time spent is greater than 50% in coordination of care (as documented) at patient's floor/unit and/or counseling patient: Coding Level of Care Code 56541 Subseq Hosp Care Lvl 1 Diagnoses Fall W19.XXXA Closed fracture of left hip S72.002A Encounter type: initial encounter Hypoxia R09.02 Diabetes mellitus E11.9 Diabetes mellitus type: type 2 Diabetes mellitus exterminator helper insulin use: without exterminator helper use Diabetes mellitus complication status: with kidney complications Diabetes mellitus complication detail: with chronic kidney disease Chronic obstructive pulmonary disease J44.9 Paroxysmal A-fib I48.0 CKD (chronic kidney disease) N18.9 Chronic kidney disease stage: stage 3 (moderate) Hypertension I10 Hyponatremia E87.1 Fever R50.9 Depression with anxiety F41.8 Rheumatoid arthritis involving multiple sites with positive rheumatoid factor M05.79 Dementia F03.90 (1) Closed fracture of left hip Encounter type: initial encounter Qualified Code(s): S72.002A - Fracture of unspecified part of neck of left femur, initial encounter for closed fracture (2) Diabetes mellitus Diabetes mellitus type: type 2 Diabetes mellitus halfway insulin use: without exterminator helper use Diabetes mellitus complication status: with kidney complications Diabetes mellitus complication detail: with chronic kidney disease (3) CKD (chronic kidney disease) Chronic kidney disease stage: stage 3 (moderate)
[2022-02-18] MEDS: AMPICILLIN/SULBACTAM SOD 3,000 MG in 0.9 % SODIUM CHLORIDE 100 ML IV SCH ×4 (05:35→20:25)
[2022-02-18 06:18] LABS: Basophils # (auto) 0.01 K/uL (0-0.2); Basophils % (auto) 0.1 %; Eosinophils # (auto) 0.49 K/uL (0-0.5); Eosinophils % (auto) 6.4 %; Hemoglobin 8.8 g/dL (14.0-18.0); Immature Granulocytes # (auto) 0.03 K/uL (0.00-0.02); Immature Granulocytes % (auto) 0.4 %; Lymphocytes % (auto) 9.1 %; Mean Corpuscular Hemoglobin 26.7 pg (25-34); Mean Corpuscular Hgb Conc 32.6 g/dL (32-36); Mean Corpuscular Volume 82.1 fL (80-100); Mean Platelet Volume 9.3 fL (7.4-10.4); Monocytes # (auto) 0.44 K/uL (0.11-0.59); Monocytes % (auto) 5.7 %; Neutrophils # (auto) 6.01 K/uL (1.4-6.5); Neutrophils % (auto) 78.3 %; Platelet Count 189 K/uL (130-400); RDW Coefficient of Variation 15.2 % (11.5-14.5); RDW Standard Deviation 45.4 fL (36.4-46.3); Red Blood Count 3.29 M/uL (4.7-6.1); White Blood Count 7.68 K/uL (4.8-10.8)
[2022-02-18 06:48] LABS: Calcium 8.4 mg/dl (8.5-10.1); Creatinine Clr Calc Pharmacy 46.9 ml/min; Est GFR (Non-African American) 60.4 ml/min; Potassium 4.1 mmol/L (3.5-5.1)
[2022-02-18] MEDS: APIXABAN 5 MG TABLET PO SCH ×2 (08:31→20:17)
[2022-02-18] MEDS: LEFLUNOMIDE 10 MG TAB PO SCH (08:32)
[2022-02-18] MEDS: CYANOCOBALAMIN (B-12) 500 MCG TABLET PO SCH (08:32)
[2022-02-18] MEDS: MEMANTINE HCL 10 MG TAB PO SCH (08:32)
[2022-02-18] MEDS: TAMSULOSIN HCL 0.4 MG CAP PO SCH (08:32)
[2022-02-18] MEDS: METOPROLOL SUCC 50MG EXT REL TAB PO SCH (08:32)
[2022-02-18] MEDS: INSULIN GLARGINE SOLOSTAR 100 UNITS/ML 3 ML PEN SC SCH ×2 (08:33→20:17)
[2022-02-18] MEDS: INSULIN ASPART PER UNIT SC SCH ×4 (08:38→20:24)
[2022-02-18] MEDS: ACETAMINOPHEN 500 MG TAB PO PRN (08:42)
--- NOTE | 2022-02-18 11:58 | Pharmacy Report ---
Pharmacy Glycemic Short Note 2 - Date of Service February 18, 2022 - Glycemic Short BSG Results (Last 24 hours): 02/17/22 02/17/22 02/18/22 16:30 19:52 05:45 Glucose 101 H POC Glucose 192 H 93 02/18/22 02/18/22 07:24 11:33 Glucose POC Glucose 121 H 178 H OUTPATIENT ANTIDIABETIC REGIMEN: * Amaryl 2 mg PO BID, Januvia 100 mg PO daily * A1c pending (A1c of 10% in August of 2021) * New A1c 02/15/22 6.7% ASSESSMENT: 02/18: * Stressors stable * BSG's trended down rapidly yesterday after tightening CHO ratio. Will keep tighter CHO ratio at breakfast due to trend of pre-lunch hyperglycemia, but will loosen the remaining, although will keep very slightly tighter than prior from 02/15-02/16 * AM fasting BSG in goal range - no change to Lantus 02/17: * Danial received 34 units of insulin yesterday (18 units of Lantus and 16 units NovoLog) * Fasting BSG of 111mg/dL this AM, will reduce Lantus again slightly to prevent hypoglycemia. * Blood sugar rising prior to lunch, tighten CR, may need to consider only a tighter CR at breakfast if this trend continues or is too much coverage for other meals. * Updated A1c at goal 02/16: * Danial received 36 units of insulin yesterday (22 units of Lantus and 14 units novolog) * Fasting BSG of 127 mg/dL this morning. Will reduce Lantus scale to target about 18 units per day. * Post prandial BSG control improved yesterday after tightening CF and CR. Lunch elevated today, however patient refused AM insulin doses. 02/15: * Mr. Mariee is a 76 yo admitted for L hip fracture s/p fall and pneumonia. * Patient is maintained on oral anti-diabetic agents as an outpatient. These will be held during hospital admission. * Initiated SQ basal + bolus insulin this morning. Severe hyperglycemia at lunchtime, therefore insulin dosing was escalated. PLAN FOR INPATIENT GLYCEMIC CONTROL: * Hold outpatient oral diabetes medications * Basal insulin * Lantus 0-8 units SQ BID - see eMAR for details * Bolus insulin * NovoLog per scale ACHS or Q6hrs while NPO * Goal Range: Low 120 mg/dL - High 150 mg/dL * Correction Factor: 30 mg/dL/unit * Carb ratio: 7 g CHO/unit with breakfast, 9 g CHO/unit with all other checks
--- NOTE | 2022-02-18 14:24 | Hospitalist Progress Note ---
Date of Service February 18, 2022 Assessment & Plan (1) Fall: Plan: 76 year old male w/ PMHx of DM, dementia, RA, COPD, afib on Eliquis, and depression who presents from [facility] for L hip fracture s/p fall and mild pneumonia. - pelvis CT: acute impacted subcapital fracture of the left femoral head. - CT head and c spine w/o acute pathology -Orthopedics consulted. On initial consultation patient was relatively comfortable and moderate to high risk for surgical intervention, case was discussed between family and Dr. Pino. Patient clinically improving with tolerable pain at bedside, no plans for surgical management at this time Eliquis resumed May progress to placement when available. Does require frequent redirection attention due to impulsivity with dementia. Nonweightbearing for 4 to 6 weeks. Placement pending. [facility]. Auth pending. Stable for discharge. (2) Closed fracture of left hip: Plan: As noted (3) Hypoxia: Plan: -- On admit 2-4L new O2 requirement; saturated 82% on room air per EMS - likely 2/2 mild pneumonia vs mild COPD exacerbation - CXR: naf vs ?RUL asp pna - borderline lactate 2.0 noted; defer repeat - PCT 0.91, elevated - Empiric cefepime --> Unasyn 02/15 - Continue unasyn for 5 day course, may convert to Augmentin at discharge. Course complete 02/20/22 Patient's hypoxia has resolved and is now breathing 90% on room air 02/10 (4) Diabetes mellitus: Plan: - A1c 10.0 09/12/21 - pharmacy glycemic consult; SSI+/-basal. hold home PO meds -Continue basal bolus at this time, currently at glargine8 units with SSI Adequate glycemic control today (5) Chronic obstructive pulmonary disease: Plan: - hx noted, - On prior exam lungs clear and without wheezing. suspected Asp PNA due to PCT and no wheezing, steroids deferred - On RA (6) Paroxysmal A-fib: Plan: - Continue anticoagulation with Eliquis, temporarily held pending surgical re-ev aluation and resumed after (7) CKD (chronic kidney disease): Plan: - chronic, Cr 1.41, at baseline - renally dose as needed - follow BMP (8) Hypertension: Plan: - continue metoprolol succinate 200mg PO daily (9) Hyponatremia: Plan: - mild, 129 today Creatinine at baseline, BUN/creatinine ratio borderline elevated. Slight volume contraction clinically, mucous membranes tacky, asymptomatic Encouraged orals n.p.o., trend (10) Fever: Plan: - see above (11) Depression with anxiety: Plan: - hold home lorazepam for now in setting of recent falls - continue trazodone PRN (12) Rheumatoid arthritis involving multiple sites with positive rheumatoid factor: Plan: - chronic, continue home leflunomide (13) Dementia: Plan: - chronic, continue home regimen Plan: VTE Prophylaxis - Eliquis as noted Diet - T2DM. No IV fluids. code: full dispo: med tele Admission and Anticipated Discharge Date Admission Date: February 14, 2022 Subjective Patient is much more alert today. Oriented to name and place, not oriented to year continue to think is 1998 but otherwise better engagement and more appropriate conversation today. Hard of hearing. Endorses that he continues to have intermittent pain in his left hip, which is worse with movement. Thinks his pain is similar to yesterday, does not remember very well. Denies chest pain, chest pressure, shortness of breath, difficulty breathing, lightheadedness, dizziness. Is eating breakfast without concerns at time of morning visit. Aware that placement bed is available tomorrow. Is reminded that he broke his hip which he replies "oh, it feels like it" Review of Systems Review of Systems: All systems reviewed & are unremarkable except as noted in Subjective Physical Exam Physical Exam: General: Oriented to name and place. No acute distress. Not oriented to year HEENT: Atraumatic, normocephalic. Vision and hearing grossly intact. MM moist Pulm: CTAB A&P. -wheezes, -rales, -rhonchi. Symmetrical chest rise. No increase in work of breathing. No respiratory distress. Abdominal: Nontender, nondistended, soft. BS present. Extremities: Left lower extremity resting comfortably. Cap refill in left and right hallux brisk. Sensation to soft touch intact in feet bilaterally. Results & Data Results & Data ([facility]) Vital Signs (Past 12 Hours) Vital Signs Temp Pulse Pulse Resp BP BP Pulse Ox 02/18/22 11:41 37.0 C 80 18 116/63 90 06/28/22 07:57 88 02/18/22 07:42 37.1 C 86 20 137/73 93 02/18/22 02:27 37 C 82 18 126/71 90 PG Care Time/CCT Total # of Minutes Spent Total Time Spent with Patient: Total time spent is greater than 50% in coordination of care (as documented) at patient's floor/unit and/or counseling patient: Coding Level of Care Code 98997 Subseq Hosp Care Lvl 1 Diagnoses Fall W19.XXXA Closed fracture of left hip S72.002A Encounter type: initial encounter Hypoxia R09.02 Diabetes mellitus E11.9 Diabetes mellitus type: type 2 Diabetes mellitus alf insulin use: without alf use Diabetes mellitus complication status: with kidney complications Diabetes mellitus complication detail: with chronic kidney disease Chronic obstructive pulmonary disease J44.9 Paroxysmal A-fib I48.0 CKD (chronic kidney disease) N18.9 Chronic kidney disease stage: stage 3 (moderate) Hypertension I10 Hyponatremia E87.1 Fever R50.9 Depression with anxiety F41.8 Rheumatoid arthritis involving multiple sites with positive rheumatoid factor M05.79 Dementia F03.90 (1) Closed fracture of left hip Encounter type: initial encounter Qualified Code(s): S72.002A - Fracture of unspecified part of neck of left femur, initial encounter for closed fracture (2) Diabetes mellitus Diabetes mellitus type: type 2 Diabetes mellitus alf insulin use: without alf use Diabetes mellitus complication status: with kidney complications Diabetes mellitus complication detail: with chronic kidney disease (3) CKD (chronic kidney disease) Chronic kidney disease stage: stage 3 (moderate)
--- NOTE | 2022-02-18 16:05 | Orthopedic Progress Note ---
Date of Service February 18, 2022 Assessment & Plan (1) Closed fracture of left hip: Plan: Patient was educated regarding today's findings. He did start crying before I departed the room. When asked why, he states it was in gratitude for my care. Patient will require placement, as he will require use of wheelchair for the next 4 weeks and will be nonweightbearing on the left leg. His memory seems pretty good today. Awaiting input from the insurance company regarding placement at [facility]. Follow-up in the office in approximately 10 days for reassessment. I will continue to follow while he is admitted. Call the office with any other concerns. Admission and Anticipated Discharge Date Admission Date: February 14, 2022 Subjective Patient is seen in his room this afternoon. He is awake and alert. He greets me by name upon entering the room. He remains emotional today. He states he feels good today. He has no complaints of chest pain, shortness of breath, nausea, or vomiting. He states as long as the left leg is not moved, he has no pain. No other complaints. Physical Exam Physical Exam: General: Well-developed, well-nourished, elderly white male, in no acute distress. Sitting in bed. Alert and oriented to person and place. Skin: Warm and dry with fair turgor. No rashes. No ecchymosis or erythema. No edema. Musculoskeletal: Patient has no discomfort with logrolling or palpation of the right hip or thigh. He does have discomfort in the left leg with logrolling of the left hip. Flexion was not attempted. He does have intact motor function to his ankle and toes. Neurologic: Gross sensation is intact across both lower extremities by soft touch. Peripheral pulses are 2+. Results & Data ([facility]) Vital Signs (Past 12 Hours) Vital Signs Temp Pulse Pulse Resp BP BP Pulse Ox 02/18/22 16:02 36.5 C 86 18 110/66 91 02/18/22 15:12 88 02/18/22 11:41 37.0 C 80 18 116/63 90 02/18/22 07:57 88 02/18/22 07:42 37.1 C 86 20 137/73 93 Laboratory Results H&H obtained today are 8.8 and 27.0. He continues to trend slightly downward. White count normal at 7.68. (1) Closed fracture of left hip Encounter type: initial encounter Qualified Code(s): S72.002A - Fracture of unspecified part of neck of left femur, initial encounter for closed fracture
[2022-02-19] MEDS: ACETAMINOPHEN 500 MG TAB PO PRN (02:30)
[2022-02-19] MEDS ORDERED: traMADol HCL 50 MG TABLET PO STA (03:16)
[2022-02-19] MEDS: AMPICILLIN/SULBACTAM SOD 3,000 MG in 0.9 % SODIUM CHLORIDE 100 ML IV SCH ×2 (05:53→09:13)
[2022-02-19 06:05] LABS: Basophils # (auto) 0.02 K/uL (0-0.2); Basophils % (auto) 0.3 %; Eosinophils # (auto) 0.54 K/uL (0-0.5); Eosinophils % (auto) 7.9 %; Hemoglobin 8.2 g/dL (14.0-18.0); Immature Granulocytes # (auto) 0.01 K/uL (0.00-0.02); Immature Granulocytes % (auto) 0.1 %; Lymphocytes # (auto) 0.71 K/uL (1.2-3.4); Lymphocytes % (auto) 10.4 %; Mean Corpuscular Hemoglobin 27.2 pg (25-34); Mean Corpuscular Hgb Conc 32.8 g/dL (32-36); Mean Corpuscular Volume 82.8 fL (80-100); Mean Platelet Volume 9.7 fL (7.4-10.4); Monocytes % (auto) 10.2 %; Neutrophils # (auto) 4.87 K/uL (1.4-6.5); Neutrophils % (auto) 71.1 %; Platelet Count 197 K/uL (130-400); RDW Coefficient of Variation 15.3 % (11.5-14.5); RDW Standard Deviation 46.8 fL (36.4-46.3); Red Blood Count 3.02 M/uL (4.7-6.1); White Blood Count 6.85 K/uL (4.8-10.8)
[2022-02-19 06:32] LABS: BUN Creatinine Ratio 20.5 (10-20); Calcium 8.4 mg/dl (8.5-10.1); Creatinine Clr Calc Pharmacy 44.6 ml/min; Est GFR (African American) 65.9 ml/min; Est GFR (Non-African American) 56.8 ml/min; Potassium 3.9 mmol/L (3.5-5.1)
[2022-02-19] MEDS ORDERED: INSULIN ASPART PER UNIT SC SCH (07:30)
[2022-02-19] MEDS ORDERED: traMADol HCL 50 MG TABLET PO PRN (09:05)
--- NOTE | 2022-02-19 09:06 | Orthopedic Progress Note ---
Date of Service February 19, 2022 Assessment & Plan (1) Closed fracture of left hip: Plan: Continue plan for nonsurgical management NWB LLE May transfer from bed to chair maintaining NWB on the LLE. PT/OT may teach ankle pumps, but would avoid hip ROM and strengthening exercises for at least 2 weeks. Continue attempts with physical therapy and Occupational Therapy to sit at the side of the bed or into a chair. DVT prophylaxis per primary team May discharge when appropriate placement is found. Will likely need higher level of care, as he will need continual reminders to not get up and try to walk because of his dementia Orthopaedics will continue to follow as an inpatient Follow-up [facility] 2 weeks after discharge as scheduled. Admission and Anticipated Discharge Date Admission Date: February 14, 2022 Subjective Patient is seen in his room this afternoon. He is awake and alert, eating breakfast. He remains emotional/tearful today as he is so thankful for the care he is receiving. It's reported by his roommate that he did have a lot of pain thru the night. He has no pain right now at rest. He has no complaints of chest pain, shortness of breath, nausea, or vomiting. He states his lungs the left leg is not moved, he has no pain. No other complaints. Physical Exam Musculoskeletal: Exam of his left lower extremity: Leg is resting comfortably on bed. He has pain with any type of gentle range of motion of the hip with just logrolling. His knee is nontender with no effusion. No significant edema of his left hip. No visible ecchymosis. He is able to actively dorsiflex and plantarflex invert and kim his foot. Dorsalis pedis pulses 1+. Distal sensation is normal. Calf is supple and nontender. No effusion to the left knee. Leg does not appear to be significantly shortened or externally rotated. Results & Data ([facility]) Vital Signs (Past 12 Hours) Vital Signs Temp Pulse Pulse Resp BP Pulse Ox 02/19/22 08:10 36.8 C 77 18 109/75 92 02/19/22 03:00 36.5 C 79 20 119/64 94 02/19/22 00:00 97 H 02/18/22 22:00 37.1 C 94 H 20 130/70 91 Laboratory Results 02/19/22 02/19/22 02/19/22 Range/Units 07:34 05:48 05:48 WBC 6.85 (4.8-10.8) K/uL RBC 3.02 L (4.7-6.1) M/uL Hgb 8.2 L (14.0-18.0) g/dL Hct 25.0 L (42-52) % MCV 82.8 (80-100) fL MCH 27.2 (25-34) pg MCHC 32.8 (32-36) g/dL RDW Std Deviation 46.8 H (36.4-46.3) fL RDW Coeff of Sherrell 15.3 H (11.5-14.5) % Plt Count 197 (130-400) K/uL MPV 9.7 (7.4-10.4) fL Immature Gran % (Auto) 0.1 % Neut % (Auto) 71.1 % Lymph % (Auto) 10.4 % [place] % (Auto) 10.2 % Eos % (Auto) 7.9 % Baso % (Auto) 0.3 % Neut # (Auto) 4.87 (1.4-6.5) K/uL Lymph # (Auto) 0.71 L (1.2-3.4) K/uL [place] # (Auto) 0.70 H (0.11-0.59) K/uL Eos # (Auto) 0.54 H (0-0.5) K/uL Baso # (Auto) 0.02 (0-0.2) K/uL Immature Gran # (Auto) 0.01 (0.00-0.02) K/uL Sodium 132 L (136-145) mmol/L Potassium 3.9 (3.5-5.1) mmol/L Chloride 99 (98-107) mmol/L Carbon Dioxide 23 (21-32) mmol/L Anion Gap 10 (3-11) BUN 25 H (6-23) mg/dl Creatinine 1.22 (0.6-1.4) mg/dl Est Cr Clr Drug Dosing 44.6 ml/min Est GFR ( Amer) 65.9 ml/min Est GFR (Non-Af Amer) 56.8 ml/min BUN/Creatinine Ratio 20.5 H (10-20) Glucose 116 H (70-99(Fasting)) mg/dl POC Glucose 131 H (70-99) mg/dl Calcium 8.4 L (8.5-10.1) mg/dl 02/18/22 02/18/22 02/18/22 Range/Units 20:01 16:42 11:33 WBC (4.8-10.8) K/uL RBC (4.7-6.1) M/uL Hgb (14.0-18.0) g/dL Hct (42-52) % MCV (80-100) fL MCH (25-34) pg MCHC (32-36) g/dL RDW Std Deviation (36.4-46.3) fL RDW Coeff of Sherrell (11.5-14.5) % Plt Count (130-400) K/uL MPV (7.4-10.4) fL Immature Gran % (Auto) % Neut % (Auto) % Lymph % (Auto) % [place] % (Auto) % Eos % (Auto) % Baso % (Auto) % Neut # (Auto) (1.4-6.5) K/uL Lymph # (Auto) (1.2-3.4) K/uL [place] # (Auto) (0.11-0.59) K/uL Eos # (Auto) (0-0.5) K/uL Baso # (Auto) (0-0.2) K/uL Immature Gran # (Auto) (0.00-0.02) K/uL Sodium (136-145) mmol/L Potassium (3.5-5.1) mmol/L Chloride (98-107) mmol/L Carbon Dioxide (21-32) mmol/L Anion Gap (3-11) BUN (6-23) mg/dl Creatinine (0.6-1.4) mg/dl Est Cr Clr Drug Dosing ml/min Est GFR ( Amer) ml/min Est GFR (Non-Af Amer) ml/min BUN/Creatinine Ratio (10-20) Glucose (70-99(Fasting)) mg/dl POC Glucose 200 H 198 H 178 H (70-99) mg/dl Calcium (8.5-10.1) mg/dl (1) Closed fracture of left hip Encounter type: initial encounter Qualified Code(s): S72.002A - Fracture of unspecified part of neck of left femur, initial encounter for closed fracture
[2022-02-19] MEDS: APIXABAN 5 MG TABLET PO SCH (09:14)
[2022-02-19] MEDS: CYANOCOBALAMIN (B-12) 500 MCG TABLET PO SCH (09:14)
[2022-02-19] MEDS: INSULIN GLARGINE SOLOSTAR 100 UNITS/ML 3 ML PEN SC SCH (09:14)
[2022-02-19] MEDS: LEFLUNOMIDE 10 MG TAB PO SCH (09:15)
[2022-02-19] MEDS: METOPROLOL SUCC 50MG EXT REL TAB PO SCH (09:16)
[2022-02-19] MEDS: MEMANTINE HCL 10 MG TAB PO SCH (09:16)
[2022-02-19] MEDS: TAMSULOSIN HCL 0.4 MG CAP PO SCH (09:16)
--- NOTE | 2022-02-19 09:34 | Pharmacy Report ---
Pharmacy Glycemic Short Note 2 - Date of Service February 19, 2022 - Glycemic Short BSG Results (Last 24 hours): 02/18/22 02/18/22 02/18/22 11:33 16:42 20:01 Glucose POC Glucose 178 H 198 H 200 H 02/19/22 02/19/22 05:48 07:34 Glucose 116 H POC Glucose 131 H OUTPATIENT ANTIDIABETIC REGIMEN: * Amaryl 2 mg PO BID, Januvia 100 mg PO daily * A1c pending (A1c of 10% in August of 2021) * New A1c 02/15/22 6.7% ASSESSMENT: 02/19: * Stressors stable * AM fasting BSG in goal range - continue Lantus * Pre-lunch BSG improved after tightening breakfast CHO ratio yesterday - continue * Post prandial BSG's >180 mg/dL prior to dinner and HS yesterday - will tighten CHO ratio with lunch, dinner, HS 02/18: * Stressors stable * BSG's trended down rapidly yesterday after tightening CHO ratio. Will keep tighter CHO ratio at breakfast due to trend of pre-lunch hyperglycemia, but will loosen the remaining, although will keep very slightly tighter than prior from 02/15-02/16 * AM fasting BSG in goal range - no change to Lantus Background * Mr. Mariee is a 76 yo admitted for L hip fracture s/p fall and pneumonia. * Patient is maintained on oral anti-diabetic agents as an outpatient. These will be held during hospital admission. * Initiated SQ basal + bolus insulin PLAN FOR INPATIENT GLYCEMIC CONTROL: * Hold outpatient oral diabetes medications * Basal insulin * Lantus 0-8 units SQ BID - see eMAR for details * Bolus insulin * NovoLog per scale ACHS or Q6hrs while NPO * Goal Range: Low 120 mg/dL - High 150 mg/dL * Correction Factor: 30 mg/dL/unit * Carb ratio: 7 g CHO/unit with breakfast, 8 g CHO/unit with all other checks
--- NOTE | 2022-02-19 11:01 | Hospitalist Progress Note ---
Date of Service February 19, 2022 Assessment & Plan (1) Fall: Plan: 76 year old male w/ PMHx of DM, dementia, RA, COPD, afib on Eliquis, and depression who presents from [facility] for L hip fracture s/p fall and mild pneumonia. - pelvis CT: acute impacted subcapital fracture of the left femoral head. - CT head and c spine w/o acute pathology -Orthopedics consulted. On initial consultation patient was relatively comfortable and moderate to high risk for surgical intervention, case was discussed between family and Dr. Pino. Patient clinically improving with tolerable pain at bedside, no plans for surgical management at this time Eliquis resumed May progress to placement when available. Does require frequent redirection attention due to impulsivity with dementia. Nonweightbearing for 4 to 6 weeks. Placement at [place] [facility] today, February 19 . (2) Closed fracture of left hip: Plan: As noted (3) Hypoxia: Plan: -- On admit 2-4L new O2 requirement; saturated 82% on room air per EMS - likely 2/2 mild pneumonia vs mild COPD exacerbation - CXR: naf vs ?RUL asp pna - borderline lactate 2.0 noted; defer repeat - PCT 0.91, elevated - Empiric cefepime --> Unasyn 02/15 - Continue unasyn for 5 day course, may convert to Augmentin at discharge. Course complete 02/20/22 Patient's hypoxia has resolved and is now breathing 90% on room air 02/10 (4) Diabetes mellitus: Plan: - A1c 10.0 09/12/21 - pharmacy glycemic consult; SSI+/-basal. hold home PO meds -Continue basal bolus at this time, currently at glargine8 units with SSI ADA diet (5) Chronic obstructive pulmonary disease: Plan: - hx noted, - On prior exam lungs clear and without wheezing. suspected Asp PNA due to PCT and no wheezing, steroids deferred - On RA (6) Paroxysmal A-fib: Plan: - Continue anticoagulation with Eliquis, temporarily held pending surgical re- evaluation and resumed after (7) CKD (chronic kidney disease): Plan: - chronic, Cr 1.41, at baseline - renally dose as needed - follow BMP (8) Hypertension: Plan: - continue metoprolol succinate 200mg PO daily (9) Hyponatremia: Plan: - mild Creatinine at baseline, BUN/creatinine ratio borderline elevated. Asymptomatic (10) Fever: Plan: - Resolved (11) Depression with anxiety: Plan: -Discontinued lorazepam in setting of recent falls - continue trazodone PRN (12) Rheumatoid arthritis involving multiple sites with positive rheumatoid factor: Plan: - chronic, continue home leflunomide (13) Dementia: Plan: - chronic, continue home regimen. Supportive care Plan: VTE Prophylaxis - Eliquis as noted Diet - T2DM. code: full dispo: [facility] Admission and Anticipated Discharge Date Admission Date: February 14, 2022 Subjective Alert and oriented. No distress. Case management has made final arrangements for discharge to [facility] today, February 19. Review of Systems Review of Systems: Constitutional-no fever or chills ENT-no blurred vision, no double vision, no epistaxis, no sore throat Respiratory-no cough, no wheezing, no shortness of breath Cardiac-no palpitations, no chest pain, no syncope GI-no nausea, vomiting, diarrhea, melena, hematochezia -no urinary retention, no urinary incontinence, no dysuria, no hematuria Musculoskeletal-left hip discomfort with movement due to underlying fracture. Skin-no bruising, no rashes, no pruritus Neuro-no isolated weakness, no paresthesia, no weakness Psych-no depression, no anxiety Physical Exam Physical Exam: General-alert and oriented x3, no fevers, no chills HEENT-head atraumatic and normocephalic, TMs intact bilaterally, pupils equal and reactive to light, extraocular muscles intact Neck-no lymphadenopathy or thyromegaly, trachea midline Chest-clear to auscultation percussion. No rales wheezing or rhonchi Cardiac-regular rate and rhythm, normal S1 and S2, no murmurs Abdomen-normal bowel sounds, nontender, no hepatosplenomegaly Extremities-known left hip fracture. Neuro-cranial nerves II through XII intact, motor and sensory function within normal limits, strength symmetrical , no focal deficits Psych-normal affect, normal mood Results & Data Results & Data ([facility]) Vital Signs (Past 12 Hours) Vital Signs Temp Pulse Pulse Resp BP Pulse Ox 02/19/22 08:10 36.8 C 77 18 109/75 92 02/19/22 03:00 36.5 C 79 20 119/64 94 06/29/22 00:00 97 H Laboratory Results 02/19/22 05:48 02/19/22 05:48 PG Care Time/CCT Total # of Minutes Spent Total Time Spent with Patient: Total time spent is greater than 50% in coordination of care (as documented) at patient's floor/unit and/or counseling patient: Coding Level of Care Code 92048 Subseq Hosp Care Lvl 3 Diagnoses Fall W19.XXXA Closed fracture of left hip S72.002A Encounter type: initial encounter Hypoxia R09.02 Diabetes mellitus E11.9 Diabetes mellitus type: type 2 Diabetes mellitus extermination inspector insulin use: without extermination inspector use Diabetes mellitus complication status: with kidney complications Diabetes mellitus complication detail: with chronic kidney disease Chronic obstructive pulmonary disease J44.9 Paroxysmal A-fib I48.0 CKD (chronic kidney disease) N18.9 Chronic kidney disease stage: stage 3 (moderate) Hypertension I10 Hyponatremia E87.1 Fever R50.9 Depression with anxiety F41.8 Rheumatoid arthritis involving multiple sites with positive rheumatoid factor M05.79 Dementia F03.90 (1) Closed fracture of left hip Encounter type: initial encounter Qualified Code(s): S72.002A - Fracture of unspecified part of neck of left femur, initial encounter for closed fracture (2) Diabetes mellitus Diabetes mellitus type: type 2 Diabetes mellitus longterm insulin use: without extermination inspector use Diabetes mellitus complication status: with kidney complications Diabetes mellitus complication detail: with chronic kidney disease (3) CKD (chronic kidney disease) Chronic kidney disease stage: stage 3 (moderate)
--- NOTE | 2022-02-19 11:07 | Discharge Summary ---
Date of Service February 19, 2022 Admission HPI Per Admitting Provider 76 year old male w/ PMHx of DM, dementia, RA, COPD (distant smoker), parox afib on Eliquis, and depression who presents from [facility] ([facility]) for fall x2 yesterday and L hip fx noted on outside xray imaging. Per EMS, Temp of 102.3F and 82% saturation on room air (no home O2). History is limited by patient's baseline dementia. Per ED provider's discussion w/ , would like ortho eval, for discussion of management options, surgical vs conservative. Patient currently has mild LLE and hip pain; exacerbates to severe pain w/ movement. He denies fever, chills, chest pain, or shortness of breath. He has not had cough or sputum production. : Gloria: [phone]. ED course: IV cefepime. Duoneb. Covid neg. Principal Diagnosis Mechanical fall with resultant left hip fracture, suspected pneumonia, transient hypoxia, hyponatremia Discharge Exam General-alert and oriented x3, no fevers, no chills HEENT-head atraumatic and normocephalic, TMs intact bilaterally, pupils equal and reactive to light, extraocular muscles intact Neck-no lymphadenopathy or thyromegaly, trachea midline Chest-clear to auscultation percussion. No rales wheezing or rhonchi Cardiac-regular rate and rhythm, normal S1 and S2, no murmurs Abdomen-normal bowel sounds, nontender, no hepatosplenomegaly Extremities-left hip discomfort with movement due to underlying fracture Neuro-cranial nerves II through XII intact, motor and sensory function within normal limits, strength symmetrical , no focal deficits Psych-normal affect, normal mood Discharge Data Allergies Allergy/AdvReac Type Severity Reaction Status Date / Time No Known Allergies Allergy Verified 12/12/21 15:36 Consultations 02/14/22 21:14 ED Decision to Admit Stat 02/15/22 00:11 Consult Orthopedic Surgery Routine Ordered Studies 02/14/22 19:01 CT cervical spine wo con Stat CT head/brain wo con Stat 02/14/22 20:08 CT pelvis wo con Stat Hospital Course (1) Fall: 76 year old male w/ PMHx of DM, dementia, RA, COPD, afib on Eliquis, and depression who presents from [facility] for L hip fracture s/p fall and mild pneumonia. - pelvis CT: acute impacted subcapital fracture of the left femoral head. - CT head and c spine w/o acute pathology -Orthopedics consulted. On initial consultation patient was relatively comfortable and moderate to high risk for surgical intervention, case was discussed between family and Dr. Pino. Patient clinically improving with tolerable pain at bedside, no plans for surgical management at this time Eliquis resumed May progress to placement when available. Does require frequent redirection attention due to impulsivity with dementia. Nonweightbearing for 4 to 6 weeks. Placement at [facility] today, February 19 . (2) Closed fracture of left hip: As noted (3) Hypoxia: -- On admit 2-4L new O2 requirement; saturated 82% on room air per EMS - likely 2/2 mild pneumonia vs mild COPD exacerbation - CXR: naf vs ?RUL asp pna - borderline lactate 2.0 noted; defer repeat - PCT 0.91, elevated - Empiric cefepime --> Unasyn 02/15 - Continue unasyn for 5 day course, may convert to Augmentin at discharge. Course complete 02/20/22 Patient's hypoxia has resolved and is now breathing 90% on room air 02/10 (4) Diabetes mellitus: - A1c 10.0 09/12/21 - pharmacy glycemic consult; SSI+/-basal. hold home PO meds -Continue basal bolus at this time, currently at glargine8 units with SSI ADA diet (5) Chronic obstructive pulmonary disease: - hx noted, - On prior exam lungs clear and without wheezing. suspected Asp PNA due to PCT and no wheezing, steroids deferred - On RA (6) Paroxysmal A-fib: - Continue anticoagulation with Eliquis, temporarily held pending surgical re-evaluation and resumed after (7) CKD (chronic kidney disease): - chronic, Cr 1.41, at baseline - renally dose as needed - follow BMP (8) Hypertension: - continue metoprolol succinate 200mg PO daily (9) Hyponatremia: - mild Creatinine at baseline, BUN/creatinine ratio borderline elevated. Asymptomatic (10) Fever: - Resolved (11) Depression with anxiety: -Discontinued lorazepam in setting of recent falls - continue trazodone PRN (12) Rheumatoid arthritis involving multiple sites with positive rheumatoid factor: - chronic, continue home leflunomide (13) Dementia: - chronic, continue home regimen. Supportive care VTE Prophylaxis - Eliquis as noted Diet - T2DM. code: full dispo: Center care Total Time Total Time Spent Total Time Spent (In Minutes): 35 minutes Discharge Plan Discharge Items Patient Disposition: Transfer Inpatient Rehab Fac Reason For Visit: L HIP FRACTURE, PNEUMONIA Discharge Diagnosis: Mechanical fall, left hip fracture, suspected pneumonia, transient hypoxia Condition on Discharge: Fair Activity: Per Instructions section Activity Comment: Nonweightbearing left leg for 6 weeks Non-emergency contact: Primary Care Provider and Surgeon Call non-emergency contact if: your symptoms worsen, your pain is not controlled, your temperature is above 101, your wound has increased redness and your wound has increased drainage Follow-up/Referrals: ,Gael Daily MD [Primary Care Provider] - Will Winchester MD [Physician] - 03/04/22 10:30 am Diet: Carb Consistent or DM2 Addtl Attending Provider Instructions: Lorazepam has been discontinued since this may have contributed to falling down Addtl Train Station Agent Provider Instructions: Nonweightbearing left lower extremity at all times. May be out of bed with physical therapy or occupational therapy or with nursing from bed to chair on a daily basis. Ice to left hip as needed for pain and swelling. Male elevate left lower extremity as needed for pain and swelling. Allowed for active range of motion of left ankle and left knee as tolerated. Follow-up with Dr. Winchester or Andrea Fontanez PA-C in approximately 2 weeks as scheduled. Call with any increased pain, swelling, concerns with regards to the left hip. Pending Studies at Discharge: No Stand-Alone Forms: [facility] Skilled Items Patient informed of condition?: Yes DNR: Yes Discharge Level of Care: Skilled Communicable Disease: No Discharge Prognosis: Improving Lines: None Urinary Catheter: No Medications and DC Order Prescriptions: New metoprolol succinate 50 mg Tablet Extended Release 24 Hr 200 mg PO QAM Qty: 30 RF: 0 leflunomide [Arava] 10 mg Tablet 10 mg PO DAILY Qty: 0 RF: 0 tramadol 50 mg Tablet 50 mg PO Q4H PRN (Reason: pain) Qty: 10 RF: 0 insulin glargine [Lantus Solostar U-100 Insulin] 100 unit/mL (3 mL) Insulin Pen 0 unit SC BID Qty: 0 RF: 0 Eliquis 5 mg Tablet 5 mg PO BID Qty: 10 RF: 0 Continued Eliquis 5 mg tablet 5 mg PO BID Qty: 60 RF: 2 memantine 10 mg tablet 10 mg PO DAILY Qty: 60 RF: 2 metoprolol succinate 50 mg tablet extended release 24 hr 200 mg PO DAILY Qty: 90 RF: 3 peg 3350-electrolytes [Golytely] 236-22.74-6.74 -5.86 gram recon soln 240 ml PO Q10M Qty: 4000 RF: 0 tamsulosin 0.4 mg capsule 0.4 mg PO DAILY Qty: 30 RF: 2 lisinopril 5 mg tablet 5 mg PO DAILY Qty: 90 RF: 3 albuterol sulfate 90 mcg/actuation HFA aerosol inhaler 2 puff inhalation Q8H PRN (Reason: Shortness Of Breath) Qty: 1 RF: 0 HurriCaine 20 % Gel 1 applic MT TID Qty: 28.4 RF: 0 glimepiride 2 mg tablet 2 mg PO BIDM 30 Days Qty: 60 RF: 0 Januvia 100 mg tablet 100 mg PO DAILY 30 Days Qty: 30 RF: 0 diclofenac sodium 1 % gel 2 g topical QID PRN (Reason: Knee Pain) Qty: 100 RF: 0 cyanocobalamin (vitamin B-12) [Vitamin B-12] 1,000 mcg Tablet 1,000 mcg PO DAILY 30 Days Qty: 30 RF: 0 leflunomide 10 mg tablet 10 mg PO DAILY 30 Days Qty: 30 RF: 0 folic acid 1 mg tablet 1 mg PO DAILY 30 Days Qty: 30 RF: 2 Centrum Silver Men 300-600-300 mcg tablet 1 tab PO DAILY 30 Days Qty: 30 RF: 0 Discontinued trazodone 50 mg tablet 50 mg PO .QHS PRN (Reason: sleep) Qty: 30 RF: 2 lorazepam 0.5 mg tablet 0.5 mg PO BID PRN (Reason: anxiety) Qty: 10 RF: 0 Discharge Orders: Discharge Order (Routine); Ordered 02/19/22 Ordered By: Carlos Enrique Kern/Other Patient Handouts: Managing Type 2 Diabetes Admission Data Admit Date/Time: 02/14/22 23:07 Attending Provider: Carlos Enrique Buckner Admit Provider: Gerry Gamez Primary Care Provider: Gael Rogers Other Providers: Arnel Coelho ; Will Winchester ; Sprankle Mills,[facility] Coding Level of Care Code D/C DAY MANAGEMENT >30 MINS Diagnoses Fall W19.XXXA Closed fracture of left hip S72.002A Encounter type: initial encounter Hypoxia R09.02 Diabetes mellitus E11.9 Diabetes mellitus type: type 2 Diabetes mellitus exterminator insulin use: without intermediate use Diabetes mellitus complication status: with kidney complications Diabetes mellitus complication detail: with chronic kidney disease Chronic obstructive pulmonary disease J44.9 Paroxysmal A-fib I48.0 CKD (chronic kidney disease) N18.9 Chronic kidney disease stage: stage 3 (moderate) Hypertension I10 Hyponatremia E87.1 Fever R50.9 Depression with anxiety F41.8 Rheumatoid arthritis involving multiple sites with positive rheumatoid factor M05.79 Dementia F03.90
== END 2022-02-19 13:46 | DRG 535 ==
LOC: ED 18:48 → SUATTDRO 23:07 → 2N 23:07

== ENCOUNTER 2024-03-23 21:09 | Observation (INO) ==
--- NOTE | 2024-03-23 21:48 | Emergency Department Note ---
ED Provider Note NAME: SHERLYN MASON AGE: 78 SEX: M : 1945 ARRIVES VIA: Walk-In INFORMANT: [Patient][, ] ED PROVIDER(S): [Kaleb Felton MD] CHIEF COMPLAINT: [] MEDICAL DECISION MAKING: [] Discussion w/ other healthcare providers: [None] Prior /Outside records reviewed: [none] Differential diagnosis: [] Diagnostics, as interpreted by me: ECG: [none] Cardiac monitoring: An order was placed for continuous cardiac monitoring. The monitor shows a rate of [] with [] rhythm. [Patient was placed on pulse oximetry] Medical decision rules: [none] Imaging studies: [I informally interpreted the patient's [] with formal report to follow.] [] HPI: [] PAST MEDICAL HISTORY: [See Below] PAST SURGICAL HISTORY: [See Below] SOCIAL HISTORY: [See Below] HOME MEDICATIONS: [See Below] ALLERGIES: [See Below] VITALS: [See Below] PHYSICAL EXAMINATION: GENERAL: NAD, non-toxic. EYE EXAM: Normal conjunctiva. PERRL, no anisocoria and EOM's grossly intact w/o pain. OROPHARYNX: Moist mucus membranes, grossly normal dentition. NECK: Trachea midline, no stridor. [Supple, no nuchal rigidity, no adenopathy, non-tender. No signs of meningismus. FROM of the neck with good chin to chest and neck extension.] LUNGS: Clear to auscultation. Normal chest wall mechanics. HEART: NSR, no MRG. ABDOMEN: Abdomen soft, non-tender, no masses, no rebound or guarding. BACK: No CVA TTP. SKIN: No rashes and no bruising. UPPER EXTREMITIES: Upper extremities are grossly normal. LOWER EXTREMITIES: Grossly normal, no edema. NEURO EXAM: A&O x3, cranial nerves II-XII grossly intact, normal speech, moves all 4 extremities. Past Med/Surg History Problem List Ataxia Loss of protective sensation of skin of foot Diabetic peripheral neuropathy associated with type 2 diabetes mellitus Osteoporosis Paroxysmal A-fib Hyponatremia Dementia (Acute) Hypoxia (Acute) Anemia (Acute) Emotional lability Weight loss Frequent falls (Acute) Ambulatory dysfunction (Acute) Thrombocytopenia (Acute) Elevated LFTs Vitamin D deficiency Rheumatoid arthritis involving multiple sites with positive rheumatoid factor Tinnitus, bilateral Sensorineural hearing loss of both ears Arthritis of both knees Chronic obstructive pulmonary disease (Acute) Depression with anxiety (Acute) Diabetes mellitus (Acute) Hypercholesterolemia (Acute) CKD (chronic kidney disease) Tubular adenoma of colon (Acute) Hypertension (Acute) History of alcoholism (Acute) Medical History Closed fracture of left hip Acute hyperactive delirium due to multiple etiologies Acute encephalopathy Acute kidney injury superimposed on chronic kidney disease COVID-19 Internal hemorrhoids Diverticulitis Surgical History History of appendectomy Family History Mother Cancer Denies family history of Ovarian cancer Prostate cancer Myocardial infarction Breast cancer Colorectal cancer Social History Smoking Status: Never smoker Second Hand Exposure: No; Do You Dip or Chew Tobacco: No; Hx Alcohol Use: No Hx Substance Use: No Preferred Language: Turkish Communication Ability: Impaired Visual Impairment: No Limitations Hearing Ability: Use of Hearing Aid 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 Required: No Beliefs That Will Affect Care: None marital status: Current Living Situation: Personal Care Facility current occupational status: retired Feels Safe at Home: Yes Childhood Exposure to Second-Hand Smoke: No Dental Care, Regularly: Yes Physical Activity Frequency: Does not Exercise Seatbelt Use: always Sunscreen Use: Yes Assistive Devices: Walker and Wheelchair Allergies Allergies Allergy/AdvReac Type Severity Reaction Status Date / Time No Known Allergies Allergy Verified 03/24/24 01:17 Home Meds Home Medications Medication Instructions Recorded Confirmed acetaminophen 325 mg capsule 650 mg PO Q6 PRN Fever Or Pain 03/16/24 03/24/24 cholecalciferol (vitamin D3) 25 25 mcg PO DAILY 03/16/24 03/24/24 mcg (1,000 unit) capsule glimepiride 2 mg tablet 2 mg PO QAM Diabetes 03/16/24 03/24/24 glimepiride 4 mg tablet 4 mg PO PM 03/16/24 03/24/24 leflunomide 20 mg tablet 20 mg PO DAILY 03/16/24 03/24/24 loperamide 2 mg capsule 2 mg PO Q4H PRN Diarrhea 03/16/24 03/24/24 (Anti-Diarrheal (loperamide)) lorazepam 0.5 mg tablet 0.25 mg PO Q4H PRN Anxiety 03/16/24 03/24/24 oxycodone 5 mg tablet 5 mg PO DAILY 03/16/24 03/24/24 prednisone 5 mg tablet 5 mg PO DAILY 03/16/24 03/24/24 sertraline 25 mg tablet 25 mg PO DAILY 03/16/24 03/24/24 Previous Rx's Medication Instructions Recorded cyanocobalamin (vitamin B-12) 1,000 mcg PO DAILY 30 days #30 tabs 11/01/21 1,000 mcg tablet (Vitamin B-12) folic acid 1 mg tablet 1 mg PO DAILY 30 days #30 tabs 11/01/21 [id number] 300 mcg-K 60 1 tab PO DAILY 30 days #30 tabs 11/01/21 mcg-lycop 600 mcg-lutein 300 mcg tablet (Centrum Silver Men) sitagliptin phosphate 100 mg 100 mg PO DAILY 30 days #30 tabs 11/01/21 tablet (Januvia) tamsulosin 0.4 mg capsule 0.4 mg PO DAILY #30 caps 11/01/21 memantine 10 mg tablet 10 mg PO DAILY #60 tabs 12/19/21 apixaban 5 mg tablet (Eliquis) 5 mg PO BID #10 tabs 02/19/22 Results & Data (ED) Vital Signs Vital Signs - 24 hr 03/23/24 21:11 03/23/24 21:34 Temperature 36.9 C Temperature Source Temporal Artery Scan Pulse Rate 64 92 H Respiratory Rate 20 Respiratory Effort / Characteristics Non-Labored Spontaneous Respiratory Depth Normal Respiratory Pattern Regular Blood Pressure 141/77 H Blood Pressure Mean 98 Blood Pressure Position Sitting Pulse Oximetry 96 Oxygen Delivery Method Room Air Sepsis Recent Fever Within 48 Hours No Sepsis New/Unexplained Change in Mental Status N/A Sepsis Action Taken by Nursing No Action Required Laboratory Data 03/23/24 21:40 03/23/24 21:40 Lab Results 03/23/24 03/23/24 03/23/24 Range/Units 21:40 21:41 21:52 WBC 7.15 (4.8-10.8) K/ul RBC 4.10 L (4.70-6.10) M/uL Hgb 12.0 L (14.0-18.0) g/dl POC Hgb 12.9 L (14.0-18.0) g/dl Hct 36.9 L (42.0-52.0) % POC Hct 38 L (42-52) % MCV 90.0 (80.0-100.0) fL MCH 29.3 (25.0-34.0) pg MCHC 32.5 (32.0-36.0) g/dL RDW Std Deviation 54.6 H (36.4-46.3) fL RDW Coeff of Sherrell 16.6 H (11.5-14.5) % Plt Count 156 (130-400) K/uL MPV 11.2 (9.4-12.4) fL Immature Gran % (Auto) 0.1 % Neut % (Auto) 74.1 % Lymph % (Auto) 14.1 % Piatt % (Auto) 8.7 % Eos % (Auto) 2.2 % Baso % (Auto) 0.8 % Neut # (Auto) 5.29 (1.40-6.50) K/uL Lymph # (Auto) 1.01 L (1.20-3.40) K/uL Piatt # (Auto) 0.62 H (0.11-0.59) K/uL Eos # (Auto) 0.16 (0.00-0.50) K/uL Baso # (Auto) 0.06 (0.00-0.20) K/uL Immature Gran # (Auto) 0.01 (0.01-0.20) K/uL PT 10.7 (9.0-12.0) Seconds INR 1.0 (0.9-1.1) APTT 28 (21-31) Seconds PTT Ratio 1.0 POC Sodium 138 (135-144) mmol/L Sodium 138 (136-145) mmol/L POC Potassium 4.4 (3.3-5.0) mmol/L Potassium 4.2 (3.5-5.1) mmol/L POC Chloride 103 (101-112) mmol/L Chloride 102 (98-107) mmol/L Carbon Dioxide 27 (21-32) mmol/L POC Total CO2 27 (24-31) mmol/L Anion Gap 9 (3-11) POC Anion Gap 14.0 L (16-25) mmol/L POC BUN 20 H (7-18) mg/dl BUN 20 (6-23) mg/dl Creatinine 1.45 H (0.6-1.4) mg/dl POC Creatinine 1.6 H (0.6-1.3) mg/dl Est Cr Clr Drug Dosing 40.9 ml/min Est GFR ( Amer) 52.7 ml/min Est GFR (Non-Af Amer) 45.5 ml/min BUN/Creatinine Ratio 13.8 (10-20) Glucose 226 H (70-99(Fasting)) mg/dl POC Glucose 198 H (70-99) mg/dl POC Glucose (other) 219 H (70-99) mg/dl Calcium 9.6 (8.6-10.3) mg/dl POC Ioniz Calcium Abhilash 1.03 L (1.12-1.32) mmol/l Magnesium 1.9 (1.7-2.4) mg/dl Total Bilirubin 0.4 (0.2-1.0) mg/dl AST 28 (13-39) U/L ALT 49 (7-52) U/L Alkaline Phosphatase 66 (34-104) U/L Troponin I High Sens 14.5 (0-20) pg/ml Total Protein 7.2 (6.0-8.3) gm/dl Albumin 4.3 (3.4-5.0) gm/dl Globulin 2.9 (2.5-4.0) gm/dl Albumin/Globulin Ratio 1.5 (0.9-2) Administered Medications Discontinued Medications Aspirin (Aspirin Chew 324 Mg) 324 mg PO NOW STA Stop: 03/24/24 01:11 Last Admin: 03/24/24 01:33 Dose: 324 mg Documented By: KATY Sodium Chloride (Nss) 250 mls @ 999 mls/hr IV .Q16M ONE Stop: 03/23/24 22:24 Last Infusion: 03/23/24 22:35 Dose: Infused Documented By: Admin: 03/23/24 22:14 Dose: 999 mls/hr Documented By: KATY Ioversol (Optiray 320 125ml) 116 ml IV ONCE ONE Stop: 03/23/24 22:30 Last Admin: 03/23/24 22:29 Dose: 116 ml Documented By: VINCENT Imaging Data Radiologist's Impression: Head CT 03/23/24 21:20 Exam(s): CT HEAD Without Contrast EXAM: CT Head Without Intravenous Contrast CLINICAL HISTORY: Reason for exam: neuro deficit, acute stroke suspected. TECHNIQUE: Axial computed tomography images of the head/brain without intravenous contrast. CTDI is 30.84 mGy and DLP is 576.02 mGy-cm. Automated exposure control was utilized for the study. A dose lowering technique was utilized adhering to the principles of ALARA. COMPARISON: MRI brain done earlier. FINDINGS: Brain: No mass effect or acute infarct. No acute hemorrhage. Mild atrophy and chronic white matter disease. Acute infarcts in the left periventricular white matter are better seen on MRI. Ventricles: No hydrocephalus or midline shift. Bones/joints: No acute finding. Soft tissues: No scalp hematoma. Visualized Sinuses: Clear. Mastoid air cells: No mastoid effusion. IMPRESSION: 1. Mild age-related findings. 2. Acute infarcts in the left periventricular white matter are better seen on MRI. Electronically signed by: Mily Morales M.D. 03/23/24 22:51 PM Head CTA 03/23/24 21:20 Exam(s): CTA HEAD With Contrast IV Amt: 116ml EXAM: CT Angiography Head With Intravenous Contrast CLINICAL HISTORY: Reason for exam: neuro deficit, acute stroke suspected. TECHNIQUE: Axial computed tomographic angiography images of the head with intravenous contrast. CTDI is 12.58 mGy and DLP is 506.71 mGy-cm. Automated exposure control was utilized for the study. A dose lowering technique was utilized adhering to the principles of ALARA. IV contrast is given, 116 ML. Venous contamination. MIP reconstructed images were created and reviewed. CONTRAST: Patient received 116ml of IV contrast COMPARISON: Head CT done earlier. FINDINGS: Right internal carotid artery: Patent. Right anterior cerebral artery: Patent. Right middle cerebral artery: Patent. Right posterior cerebral artery: Patent. Right vertebral artery: Patent. Left internal carotid artery: Patent. Left anterior cerebral artery: Patent. Left middle cerebral artery: Patent. Left posterior cerebral artery: Patent. Left vertebral artery: Patent. Basilar artery: Patent. Other: Moderate to severe atherosclerosis bilateral cavernous ICA without significant stenosis. Patent dural venous sinuses. IMPRESSION: 1. No aneurysm or large vessel occlusion. Electronically signed by: Mily Morales M.D. 03/23/24 23:16 PM Neck CTA 03/23/24 21:20 Exam(s): CTA NECK With Contrast IV Amt: 116ml EXAM: CT Angiography Neck With Intravenous Contrast CLINICAL HISTORY: Reason for exam: neuro deficit, acute stroke suspected. TECHNIQUE: Routine carotid CT angiography protocol was performed with intravenous contrast. NASCET criteria using the distal ICAs for comparison were used for evaluation of stenoses. CTDI is 12.58 mGy and DLP is 506.71 mGy-cm. Automated exposure control was utilized for the study. A dose lowering technique was utilized adhering to the principles of ALARA. MIP reconstructed images were created and reviewed. CONTRAST: Patient received 116ml of IV contrast COMPARISON: None. FINDINGS: Right common carotid artery: Patent. Atherosclerotic calcification with 50% stenosis. Right internal carotid artery: Patent. Atherosclerosis with dense, eccentric plaque, and probable 50-60% stenosis. Right vertebral artery: Patent. Slight right dominant system. Left common carotid artery: Patent. Left internal carotid artery: Patent. Left vertebral artery: Patent. Other: Emphysema. IMPRESSION: 1. Moderate RIGHT ICA stenosis, 50-60%. 2. No other dissection/occlusion/significant stenosis. CAROTID STENOSIS REFERENCE USING NASCET CRITERIA: % ICA stenosis = (1 - narrowest ICA diameter/diameter of distal cervical ICA) x 100. Mild - <50% stenosis. Moderate - 50-69% stenosis. Severe - 70-94% stenosis. Near occlusion - 95-99% stenosis. Occluded - 100% stenosis. Electronically signed by: Mily Morales M.D. 03/23/24 23:30 PM Discharge Plan Visit Data Chief Complaint: Abnormal Labs/Diagnostic Testing Stated Complaint: Abnormal Report from RAD ED Provider: Kaleb Felton Forms Stand Alone Forms: My [facility] Prescriptions Prescriptions: No Action memantine 10 mg tablet 10 mg PO DAILY Qty: 60 2RF oxycodone 5 mg tablet 5 mg PO DAILY glimepiride 2 mg tablet 2 mg PO QAM Rx Instructions: breakfast glimepiride 4 mg tablet 4 mg PO PM leflunomide 20 mg tablet 20 mg PO DAILY prednisone 5 mg tablet 5 mg PO DAILY sertraline 25 mg tablet 25 mg PO DAILY cholecalciferol (vitamin D3) 25 mcg (1,000 unit) capsule 25 mcg PO DAILY acetaminophen 325 mg capsule 650 mg PO Q6 PRN (Reason: Fever Or Pain) Rx Instructions: Take 2 tablets by mouth every 6 hours as needed for temp greater [id number] orally four times daily PRN; loperamide [Anti-Diarrheal (loperamide)] 2 mg capsule 2 mg PO Q4H PRN (Reason: Diarrhea) Rx Instructions: administer after each loose stool until symptoms controlled; do not exceed 8 mg per 24 hrs lorazepam 0.5 mg tablet 0.25 mg PO Q4H PRN (Reason: Anxiety) Eliquis 5 mg Tablet 5 mg PO BID Qty: 10 0RF tamsulosin 0.4 mg capsule 0.4 mg PO DAILY Qty: 30 2RF Januvia 100 mg tablet 100 mg PO DAILY 30 Days Qty: 30 0RF cyanocobalamin (vitamin B-12) [Vitamin B-12] 1,000 mcg Tablet 1,000 mcg PO DAILY 30 Days Qty: 30 0RF folic acid 1 mg tablet 1 mg PO DAILY 30 Days Qty: 30 2RF Centrum Silver Men 300-600-300 mcg tablet 1 tab PO DAILY 30 Days Qty: 30 0RF Referrals Referrals: Gael Rogers MD [Primary Care Provider] -
[2024-03-23 22:04] LABS: iSTAT Creatinine 1.6 mg/dl (0.6-1.3); iSTAT Hemoglobin 12.9 g/dl (14.0-18.0); iSTAT Ionized Calcium 1.03 mmol/l (1.12-1.32); iSTAT Potassium 4.4 mmol/L (3.3-5.0)
[2024-03-23 22:13] LABS: Basophils # (auto) 0.06 K/uL (0.00-0.20); Basophils % (auto) 0.8 %; Eosinophils # (auto) 0.16 K/uL (0.00-0.50); Eosinophils % (auto) 2.2 %; Hematocrit (blood only) 36.9 % (42.0-52.0); Immature Granulocytes # (auto) 0.01 K/uL (0.01-0.20); Immature Granulocytes % (auto) 0.1 %; Lymphocytes # (auto) 1.01 K/uL (1.20-3.40); Lymphocytes % (auto) 14.1 %; Mean Corpuscular Hemoglobin 29.3 pg (25.0-34.0); Mean Corpuscular Hgb Conc 32.5 g/dL (32.0-36.0); Mean Platelet Volume 11.2 fL (9.4-12.4); Monocytes # (auto) 0.62 K/uL (0.11-0.59); Monocytes % (auto) 8.7 %; Neutrophils # (auto) 5.29 K/uL (1.40-6.50); Neutrophils % (auto) 74.1 %; Platelet Count 156 K/uL (130-400); RDW Coefficient of Variation 16.6 % (11.5-14.5); RDW Standard Deviation 54.6 fL (36.4-46.3); White Blood Count 7.15 K/ul (4.8-10.8)
[2024-03-23] MEDS: SODIUM CHLORIDE 0.9% 250 ML IV ONE (22:14)
[2024-03-23] MEDS: OPTIRAY 320 125ml IV ONE (22:29)
[2024-03-23 22:31] LABS: Albumin Globulin Ratio 1.5 (0.9-2); Albumin Level 4.3 gm/dl (3.4-5.0); BUN Creatinine Ratio 13.8 (10-20); Bilirubin,Total 0.4 mg/dl (0.2-1.0); Calcium 9.6 mg/dl (8.6-10.3); Creatinine Clr Calc Pharmacy 40.9 ml/min; Est GFR (African American) 52.7 ml/min; Est GFR (Non-African American) 45.5 ml/min; Globulin 2.9 gm/dl (2.5-4.0); Magnesium 1.9 mg/dl (1.7-2.4); Potassium 4.2 mmol/L (3.5-5.1); Total Protein 7.2 gm/dl (6.0-8.3)
[2024-03-23 22:38] LABS: Troponin I High Sensitivity 14.5 pg/ml (0-20)
--- NOTE | 2024-03-23 22:53 | CT Scan Report ---
Exam(s): CT HEAD Without Contrast EXAM: CT Head Without Intravenous Contrast CLINICAL HISTORY: Reason for exam: neuro deficit, acute stroke suspected. TECHNIQUE: Axial computed tomography images of the head/brain without intravenous contrast. CTDI is 30.84 mGy and DLP is 576.02 mGy-cm. Automated exposure control was utilized for the study. A dose lowering technique was utilized adhering to the principles of ALARA. COMPARISON: MRI brain done earlier. FINDINGS: Brain: No mass effect or acute infarct. No acute hemorrhage. Mild atrophy and chronic white matter disease. Acute infarcts in the left periventricular white matter are better seen on MRI. Ventricles: No hydrocephalus or midline shift. Bones/joints: No acute finding. Soft tissues: No scalp hematoma. Visualized Sinuses: Clear. Mastoid air cells: No mastoid effusion. IMPRESSION: 1. Mild age-related findings. 2. Acute infarcts in the left periventricular white matter are better seen on MRI. Electronically signed by: Mily Morales M.D. 03/23/24 22:51 PM
--- NOTE | 2024-03-23 23:17 | CT Scan Report ---
Exam(s): CTA HEAD With Contrast IV Amt: 116ml EXAM: CT Angiography Head With Intravenous Contrast CLINICAL HISTORY: Reason for exam: neuro deficit, acute stroke suspected. TECHNIQUE: Axial computed tomographic angiography images of the head with intravenous contrast. CTDI is 12.58 mGy and DLP is 506.71 mGy-cm. Automated exposure control was utilized for the study. A dose lowering technique was utilized adhering to the principles of ALARA. IV contrast is given, 116 ML. Venous contamination. MIP reconstructed images were created and reviewed. CONTRAST: Patient received 116ml of IV contrast COMPARISON: Head CT done earlier. FINDINGS: Right internal carotid artery: Patent. Right anterior cerebral artery: Patent. Right middle cerebral artery: Patent. Right posterior cerebral artery: Patent. Right vertebral artery: Patent. Left internal carotid artery: Patent. Left anterior cerebral artery: Patent. Left middle cerebral artery: Patent. Left posterior cerebral artery: Patent. Left vertebral artery: Patent. Basilar artery: Patent. Other: Moderate to severe atherosclerosis bilateral cavernous ICA without significant stenosis. Patent dural venous sinuses. IMPRESSION: 1. No aneurysm or large vessel occlusion. Electronically signed by: Mily Morales M.D. 03/23/24 23:16 PM
[2024-03-23 23:25] LABS: Partial Thromboplastin Time 28 Seconds (21-31); Prothrombin Time 10.7 Seconds (9.0-12.0)
--- NOTE | 2024-03-23 23:31 | CT Scan Report ---
Exam(s): CTA NECK With Contrast IV Amt: 116ml EXAM: CT Angiography Neck With Intravenous Contrast CLINICAL HISTORY: Reason for exam: neuro deficit, acute stroke suspected. TECHNIQUE: Routine carotid CT angiography protocol was performed with intravenous contrast. NASCET criteria using the distal ICAs for comparison were used for evaluation of stenoses. CTDI is 12.58 mGy and DLP is 506.71 mGy-cm. Automated exposure control was utilized for the study. A dose lowering technique was utilized adhering to the principles of ALARA. MIP reconstructed images were created and reviewed. CONTRAST: Patient received 116ml of IV contrast COMPARISON: None. FINDINGS: Right common carotid artery: Patent. Atherosclerotic calcification with 50% stenosis. Right internal carotid artery: Patent. Atherosclerosis with dense, eccentric plaque, and probable 50-60% stenosis. Right vertebral artery: Patent. Slight right dominant system. Left common carotid artery: Patent. Left internal carotid artery: Patent. Left vertebral artery: Patent. Other: Emphysema. IMPRESSION: 1. Moderate RIGHT ICA stenosis, 50-60%. 2. No other dissection/occlusion/significant stenosis. CAROTID STENOSIS REFERENCE USING NASCET CRITERIA: % ICA stenosis = (1 - narrowest ICA diameter/diameter of distal cervical ICA) x 100. Mild - <50% stenosis. Moderate - 50-69% stenosis. Severe - 70-94% stenosis. Near occlusion - 95-99% stenosis. Occluded - 100% stenosis. Electronically signed by: Mily Morales M.D. 03/23/24 23:30 PM
[2024-03-24] MEDS: ASPIRIN CHEW 324 MG PO STA (01:33)
--- NOTE | 2024-03-24 02:11 | History & Physical Report ---
Date of Service March 24, 2024 Assessment & Plan (1) Acute CVA (cerebrovascular accident): Plan: 78 M with PMH of DM2, RA, vascular dementia, BPH, anxiety, depression, paroxysmal A-fib referred to ER by PCP following discovery of acute L periventricular deep white matter infarct. Now stable, awaiting neurologic evaluation, recommendations. Acute CVA/R Hemiparesis/Ataxia -L periventricular deep white matter infarct, as above discovered on outpatient MRI brain after presenting for ataxic gait, R UE/LE hemiparesis. -Despite acute finding on MRI, presenting hemiparesis, ataxia have been present since January. True timing of CVA therefore unclear. -S/p ASA 324 mg x 1 on admission. -Patient stable, without apparent neurological deficits. Fully oriented x 4 on exam. -BP well-controlled without antihypertensive therapy. Passed bedside swallow eval. * Admit to PCU consider downgrading to less acute unit, given patient's benign presentation * Aspirin 81 mg daily in a.m * Fall precautions * Neurology consult ordered * PT/OT eval ordered appreciate recs Diabetes Mellitus, Type II -Chronic. On glimepiride 2 mg/4 mg (qAM/qPM), sitagliptin 100 mg daily. -Most recent HgbA1c 6.9% 9 days ago. * Held oral home meds on admission * SSI per protocol (range 100-140, CF = 40, CR = 20) Bilateral Rheumatoid Arthritis -Managed on leflunomide 20 mg daily, oxycodone 5 mg daily, Tylenol 650 mg every 6h as needed. * Tylenol 1000 mg every 8 hours, oxycodone 5 mg daily, both as needed for pain * Leflunomide not available in formulary asked patient's to bring home leflunomide to be added to MAR Paroxysmal Atrial Fibrillation -On Eliquis 5 mg twice daily. No rate control agent. * Continue home Eliquis Anxiety/Depression -On sertraline 25 mg daily. Also takes as needed lorazepam 0.25 mg every 4 hours as needed (anxiety). BPH -On tamsulosin 0.4 mg daily. * Continue home tamsulosin Vascular Dementia -Chronic, stable, with occasional moments of confusion. * Continue to monitor Code: DNR/DNI Dispo: PCU FEN/GI: Heart healthy DVT Prophylaxis: Home Eliquis 5 mg twice daily PT/OT: Yes Consults: Neurology Case Management: Yes (2) Ataxia: (3) Right hemiparesis: (4) Diabetes mellitus: (5) Weight loss: (6) Paroxysmal A-fib: (7) Arthritis of both knees: (8) Depression with anxiety: (9) Dementia: History of Present Illness Primary Care Provider: Gael Rogers MD Danial is a 78-year-old man with past medical history of DM2, rheumatoid arthritis, depression, and anxiety, who were referred to the ER after presenting for an outpatient MRI. [facility] lives [facility] and vascular dementia with occasional cognitive deficits at baseline, since January, physical therapy at the [facility] had noticed worsening hemiparesis of the right upper and lower extremity. PT recommended that the patient follow-up with PCP outside of [facility] for evaluation of ataxic gait. PCP then ordered MRI for further evaluation an acute infarct of the left periventricular deep white matter without hemorrhage was discovered PCP then contacted patient and his , directing them to the ER for acute management. In the ER, subsequent CTA neck revealed moderate stenosis (50-60%) of right ICA. CTA head was negative for aneurysm or large vessel occlusion. He received a 250 mL bolus of NShospitalist service was then consulted for admission. *HPI above was provided by , Bella, who was present at bedside at the time of admission. Allergies Allergy/AdvReac Type Severity Reaction Status Date / Time No Known Allergies Allergy Verified 03/24/24 01:17 Home Medications Medication Instructions Recorded Confirmed Type cyanocobalamin (vitamin B-12) 1,000 mcg PO DAILY 30 days #30 tabs 11/01/21 03/25/24 Rx 1,000 mcg tablet (Vitamin B-12) folic acid 1 mg tablet 1 mg PO DAILY 30 days #30 tabs 11/01/21 03/25/24 Rx uyiolmgs-ts-zpsxw 300 mcg-K 60 1 tab PO DAILY 30 days #30 tabs 11/01/21 03/25/24 Rx mcg-lycop 600 mcg-lutein 300 mcg tablet (Centrum Silver Men) sitagliptin phosphate 100 mg 100 mg PO DAILY 30 days #30 tabs 11/01/21 03/25/24 Rx tablet (Januvia) tamsulosin 0.4 mg capsule 0.4 mg PO DAILY #30 caps 11/01/21 03/25/24 Rx memantine 10 mg tablet 10 mg PO DAILY #60 tabs 12/19/21 03/25/24 Rx apixaban 5 mg tablet (Eliquis) 5 mg PO BID #10 tabs 02/19/22 03/25/24 Rx acetaminophen 325 mg capsule 650 mg PO Q6 PRN Fever Or Pain 03/16/24 03/25/24 History cholecalciferol (vitamin D3) 25 25 mcg PO DAILY 03/16/24 03/25/24 History mcg (1,000 unit) capsule glimepiride 2 mg tablet 2 mg PO QAM Diabetes 03/16/24 03/25/24 History glimepiride 4 mg tablet 4 mg PO PM 03/16/24 03/25/24 History leflunomide 20 mg tablet 20 mg PO DAILY 03/16/24 03/25/24 History lorazepam 0.5 mg tablet 0.25 mg PO Q4H PRN Anxiety 03/16/24 03/25/24 History oxycodone 5 mg tablet 5 mg PO DAILY 03/16/24 03/25/24 History prednisone 5 mg tablet 5 mg PO DAILY 03/16/24 03/25/24 History sertraline 25 mg tablet 25 mg PO DAILY 03/16/24 03/25/24 History aspirin 81 mg capsule 81 mg PO DAILY #30 caps 03/24/24 03/25/24 Rx atorvastatin 80 mg tablet 80 mg PO DAILY #30 tabs 03/24/24 03/25/24 Rx Past Med/Surg History Problem List (Updated 03/24/24 @ 10:09 by Dajuan Nick MD) Carotid stenosis, right Right hemiparesis Acute CVA (cerebrovascular accident) Ataxia Loss of protective sensation of skin of foot Diabetic peripheral neuropathy associated with type 2 diabetes mellitus Osteoporosis Paroxysmal A-fib Hyponatremia Dementia (Acute) Hypoxia (Acute) Anemia (Acute) Emotional lability Weight loss Frequent falls (Acute) Ambulatory dysfunction (Acute) Thrombocytopenia (Acute) Elevated LFTs Vitamin D deficiency Rheumatoid arthritis involving multiple sites with positive rheumatoid factor Tinnitus, bilateral Sensorineural hearing loss of both ears Arthritis of both knees Chronic obstructive pulmonary disease (Acute) Depression with anxiety (Acute) Diabetes mellitus (Acute) Hypercholesterolemia (Acute) CKD (chronic kidney disease) Tubular adenoma of colon (Acute) Hypertension (Acute) History of alcoholism (Acute) Medical History Closed fracture of left hip Acute hyperactive delirium due to multiple etiologies Acute encephalopathy Acute kidney injury superimposed on chronic kidney disease COVID-19 Internal hemorrhoids Diverticulitis Surgical History History of appendectomy Family History Mother Cancer Denies family history of Ovarian cancer Prostate cancer Myocardial infarction Breast cancer Colorectal cancer Social History Smoking Status: Former smoker Age Started Using Tobacco: 14; Age Quit Using Tobacco: 59; Second Hand Exposure: No; Do You Dip or Chew Tobacco: No; Hx Alcohol Use: No (He was a drinker in the past, but I cannot gather specific details from him) Hx Substance Use: No Preferred Language: Ukrainian Communication Ability: Impaired Visual Impairment: No Limitations Hearing Ability: Use of Hearing Aid Medical Technologist Clinical Required: No Beliefs That Will Affect Care: None marital status: Current Living Situation: Personal Care Facility current occupational status: retired 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 Feels Safe at Home: Yes Childhood Exposure to Second-Hand Smoke: No Dental Care, Regularly: Yes Physical Activity Frequency: Does not Exercise Seatbelt Use: always Sunscreen Use: Yes Assistive Devices: Walker and Wheelchair Review of Systems Review of Systems: All systems reviewed & are unremarkable except as noted in HPI & below Physical Exam Physical Exam: General: no acute distress, speaking in full sentences Resp: good inspiratory effort, no labored breathing HEENT: conjunctivae appear clear, no audible congestion, no swelling noted face or lips Skin: skin appears dry, normal coloration, no rash visible on exposed skin areas Neuro: Lower Alert and oriented x3, no focal deficits appreciated Psych: euthymic affect, pleasant and interactive, logical thought process Results & Data Results & Data Vital Signs (Past 12 Hours) Vital Signs Temp Pulse Resp BP Pulse Ox O2 Del Method 03/23/24 21:34 92 H 03/23/24 21:11 36.9 C 64 20 141/77 H 96 Room Air Supervising Physician Co-Signing Physician Notes Attending addendum: I have physically seen this patient, have supervised the medical residents activities, and agree with the H&P unless as otherwise noted. Assessment and Plan: Acute CVA/right hemiparesis/ataxia- Per family's history, symptoms have been present since January, and very gradually worsening Status post aspirin 324 mg in the ED MRI brain with left periventricular deep white matter infarct. The patient will be admitted to telemetry for serial cardiac enzymes, serial EKG's, cardiac rhythm monitoring and a 2-D echocardiogram with Dopplers. Stroke without tPA order set Consult PT/OT/speech/neurology Diabetes mellitus- Hold glimepiride and Sitagliptin Most recent A1c 6.99 days ago Placed on Accu-Cheks with NovoLog SSI Paroxysmal atrial fibrillation- Continue Eliquis Rate controlled Rheumatoid arthritis/pain control- Graded Tylenol, oxycodone as noted CODE STATUS: DNR/DNI Resident Activity Tracking Resident Involvement: Resident Care Provided Care Provided: Adult Hospital Medicine (4) Diabetes mellitus Chronic kidney disease stage: stage 3 (moderate) Chronic kidney disease stage 3 subtype: unspecified whether 3a or 3b Diabetes mellitus complication detail: with chronic kidney disease Diabetes mellitus complication status: with kidney complications Diabetes mellitus jail insulin use: without intermediate school teacher use Diabetes mellitus type: type 2 Qualified Code(s): E11.22 - Type 2 diabetes mellitus with diabetic chronic kidney disease; N18.30 - Chronic kidney disease, stage 3 unspecified (9) Dementia Dementia behavioral disturbance: without behavioral disturbance Dementia type: unspecified type Qualified Code(s): F03.90 - Unspecified dementia without behavioral disturbance
[2024-03-24 02:53] LABS: Appearance Urine Clear (Clear); Bilirubin Urine Negative (Negative); Blood Urine Negative (Negative); Color Urine Yellow; Glucose Urine UA Negative (Negative); Ketones Urine Negative (Negative); Leukocyte Esterase Urine Negative (Negative); Nitrite Urine Negative (Negative); Protein Urine Negative (Negative); Specific Gravity Urine > 1.045 (1.000-1.030); Urobilinogen Urine Negative (Negative)
[2024-03-24 05:11] LABS: BUN Creatinine Ratio 14.4 (10-20); Calcium 9.5 mg/dl (8.6-10.3); Creatinine Clr Calc Pharmacy 44.9 ml/min; Est GFR (Non-African American) 50.9 ml/min
[2024-03-24] MEDS ORDERED: oxyCODONE HCL IR 5 MG TAB (IMMEDIATE RELEASE) PO PRN (05:17)
[2024-03-24] MEDS ORDERED: LORazepam 0.5 MG TAB PO PRN (05:17)
[2024-03-24] MEDS ORDERED: CARBOHYDRATES FOR HYPOGLYCEMIA PO PRN (05:51)
[2024-03-24] MEDS ORDERED: GLUCOSE 10 TAB/TUBE PO PRN (05:51)
[2024-03-24] MEDS ORDERED: DEXTROSE 50% 50 ML SYRINGE IV PRN (05:51)
[2024-03-24] MEDS ORDERED: GLUCOSE 40% GEL 15 GM TUBE PO PRN (05:51)
[2024-03-24] MEDS ORDERED: GLUCAGON FOR INJ 1 MG VIAL SQ PRN (05:51)
[2024-03-24] MEDS ORDERED: ACETAMINOPHEN 500 MG TAB PO PRN (06:09)
--- NOTE | 2024-03-24 07:26 | Hospitalist Progress Note ---
Date of Service March 24, 2024 Assessment & Plan (1) Acute CVA (cerebrovascular accident): Plan: 1. Acute CVA/R Hemiparesis/Ataxia -Outpatient MRI found periventricular deep white matter infarct along with symptoms of ataxic gait, R UE/LE hemiparesis. Patient stable, fully oriented x 4 on exam, R UE weakness and decreased LE coordination. Passed bedside swallow eval. Pt started on aspirin 324mg. Per neurology- Embolic (failed Eliquis) vs ischemic -awaiting echocardiogram for clots Per neuro- if clots neg=continue asa, if pos=Eliquis failure Pt to be admited to PCU -continue Aspirin 81 mg daily in a.m -Fall precautions -PT/OT eval ordered recommend DC [facility] with home health PT to resume Diabetes Mellitus, Type II -Chronic. On glimepiride 2 mg/4 mg BID, sitagliptin 100 mg daily. Most recent HgbA1c 6.9% 9 days ago. Oral home meds on hold - SSI per protocol (range 100-140, CF = 40, CR = 20) Bilateral Rheumatoid Arthritis Managed on leflunomide 20 mg daily, oxycodone 5 mg daily. Tylenol 650 mg every 6h as needed. -Tylenol 1000 mg q8h, oxycodone 5 mg daily, both as needed for pain * Leflunomide not available in formulary asked patient's to bring home leflunomide to be added to MAR Paroxysmal Atrial Fibrillation -On Eliquis 5 mg twice daily. No rate control agent. * Continue home Eliquis Anxiety/Depression -On sertraline 25 mg daily. Also takes as needed lorazepam 0.25 mg every 4 hours as needed (anxiety). BPH -On tamsulosin 0.4 mg daily. * Continue home tamsulosin Vascular Dementia -Chronic, stable, with occasional moments of confusion. * Continue to monitor Code: DNR/DNI Dispo: PCU FEN/GI: Heart healthy DVT Prophylaxis: Home Eliquis 5 mg twice daily PT/OT: Yes Consults: Neurology Case Management: Yes (2) Ataxia: (3) Right hemiparesis: (4) Diabetes mellitus: (5) Weight loss: (6) Paroxysmal A-fib: (7) Arthritis of both knees: (8) Depression with anxiety: (9) Dementia: Admission and Anticipated Discharge Date Admission Date: March 24, 2024 Subjective Pt is a 78 yo male with PMedHx of DM2, RA, vascular dementia, BPH, anxiety, depression, paroxysmal A-fib who presented to ED for recent falls and findings from a recent outpatient MRI for concern of CVA. Pt's only complaint is for eye strain when trying to watch television. Pt's is present and reports pt has had progressive ataxia and 5 falls in the last few weeks. He works with PT on a home care basis. Physical Exam Physical Exam: General: no acute distress, speaking in full sentences Resp: Lungs clear to ausculatation, good inspiratory effort, no labored breathing HEENT: Significantly hard of hearing without hearing aides. Conjunctivae appear clear, no audible congestion, no swelling noted face or lips GI: Non tender, no distended, normal bowel sounds Skin: skin appears dry, normal coloration, no rash visible on exposed skin areas, No LE edema Neuro: Alert and oriented x3, R LE coordination deficits, R UE weakness. Psych: euthymic affect, pleasant and interactive Results & Data Results & Data Vital Signs (Past 12 Hours) Vital Signs Temp Pulse Resp BP Pulse Ox O2 Del Method 03/24/24 03:32 86 20 144/71 H 95 Room Air 03/24/24 03:09 93 03/24/24 02:26 84 03/24/24 02:11 84 12 96 03/24/24 01:06 81 19 141/74 H 92 03/24/24 00:03 83 13 171/74 H 98 03/23/24 23:45 75 14 148/99 H 97 03/23/24 23:03 87 19 136/76 94 03/23/24 22:49 86 18 129/80 95 03/23/24 22:01 181/97 H 03/23/24 21:34 92 H 03/23/24 21:11 36.9 C 64 20 141/77 H 96 Room Air Laboratory Results 03/24/24 03/24/24 03/24/24 Range/Units 09:02 06:08 04:16 WBC 6.76 (4.8-10.8) K/ul RBC 4.30 L (4.70-6.10) M/uL Hgb 12.4 L (14.0-18.0) g/dl POC Hgb (14.0-18.0) g/dl Hct 39.0 L (42.0-52.0) % POC Hct (42-52) % MCV 90.7 (80.0-100.0) fL MCH 28.8 (25.0-34.0) pg MCHC 31.8 L (32.0-36.0) g/dL RDW Std Deviation 55.6 H (36.4-46.3) fL RDW Coeff of Sherrell 16.8 H (11.5-14.5) % Plt Count 146 (130-400) K/uL MPV 10.6 (9.4-12.4) fL Immature Gran % (Auto) % Neut % (Auto) % Lymph % (Auto) % Toole % (Auto) % Eos % (Auto) % Baso % (Auto) % Neut # (Auto) (1.40-6.50) K/uL Lymph # (Auto) (1.20-3.40) K/uL Toole # (Auto) (0.11-0.59) K/uL Eos # (Auto) (0.00-0.50) K/uL Baso # (Auto) (0.00-0.20) K/uL Immature Gran # (Auto) (0.01-0.20) K/uL PT (9.0-12.0) Seconds INR (0.9-1.1) APTT (21-31) Seconds PTT Ratio POC Sodium (135-144) mmol/L Sodium 140 (136-145) mmol/L POC Potassium (3.3-5.0) mmol/L Potassium 4.0 (3.5-5.1) mmol/L POC Chloride (101-112) mmol/L Chloride 104 (98-107) mmol/L Carbon Dioxide 28 (21-32) mmol/L POC Total CO2 (24-31) mmol/L Anion Gap 8 (3-11) POC Anion Gap (16-25) mmol/L POC BUN (7-18) mg/dl BUN 19 (6-23) mg/dl Creatinine 1.32 (0.6-1.4) mg/dl POC Creatinine (0.6-1.3) mg/dl Est Cr Clr Drug Dosing 44.9 ml/min Est GFR ( Amer) 59.0 ml/min Est GFR (Non-Af Amer) 50.9 ml/min BUN/Creatinine Ratio 14.4 (10-20) Glucose 81 (70-99(Fasting)) mg/dl POC Glucose 108 H (70-99) mg/dl POC Glucose (other) (70-99) mg/dl Calcium 9.5 (8.6-10.3) mg/dl POC Ioniz Calcium Abhilash (1.12-1.32) mmol/l Magnesium (1.7-2.4) mg/dl Total Bilirubin (0.2-1.0) mg/dl AST (13-39) U/L ALT (7-52) U/L Alkaline Phosphatase (34-104) U/L Troponin I High Sens (0-20) pg/ml Total Protein (6.0-8.3) gm/dl Albumin (3.4-5.0) gm/dl Globulin (2.5-4.0) gm/dl Albumin/Globulin Ratio (0.9-2) Triglycerides 325 H (0-150) mg/dl Cholesterol 275 H (0-200) mg/dl LDL Cholesterol, Calc 145 mg/dl VLDL Cholesterol, Calc 65 H (0-30) mg/dl HDL Cholesterol 65 mg/dl Cholesterol/HDL Ratio 4.2 (0-5) Urine Color Urine Appearance (Clear) Urine pH (4.5-7.5) Ur Specific Minter (1.000-1.030) Urine Protein (Negative) Urine Glucose (UA) (Negative) Urine Ketones (Negative) Urine Blood (Negative) Urine Nitrite (Negative) Urine Bilirubin (Negative) Urine Urobilinogen (Negative) Ur Leukocyte Esterase (Negative) 03/24/24 03/23/24 03/23/24 Range/Units 02:00 21:52 21:41 WBC (4.8-10.8) K/ul RBC (4.70-6.10) M/uL Hgb (14.0-18.0) g/dl POC Hgb 12.9 L (14.0-18.0) g/dl Hct (42.0-52.0) % POC Hct 38 L (42-52) % MCV (80.0-100.0) fL MCH (25.0-34.0) pg MCHC (32.0-36.0) g/dL RDW Std Deviation (36.4-46.3) fL RDW Coeff of Sherrell (11.5-14.5) % Plt Count (130-400) K/uL MPV (9.4-12.4) fL Immature Gran % (Auto) % Neut % (Auto) % Lymph % (Auto) % Toole % (Auto) % Eos % (Auto) % Baso % (Auto) % Neut # (Auto) (1.40-6.50) K/uL Lymph # (Auto) (1.20-3.40) K/uL Toole # (Auto) (0.11-0.59) K/uL Eos # (Auto) (0.00-0.50) K/uL Baso # (Auto) (0.00-0.20) K/uL Immature Gran # (Auto) (0.01-0.20) K/uL PT (9.0-12.0) Seconds INR (0.9-1.1) APTT (21-31) Seconds PTT Ratio POC Sodium 138 (135-144) mmol/L Sodium (136-145) mmol/L POC Potassium 4.4 (3.3-5.0) mmol/L Potassium (3.5-5.1) mmol/L POC Chloride 103 (101-112) mmol/L Chloride (98-107) mmol/L Carbon Dioxide (21-32) mmol/L POC Total CO2 27 (24-31) mmol/L Anion Gap (3-11) POC Anion Gap 14.0 L (16-25) mmol/L POC BUN 20 H (7-18) mg/dl BUN (6-23) mg/dl Creatinine (0.6-1.4) mg/dl POC Creatinine 1.6 H (0.6-1.3) mg/dl Est Cr Clr Drug Dosing ml/min Est GFR ( Amer) ml/min Est GFR (Non-Af Amer) ml/min BUN/Creatinine Ratio (10-20) Glucose (70-99(Fasting)) mg/dl POC Glucose 198 H (70-99) mg/dl POC Glucose (other) 219 H (70-99) mg/dl Calcium (8.6-10.3) mg/dl POC Ioniz Calcium Abhilash 1.03 L (1.12-1.32) mmol/l Magnesium (1.7-2.4) mg/dl Total Bilirubin (0.2-1.0) mg/dl AST (13-39) U/L ALT (7-52) U/L Alkaline Phosphatase (34-104) U/L Troponin I High Sens (0-20) pg/ml Total Protein (6.0-8.3) gm/dl Albumin (3.4-5.0) gm/dl Globulin (2.5-4.0) gm/dl Albumin/Globulin Ratio (0.9-2) Triglycerides (0-150) mg/dl Cholesterol (0-200) mg/dl LDL Cholesterol, Calc mg/dl VLDL Cholesterol, Calc (0-30) mg/dl HDL Cholesterol mg/dl Cholesterol/HDL Ratio (0-5) Urine Color Yellow Urine Appearance Clear (Clear) Urine pH 6.0 (4.5-7.5) Ur Specific Minter > 1.045 H (1.000-1.030) Urine Protein Negative (Negative) Urine Glucose (UA) Negative (Negative) Urine Ketones Negative (Negative) Urine Blood Negative (Negative) Urine Nitrite Negative (Negative) Urine Bilirubin Negative (Negative) Urine Urobilinogen Negative (Negative) Ur Leukocyte Esterase Negative (Negative) 03/23/24 Range/Units 21:40 WBC 7.15 (4.8-10.8) K/ul RBC 4.10 L (4.70-6.10) M/uL Hgb 12.0 L (14.0-18.0) g/dl POC Hgb (14.0-18.0) g/dl Hct 36.9 L (42.0-52.0) % POC Hct (42-52) % MCV 90.0 (80.0-100.0) fL MCH 29.3 (25.0-34.0) pg MCHC 32.5 (32.0-36.0) g/dL RDW Std Deviation 54.6 H (36.4-46.3) fL RDW Coeff of Sherrell 16.6 H (11.5-14.5) % Plt Count 156 (130-400) K/uL MPV 11.2 (9.4-12.4) fL Immature Gran % (Auto) 0.1 % Neut % (Auto) 74.1 % Lymph % (Auto) 14.1 % Toole % (Auto) 8.7 % Eos % (Auto) 2.2 % Baso % (Auto) 0.8 % Neut # (Auto) 5.29 (1.40-6.50) K/uL Lymph # (Auto) 1.01 L (1.20-3.40) K/uL Toole # (Auto) 0.62 H (0.11-0.59) K/uL Eos # (Auto) 0.16 (0.00-0.50) K/uL Baso # (Auto) 0.06 (0.00-0.20) K/uL Immature Gran # (Auto) 0.01 (0.01-0.20) K/uL PT 10.7 (9.0-12.0) Seconds INR 1.0 (0.9-1.1) APTT 28 (21-31) Seconds PTT Ratio 1.0 POC Sodium (135-144) mmol/L Sodium 138 (136-145) mmol/L POC Potassium (3.3-5.0) mmol/L Potassium 4.2 (3.5-5.1) mmol/L POC Chloride (101-112) mmol/L Chloride 102 (98-107) mmol/L Carbon Dioxide 27 (21-32) mmol/L POC Total CO2 (24-31) mmol/L Anion Gap 9 (3-11) POC Anion Gap (16-25) mmol/L POC BUN (7-18) mg/dl BUN 20 (6-23) mg/dl Creatinine 1.45 H (0.6-1.4) mg/dl POC Creatinine (0.6-1.3) mg/dl Est Cr Clr Drug Dosing 40.9 ml/min Est GFR ( Amer) 52.7 ml/min Est GFR (Non-Af Amer) 45.5 ml/min BUN/Creatinine Ratio 13.8 (10-20) Glucose 226 H (70-99(Fasting)) mg/dl POC Glucose (70-99) mg/dl POC Glucose (other) (70-99) mg/dl Calcium 9.6 (8.6-10.3) mg/dl POC Ioniz Calcium Abhilash (1.12-1.32) mmol/l Magnesium 1.9 (1.7-2.4) mg/dl Total Bilirubin 0.4 (0.2-1.0) mg/dl AST 28 (13-39) U/L ALT 49 (7-52) U/L Alkaline Phosphatase 66 (34-104) U/L Troponin I High Sens 14.5 (0-20) pg/ml Total Protein 7.2 (6.0-8.3) gm/dl Albumin 4.3 (3.4-5.0) gm/dl Globulin 2.9 (2.5-4.0) gm/dl Albumin/Globulin Ratio 1.5 (0.9-2) Triglycerides (0-150) mg/dl Cholesterol (0-200) mg/dl LDL Cholesterol, Calc mg/dl VLDL Cholesterol, Calc (0-30) mg/dl HDL Cholesterol mg/dl Cholesterol/HDL Ratio (0-5) Urine Color Urine Appearance (Clear) Urine pH (4.5-7.5) Ur Specific Minter (1.000-1.030) Urine Protein (Negative) Urine Glucose (UA) (Negative) Urine Ketones (Negative) Urine Blood (Negative) Urine Nitrite (Negative) Urine Bilirubin (Negative) Urine Urobilinogen (Negative) Ur Leukocyte Esterase (Negative) Diagnostic Findings Head CT 03/23/24 21:20 Exam(s): CT HEAD Without Contrast EXAM: CT Head Without Intravenous Contrast CLINICAL HISTORY: Reason for exam: neuro deficit, acute stroke suspected. TECHNIQUE: Axial computed tomography images of the head/brain without intravenous contrast. CTDI is 30.84 mGy and DLP is 576.02 mGy-cm. Automated exposure control was utilized for the study. A dose lowering technique was utilized adhering to the principles of ALARA. COMPARISON: MRI brain done earlier. FINDINGS: Brain: No mass effect or acute infarct. No acute hemorrhage. Mild atrophy and chronic white matter disease. Acute infarcts in the left periventricular white matter are better seen on MRI. Ventricles: No hydrocephalus or midline shift. Bones/joints: No acute finding. Soft tissues: No scalp hematoma. Visualized Sinuses: Clear. Mastoid air cells: No mastoid effusion. IMPRESSION: 1. Mild age-related findings. 2. Acute infarcts in the left periventricular white matter are better seen on MRI. Electronically signed by: Mily Morales M.D. 03/23/24 22:51 PM Head CTA 03/23/24 21:20 Exam(s): CTA HEAD With Contrast IV Amt: 116ml EXAM: CT Angiography Head With Intravenous Contrast CLINICAL HISTORY: Reason for exam: neuro deficit, acute stroke suspected. TECHNIQUE: Axial computed tomographic angiography images of the head with intravenous contrast. CTDI is 12.58 mGy and DLP is 506.71 mGy-cm. Automated exposure control was utilized for the study. A dose lowering technique was utilized adhering to the principles of ALARA. IV contrast is given, 116 ML. Venous contamination. MIP reconstructed images were created and reviewed. CONTRAST: Patient received 116ml of IV contrast COMPARISON: Head CT done earlier. FINDINGS: Right internal carotid artery: Patent. Right anterior cerebral artery: Patent. Right middle cerebral artery: Patent. Right posterior cerebral artery: Patent. Right vertebral artery: Patent. Left internal carotid artery: Patent. Left anterior cerebral artery: Patent. Left middle cerebral artery: Patent. Left posterior cerebral artery: Patent. Left vertebral artery: Patent. Basilar artery: Patent. Other: Moderate to severe atherosclerosis bilateral cavernous ICA without significant stenosis. Patent dural venous sinuses. IMPRESSION: 1. No aneurysm or large vessel occlusion. Electronically signed by: Mily Morales M.D. 03/23/24 23:16 PM Neck CTA 03/23/24 21:20 Exam(s): CTA NECK With Contrast IV Amt: 116ml EXAM: CT Angiography Neck With Intravenous Contrast CLINICAL HISTORY: Reason for exam: neuro deficit, acute stroke suspected. TECHNIQUE: Routine carotid CT angiography protocol was performed with intravenous contrast. NASCET criteria using the distal ICAs for comparison were used for evaluation of stenoses. CTDI is 12.58 mGy and DLP is 506.71 mGy-cm. Automated exposure control was utilized for the study. A dose lowering technique was utilized adhering to the principles of ALARA. MIP reconstructed images were created and reviewed. CONTRAST: Patient received 116ml of IV contrast COMPARISON: None. FINDINGS: Right common carotid artery: Patent. Atherosclerotic calcification with 50% stenosis. Right internal carotid artery: Patent. Atherosclerosis with dense, eccentric plaque, and probable 50-60% stenosis. Right vertebral artery: Patent. Slight right dominant system. Left common carotid artery: Patent. Left internal carotid artery: Patent. Left vertebral artery: Patent. Other: Emphysema. IMPRESSION: 1. Moderate RIGHT ICA stenosis, 50-60%. 2. No other dissection/occlusion/significant stenosis. CAROTID STENOSIS REFERENCE USING NASCET CRITERIA: % ICA stenosis = (1 - narrowest ICA diameter/diameter of distal cervical ICA) x 100. Mild - <50% stenosis. Moderate - 50-69% stenosis. Severe - 70-94% stenosis. Near occlusion - 95-99% stenosis. Occluded - 100% stenosis. Electronically signed by: Mily Morales M.D. 03/23/24 23:30 PM (4) Diabetes mellitus Chronic kidney disease stage: stage 3 (moderate) Chronic kidney disease stage 3 subtype: unspecified whether 3a or 3b Diabetes mellitus complication detail: with chronic kidney disease Diabetes mellitus complication status: with kidney complications Diabetes mellitus fci insulin use: without fci use Diabetes mellitus type: type 2 Qualified Code(s): E11.22 - Type 2 diabetes mellitus with diabetic chronic kidney disease; N18.30 - Chronic kidney disease, stage 3 unspecified (9) Dementia Dementia behavioral disturbance: without behavioral disturbance Dementia type: unspecified type Qualified Code(s): F03.90 - Unspecified dementia without behavioral disturbance
[2024-03-24] MEDS: INSULIN ASPART PER UNIT CHARGE SC SCH (07:40)
[2024-03-24] MEDS: MEMANTINE HCL 10 MG TAB PO SCH (08:33)
[2024-03-24] MEDS: ASPIRIN 81 MG ECTAB PO SCH (08:33)
[2024-03-24] MEDS: TAMSULOSIN HCL 0.4 MG CAP PO SCH (08:33)
[2024-03-24] MEDS: SERTRALINE HCL 50 MG TABLET PO SCH (08:34)
[2024-03-24] MEDS: APIXABAN 5 MG TABLET PO SCH (08:34)
[2024-03-24] MEDS: CYANOCOBALAMIN (B-12) 500 MCG TABLET PO SCH (08:34)
[2024-03-24] MEDS: FOLIC ACID 1 MG TAB PO SCH (08:34)
--- NOTE | 2024-03-24 08:44 | Neurology Consultation ---
Date of Consultation March 24, 2024 Assessment & Plan (1) Acute CVA (cerebrovascular accident): (2) Ataxia: (3) Dementia: (4) Carotid stenosis, right: Plan Patient has acute onset of 4 small strokes in the left middle cerebral artery territory mostly white matter. I suspect these are ischemic but emboli cannot be excluded. He does have a history of atrial fibrillation on apixaban. MRI also shows moderate old small vessel ischemic disease. Clinically, he has a mild right-sided ataxia and with right foot weakness. Patient has an underlying vascular dementia which has been fairly stable the last couple of years. He has a right internal carotid artery stenosis of 50 to 60% (moderate). Recommendations: 1. Continue apixaban 5 mg twice a day 2. Continue 81 mg aspirin tablet daily 3. Awaiting fasting lipid profile 4. Awaiting echocardiogram 5. Physical, occupational, and speech therapy. Increase activity as able 6. Control blood pressure as you are doing, aiming for a mean arterial pressure of approximately 100. Overall, I spent a total of 90 minutes with this case including review of records, review of CT and MRI films, direct evaluation the patient at bedside, report generation, and discussion of the case with the patient and RN at bedside and History of Present Illness Reason for Consultation: Patient is a 78-year-old, who was asked to see at the request of Dr. Briggs, for neurologic evaluation regarding stroke. Requesting Physician: Dr. Briggs Attending Physician: Rafi Esteban DO History of Present Illness I first saw this patient in September 2021 in consultation for acute confusion. He had an underlying dementia which was progressive likely mixed vascular and aging. He had a superimposed encephalopathy that brought out his dementia. MRI of the brain showed mild to moderate old small vessel ischemic disease and EEG showed no abnormalities. The encephalopathy component improved and stabilized and was put on memantine 10 mg a day. He has been on this since. We last saw him in clinic in October 2021. Patient has a history of vascular dementia, diabetes, atrial fibrillation on Eliquis, rheumatoid arthritis, and anxiety and depression. He is hard of hearing. Apparently he has been in [facility] personal-halfway in [place]. He has been more confused and falling this year. He saw Dr. Rogers September 16 and laboratory studies that day were remarkable for a sed rate of 52, mild anemia, glucose of 182, hemoglobin A1c of 6.9,. He had a TSH of 1.09, vitamin D of 40.2, vitamin B12 1227, and normal liver profile. Because of the falling an MRI of the brain was ordered. The patient had the MRI of the brain September 23, and it showed 4 small acute strokes in the left periventricular white matter. There was old small vessel ischemic disease. He was admitted to the hospital. CTA of the neck was remarkable for right internal carotid artery stenosis of 50 to 60%. CT angiography of the head was unremarkable. CT scan of the head showed no hemorrhage Laboratory studies revealed a mild anemia creatinine 1.45. Glucose was elevated at 226. The patient was on apixaban 5 mg twice a day for the atrial fibrillation but 81 mg aspirin tablet was added starting yesterday. A lipid profile is pending from today. The patient has no complaint of pain, headache, dizziness or lightheadedness, vision issues, weakness, or numbness. He admits that his balance is off. Allergies Allergy/AdvReac Type Severity Reaction Status Date / Time No Known Allergies Allergy Verified 03/24/24 01:17 Home Medications Medication Instructions Recorded Confirmed Type cyanocobalamin (vitamin B-12) 1,000 mcg PO DAILY 30 days #30 tabs 11/01/21 03/24/24 Rx 1,000 mcg tablet (Vitamin B-12) folic acid 1 mg tablet 1 mg PO DAILY 30 days #30 tabs 11/01/21 03/24/24 Rx [id number] 300 mcg-K 60 1 tab PO DAILY 30 days #30 tabs 11/01/21 03/24/24 Rx mcg-lycop 600 mcg-lutein 300 mcg tablet (Centrum Silver Men) sitagliptin phosphate 100 mg 100 mg PO DAILY 30 days #30 tabs 11/01/21 03/24/24 Rx tablet (Januvia) tamsulosin 0.4 mg capsule 0.4 mg PO DAILY #30 caps 11/01/21 03/24/24 Rx memantine 10 mg tablet 10 mg PO DAILY #60 tabs 12/19/21 03/24/24 Rx apixaban 5 mg tablet (Eliquis) 5 mg PO BID #10 tabs 02/19/22 03/24/24 Rx acetaminophen 325 mg capsule 650 mg PO Q6 PRN Fever Or Pain 03/16/24 03/24/24 History cholecalciferol (vitamin D3) 25 25 mcg PO DAILY 03/16/24 03/24/24 History mcg (1,000 unit) capsule glimepiride 2 mg tablet 2 mg PO QAM Diabetes 03/16/24 03/24/24 History glimepiride 4 mg tablet 4 mg PO PM 03/16/24 03/24/24 History leflunomide 20 mg tablet 20 mg PO DAILY 03/16/24 03/24/24 History loperamide 2 mg capsule 2 mg PO Q4H PRN Diarrhea 03/16/24 03/24/24 History (Anti-Diarrheal (loperamide)) lorazepam 0.5 mg tablet 0.25 mg PO Q4H PRN Anxiety 03/16/24 03/24/24 History oxycodone 5 mg tablet 5 mg PO DAILY 03/16/24 03/24/24 History prednisone 5 mg tablet 5 mg PO DAILY 03/16/24 03/24/24 History sertraline 25 mg tablet 25 mg PO DAILY 03/16/24 03/24/24 History Patient History Medical History Closed fracture of left hip Acute hyperactive delirium due to multiple etiologies Acute encephalopathy Acute kidney injury superimposed on chronic kidney disease COVID-19 Internal hemorrhoids Diverticulitis Surgical History History of appendectomy Family History Mother Cancer Denies family history of Ovarian cancer Prostate cancer Myocardial infarction Breast cancer Colorectal cancer Social History Smoking Status: Former smoker Age Started Using Tobacco: 14; Age Quit Using Tobacco: 59; Second Hand Exposure: No; Do You Dip or Chew Tobacco: No; Hx Alcohol Use: No (He was a drinker in the past, but I cannot gather specific details from him) Hx Substance Use: No Preferred Language: Ukrainian Communication Ability: Impaired Visual Impairment: No Limitations Hearing Ability: Use of Hearing Aid Discharge Planner Required: No Beliefs That Will Affect Care: None marital status: Current Living Situation: Personal Care Facility current occupational status: retired 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 Feels Safe at Home: Yes Childhood Exposure to Second-Hand Smoke: No Dental Care, Regularly: Yes Physical Activity Frequency: Does not Exercise Seatbelt Use: always Sunscreen Use: Yes Assistive Devices: Walker and Wheelchair Review of Systems Constitutional: no fever, no fatigue and no weakness Eyes: no diplopia, no eye pain and no worsening vision Ear, Nose, Mouth, Throat: + hearing loss; no ear pain, no tinnitus , no dizziness, no snoring, no hoarseness and no dysphagia Respiratory: no cough and no dyspnea Cardiovascular: no chest pain, no palpitations and no lightheadedness Gastrointestinal: no abdominal pain, no nausea and no vomiting Musculoskeletal: no back pain, no neck pain, no radicular pain, no joint pain and no myalgia Integumentary: no rash and no lesions Neurologic: + gait abnormality and + memory loss; no localized weakness, no generalized weakness, no tingling, no numbness, no tremor(s), no abnormal movements, no headache(s), no abnormal speech and no confusion Psychiatric: no depression, no irritability, no anxiety, no difficulty concentrating, no confusion and no hallucinations Endocrine: no fatigue and no flushing Hematologic / Lymphatic: no easy bleeding and no easy bruising Allergy / Immunological: no urticaria and no problem reported Exam (Neuro) Physical Exam: The patient is right-handed. The patient is awake, alert, and attentive. Speech is normal without any obvious aphasia or dysarthria. Mood and affect seem normal and appropriate. He is pleasant and cooperative. He is calm. Short and long-term memory are moderately affected. He knew his name and the fact that he lives in a correction in [place]. He knew that it was the end of February/beginning of March. He did not know his age, the day of the week, the year or the name of the correction he is staying in. The discs are sharp with positive venous pulsations bilaterally. There are no exudates, hemorrhages, or blood vessel changes seen. Pupils are 3 mm bilaterally and reactive to light. Extraocular eye muscles are intact without nystagmus. Visual acuity and visual bocanegra seem normal grossly to confrontation. There are no deficits to sensation in the face in all 3 distributions of the fifth cranial nerve bilaterally. Corneal reflexes are positive bilaterally. Facial strength and symmetry was normal bilaterally. Hearing is markedly decreased bilaterally. Palate moves well without asymmetry. There is normal sternocleidomastoid and trapezius strength bilaterally. Tongue is midline with good strength bilaterally. Neck has a full range of motion without discomfort. There are no cervical bruits bilaterally. There are no cranial or ocular bruits. Heart is without murmur. There is a regular rhythm and rate. Cervical, thoracic, and lumbar spine are nontender to palpation. Gait is narrow based with good arm swing but he is cautious and mildly ataxic. His right leg and right upper extremity have some mild ataxia. With outstretched arms there is no drift. There are no resting, postural, or action tremors. There is no ataxia with finger to nose testing on the left, but mild ataxia with finger-nose testing on the right. [id number]-odyi testing shows ataxia on the right but not the left. There is good facility in the hands. No other abnormal involuntary movements are noted. Motor strength is 5/5 diffusely in the arms bilaterally including deltoids, biceps, triceps, brachioradialis, wrist flexors and extensors, rf test engineer, and intrinsic hand muscles. Motor strength is 5/5 diffusely in the legs bilaterally including hip flexors, quadriceps, hamstrings, gastrocnemius, tibialis posterior, and Peroneii muscles bilaterally. The tibialis anterior is 5/5 on the left and 4+/5 on the right. Toe extensors are normal and there is good bulk in the extensor digitorum brevis muscles bilaterally. The limbs have good tone without rigidity or spasticity. There is no atrophy noted in the muscles. Muscle bulk is normal, there is no tenderness to palpation, no myotonia to percussion, and no fasciculations seen. Sensory examination is intact to touch and pin throughout all 4 limbs diffusely. Reflexes are 1/4 in the biceps, triceps, and quadriceps tendons bilaterally. Brachioradialis and Achilles tendon reflexes are absent bilateral Toes are downgoing with plantar stimulation bilaterally. Peripheral pulses are present and of normal quality distally in all 4 limbs. There is no peripheral edema noted in the limbs. Results & Data Vital Signs (Past 12 Hours) Vital Signs Temp Pulse Pulse Resp BP BP Pulse Ox 03/24/24 08:16 89 19 164/85 H 96 03/24/24 07:47 85 03/24/24 03:32 86 20 144/71 H 95 03/24/24 03:09 93 03/24/24 02:26 84 03/24/24 02:11 84 12 96 03/24/24 01:06 81 19 141/74 H 92 03/24/24 00:03 83 13 171/74 H 98 03/23/24 23:45 75 14 148/99 H 97 03/23/24 23:03 87 19 136/76 94 03/23/24 22:49 86 18 129/80 95 03/23/24 22:01 181/97 H 03/23/24 21:34 92 H 03/23/24 21:11 36.9 C 64 20 141/77 H 96 O2 Del Method 03/24/24 08:16 Room Air 03/24/24 07:47 03/24/24 03:32 Room Air 03/24/24 03:09 03/24/24 02:26 03/24/24 02:11 03/24/24 01:06 03/24/24 00:03 03/23/24 23:45 03/23/24 23:03 03/23/24 22:49 03/23/24 22:01 03/23/24 21:34 03/23/24 21:11 Room Air PG Care Time/CCT Total # of Minutes Spent Total Time Spent with Patient: Total time spent is greater than 50% in coordination of care (as documented) at patient's floor/unit and/or counseling patient: Coding Level of Care Code 13540 INT INP/OBS CARE MIN Diagnoses Acute CVA (cerebrovascular accident) I63.9 Ataxia R27.0 Dementia F03.90 Dementia behavioral disturbance: without behavioral disturbance Dementia type: unspecified type Carotid stenosis, right I65.21 (3) Dementia Dementia behavioral disturbance: without behavioral disturbance Dementia type: unspecified type Qualified Code(s): F03.90 - Unspecified dementia without behavioral disturbance
[2024-03-24 09:40] LABS: Hemoglobin 12.4 g/dl (14.0-18.0); Mean Corpuscular Hemoglobin 28.8 pg (25.0-34.0); Mean Corpuscular Hgb Conc 31.8 g/dL (32.0-36.0); Mean Corpuscular Volume 90.7 fL (80.0-100.0); Mean Platelet Volume 10.6 fL (9.4-12.4); Platelet Count 146 K/uL (130-400); RDW Coefficient of Variation 16.8 % (11.5-14.5); RDW Standard Deviation 55.6 fL (36.4-46.3); White Blood Count 6.76 K/ul (4.8-10.8)
[2024-03-24 09:56] LABS: Chol HDL Ratio 4.2 (0-5)
--- NOTE | 2024-03-24 16:48 | Discharge Summary ---
Date of Service March 24, 2024 Admission HPI Per Admitting Provider Danial is a 78-year-old man with past medical history of DM2, rheumatoid arthritis, depression, and anxiety, who were referred to the ER after presenting for an outpatient MRI. Patient lives in snf and vascular dementia with occasional cognitive deficits at baseline, since January, physical therapy at the snf had noticed worsening hemiparesis of the right upper and lower extremity. PT recommended that the patient follow-up with PCP outside of snf for evaluation of ataxic gait. PCP then ordered MRI for further evaluation an acute infarct of the left periventricular deep white matter without hemorrhage was discovered PCP then contacted patient and his , directing them to the ER for acute management. In the ER, subsequent CTA neck revealed moderate stenosis (50-60%) of right ICA. CTA head was negative for aneurysm or large vessel occlusion. He received a 250 mL bolus of NShospitalist service was then consulted for admission. *HPI above was provided by , Bella, who was present at bedside at the time of admission. Principal Diagnosis CVA Discharge Exam General: no acute distress, speaking in full sentences Resp: Lungs clear to auscultation, good inspiratory effort, no labored breathing HEENT: Significantly hard of hearing without hearing aides. Conjunctivae appear clear, no audible congestion, no swelling noted face or lips GI: Non tender, no distended, normal bowel sounds Skin: skin appears dry, normal coloration, no rash visible on exposed skin areas, No LE edema Neuro: Alert and oriented x3, R LE coordination deficits, R UE weakness. Psych: euthymic affect, pleasant and interactive Discharge Data Allergies Allergy/AdvReac Type Severity Reaction Status Date / Time No Known Allergies Allergy Verified 03/24/24 01:17 Consultations 03/23/24 23:22 ED Decision to Admit Stat 03/24/24 01:13 Consult Neurology Routine Ordered Studies 03/23/24 21:20 CT angio head w con Stat CT angio neck with con Stat CT head/brain wo con Stat Hospital Course (1) Acute CVA (cerebrovascular accident): (2) Ataxia: (3) Right hemiparesis: (4) Diabetes mellitus: (5) Weight loss: (6) Paroxysmal A-fib: (7) Arthritis of both knees: (8) Depression with anxiety: (9) Dementia: Plan 1. Acute CVA/R Hemiparesis/Ataxia -Outpatient MRI found periventricular deep white matter infarct along with symptoms of ataxic gait, R UE/LE hemiparesis. Patient stable, fully oriented x 4 on exam, R UE weakness and decreased LE coordination. Passed bedside swallow eval. Pt started on aspirin 324mg. Neurology consult - Embolic vs ischemic CVA. Recommends continue Aspirin 81 mg daily in a.m -Fall precautions -PT/OT eval recommend DC [facility] with home health PT to resume Diabetes Mellitus, Type II -Chronic. On glimepiride 2 mg/4 mg BID, sitagliptin 100 mg daily. Most recent HgbA1c 6.9% 9 days ago. Oral home meds on hold - SSI per protocol (range 100-140, CF = 40, CR = 20) Bilateral Rheumatoid Arthritis Managed on leflunomide 20 mg daily, oxycodone 5 mg daily. Tylenol 650 mg every 6h as needed. -Tylenol 1000 mg q8h, oxycodone 5 mg daily, both as needed for pain * Leflunomide not available in formulary asked patient's to bring home leflunomide to be added to MAR Paroxysmal Atrial Fibrillation -On Eliquis 5 mg twice daily. No rate control agent. * Continue home Eliquis Anxiety/Depression -On sertraline 25 mg daily. Also takes as needed lorazepam 0.25 mg every 4 hours as needed (anxiety). BPH -On tamsulosin 0.4 mg daily. * Continue home tamsulosin Vascular Dementia -Chronic, stable, with occasional moments of confusion. * Continue to monitor Total Time Total Time Spent Total Time Spent (In Minutes): <30 Discharge Plan Discharge Items Patient Disposition: Personal Intermediate Reason For Visit: CVA Discharge Diagnosis: Stroke Activity: Resume your previous activity Non-emergency contact: Primary Care Provider Call non-emergency contact if: you have any medication questions and your symptoms worsen Follow-up/Referrals: Pro,Gael Daily MD [Primary Care Provider] - Diet: Carb Consistent or DM2 Addtl Attending Provider Instructions: You were seen in the hospital for a stroke affecting your right arm and leg. You were treated with aspirin for blood thinning. We have prescribed aspirin 81mg and atorvastatin 80mg for home. The atorvastatin helps to reduce cholesterol which can contribute to narrowing of the blood vessels in your brain and other parts of your body. We would like you to have an echocardiogram in the outpatient setting to rule out a clotting issue stemming from your history of paroxysmal atrial fibrillation. Lastly, you should continue with your home care physical therapy to ensure safety with transfers and ambulation as well as regaining strength and coordination in your arms and legs. Pending Studies at Discharge: No Stand-Alone Forms: [facility] [employer], Smoking Cessation Skilled Items Patient informed of condition?: Yes DNR: Yes Discharge Level of Care: Other Communicable Disease: No Discharge Prognosis: Stable Lines: None Urinary Catheter: No Medications and DC Order Prescriptions: New aspirin 81 mg capsule 81 mg PO DAILY Qty: 30 0RF atorvastatin 80 mg tablet 80 mg PO DAILY Qty: 30 0RF Continued memantine 10 mg tablet 10 mg PO DAILY Qty: 60 2RF oxycodone 5 mg tablet 5 mg PO DAILY glimepiride 2 mg tablet 2 mg PO QAM Rx Instructions: breakfast glimepiride 4 mg tablet 4 mg PO PM leflunomide 20 mg tablet 20 mg PO DAILY prednisone 5 mg tablet 5 mg PO DAILY sertraline 25 mg tablet 25 mg PO DAILY cholecalciferol (vitamin D3) 25 mcg (1,000 unit) capsule 25 mcg PO DAILY acetaminophen 325 mg capsule 650 mg PO Q6 PRN (Reason: Fever Or Pain) Rx Instructions: Take 2 tablets by mouth every 6 hours as needed for temp greater [id number] orally four times daily PRN; lorazepam 0.5 mg tablet 0.25 mg PO Q4H PRN (Reason: Anxiety) Eliquis 5 mg Tablet 5 mg PO BID Qty: 10 0RF tamsulosin 0.4 mg capsule 0.4 mg PO DAILY Qty: 30 2RF Januvia 100 mg tablet 100 mg PO DAILY 30 Days Qty: 30 0RF cyanocobalamin (vitamin B-12) [Vitamin B-12] 1,000 mcg Tablet 1,000 mcg PO DAILY 30 Days Qty: 30 0RF folic acid 1 mg tablet 1 mg PO DAILY 30 Days Qty: 30 2RF Centrum Silver Men 300-600-300 mcg tablet 1 tab PO DAILY 30 Days Qty: 30 0RF Discontinued loperamide [Anti-Diarrheal (loperamide)] 2 mg capsule 2 mg PO Q4H PRN (Reason: Diarrhea) Rx Instructions: administer after each loose stool until symptoms controlled; do not exceed 8 mg per 24 hrs Discharge Orders: Discharge Order (Routine); Ordered 03/24/24 Ordered By: Joan Arellano Admission Data Admit Date/Time: 03/24/24 00:51 Attending Provider: Rafi Esteban Admit Provider: Royce Briggs Primary Care Provider: Gael Rogers Other Providers: Arnel Coelho; Ayden Manning; Dajuan Nick; Tayla Johnson; Brit Walker; Aline Torres; Dexter Brown Other Interventions: Discharge Summary Assessment (RN) Last Done: 03/24/24 17:42 Supervising Physician Co-Signing Physician Notes I personally examined the patient and verified all lloyd points of history and exam, discussed case, and agree with decision making with Dr Arellano Doing okay. Did well with therapy. Patient/especially would very much like to get him back to his familiar environment. Neurology input appreciated. Vitals noted, in general he is awake and alert pleasant no distress. HEENT normocephalic atraumatic mucous membranes moist. Breathing unlabored no accessory muscle use good effort. Skin without rashes pallor or icterus. Labs/diagnostics noted. CVAagree with neurology most likely atherosclerotic/ischemic, doubt embolic, but agree with neurology that it is hard to definitively rule that outechocardiogram has been ordered but not yet done, would very much like him to get back to his familiar environment, and given his dementia with delirium riskI agree that risk/benefit would favor getting him back to a familiar environment rather than keeping him in the hospital for an ech ocardiogram that is likely to have low yield but the additional day in the hospital could easily lead to delirium that might preclude his ability to get back to his personal care environment for the near future. I have asked that the echocardiogram be done as an outpatient. In terms of the highly likely atherosclerotic ischemic causeadded 81 mg aspirin, and given that his total cholesterol is 275 with an LDL of 145, it appears that he would very much be able to tolerate high intensity statin therapy for secondary risk reduction. Continue outpatient PT/OTbut fortunately he is able to return to his personal care environment. Otherwise as above.
--- NOTE | 2024-03-24 17:52 | Billing Data ---
Date of Service March 24, 2024 Coding Level of Care Code 23284 IN/OBS DISCH 30 MIN/LESS
--- NOTE | 2024-03-25 18:43 | Electrocardiogram Report ---
Test Reason : Blood Pressure : / mmHG Vent. Rate : 073 BPM Atrial Rate : 073 BPM P-R Int : 158 ms QRS Dur : 110 ms QT Int : 398 ms P-R-T Axes : 051 -34 -06 degrees QTc Int : 438 ms Poor data quality, interpretation may be adversely affected Sinus rhythm Premature atrial complexes Left axis deviation Right bundle branch block Inferior infarct , age undetermined Abnormal ECG When compared with ECG of 14-FEB-2022 19:21, QRS axis Shifted left Inferior infarct is now Present QT has shortened Confirmed by Jason Rodriguez ([id number]) on 03/25/2024 6:42:45 PM Referred By: Ernesto Pearl Confirmed By:Jason Rodriguez
--- NOTE | 2024-03-26 11:30 | Billing Data ---
Date of Service March 26, 2024 Coding Level of Care Code 24699 INT INP/OBS CARE
== END 2024-03-24 17:42 | disposition home or self-care (01) ==
LOC: ED 21:09 → EDINP 03-24 00:51 → SUATTDRO 03-24 00:51 → INTOOBSV 03-24 00:51 → EDINP 03-24 07:25

== ENCOUNTER 2024-06-30 22:48 | Inpatient (IN) ==
[2024-06-30] MEDS: ACETAMINOPHEN 1,000 MG/100 ML VIAL IV STA (23:24)
[2024-06-30 23:29] LABS: Basophils # (auto) 0.08 K/uL (0.00-0.20); Basophils % (auto) 0.5 %; Eosinophils # (auto) 0.07 K/uL (0.00-0.50); Eosinophils % (auto) 0.4 %; Hemoglobin 12.2 g/dl (14.0-18.0); Immature Granulocytes % (auto) 1.1 %; Lymphocytes # (auto) 0.59 K/uL (1.20-3.40); Lymphocytes % (auto) 3.4 %; Mean Corpuscular Hemoglobin 31.4 pg (25.0-34.0); Mean Corpuscular Hgb Conc 34.9 g/dL (32.0-36.0); Mean Corpuscular Volume 90.2 fL (80.0-100.0); Mean Platelet Volume 11.9 fL (9.4-12.4); Monocytes # (auto) 1.22 K/uL (0.11-0.59); Neutrophils # (auto) 15.31 K/uL (1.40-6.50); Neutrophils % (auto) 87.6 %; Platelet Count 111 K/uL (130-400); RDW Coefficient of Variation 14.7 % (11.5-14.5); RDW Standard Deviation 48.9 fL (36.4-46.3); Red Blood Count 3.88 M/uL (4.70-6.10); White Blood Count 17.47 K/ul (4.8-10.8)
[2024-06-30 23:48] LABS: Base Excess VBG 0.5 mEq/L; HCO3 VBG 25 mmol/L; Oxygen Saturation VBG 61.9 %; PCO2 VBG 41 mmHg (38-50); PO2 VBG 35 mmHg
[2024-07-01] LABS: INR 1.2 (0.9-1.1); Partial Thromboplastin Ratio 1.4; Partial Thromboplastin Time 39 Seconds (21-31); Prothrombin Time 13.1 Seconds (9.0-12.0)
[2024-07-01 00:13] LABS: Troponin I High Sensitivity 33.8 pg/ml (0-20)
[2024-07-01 00:15] LABS: Adenovirus PCR Not Detected (NotDetected); Bordetella parapertussis PCR Not Detected (NotDetected); Bordetella pertussis PCR Not Detected (NotDetected); Chlamydia pneumoniae PCR Not Detected (NotDetected); Coronavirus 229E PCR Not Detected (NotDetected); Coronavirus CoV-2 (COVID19)PCR DETECTED (NotDetected); Coronavirus HKU1 PCR Not Detected (NotDetected); Coronavirus NL63 PCR Not Detected (NotDetected); Coronavirus OC43PCR Not Detected (NotDetected); Human Metapneumovirus PCR Not Detected (NotDetected); Influenza A PCR Not Detected (NotDetected); Influenza B PCR Not Detected (NotDetected); Mycoplasma pneumoniae PCR Not Detected (NotDetected); Parainfluenza Virus 1 PCR Not Detected (NotDetected); Parainfluenza Virus 2 PCR Not Detected (NotDetected); Parainfluenza Virus 3 PCR Not Detected (NotDetected); Parainfluenza Virus 4 PCR Not Detected (NotDetected); Respiratory Syncytial VirusPCR Not Detected (NotDetected); Rhinovirus/Enterovirus PCR Not Detected (NotDetected)
[2024-07-01 00:22] LABS: Albumin Level 4.1 gm/dl (3.4-5.0); BUN Creatinine Ratio 12.5 (10-20); Bilirubin Direct 0.3 mg/dl (0-0.2); Bilirubin,Total 0.9 mg/dl (0.2-1.0); Calcium 8.6 mg/dl (8.6-10.3); Creatinine Clr Calc Pharmacy 49.4 ml/min; Magnesium 1.2 mg/dl (1.7-2.4); Potassium 3.9 mmol/L (3.5-5.1); Total Protein 7.2 gm/dl (6.0-8.3)
[2024-07-01] MEDS ORDERED: VANCOMYCIN CONSULT ACTIVE PRN (00:23)
[2024-07-01] MEDS: SODIUM CHLORIDE 0.9% 500 ML IV ONE (01:15)
[2024-07-01] MEDS: DEXAMETHASONE SOD INJ 4 MG/ML VIAL IV STA (01:15)
[2024-07-01] MEDS: MAGNESIUM SULFATE / D5W 1 GM/100 ML BAG IV SCH (01:27)
[2024-07-01] MEDS: VANCOMYCIN HCL 1,500 MG in DEXTROSE 5% 500 ML IV ONE (01:30)
--- NOTE | 2024-07-01 01:44 | XRay Report ---
Exam(s): XR CXR 1 VIEW EXAM: XR Chest, 1 View CLINICAL HISTORY: Reason for exam: Sepsis. TECHNIQUE: Frontal view of the chest. COMPARISON: Prior portable chest x-ray from February 14, 2022. FINDINGS: Lungs: Bronchitis with pneumonitis and patchy opacity at the right lung base. Hyperinflation lungs with flattened diaphragms. Pleural space: Unremarkable. No pneumothorax. Heart: Unremarkable. No cardiomegaly. Mediastinum: Unremarkable. Normal mediastinal contour. Bones/joints: Unremarkable. No acute fracture. IMPRESSION: Findings concerning for bronchitis with pneumonitis and right lower lobe infiltrate. No evidence of pleural effusion. Communications: Verify Receipt Electronically signed by: Caroline Orlando MD 07/01/24 01:43 AM
--- NOTE | 2024-07-01 02:07 | Emergency Department Note ---
History of Present Illness General Chief complaint: Weakness Stated complaint: WEAKNESS Time Seen by Provider: 06/30/24 23:04 Limitations: other (History of dementia) History of Present Illness Provider complaint: Fever weakness Onset (ago): day(s) 2 78-year-old male with history of dementia presents emergency department for fever and weakness. Per nursing, EMS reported the patient was having fever weakness for the last 2 days. No recent falls or traumas. Patient is on Eliquis. Home Medications Medication Instructions Recorded Confirmed Type cyanocobalamin (vitamin B-12) 1,000 mcg PO DAILY 30 days #30 tabs 11/01/21 03/30/24 Rx 1,000 mcg tablet (Vitamin B-12) folic acid 1 mg tablet 1 mg PO DAILY 30 days #30 tabs 11/01/21 06/01/24 Rx skzyechk-tx-kbbsy 300 mcg-K 60 1 tab PO DAILY 30 days #30 tabs 11/01/21 06/01/24 Rx mcg-lycop 600 mcg-lutein 300 mcg tablet (Centrum Silver Men) sitagliptin phosphate 100 mg 100 mg PO DAILY 30 days #30 tabs 11/01/21 06/01/24 Rx tablet (Januvia) tamsulosin 0.4 mg capsule 0.4 mg PO DAILY #30 caps 11/01/21 06/01/24 Rx memantine 10 mg tablet 10 mg PO DAILY #60 tabs 12/19/21 06/01/24 Rx apixaban 5 mg tablet (Eliquis) 5 mg PO BID #10 tabs 02/19/22 06/01/24 Rx acetaminophen 325 mg capsule 650 mg PO Q6 PRN Fever Or Pain 03/16/24 06/01/24 History cholecalciferol (vitamin D3) 25 25 mcg PO DAILY 03/16/24 03/30/24 History mcg (1,000 unit) capsule leflunomide 20 mg tablet 20 mg PO DAILY 03/16/24 06/01/24 History lorazepam 0.5 mg tablet 0.25 mg PO Q4H PRN Anxiety 03/16/24 06/01/24 History prednisone 5 mg tablet 5 mg PO DAILY 03/16/24 06/01/24 History sertraline 25 mg tablet 25 mg PO DAILY 03/16/24 06/01/24 History atorvastatin 80 mg tablet 80 mg PO DAILY #30 tabs 03/24/24 06/01/24 Rx aspirin 81 mg capsule 81 mg PO DAILY 03/30/24 06/01/24 History oxycodone 5 mg tablet 5 mg PO .COMPLEX #30 tabs 04/08/24 06/01/24 Rx Allergies Allergy/AdvReac Type Severity Reaction Status Date / Time No Known Allergies Allergy Verified 06/01/24 16:53 Past Med/Surg History Problem List (Updated 07/01/24 @ 03:41 by Ned Roth MD) Hypomagnesemia (Acute) Pneumonia (Acute) COVID-19 (Acute) Hypoxia (Acute) CVA (cerebrovascular accident) (Acute) Carotid stenosis, right Right hemiparesis Acute CVA (cerebrovascular accident) Ataxia Loss of protective sensation of skin of foot Diabetic peripheral neuropathy associated with type 2 diabetes mellitus Osteoporosis Paroxysmal A-fib Hyponatremia Dementia (Acute) Hypoxia (Acute) Anemia (Acute) Emotional lability Frequent falls (Acute) Ambulatory dysfunction (Acute) Thrombocytopenia (Acute) Elevated LFTs Vitamin D deficiency Rheumatoid arthritis involving multiple sites with positive rheumatoid factor Tinnitus, bilateral Sensorineural hearing loss of both ears Chronic obstructive pulmonary disease (Acute) Diabetes mellitus (Acute) Hypercholesterolemia (Acute) CKD (chronic kidney disease) (Acute) Tubular adenoma of colon (Acute) Hypertension (Acute) History of alcoholism (Acute) Medical History Weight loss Arthritis of both knees Depression with anxiety Closed fracture of left hip Acute hyperactive delirium due to multiple etiologies Acute encephalopathy Acute kidney injury superimposed on chronic kidney disease COVID-19 Internal hemorrhoids Diverticulitis Surgical History History of appendectomy Family History Mother Cancer Denies family history of Ovarian cancer Prostate cancer Myocardial infarction Breast cancer Colorectal cancer Social History Smoking Status: Unknown if ever smoked Tobacco Type: Cigarettes Age Started Using Tobacco: 14; Age Quit Using Tobacco: 59; packs per day: 1; Second Hand Exposure: No; Do You Dip or Chew Tobacco: No; Hx Alcohol Use: No (He was a drinker in the past, but I cannot gather specific details from him) Hx Substance Use: No Preferred Language: Yemeni Communication Ability: Impaired Visual Impairment: No Limitations Hearing Ability: Use of Hearing Aid Application Tester Required: No Beliefs That Will Affect Care: None marital status: Current Living Situation: Personal Care Facility current occupational status: retired 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 Feels Safe at Home: Yes Childhood Exposure to Second-Hand Smoke: No Dental Care, Regularly: Yes Physical Activity Frequency: Does not Exercise Seatbelt Use: always Sunscreen Use: Yes Gender Identity: Male Assistive Devices: Walker and Wheelchair Physical Exam Vital Signs Vital Signs - 24 hr 06/30/24 22:48 06/30/24 22:48 06/30/24 22:55 Temperature 38.4 C H Temperature Source Oral Pulse Rate 119 H Pulse Rate [Right Finger] 118 H Respiratory Rate 24 Blood Pressure Blood Pressure [Right Arm] 169/81 H Blood Pressure Mean Blood Pressure Mean [Right Arm] 110 Pulse Oximetry 91 91 Oxygen Delivery Method Room Air Room Air Oxygen Flow Rate Sepsis Recent Fever Within 48 Hours Sepsis New/Unexplained Change in Mental Status Sepsis Action Taken by Nursing 06/30/24 23:00 06/30/24 23:03 06/30/24 23:18 Temperature 38.4 C H 38.4 C H Temperature Source Oral Oral Pulse Rate 117 H 110 H Pulse Rate [Right Finger] 117 H Respiratory Rate 28 H 20 19 Blood Pressure 161/90 H Blood Pressure [Right Arm] 161/90 H Blood Pressure Mean 113 Blood Pressure Mean [Right Arm] 113 Pulse Oximetry 91 94 95 Oxygen Delivery Method Room Air Nasal Cannula Nasal Cannula Oxygen Flow Rate 2 Sepsis Recent Fever Within 48 Hours Yes Sepsis New/Unexplained Change in Mental Status No Sepsis Action Taken by Nursing Physician Notified 07/01/24 01:08 07/01/24 03:02 Temperature 36.9 C Temperature Source Oral Pulse Rate 96 H Pulse Rate [Right Finger] 105 H Respiratory Rate 17 Blood Pressure Blood Pressure [Right Arm] 145/82 H Blood Pressure Mean Blood Pressure Mean [Right Arm] 103 Pulse Oximetry 95 Oxygen Delivery Method Nasal Cannula Oxygen Flow Rate 2 Sepsis Recent Fever Within 48 Hours Sepsis New/Unexplained Change in Mental Status Sepsis Action Taken by Nursing Physical Exam GENERAL: Pleasantly demented. HENT: Exam performed. - Head: Normocephalic and atraumatic. EYES: Conjunctivae and EOM are normal. Right eye exhibits no discharge. Left eye exhibits no discharge. No scleral icterus. NECK: Normal range of motion. Neck supple. No JVD present. CV: Normal rate, regular rhythm, normal heart sounds and intact distal pulses. There is no peripheral edema. Palpable radial pulses bue. PULM/CHEST: Rhonchi bilaterally. ABD: The abdomen is soft. There is no tenderness. NEURO: Motor and sensation grossly intact. Course Course 2303: The patient was evaluated in room C5. A complete history and physical exam was performed Cardiac monitoring: An order was placed for continuous cardiac monitoring. The monitor shows a rate of 120 with sinus tachycardia rhythm interpreted by me Patient found to be hypoxic on room air. Supplemental oxygen was applied which improved the patient's oxygen saturation. Patient was hypoxic tachycardic and febrile, sepsis protocols initiated. 0000: Vital signs stable supplemental oxygen. Leukocytosis 17. Patient will be treated with Vanco and cefepime broadly. 0030: Patient's magnesium 1.2. Magnesium repletion started in the emergency department. 0100: Patient is COVID-positive. Decadron ordered for the patient given his hypoxia. 0140: Vital signs stable on supplemental oxygen via nasal cannula. Still awaiting CT of the head. CT viewed by me shows no ICH. Patient's chest x-ray shows possible right lower lobe pneumonia. educational technology specialist did contact [facility] [employer] and they said they would read the CT head soon. 0230: Vital signs stable supplemental oxygen. Still awaiting CT read of the head. legal secretary receptionist did contact [email or web address] and they said they would read the CT head soon. 0338: Vital signs stable on supplemental oxygen via nasal cannula. CT of the head unremarkable. Patient will be admitted to the [facility] team for hypoxia and COVID-pneumonia. Administered Medications Discontinued Medications Dexamethasone (Dexamethasone Sod Inj 4 Mg/Ml Vial) 6 mg IV NOW STA Stop: 07/01/24 00:44 Last Admin: 07/01/24 01:15 Dose: 6 mg Documented By: AKHIL Acetaminophen (Ofirmev) 1,000 mg in 100 mls @ 400 mls/hr IV NOW STA Stop: 06/30/24 23:16 Last Infusion: 07/01/24 01:16 Dose: Infused Documented By: Admin: 06/30/24 23:24 Dose: 400 mls/hr Documented By: AKHIL Magnesium Sulfate/Dextrose (Magnesium Sulfate / D5w) 1 gm in 100 mls @ 100 mls/hr IV Q1H MARJORIE Stop: 07/01/24 02:22 Last Admin: 07/01/24 03:26 Dose: 100 mls/hr Documented By: Infusion: 07/01/24 02:27 Dose: Infused Documented By: Admin: 07/01/24 01:27 Dose: 100 mls/hr Documented By: AKHIL Vancomycin HCl 1,500 mg/ (Dextrose) 530 mls @ 200 mls/hr IV NOW ONE Stop: 07/01/24 03:01 Last Admin: 07/01/24 01:30 Dose: 200 mls/hr Documented By: AKHIL Sodium Chloride (Nss) 500 mls @ 999 mls/hr IV .Q31M ONE Stop: 07/01/24 00:53 Last Infusion: 07/01/24 02:30 Dose: Infused Documented By: Admin: 07/01/24 01:15 Dose: 999 mls/hr Documented By: AKHIL Critical Care Time Critical Care Time: Yes Total Critical Care Time: 79 I have personally spent greater than 79 minutes of critical care time in the direct management of this patient. This includes bedside care, interpretation of diagnostic studies, and testing, discussion with consultants, patient, and family members, and other required patient management activities. This 79 minutes is in excess of all separately billable procedures. Medical Decision Making Laboratory Data Attestation: I reviewed the patient's lab results. 06/30/24 23:05 06/30/24 23:05 Lab Results 06/30/24 06/30/24 07/01/24 Range/Units 23:05 23:35 01:12 WBC 17.47 H (4.8-10.8) K/ul RBC 3.88 L (4.70-6.10) M/uL Hgb 12.2 L (14.0-18.0) g/dl Hct 35.0 L (42.0-52.0) % MCV 90.2 (80.0-100.0) fL MCH 31.4 (25.0-34.0) pg MCHC 34.9 (32.0-36.0) g/dL RDW Std Deviation 48.9 H (36.4-46.3) fL RDW Coeff of Sherrell 14.7 H (11.5-14.5) % Plt Count 111 L (130-400) K/uL MPV 11.9 (9.4-12.4) fL Immature Gran % (Auto) 1.1 % Neut % (Auto) 87.6 % Lymph % (Auto) 3.4 % Latimer % (Auto) 7.0 % Eos % (Auto) 0.4 % Baso % (Auto) 0.5 % Neut # (Auto) 15.31 H (1.40-6.50) K/uL Lymph # (Auto) 0.59 L (1.20-3.40) K/uL Latimer # (Auto) 1.22 H (0.11-0.59) K/uL Eos # (Auto) 0.07 (0.00-0.50) K/uL Baso # (Auto) 0.08 (0.00-0.20) K/uL Immature Gran # (Auto) 0.20 (0.01-0.20) K/uL PT 13.1 H (9.0-12.0) Seconds INR 1.2 H (0.9-1.1) APTT 39 H (21-31) Seconds PTT Ratio 1.4 VBG pH 7.40 (7.36-7.41) VBG pCO2 41 (38-50) mmHg VBG pO2 35 mmHg VBG HCO3 25 mmol/L VBG O2 Saturation 61.9 % VBG Base Excess 0.5 mEq/L Sodium 138 (136-145) mmol/L Potassium 3.9 (3.5-5.1) mmol/L Chloride 102 (98-107) mmol/L Carbon Dioxide 22 (21-32) mmol/L Anion Gap 14 H (3-11) BUN 15 (6-23) mg/dl Creatinine 1.20 (0.6-1.4) mg/dl Est Cr Clr Drug Dosing 49.4 ml/min eGFR 61.52 BUN/Creatinine Ratio 12.5 (10-20) Glucose 174 H (70-99(Fasting)) mg/dl Lactate 1.7 (0.4-2.0) mmol/L Calcium 8.6 (8.6-10.3) mg/dl Magnesium 1.2 L (1.7-2.4) mg/dl Total Bilirubin 0.9 (0.2-1.0) mg/dl Direct Bilirubin 0.3 H (0-0.2) mg/dl AST 20 (13-39) U/L ALT 24 (7-52) U/L Alkaline Phosphatase 66 (34-104) U/L Troponin I High Sens 33.8 H 38.4 H (0-20) pg/ml Total Protein 7.2 (6.0-8.3) gm/dl Albumin 4.1 (3.4-5.0) gm/dl Procalcitonin 0.67 H (0-0.5) ng/ml Adenovirus (PCR) Not Detected (NotDetected) B. pertussis DNA (PCR) Not Detected (NotDetected) B.parapertussis DNA PCR Not Detected (NotDetected) C. pneumoniae DNA (PCR) Not Detected (NotDetected) Coronavirus OC43 (PCR) Not Detected (NotDetected) Coronavirus HKU1 (PCR) Not Detected (NotDetected) Coronavirus 229E (PCR) Not Detected (NotDetected) SARS-CoV-2 (PCR) DETECTED A (NotDetected) Coronavirus NL63 (PCR) Not Detected (NotDetected) Human Metapneumovir PCR Not Detected (NotDetected) Influenza Type A (PCR) Not Detected (NotDetected) Influenza Type B (PCR) Not Detected (NotDetected) M. pneumoniae (PCR) Not Detected (NotDetected) Parainfluenza 1 (PCR) Not Detected (NotDetected) Parainfluenza 2 (PCR) Not Detected (NotDetected) Parainfluenza 3 (PCR) Not Detected (NotDetected) Parainfluenza 4 (PCR) Not Detected (NotDetected) RSV (PCR) Not Detected (NotDetected) Entero/Rhino (PCR) Not Detected (NotDetected) Imaging Data Attestation: I personally reviewed and interpreted this imaging study as follows: My Impression: Chest x-ray: Right lower lobe infiltrate CT head: No ICH Radiologist's Impression: Chest X-Ray 06/30/24 23:03 CR Exam(s): XR CXR 1 VIEW EXAM: XR Chest, 1 View CLINICAL HISTORY: Reason for exam: Sepsis. TECHNIQUE: Frontal view of the chest. COMPARISON: Prior portable chest x-ray from February 14, 2022. FINDINGS: Lungs: Bronchitis with pneumonitis and patchy opacity at the right lung base. Hyperinflation lungs with flattened diaphragms. Pleural space: Unremarkable. No pneumothorax. Heart: Unremarkable. No cardiomegaly. Mediastinum: Unremarkable. Normal mediastinal contour. Bones/joints: Unremarkable. No acute fracture. IMPRESSION: Findings concerning for bronchitis with pneumonitis and right lower lobe infiltrate. No evidence of pleural effusion. Communications: Verify Receipt Electronically signed by: Caroline Orlando MD 07/01/24 01:[address] 06/30/24 23:03 EXAM: CT head/brain wo con CLINICAL HISTORY: weakness INPATIENT TECHNIQUE: An axial non-contrast CT scan of the brain was performed from the skull base to the high parietal region with multiple reformats. One of the following dose reduction techniques was utilized for this exam: Automated exposure control, adjustment of the mA and/or kV according to patient size, and use of iterative reconstruction. DLP: 1250.21 mGy-cm. COMPARISON: CT dated 03/23/2024. FINDINGS: Suboptimal evaluation due to artifacts. Brain Parenchyma: There are a few tiny ill-defined eff-rj-nsaewvspo areas noted in the deep white matter bilaterally, suggestive of microvascular ischemic changes. Chronic lacunar infarct in the left basal ganglia. Normal attenuation of the rest of the cerebral hemispheres, cerebellum, and brainstem. No evidence of established terriotreal infarct, acute hemorrhage, or mass effect. No abnormal areas of hypo- or hyperattenuation. Ventricular System: The ventricular system, cortical sulci, and basal cisterns are prominent and consistent with senile changes. No evidence of subarachnoid hemorrhage or extra-axial fluid collections. Cerebellum and Brainstem: Normal size and signal. No masses, lesions, or areas of abnormal signal. Orbits: Normal appearance of the globes, optic nerves, and extraocular muscles. No evidence of orbital masses. Sinuses: Clear paranasal sinuses. No evidence of sinusitis or mucosal thickening. Mastoid Air Cells: Clear mastoid air cells. No evidence of mastoiditis. Skull and Meninges: Normal skull morphology. IMPRESSION: 1. No evidence of acute intracranial hemorrhage or established territorial infarction. Suboptimal evaluation due to motion artifacts. 2. Age-related involutional and microvascular ischemic changes. 3. Chronic lacunar infarct in the left basal ganglia, more conspicuous on current CT. No other significant interval change since the last scan. 4. Further evaluation with an MRI can be considered if clinically indicated. Electronically signed by Chani Heredia 07-01-2024 02:49 AM ECG Data Attestation: I personally reviewed and interpreted this ECG as follows: Rate (beats per minute): 119 Rhythm: + sinus tachycardia ECG Intervals/blocks: + Right Bundle branch block, + Normal [place] and + Normal QT-c ECG ST segments: + Normal ST segments Additional Comments: QRS 122 MDM Narrative 2304: The patient was evaluated in room C5. A complete history and physical exam was performed Cardiac monitoring: An order was placed for continuous cardiac monitoring. The monitor shows a rate of 120 with sinus tachycardia rhythm interpreted by me Patient found to be hypoxic on room air. Supplemental oxygen was applied which improved the patient's oxygen saturation. Patient was hypoxic tachycardic and febrile, sepsis protocols initiated. 0000: Vital signs stable supplemental oxygen. Leukocytosis 17. Patient will be treated with Vanco and cefepime broadly. 0030: Patient's magnesium 1.2. Magnesium repletion started in the emergency department. 0100: Patient is COVID-positive. Decadron ordered for the patient given his hypoxia. 0140: Vital signs stable on supplemental oxygen via nasal cannula. Still awaiting CT of the head. CT viewed by me shows no ICH. Patient's chest x-ray shows possible right lower lobe pneumonia. educational technology specialist did contact [facility] [employer] and they said they would read the CT head soon. 0230: Vital signs stable supplemental oxygen. Still awaiting CT read of the head. legal secretary receptionist did contact [email or web address] and they said they would read the CT head soon. 0338: Vital signs stable on supplemental oxygen via nasal cannula. CT of the head unremarkable. Patient will be admitted to the [facility] team for hypoxia and COVID-pneumonia. Impression & Plan Hypoxia, COVID-19, Pneumonia, Hypomagnesemia Discharge Plan Visit Data Chief Complaint: Weakness Stated Complaint: WEAKNESS ED Provider: Ned Roth Discharge Problem: Hypoxia, COVID-19, Pneumonia, Hypomagnesemia Patient Disposition: Admitted As Inpatient Forms Stand Alone Forms: My [facility] Prescriptions Prescriptions: No Action memantine 10 mg tablet 10 mg PO DAILY Qty: 60 2RF oxycodone 5 mg tablet 5 mg PO .COMPLEX Qty: 30 0RF Rx Instructions: 5 mg orally daily at 8 P.M. leflunomide 20 mg tablet 20 mg PO DAILY prednisone 5 mg tablet 5 mg PO DAILY sertraline 25 mg tablet 25 mg PO DAILY cholecalciferol (vitamin D3) 25 mcg (1,000 unit) capsule 25 mcg PO DAILY acetaminophen 325 mg capsule 650 mg PO Q6 PRN (Reason: Fever Or Pain) Rx Instructions: Take 2 tablets by mouth every 6 hours as needed for temp greater [id number] orally four times daily PRN; lorazepam 0.5 mg tablet 0.25 mg PO Q4H PRN (Reason: Anxiety) aspirin 81 mg capsule 81 mg PO DAILY Eliquis 5 mg Tablet 5 mg PO BID Qty: 10 0RF tamsulosin 0.4 mg capsule 0.4 mg PO DAILY Qty: 30 2RF Januvia 100 mg tablet 100 mg PO DAILY 30 Days Qty: 30 0RF cyanocobalamin (vitamin B-12) [Vitamin B-12] 1,000 mcg Tablet 1,000 mcg PO DAILY 30 Days Qty: 30 0RF folic acid 1 mg tablet 1 mg PO DAILY 30 Days Qty: 30 2RF Centrum Silver Men 300-600-300 mcg tablet 1 tab PO DAILY 30 Days Qty: 30 0RF atorvastatin 80 mg tablet 80 mg PO DAILY Qty: 30 0RF Referrals Referrals: Gael Rogers MD [Primary Care Provider] - Discharge Problem: Pneumonia Qualifiers: Pneumonia type: due to unspecified organism Laterality: right Lung location: l ower lobe of lung Qualified Code(s): J18.9 - Pneumonia, unspecified organism
--- NOTE | 2024-07-01 02:50 | CT Scan Report ---
EXAM: CT head/brain wo con CLINICAL HISTORY: weakness INPATIENT TECHNIQUE: An axial non-contrast CT scan of the brain was performed from the skull base to the high parietal region with multiple reformats. One of the following dose reduction techniques was utilized for this exam: Automated exposure control, adjustment of the mA and/or kV according to patient size, and use of iterative reconstruction. DLP: 1250.21 mGy-cm. COMPARISON: CT dated 03/23/2024. FINDINGS: Suboptimal evaluation due to artifacts. Brain Parenchyma: There are a few tiny ill-defined [id number] areas noted in the deep white matter bilaterally, suggestive of microvascular ischemic changes. Chronic lacunar infarct in the left basal ganglia. Normal attenuation of the rest of the cerebral hemispheres, cerebellum, and brainstem. No evidence of established terriotreal infarct, acute hemorrhage, or mass effect. No abnormal areas of hypo- or hyperattenuation. Ventricular System: The ventricular system, cortical sulci, and basal cisterns are prominent and consistent with senile changes. No evidence of subarachnoid hemorrhage or extra-axial fluid collections. Cerebellum and Brainstem: Normal size and signal. No masses, lesions, or areas of abnormal signal. Orbits: Normal appearance of the globes, optic nerves, and extraocular muscles. No evidence of orbital masses. Sinuses: Clear paranasal sinuses. No evidence of sinusitis or mucosal thickening. Mastoid Air Cells: Clear mastoid air cells. No evidence of mastoiditis. Skull and Meninges: Normal skull morphology. IMPRESSION: 1. No evidence of acute intracranial hemorrhage or established territorial infarction. Suboptimal evaluation due to motion artifacts. 2. Age-related involutional and microvascular ischemic changes. 3. Chronic lacunar infarct in the left basal ganglia, more conspicuous on current CT. No other significant interval change since the last scan. 4. Further evaluation with an MRI can be considered if clinically indicated. Electronically signed by Chani Heredia 07-01-2024 02:49 AM
--- NOTE | 2024-07-01 03:34 | History & Physical Report ---
Date of Service July 01, 2024 Assessment & Plan (1) Pneumonia: (2) COVID-19: (3) Hypoxia: (4) Hypomagnesemia: (5) CVA (cerebrovascular accident): (6) Right hemiparesis: (7) Paroxysmal A-fib: (8) Dementia: Plan Right lower lobe pneumonia with bronchitis and pneumonitis/COVID with secondary bacterial infection- The ED received the following: Dexamethasone 6 mg IV, vancomycin 1500 mg IV, cefepime 2 g IV, Tylenol 1 g IV, magnesium sulfate 2 g IV, and NSS 500 mL bolus Admit on: Dexamethasone 4 mg IV every morning Cefepime 2 g IV every 12 hours Vancomycin IV infiltrated, and would not be restarted unless MRSA comes back positive Albuterol HFA 2 puffs every 2 hours as needed COVID precautions Hypomagnesemia 1.2, will receive 2 g magnesium sulfate IV, recheck laboratories in the a.m. CT scan of head showed old left basal ganglia chronic infarct Troponin elevation 38.4, with follow-up pending, likely supply/demand mismatch For atrial fibrillation and hypertension continue the following: Aspirin, atorvastatin For diabetes mellitus, hold Januvia placed Accu-Cheks with NovoLog SSI History of Present Illness Chief Complaint: The patient presents to the emergency department with 2 days of fever, generalized weakness, shortness of breath and dyspnea on exertion. Primary Care Provider: Gael Rogers MD The patient is a 78-year-old male with a past medical history including CVA, right carotid stenosis, right hemiparesis, ataxia, paroxysmal A-fib, dementia, RA, COPD, diabetes mellitus, hypertension and history of alcoholism. He presents to the emergency department with 2 days of generalized weakness, fever, shortness of breath and dyspnea on exertion. Significant testing in the emergency department includes BioFire positive for COVID, and chest x-ray suggestive of right lower lobe pneumonia. Allergies Allergy/AdvReac Type Severity Reaction Status Date / Time No Known Allergies Allergy Verified 06/01/24 16:53 Home Medications Medication Instructions Recorded Confirmed Type cyanocobalamin (vitamin B-12) 1,000 mcg PO DAILY 30 days #30 tabs 11/01/21 03/30/24 Rx 1,000 mcg tablet (Vitamin B-12) folic acid 1 mg tablet 1 mg PO DAILY 30 days #30 tabs 11/01/21 06/01/24 Rx ncawndeq-fv-cktgq 300 mcg-K 60 1 tab PO DAILY 30 days #30 tabs 11/01/21 06/01/24 Rx mcg-lycop 600 mcg-lutein 300 mcg tablet (Centrum Silver Men) sitagliptin phosphate 100 mg 100 mg PO DAILY 30 days #30 tabs 11/01/21 06/01/24 Rx tablet (Januvia) tamsulosin 0.4 mg capsule 0.4 mg PO DAILY #30 caps 11/01/21 06/01/24 Rx memantine 10 mg tablet 10 mg PO DAILY #60 tabs 12/19/21 06/01/24 Rx apixaban 5 mg tablet (Eliquis) 5 mg PO BID #10 tabs 02/19/22 06/01/24 Rx acetaminophen 325 mg capsule 650 mg PO Q6 PRN Fever Or Pain 03/16/24 06/01/24 History cholecalciferol (vitamin D3) 25 25 mcg PO DAILY 03/16/24 03/30/24 History mcg (1,000 unit) capsule leflunomide 20 mg tablet 20 mg PO DAILY 03/16/24 06/01/24 History lorazepam 0.5 mg tablet 0.25 mg PO Q4H PRN Anxiety 03/16/24 06/01/24 History prednisone 5 mg tablet 5 mg PO DAILY 03/16/24 06/01/24 History sertraline 25 mg tablet 25 mg PO DAILY 03/16/24 06/01/24 History atorvastatin 80 mg tablet 80 mg PO DAILY #30 tabs 03/24/24 06/01/24 Rx aspirin 81 mg capsule 81 mg PO DAILY 03/30/24 06/01/24 History oxycodone 5 mg tablet 5 mg PO .COMPLEX #30 tabs 04/08/24 06/01/24 Rx Past Med/Surg History Problem List (Updated 07/01/24 @ 03:41 by Ned Roth MD) Hypomagnesemia (Acute) Pneumonia (Acute) COVID-19 (Acute) Hypoxia (Acute) CVA (cerebrovascular accident) (Acute) Carotid stenosis, right Right hemiparesis Acute CVA (cerebrovascular accident) Ataxia Loss of protective sensation of skin of foot Diabetic peripheral neuropathy associated with type 2 diabetes mellitus Osteoporosis Paroxysmal A-fib Hyponatremia Dementia (Acute) Hypoxia (Acute) Anemia (Acute) Emotional lability Frequent falls (Acute) Ambulatory dysfunction (Acute) Thrombocytopenia (Acute) Elevated LFTs Vitamin D deficiency Rheumatoid arthritis involving multiple sites with positive rheumatoid factor Tinnitus, bilateral Sensorineural hearing loss of both ears Chronic obstructive pulmonary disease (Acute) Diabetes mellitus (Acute) Hypercholesterolemia (Acute) CKD (chronic kidney disease) (Acute) Tubular adenoma of colon (Acute) Hypertension (Acute) History of alcoholism (Acute) Medical History Weight loss Arthritis of both knees Depression with anxiety Closed fracture of left hip Acute hyperactive delirium due to multiple etiologies Acute encephalopathy Acute kidney injury superimposed on chronic kidney disease COVID-19 Internal hemorrhoids Diverticulitis Surgical History History of appendectomy Family History Mother Cancer Denies family history of Ovarian cancer Prostate cancer Myocardial infarction Breast cancer Colorectal cancer Social History Smoking Status: Unknown if ever smoked Tobacco Type: Cigarettes Age Started Using Tobacco: 14; Age Quit Using Tobacco: 59; packs per day: 1; Second Hand Exposure: No; Do You Dip or Chew Tobacco: No; Hx Alcohol Use: No (He was a drinker in the past, but I cannot gather specific details from him) Hx Substance Use: No Preferred Language: German Communication Ability: Impaired Visual Impairment: No Limitations Hearing Ability: Use of Hearing Aid Border Measurer Required: No Beliefs That Will Affect Care: None marital status: Current Living Situation: Personal Care Facility current occupational status: retired 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 Feels Safe at Home: Yes Childhood Exposure to Second-Hand Smoke: No Dental Care, Regularly: Yes Physical Activity Frequency: Does not Exercise Seatbelt Use: always Sunscreen Use: Yes Gender Identity: Male Assistive Devices: Walker and Wheelchair Review of Systems Review of Systems: The patient denies chest pain, palpitations, lower extremity swelling, sore throat, fevers, chills, sweats, nausea, vomiting, diarrhea , constipation, abdominal pain, pelvic pain, blood in urine or stool, dysuria, urinary frequency or urgency, lightheadedness, dizziness, headache, memory loss, loss of consciousness, rash, abnormal bruising or bleeding, focal weakness, numbness or tingling in arms or legs, generalized arthralgias or myalgias, back or neck pain, or night sweats. The review of systems is otherwise negative other than for that already noted above, and at least 10 systems have been reviewed. Physical Exam Physical Exam: The patient is awake, alert and oriented 3, well developed and well nourished, normocephalic and atraumatic, lying in bed and in no acute distress. HEENT--PERRL, EOMI, mucous membranes and oropharynx dry. Neck--supple. No JVD. No bruits. Thyroid normal, trachea midline, no adenopathy. Heart--normal S1 and S2. No murmurs, rubs or gallops. Lungs--clear bilaterally, no respiratory distress, no accessory muscle use. Abdomen--normal bowel sounds and soft. Nontender. Nondistended, no hernias or masses, no organomegaly. Extremities--no cyanosis or clubbing. No edema. Dermatologic--normal skin turgor, normal color, no abnormal lymph nodes, no rash. Neurologic--cranial nerves II through XII grossly intact. Rheumatologic--right hemiparesis Psychiatric--normal affect. Results & Data Results & Data Vital Signs (Past 12 Hours) Vital Signs Temp Pulse Pulse Resp BP BP Pulse Ox 07/01/24 03:02 96 H 07/01/24 01:08 36.9 C 105 H 17 145/82 H 95 06/30/24 23:18 38.4 C H 117 H 19 161/90 H 95 06/30/24 23:03 110 H 20 94 06/30/24 23:00 38.4 C H 117 H 28 H 161/90 H 91 06/30/24 22:55 119 H 06/30/24 22:48 38.4 C H 118 H 24 169/81 H 91 06/30/24 22:48 91 O2 Del Method O2 Flow Rate 07/01/24 03:02 07/01/24 01:08 Nasal Cannula 2 06/30/24 23:18 Nasal Cannula 06/30/24 23:03 Nasal Cannula 2 06/30/24 23:00 Room Air 06/30/24 22:55 06/30/24 22:48 Room Air 06/30/24 22:48 Room Air Laboratory Results Laboratory Results WBC 17.47 K/ul (4.8-10.8) H 06/30/24 23:05 RBC 3.88 M/uL (4.70-6.10) L 06/30/24 23:05 Hgb 12.2 g/dl (14.0-18.0) L 06/30/24 23:05 Hct 35.0 % (42.0-52.0) L 06/30/24 23:05 MCV 90.2 fL (80.0-100.0) 06/30/24 23:05 MCH 31.4 pg (25.0-34.0) 06/30/24 23:05 MCHC 34.9 g/dL (32.0-36.0) 06/30/24 23:05 RDW Std Deviation 48.9 fL (36.4-46.3) H 06/30/24 23:05 RDW Coeff of Sherrell 14.7 % (11.5-14.5) H 06/30/24 23:05 Plt Count 111 K/uL (130-400) L 06/30/24 23:05 MPV 11.9 fL (9.4-12.4) 06/30/24 23:05 Immature Gran % (Auto) 1.1 % 06/30/24 23:05 Neut % (Auto) 87.6 % 06/30/24 23:05 Lymph % (Auto) 3.4 % 06/30/24 23:05 Person % (Auto) 7.0 % 06/30/24 23:05 Eos % (Auto) 0.4 % 06/30/24 23:05 Baso % (Auto) 0.5 % 06/30/24 23:05 Neut # (Auto) 15.31 K/uL (1.40-6.50) H 06/30/24 23:05 Lymph # (Auto) 0.59 K/uL (1.20-3.40) L 06/30/24 23:05 Person # (Auto) 1.22 K/uL (0.11-0.59) H 06/30/24 23:05 Eos # (Auto) 0.07 K/uL (0.00-0.50) 06/30/24 23:05 Baso # (Auto) 0.08 K/uL (0.00-0.20) 06/30/24 23:05 Immature Gran # (Auto) 0.20 K/uL (0.01-0.20) 06/30/24 23:05 PT 13.1 Seconds (9.0-12.0) H 06/30/24 23:05 INR 1.2 (0.9-1.1) H 06/30/24 23:05 APTT 39 Seconds (21-31) H 06/30/24 23:05 PTT Ratio 1.4 06/30/24 23:05 VBG pH 7.40 (7.36-7.41) 06/30/24 23:35 VBG pCO2 41 mmHg (38-50) 06/30/24 23:35 VBG pO2 35 mmHg 06/30/24 23:35 VBG HCO3 25 mmol/L 06/30/24 23:35 VBG O2 Saturation 61.9 % 06/30/24 23:35 VBG Base Excess 0.5 mEq/L 06/30/24 23:35 Sodium 138 mmol/L (136-145) 06/30/24 23:05 Potassium 3.9 mmol/L (3.5-5.1) 06/30/24 23:05 Chloride 102 mmol/L (98-107) 06/30/24 23:05 Carbon Dioxide 22 mmol/L (21-32) 06/30/24 23:05 Anion Gap 14 (3-11) H 06/30/24 23:05 BUN 15 mg/dl (6-23) 06/30/24 23:05 Creatinine 1.20 mg/dl (0.6-1.4) 06/30/24 23:05 Est Cr Clr Drug Dosing 49.4 ml/min 06/30/24 23:05 eGFR 61.52 06/30/24 23:05 BUN/Creatinine Ratio 12.5 (10-20) 06/30/24 23:05 Glucose 174 mg/dl (70-99(Fasting)) H 06/30/24 23:05 Lactate 1.7 mmol/L (0.4-2.0) 06/30/24 23:35 Calcium 8.6 mg/dl (8.6-10.3) 06/30/24 23:05 Magnesium 1.2 mg/dl (1.7-2.4) L 11/07/24 23:05 Total Bilirubin 0.9 mg/dl (0.2-1.0) 06/30/24 23:05 Direct Bilirubin 0.3 mg/dl (0-0.2) H 06/30/24 23:05 AST 20 U/L (13-39) 06/30/24 23:05 ALT 24 U/L (7-52) 06/30/24 23:05 Alkaline Phosphatase 66 U/L (34-104) 06/30/24 23:05 Troponin I High Sens 38.4 pg/ml (0-20) H 07/01/24 01:12 Total Protein 7.2 gm/dl (6.0-8.3) 06/30/24 23:05 Albumin 4.1 gm/dl (3.4-5.0) 06/30/24 23:05 Procalcitonin 0.67 ng/ml (0-0.5) H 06/30/24 23:05 Nasal Screen MRSA (PCR) Negative (Negative) 07/01/24 04:07 Adenovirus (PCR) Not Detected (NotDetected) 06/30/24 23:05 B. pertussis DNA (PCR) Not Detected (NotDetected) 06/30/24 23:05 B.parapertussis DNA PCR Not Detected (NotDetected) 06/30/24 23:05 C. pneumoniae DNA (PCR) Not Detected (NotDetected) 06/30/24 23:05 Coronavirus OC43 (PCR) Not Detected (NotDetected) 06/30/24 23:05 Coronavirus HKU1 (PCR) Not Detected (NotDetected) 06/30/24 23:05 Coronavirus 229E (PCR) Not Detected (NotDetected) 06/30/24 23:05 SARS-CoV-2 (PCR) DETECTED (NotDetected) A 06/30/24 23:05 Coronavirus NL63 (PCR) Not Detected (NotDetected) 06/30/24 23:05 Human Metapneumovir PCR Not Detected (NotDetected) 06/30/24 23:05 Influenza Type A (PCR) Not Detected (NotDetected) 06/30/24 23:05 Influenza Type B (PCR) Not Detected (NotDetected) 06/30/24 23:05 M. pneumoniae (PCR) Not Detected (NotDetected) 06/30/24 23:05 Parainfluenza 1 (PCR) Not Detected (NotDetected) 06/30/24 23:05 Parainfluenza 2 (PCR) Not Detected (NotDetected) 06/30/24 23:05 Parainfluenza 3 (PCR) Not Detected (NotDetected) 06/30/24 23:05 Parainfluenza 4 (PCR) Not Detected (NotDetected) 06/30/24 23:05 RSV (PCR) Not Detected (NotDetected) 06/30/24 23:05 Entero/Rhino (PCR) Not Detected (NotDetected) 06/30/24 23:05 Impressions Chest X-Ray 06/30/24 23:03 CR Exam(s): XR CXR 1 VIEW EXAM: XR Chest, 1 View CLINICAL HISTORY: Reason for exam: Sepsis. TECHNIQUE: Frontal view of the chest. COMPARISON: Prior portable chest x-ray from February 14, 2022. FINDINGS: Lungs: Bronchitis with pneumonitis and patchy opacity at the right lung base. Hyperinflation lungs with flattened diaphragms. Pleural space: Unremarkable. No pneumothorax. Heart: Unremarkable. No cardiomegaly. Mediastinum: Unremarkable. Normal mediastinal contour. Bones/joints: Unremarkable. No acute fracture. IMPRESSION: Findings concerning for bronchitis with pneumonitis and right lower lobe infiltrate. No evidence of pleural effusion. Communications: Verify Receipt Electronically signed by: Caroline Orlando MD 07/01/24 01:[address] 06/30/24 23:03 EXAM: CT head/brain wo con CLINICAL HISTORY: weakness INPATIENT TECHNIQUE: An axial non-contrast CT scan of the brain was performed from the skull base to the high parietal region with multiple reformats. One of the following dose reduction techniques was utilized for this exam: Automated exposure control, adjustment of the mA and/or kV according to patient size, and use of iterative reconstruction. DLP: 1250.21 mGy-cm. COMPARISON: CT dated 03/23/2024. FINDINGS: Suboptimal evaluation due to artifacts. Brain Parenchyma: There are a few tiny ill-defined [id number] areas noted in the deep white matter bilaterally, suggestive of microvascular ischemic changes. Chronic lacunar infarct in the left basal ganglia. Normal attenuation of the rest of the cerebral hemispheres, cerebellum, and brainstem. No evidence of established terriotreal infarct, acute hemorrhage, or mass effect. No abnormal areas of hypo- or hyperattenuation. Ventricular System: The ventricular system, cortical sulci, and basal cisterns are prominent and consistent with senile changes. No evidence of subarachnoid hemorrhage or extra-axial fluid collections. Cerebellum and Brainstem: Normal size and signal. No masses, lesions, or areas of abnormal signal. Orbits: Normal appearance of the globes, optic nerves, and extraocular muscles. No evidence of orbital masses. Sinuses: Clear paranasal sinuses. No evidence of sinusitis or mucosal thickening. Mastoid Air Cells: Clear mastoid air cells. No evidence of mastoiditis. Skull and Meninges: Normal skull morphology. IMPRESSION: 1. No evidence of acute intracranial hemorrhage or established territorial infarction. Suboptimal evaluation due to motion artifacts. 2. Age-related involutional and microvascular ischemic changes. 3. Chronic lacunar infarct in the left basal ganglia, more conspicuous on current CT. No other significant interval change since the last scan. 4. Further evaluation with an MRI can be considered if clinically indicated. Electronically signed by Chani Heredia 07-01-2024 02:49 AM Code Status & VTE Plan Code Status DNR/DNI VTE Prophylaxis Plan VTE Prophylaxis will be ordered: Yes PG Care Time/CCT Total # of Minutes Spent Total Time Spent with Patient: Total time spent is greater than 50% in coordination of care (as documented) at patient's floor/unit and/or counseling patient: Coding Level of Care Code 77609 INT INP/OBS CARE 3/75MIN Diagnoses Pneumonia J18.9 Laterality: right Lung location: lower lobe of lung Pneumonia type: due to unspecified organism COVID-19 U07.1 Hypoxia R09.02 Hypomagnesemia E83.42 CVA (cerebrovascular accident) I63.9 CVA mechanism: unspecified Right hemiparesis G81.91 Paroxysmal A-fib I48.0 Dementia F03.90 Dementia behavioral disturbance: without behavioral disturbance Dementia type: unspecified type (1) Pneumonia Laterality: right Lung location: lower lobe of lung Pneumonia type: due to unspecified organism Qualified Code(s): J18.9 - Pneumonia, unspecified organism (5) CVA (cerebrovascular accident) CVA mechanism: unspecified Qualified Code(s): I63.9 - Cerebral infarction, unspecified (8) Dementia Dementia behavioral disturbance: without behavioral disturbance Dementia type: unspecified type Qualified Code(s): F03.90 - Unspecified dementia without behavioral disturbance
[2024-07-01] MEDS: CEFEPIME 2,000 MG/20 ML VIAL IV STA (04:06)
[2024-07-01] MEDS: diphenhydrAMINE Capsule 25 MG CAP PO ONE (05:25)
[2024-07-01 06:14] LABS: Appearance Urine Clear (Clear); Bacteria Urine Automated 1+ (None Seen); Bilirubin Urine Negative (Negative); Blood Urine 1+ (Negative); Cast Urine Automated 0-2 /lpf (0-2); Color Urine Yellow; Epithelial Cell Urine Auto 0-2 /hpf (0-2); Glucose Urine UA 2+ (Negative); Ketones Urine 1+ (Negative); Leukocyte Esterase Urine 1+ (Negative); Nitrite Urine Negative (Negative); Protein Urine 1+ (Negative); RBC Urine Automated 0-2 /hpf (0-2); Specific Gravity Urine 1.021 (1.000-1.030); Urobilinogen Urine Negative (Negative); WBC Urine Automated >50 /hpf (0-5); pH Urine 5.5 (4.5-7.5)
[2024-07-01] MEDS ORDERED: CARBOHYDRATES FOR HYPOGLYCEMIA PO PRN (06:39)
[2024-07-01] MEDS ORDERED: GLUCOSE 10 TAB/TUBE PO PRN (06:39)
[2024-07-01] MEDS ORDERED: GLUCOSE 40% GEL 15 GM TUBE PO PRN (06:39)
[2024-07-01] MEDS ORDERED: GLUCAGON FOR INJ 1 MG VIAL SQ PRN (06:39)
[2024-07-01] MEDS ORDERED: DEXTROSE 50% 50 ML SYRINGE IV PRN (06:39)
--- NOTE | 2024-07-01 08:39 | Hospitalist Progress Note ---
Date of Service July 01, 2024 Assessment & Plan (1) Pneumonia: Plan: acute respiratory failure with hypoxia secondary to RLL pneumonia Right lower lobe pneumonia with bronchitis and pneumonitis/COVID with secondary bacterial infection- Dexamethasone 6 mg po daily x 5 doses LD 07/05 Cefepime 2 g IV every 12 hours Vancomycin IV infiltrated, MRSA negative so will stop Albuterol HFA 2 puffs every 2 hours as needed COVID precautions (2) Paroxysmal A-fib: Plan: For atrial fibrillation and hypertension continue the following: Aspirin, atorvastatin not requiring rate control at this time Troponin elevation 38.4, with follow-up pending, demand mismatch (3) CVA (cerebrovascular accident): Plan: CT scan of head showed old left basal ganglia chronic infarct chronic right hemiparesis (4) Dementia: Plan Hypomagnesemia 1.2, will receive 2 g magnesium sulfate IV, recheck laboratories in the a.m. For diabetes mellitus, hold Januvia placed Accu-Cheks with NovoLog SSI PT/OT eval Subjective pt is very [place] states he feels much better with regard to his breathing Physical Exam Physical Exam: pt with no respiratory distress lungs are clear cardiac exam is regular Results & Data Results & Data Vital Signs (Past 12 Hours) Vital Signs Temp Pulse Pulse Resp BP BP Pulse Ox 07/01/24 08:01 07/01/24 08:01 98.2 F 92 H 20 143/81 H 96 07/01/24 07:09 96 H 07/01/24 05:30 95 H 16 135/78 95 07/01/24 04:00 98.4 F 98 H 18 116/70 98 07/01/24 03:45 96 H 22 183/95 H 96 07/01/24 03:30 96 H 18 143/83 H 96 07/01/24 03:02 98.4 F 93 H 17 164/76 H 96 07/01/24 03:02 96 H 07/01/24 02:30 98.4 F 96 H 18 115/92 97 07/01/24 02:00 98.4 F 99 H 18 133/74 94 07/01/24 01:08 98.4 F 105 H 17 145/82 H 95 06/30/24 23:18 101.1 F H 117 H 19 161/90 H 95 06/30/24 23:03 110 H 20 94 06/30/24 23:00 101.1 F H 117 H 28 H 161/90 H 91 06/30/24 22:55 119 H 06/30/24 22:48 101.1 F H 118 H 24 169/81 H 91 06/30/24 22:48 91 O2 Del Method O2 Flow Rate 07/01/24 08:01 Nasal Cannula 2 07/01/24 08:01 Nasal Cannula 2 07/01/24 07:09 07/01/24 05:30 Nasal Cannula 2 07/01/24 04:00 Nasal Cannula 2 07/01/24 03:45 Nasal Cannula 2 07/01/24 03:30 Nasal Cannula 2 07/01/24 03:02 Nasal Cannula 2 07/01/24 03:02 07/01/24 02:30 Nasal Cannula 2 07/01/24 02:00 Nasal Cannula 2 07/01/24 01:08 Nasal Cannula 2 06/30/24 23:18 Nasal Cannula 06/30/24 23:03 Nasal Cannula 2 06/30/24 23:00 Room Air 06/30/24 22:55 06/30/24 22:48 Room Air 06/30/24 22:48 Room Air Laboratory Results review cbc review chemistry PG Care Time/CCT Total # of Minutes Spent Total Time Spent with Patient: Total time spent is greater than 50% in coordination of care (as documented) at patient's floor/unit and/or counseling patient: Coding Level of Care Code 19570 SUB INP/OBS CARE 3/50MIN Diagnoses Pneumonia J18.9 Laterality: right Lung location: lower lobe of lung Pneumonia type: due to unspecified organism Paroxysmal A-fib I48.0 CVA (cerebrovascular accident) I63.9 CVA mechanism: unspecified Dementia F03.90 Dementia behavioral disturbance: without behavioral disturbance Dementia type: unspecified type (1) Pneumonia Laterality: right Lung location: lower lobe of lung Pneumonia type: due to unspecified organism Qualified Code(s): J18.9 - Pneumonia, unspecified organism (3) CVA (cerebrovascular accident) CVA mechanism: unspecified Qualified Code(s): I63.9 - Cerebral infarction, unspecified (4) Dementia Dementia behavioral disturbance: without behavioral disturbance Dementia type: unspecified type Qualified Code(s): F03.90 - Unspecified dementia without behavioral disturbance
--- OUTSIDE RECORDS SUMMARY | 2024-07-01 08:59 | External Medical Summary | Summary of Care ---
Author Name Unknown Organization [facility] Address [address] [place] [address] Phone [phone] Care Team Providers Care Tank Charger Name Role Phone BillyJustin olivas Primary Care Provider [phone] Reason for Visit * Reason Comments Outpatient Testing Encounter Details Date Type Department Care Team (Late st Contact Info) Description 06/01/2024 3:00 PM EDT Laboratory Laboratory [facility] [address] [place] [id number] [facility] [address] [place] [address] Rheumatoid arthritis involving multiple sites with positive rheumatoid factor (HCC); Encounter for therapeutic drug monitoring; Senile osteoporosis Allergies No known active allergiesdocumented as of this encounter (statuses as of 06/01/2024) Medications Medication Sig Dispensed Refills Start Date End Date Status Januvia 100 MG Oral Tablet Take 1 Tablet by mouth in the morning. 08/10/2020 Active Vitamin B-12 1000 MCG Oral Tablet Take 1 Tablet by mouth in the morning. Active Glimepiride 2 MG Oral Tablet (Amaryl) TAKE ONE TABLET BY MOUTH TWO TIMES PER DAY - ONCE DURING BREAKFAST AND ONCE DURING DINNER 02/13/2021 Active Folic Acid 1 MG Oral Tablet Take 1 Tab by mouth daily. 90 Tab 4 03/06/2021 Active Ventolin HFA 108 (90 Base) MCG/ACT Inhalation Aerosol Solution 11/01/2021 Active Eliquis 5 MG Oral Tablet 1 twice daily 11/27/2021 Active Tamsulosin HCl 0.4 MG Oral Capsule (Flomax) 1 daily 11/26/2021 Active Memantine HCl 10 MG Oral Tablet (Namenda) 1 daily 11/27/2021 Active Centrum Silver 50+Men Oral Tablet Take by mouth . A ctive ReadyLance Safety Lancets 02/09/2022 Active oxyCODONE HCl 5 MG Oral Tablet (Oxy IR) 05/08/2022 Active predniSONE 5 MG Oral Tablet (Deltasone) Take 5mg daily 30 Tablet 2 07/28/2022 Active Zoledronic Acid 5 MG/100ML Intravenous Solution (Reclast) Administer 5 mg intravenously once. Active Tylenol 325 MG Oral Capsule (Acetaminophen) Take by mouth. Activ e Polyvinyl Alcohol 1.4 % Ophthalmic Solution (Artificial Tears) 1 Drop as needed. Active Glimepiride 1 MG Oral Tablet (Amaryl) Take 1 Tablet by mouth daily before breakfast. Active Leflunomide 20 MG Oral Tablet (Arava) TAKE ONE TABLET BY MOUTH ONCE DAILY (RHEUMATOID ARTHRITIS) 28 Tablet 5 03/02/2023 Active LORazepam 0.5 MG Oral Tablet (Ativan) Take 0.5 Tablets by mouth. Active Sertraline HCl 25 MG Oral Tablet (Zoloft) Take by mouth. 1 daily Active Loperamide HCl 2 MG Oral Capsule (Imodium) Take 1 Capsule by mouth. 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 05/14/2022 Dyslipidemia 01/02/2022 Encounter for therapeutic drug monitoring 2020 Essential hypertension Recurrent major depressive disorder, in remissio n Other emphysema Prediabetes TIA (transient ischemic attack) Stage 3b chronic kidney disease Other hyperlipidemia Vitamin D deficiency Rheumatoid arthritis involvi ng multiple sites with positive rheumatoid factor Overview: RF 152, CCP >250 documented as of this encounter (statuses as of 06/01/2024) Immunizations Name Administration Dates Next Due COVID-19 mRNA, LNP-s, No Pre serve, 2-Dose Series (slinkset) 12/12/2021,07/26/2021,10/17/2020,09/26 COVID-19, MRNA-LNP, 23-24, P F, 30 MCG/0.3 mL, 12 YRS AND ABOVE, IM (PFIZER-Comirnaty) 06/24/2023 COVID-19, mRNA, LNR-S, Bival ent, PF, 3 mcg/0.2 ml (Pfizer) 6m to 4 years 12/02/2023 Covid-19, Mrna, Lnp-s, Pf, B ivalent, 30 Mcg, IM, 12 yrs and above (Pfizer) 12/23/2022,05/30/2022 Hepatitis B, 20+ yrs 12/20/2020 Pneumococcal Conjugate Vacc, 13 Valent (Prevnar) 01/22/2017,05/14/2015 Pneumococcal Polysaccharide PPV23 (Pneumovax) 03/26/2013 RSV Vac., Recomb, Adjuvant, PF,0.5 Ml (Arexvy) 06/24/2023 Seasonal Influenza Virus Vac cine, Unspecified Formulation 05/30/2019,06/15/2017,05/26/2016,05/14,06/15/2012 Seasonal Influenza, Quadriva lent Hd (Fluzone Hd) 05/24/2023 Seasonal Influenza, Quadriva lent Hd, 65+ Yrs 05/21/2022 TDAP, Age 7 and older, IM (Adacel) 06/03/2016 Varicella Zoster Vaccine (Adult) 01/22/2017 documented as of this encounter Social History Tobacco Use Types Packs/Day Years Used Date Smoking Tobacco: Former Cigarettes Smokeless Tobacco: Never Alcohol Use Standard Drinks/Week Comments Not Currently 0 (1 standard drink = 0.6 oz pur e alcohol) Utilities Answer Date Recorded Do you have trouble paying y our heating, water, or electric bill? (Adult - for ages 18 years and over) Not on file 02/09/2024 Is your family able to pay t he heat, water, or electric bill? (Household - for ages 0-17 years) Not on file 02/09/2024 Does your family have access to good internet? (Household - for ages 0-17 years) Not on file 02/09/2024 Social Connections Answer Date Recorded How often do you feel lonely or isolated from those around you? (Adult - for ages 18 years and over) Not on file 02/09/2024 Sex and Gender Information Value Date Recorded Sex Assigned at Male 12/16/2021 10:41 PM EDT Gender Identity Male 12/16/2021 10:41 PM EDT Sexual Orientation Straight 12/16/2021 10 :41 PM EDT Job Start Date Occupation Industry Not on file Not on file Not on file documented as of this encounter Plan of Treatment Upcoming Encounters Date Type Department Care Team (Late st Contact Info) Description 08/03/2024 1:00 PM EST [facility]iology[facility] [address] [place] [id number] 08/03/2024 1:40 PM EST Office Visit Rheumatology [place] [id number] [address] [place] [id number] Ayden Castillo MD [facility] [place] [id number] Pending Results Name Type Priority Associated Diagnoses Date /Time COMPREHENSIVE METABOLIC PANEL Lab Routine Rheumatoid arthritis involving multiple sites with positive rheumatoid factor (HCC) Encounter for therapeutic drug monitoring 06/01/2024 2:35 PM EDT 25-HYDROXY VITAMIN D Lab Routine Senile osteoporosis 06/01/2024 2:35 PM EDT Health Maintenance Due Date Last Done Comments Depression Monitoring 1957 Albumin/Creatinine Ratio 1962 Alpha-1 Antitrypsin 1962 CKD PHOS USE SMARTSET 03058 1962 Zoster Vaccines (1 of 2) 03/19/2017 01/22/2017 *COPD SEVERITY VERIFIED BY PFT 08/24/2020 Hepatitis B Vaccine (2 of 3 - 19+ 3-dose series) 01/17/2021 12/20/2020 COVID-19 Vaccine ( season) 2024 12/02/2023, 06/24/2023, 12/23/2022, Additional history exists Influenza Vaccine (FLU shot) (#1) 2024 05/24/2023, 05/21/2022, 05/30/2019, Additional history exists *BASELINE EKG FOR HTN 05/15/2024 DXA Scan 07/28/2024 07/28/2022 O2 ASSESSMENT COMPLETED IN PAST YEAR FOR COPD 08/12/2024 08/12/2023 GFR 10/24/2024 04/26/2024, 07/2 11/2023, 02/03/2024, Additional history exists HbA1c 03/16/2025 03/16/2024, 03/06/2021 CKD HGB USE SMARTSET 98592 04/26/202506/01, 06/01/2024, 04/26/2024, Additional history exists DTap/Tdap Vaccines (2 - Td or Tdap) 06/03/2026 06/03/2016 Pneumococcal Vaccine: 65+ Years Completed 01/22/2017, 05/14/2015, 03/26/2013 VITAMIN D LEVEL ONCE IN A LIFETIME-USE SMARTSET# [id number] Completed 07/22/2022, 05/01/2022 HPV (Gardasil) Vaccine Aged Out No lo nger eligible based on patient's age to complete this topic MENINGOCOCCAL (MENACTRA/MENVEO) Aged Out No longer eligible based on patient's age to complete this topic documented as of this encounter Medical Devices Not on filedocumented as of this encounter Procedures Procedure Name Priority Date/Time Associated Diagnosis Comments DIFFERENTIAL, AUTOMATED Routine 06/01/2024 2:35 PM EDT Rheumatoid arthritis involving multiple sites with positive rheumatoid factor (HCC) Encounter for therapeutic drug monitoring CBC Routine 06/01/2024 2:35 PM EDT Rheumatoid arthritis involving multiple sites with positive rheumatoid factor (HCC) Encounter for therapeutic drug monitoring CBC Routine 06/01/2024 2:35 PM EDT Rheumatoid arthritis involving multiple sites with positive rheumatoid factor (HCC) Encounter for therapeutic drug monitoring documented in this encounter Results * (ABNORMAL) DIFFERENTIAL, AUTOMATED (06/01/2024 2:35 PM EDT) WBC 8.67 4.00 - 10.80 K/uL 06/01/2024 2:41 PM EDT [facility] [place] 56-02 Neutrophils % 82.9(H) 40.0 - 75.0 % 06/01/2024 2:41 PM EDT [facility] 56-02 Lymphocytes % 9.5(L) 18.0 - 42.0 % 06/01/2024 2:41 PM EDT [facility] 56- Monocytes % 6.2 1.0 - 11.0 % 06/01/2024 2:41 PM EDT [facility] 56-02 Eosinophils % 0.9 0.0 - 6.0 % 06/01/2024 2:41 PM EDT [facility] 56- Basophils % 0.5 0.0 - 2.0 % 06/01/2024 2:41 PM EDT [facility] 56-02 Absolute Neutrophils 7.19 1.80 - 7.70 K/uL 06/01/2024 2:41 PM EDT [facility] 56- Absolute Lymphocytes 0.82(L) 1.00 - 4.80 K/ul 06/01/2024 2:41 PM EDT [facility] 56-02 Absolute Monocytes 0.54 0.00 - 1.10 K/uL 06/01/2024 2:41 PM EDT [facility] 56-02 Absolute Eosinophils 0.08 0.00 - 0.70 K/uL 06/01/2024 2:41 PM EDT [facility] 56-02 Absolute Basophils 0.04 0.00 - 0.20 K/uL 06/01/2024 2:41 PM EDT [facility] 56-02 Blood Venous blood specimen / Unknown Venipuncture / Unknown 06/01/2024 2:35 PM EDT 06/01/2024 2:35 PM EDT Ayden Castillo MD LAB BLOOD ORDERABLE S [facility] 56-[address] [place] [address] * (ABNORMAL) CBC (06/01/2024 2:35 PM EDT) WBC 8.67 4.00 - 10.80 K/uL 06/01/2024 2:41 PM EDT [facility] 56-02 RBC 4.43 4.50 - 5.25 M/uL 06/01/2024 2:41 PM EDT [facility] 56 HGB 13.6(L) 14.0 - 16.8 g/dL 06/01/2024 2:41 PM EDT [facility] 56 HCT 41.6 40.0 - 48.4 % 06/01/2024 2:41 PM EDT [facility] 56 MCV 93.9 82.0 - 99.5 fL 06/01/2024 2:41 PM EDT [facility] 56 MCH 30.7 27.0 - 34.0 pg 06/01/2024 2:41 PM EDT [facility] 56 MCHC 32.7 32.0 - 36.0 g/dL 06/01/2024 2:41 PM EDT [facility] 56 RDW 15.6 11.5 - 15.5 % 06/01/2024 2:41 PM EDT [facility] 56 PLT 149 140 - 400 K/uL 06/01/2024 2:41 PM EDT [address] MPV 10.5 6.6 - 11.1 fL 06/01/2024 2:41 PM EDT [facility] 56 Blood Venous blood specimen / Unknown Venipuncture / Unknown 06/01/2024 2:35 PM EDT 06/01/2024 2:35 PM EDT Ayden Castillo MD LAB BLOOD ORDERABLE S [facility] [address] [place] [address] documented in this encounter Visit Diagnoses Diagnosis Rheumatoid arthritis involving multiple sites with positive rheumatoid factor (HCC) Encounter for therapeutic drug monitoring Senile osteoporosis documented in this encounter Care Teams Tank Charger Relationship Specialty Start Date End Date Justin Quijano DO [address] [place], [place] [id number] PCP - General Internal Medicine 07/23/23 documented as of this encounter
--- OUTSIDE RECORDS SUMMARY | 2024-07-01 08:59 | External Medical Summary ---
Author Name Unknown Address Unknown Organization [id number]:[facility] - [address] [place] [address] Laboratory Report Ordering Provider Test Date Status YOVANNY DARBY 06/01/2024 14:35:58 Final Deficient: <20 ng/mL
Ins ufficient: 20-29 ng/mL
Recommended/Optimum:30-50 ng/mL

Vitamin D intoxication is rare. If suspicious of Vitamin D toxicity, evaluation of serum Calcium and PTH is recommended. Observation Date Value Abnormality Reference (Units ) Status 25-OH Vitamin D total 06/01/2024 14:35:58 39 >19 (ng/mL) Final Performing Location [facility] [place] - [address] [place] [address]
[2024-07-01] MEDS ORDERED: ONDANSETRON INJ 2 MG/ML 2 ML VIAL IV PRN (10:13)
[2024-07-01] MEDS ORDERED: dexAMETHasone 4 MG in SYRINGE 0 ML IV SCH (10:13)
[2024-07-01] MEDS ORDERED: ALBUTEROL HFA 8 GM INHALER INH PRN (10:13)
[2024-07-01] MEDS ORDERED: ACETAMINOPHEN 325 MG TAB PO PRN ×2 (10:13)
[2024-07-01] MEDS: INSULIN ASPART PER UNIT CHARGE SC SCH (10:21)
[2024-07-01] MEDS: CYANOCOBALAMIN (B-12) 500 MCG TABLET PO SCH (11:28)
[2024-07-01] MEDS: LEFLUNOMIDE 10 MG TAB PO SCH (11:28)
[2024-07-01] MEDS: MEMANTINE HCL 10 MG TAB PO SCH (11:28)
[2024-07-01] MEDS: ASPIRIN 81 MG ECTAB PO SCH (11:28)
[2024-07-01] MEDS: TAMSULOSIN HCL 0.4 MG CAP PO SCH (11:28)
[2024-07-01] MEDS: FOLIC ACID 1 MG TAB PO SCH (11:28)
[2024-07-01] MEDS: CHOLECALCIFEROL 25 MCG (1000 UNITS) TAB PO SCH (11:29)
[2024-07-01] MEDS: ATORVASTATIN 40 MG TAB PO SCH (11:29)
[2024-07-01] MEDS: APIXABAN 5 MG TABLET PO SCH (11:29)
--- NOTE | 2024-07-01 13:32 | Electrocardiogram Report ---
Test Reason : Blood Pressure : */* mmHG Vent. Rate : 119 BPM Atrial Rate : 119 BPM P-R Int : 154 ms QRS Dur : 122 ms QT Int : 314 ms P-R-T Axes : 57 -39 29 degrees QTcB Int : 441 ms Sinus tachycardia Left axis deviation Right bundle branch block Abnormal ECG When compared with ECG of 23-Mar-2024 21:31, Vent. rate has increased by 46 bpm Criteria for Inferior infarct are no longer Present ST now depressed in Anterior leads T wave inversion now evident in Anterior leads Confirmed by Gael Veloz ([id number]) on 07/01/2024 1:32:23 PM Referred By: Confirmed By: Gael Veloz
[2024-07-01] MEDS: CEFEPIME 2000MG 2,000 MG/20 ML SYR IV SCH (15:56)
[2024-07-01] MEDS: oxyCODONE HCL IR 5 MG TAB (IMMEDIATE RELEASE) PO SCH (21:32)
[2024-07-02 06:48] LABS: Basophils # (auto) 0.03 K/uL (0.00-0.20); Basophils % (auto) 0.2 %; Eosinophils # (auto) 0.08 K/uL (0.00-0.50); Eosinophils % (auto) 0.5 %; Hematocrit (blood only) 33.6 % (42.0-52.0); Hemoglobin 11.4 g/dl (14.0-18.0); Immature Granulocytes # (auto) 0.19 K/uL (0.01-0.20); Immature Granulocytes % (auto) 1.2 %; Lymphocytes # (auto) 0.95 K/uL (1.20-3.40); Mean Corpuscular Hemoglobin 30.9 pg (25.0-34.0); Mean Corpuscular Hgb Conc 33.9 g/dL (32.0-36.0); Mean Corpuscular Volume 91.1 fL (80.0-100.0); Mean Platelet Volume 11.5 fL (9.4-12.4); Monocytes # (auto) 0.92 K/uL (0.11-0.59); Monocytes % (auto) 5.8 %; Neutrophils # (auto) 13.61 K/uL (1.40-6.50); Neutrophils % (auto) 86.3 %; Platelet Count 127 K/uL (130-400); RDW Coefficient of Variation 14.3 % (11.5-14.5); RDW Standard Deviation 48.2 fL (36.4-46.3); Red Blood Count 3.69 M/uL (4.70-6.10); White Blood Count 15.78 K/ul (4.8-10.8)
[2024-07-02 07:04] LABS: BUN Creatinine Ratio 18.5 (10-20); Calcium 8.9 mg/dl (8.6-10.3); Creatinine Clr Calc Pharmacy 47.1 ml/min; Magnesium 1.9 mg/dl (1.7-2.4); Phosphorus 2.1 mg/dl (2.5-4.9); Potassium 3.7 mmol/L (3.5-5.1)
[2024-07-02 07:36] LABS: Estimated Average Glucose 160 mg/dl; Hemoglobin A1C 7.2 % (4.5-5.6)
[2024-07-02] MEDS: dexAMETHasone 4 MG TAB PO SCH (09:18)
--- NOTE | 2024-07-02 10:31 | Hospitalist Progress Note ---
Date of Service July 02, 2024 Assessment & Plan (1) Pneumonia: Plan: acute respiratory failure with hypoxia secondary to RLL pneumonia Right lower lobe pneumonia with bronchitis and pneumonitis/COVID with secondary bacterial infection- Dexamethasone 6 mg po daily x 5 doses LD 07/05 Cefepime 2 g IV every 12 hours Vancomycin IV infiltrated, MRSA negative so will stop Albuterol HFA 2 puffs every 2 hours as needed COVID precautions (2) Paroxysmal A-fib: Plan: For atrial fibrillation and hypertension continue the following: Aspirin, atorvastatin not requiring rate control at this time Troponin elevation 38.4, with follow-up pending, demand mismatch (3) CVA (cerebrovascular accident): Plan: CT scan of head showed old left basal ganglia chronic infarct chronic right hemiparesis (4) Dementia: Plan: pt resident at [facility] anticipate return Plan magnesium replete For diabetes mellitus, hold Januvia placed Accu-Cheks with NovoLog SSI PT/OT eval Admission and Anticipated Discharge Date Admission Date: July 01, 2024 Subjective pt is very [place] states he feels much better with regard to his breathing states he frequently has no complaints even when ill Physical Exam Physical Exam: pt with no respiratory distress lungs are clear cardiac exam is regular Results & Data Results & Data Vital Signs (Past 12 Hours) Vital Signs Temp Pulse Pulse Resp BP Pulse Ox O2 Del Method 07/02/24 09:13 Nasal Cannula 07/02/24 08:58 97.7 F 93 H 16 171/73 H 96 Room Air 07/02/24 07:24 85 07/02/24 03:46 97.7 F 92 H 16 137/64 95 Nasal Cannula 07/02/24 01:36 90 07/01/24 23:32 97.7 F 94 H 18 138/69 95 Nasal Cannula 07/01/24 22:33 Room Air O2 Flow Rate 07/02/24 09:13 07/02/24 08:58 07/02/24 07:24 07/02/24 03:46 2 07/02/24 01:36 07/01/24 23:32 2 07/01/24 22:33 Laboratory Results review cbc review chemistry PG Care Time/CCT Total # of Minutes Spent Total Time Spent with Patient: Total time spent is greater than 50% in coordination of care (as documented) at patient's floor/unit and/or counseling patient: Coding Level of Care Code 35225 SUB INP/OBS CARE MIN Diagnoses Pneumonia J18.9 Laterality: right Lung location: lower lobe of lung Pneumonia type: due to unspecified organism Paroxysmal A-fib I48.0 CVA (cerebrovascular accident) I63.9 CVA mechanism: unspecified Dementia F03.90 Dementia behavioral disturbance: without behavioral disturbance Dementia type: unspecified type (1) Pneumonia Laterality: right Lung location: lower lobe of lung Pneumonia type: due to unspecified organism Qualified Code(s): J18.9 - Pneumonia, unspecified organism (3) CVA (cerebrovascular accident) CVA mechanism: unspecified Qualified Code(s): I63.9 - Cerebral infarction, unspecified (4) Dementia Dementia behavioral disturbance: without behavioral disturbance Dementia type: unspecified type Qualified Code(s): F03.90 - Unspecified dementia without behavioral disturbance
[2024-07-03 06:32] LABS: Basophils # (auto) 0.01 K/uL (0.00-0.20); Basophils % (auto) 0.1 %; Hematocrit (blood only) 31.5 % (42.0-52.0); Hemoglobin 10.9 g/dl (14.0-18.0); Immature Granulocytes # (auto) 0.08 K/uL (0.01-0.20); Immature Granulocytes % (auto) 0.8 %; Lymphocytes # (auto) 0.48 K/uL (1.20-3.40); Lymphocytes % (auto) 4.8 %; Mean Corpuscular Hgb Conc 34.6 g/dL (32.0-36.0); Mean Corpuscular Volume 89.5 fL (80.0-100.0); Mean Platelet Volume 11.2 fL (9.4-12.4); Monocytes # (auto) 0.51 K/uL (0.11-0.59); Monocytes % (auto) 5.1 %; Neutrophils % (auto) 89.2 %; Platelet Count 134 K/uL (130-400); RDW Coefficient of Variation 14.1 % (11.5-14.5); RDW Standard Deviation 46.1 fL (36.4-46.3); Red Blood Count 3.52 M/uL (4.70-6.10); White Blood Count 10.08 K/ul (4.8-10.8)
[2024-07-03 07:10] LABS: Albumin Level 3.8 gm/dl (3.4-5.0); BUN Creatinine Ratio 29.2 (10-20); Calcium 8.6 mg/dl (8.6-10.3); Creatinine Clr Calc Pharmacy 54.1 ml/min; Magnesium 1.8 mg/dl (1.7-2.4); Phosphorus 2.1 mg/dl (2.5-4.9); Potassium 4.1 mmol/L (3.5-5.1)
[2024-07-03] MEDS: POT PHOSPHATE MONOBASIC W/ SOD TAB PO ONE (09:35)
--- NOTE | 2024-07-03 15:37 | Hospitalist Progress Note ---
Date of Service July 03, 2024 Assessment & Plan (1) Pneumonia: Plan: acute respiratory failure with hypoxia secondary to RLL pneumonia Right lower lobe pneumonia with bronchitis and pneumonitis/COVID with secondary bacterial infection- Dexamethasone 6 mg po daily x 5 doses LD 07/05 Cefepime 2 g IV every 12 hours May transition outpatient cefdinir Vancomycin IV infiltrated, MRSA negative so will stop Albuterol HFA 2 puffs every 2 hours as needed COVID precautions (2) Paroxysmal A-fib: Plan: For atrial fibrillation and hypertension continue the following: Aspirin, atorvastatin not requiring rate control at this time Troponin elevation 38.4, with follow-up pending, demand mismatch (3) CVA (cerebrovascular accident): Plan: CT scan of head showed old left basal ganglia chronic infarct chronic right hemiparesis Typically does not transfer but that is his baseline but what is aware physical therapy feels he is at his baseline (4) Dementia: Plan: pt resident at [facility] anticipate return Plan magnesium replete For diabetes mellitus, hold Januvia placed Accu-Cheks with NovoLog SSI PT/OT eval Admission and Anticipated Discharge Date Admission Date: July 01, 2024 Subjective pt is very [place] states he continues to feel much better with regard to his breathing Sleeping most of the day on 07/03 states he frequently has no complaints even when ill Physical Exam Physical Exam: pt with no respiratory distress lungs are clear cardiac exam is regular Results & Data Results & Data Vital Signs (Past 12 Hours) Vital Signs Temp Pulse Pulse Resp BP Pulse Ox O2 Del Method 07/03/24 14:33 87 07/03/24 08:19 97.7 F 67 18 182/74 H 97 Room Air 07/03/24 07:08 76 07/03/24 07:06 76 Laboratory Results Reviewed CBC reviewed chemistry PG Care Time/CCT Total # of Minutes Spent Total Time Spent with Patient: Total time spent is greater than 50% in coordination of care (as documented) at patient's floor/unit and/or counseling patient: Coding Level of Care Code 02809 SUB INP/OBS CARE 2/35MIN Diagnoses Pneumonia J18.9 Laterality: right Lung location: lower lobe of lung Pneumonia type: due to unspecified organism Paroxysmal A-fib I48.0 CVA (cerebrovascular accident) I63.9 CVA mechanism: unspecified Dementia F03.90 Dementia behavioral disturbance: without behavioral disturbance Dementia type: unspecified type (1) Pneumonia Laterality: right Lung location: lower lobe of lung Pneumonia type: due to unspecified organism Qualified Code(s): J18.9 - Pneumonia, unspecified organism (3) CVA (cerebrovascular accident) CVA mechanism: unspecified Qualified Code(s): I63.9 - Cerebral infarction, unspecified (4) Dementia Dementia behavioral disturbance: without behavioral disturbance Dementia type: unspecified type Qualified Code(s): F03.90 - Unspecified dementia without behavioral disturbance
[2024-07-04 11:14] VITALS: BP 164/81; PULSE 96; RESP 17; TEMP 97.5; O2SAT 97
--- NOTE | 2024-07-04 13:28 | Discharge Summary ---
Discharge Summary Date of Service July 04, 2024 Principal Dx & Hospital Course #1 = Principal Diagnosis (1) Pneumonia: acute respiratory failure with hypoxia secondary to RLL pneumonia Right lower lobe pneumonia with bronchitis and pneumonitis/COVID with secondary bacterial infection- Dexamethasone 6 mg po daily x 5 doses LD 07/05 Cefepime 2 g IV every 12 hours May transition outpatient cefdinir Vancomycin IV infiltrated, MRSA negative so will stop Albuterol HFA 2 puffs every 2 hours as needed COVID precautions (2) Paroxysmal A-fib: For atrial fibrillation and hypertension continue the following: Aspirin, atorvastatin not requiring rate control at this time Troponin elevation 38.4, with follow-up pending, demand mismatch (3) CVA (cerebrovascular accident): CT scan of head showed old left basal ganglia chronic infarct chronic right hemiparesis Typically does not transfer but that is his baseline but what is aware physical therapy feels he is at his baseline (4) Dementia: pt resident at [facility] anticipate return Plan magnesium replete For diabetes mellitus, hold Januvia placed Accu-Cheks with NovoLog SSI PT/OT eval Admission HPI Per Admitting Provider The patient is a 78-year-old male with a past medical history including CVA, right carotid stenosis, right hemiparesis, ataxia, paroxysmal A-fib, dementia, RA, COPD, diabetes mellitus, hypertension and history of alcoholism. He presents to the emergency department with 2 days of generalized weakness, fever, shortness of breath and dyspnea on exertion. Significant testing in the emergency department includes Bio[employer] positive for COVID, and chest x-ray suggestive of right lower lobe pneumonia. Discharge Plan Discharge Items Patient Disposition: Personal Correction Reason For Visit: WEAKNESS,COVID, PNEUMONIA Discharge Diagnosis: Pneumonia Activity: Resume your previous activity Non-emergency contact: Primary Care Provider Call non-emergency contact if: you have any medication questions Follow-up/Referrals: Gael Rogers MD [Primary Care Provider] - Diet: Carb Consistent or DM2 and Heart Healthy Addtl Attending Provider Instructions: Recommend close followup with your PCP in 1-2 weeks. Please continue with antibiotics until completed. Next dose of cefuroxime is tonight. Next dose of azithromycin can be either tonight or in the AM but it is once daily for 3 days. Your next and only dose of dexamethasone in tomorrow morning. Pending Studies at Discharge: No Stand-Alone Forms: My [facility] [employer], Smoking Cessation Skilled Items Patient informed of condition?: No DNR: Yes Discharge Level of Care: Other Communicable Disease: No Discharge Prognosis: Stable Lines: None Urinary Catheter: No Medications and DC Order Prescriptions: New cefuroxime axetil 500 mg tablet 500 mg PO BID Qty: 6 0RF Rx Instructions: First dose tonight. azithromycin 500 mg tablet See Rx Instructions .ROUTE .COMPLEX Qty: 3 0RF Rx Instructions: For 500 mg dose pack: take 500 mg once daily for 3 days dexamethasone 6 mg tablet 6 mg PO DAILY Qty: 1 0RF Rx Instructions: last dose on 07/05 Continued memantine 10 mg tablet 10 mg PO DAILY Qty: 60 2RF leflunomide 20 mg tablet 20 mg PO DAILY prednisone 5 mg tablet 5 mg PO DAILY sertraline 25 mg tablet 25 mg PO DAILY cholecalciferol (vitamin D3) 25 mcg (1,000 unit) capsule 25 mcg PO DAILY lorazepam 0.5 mg tablet 0.25 mg PO Q4H PRN (Reason: Anxiety) aspirin 81 mg capsule 81 mg PO DAILY Eliquis 5 mg Tablet 5 mg PO BID Qty: 10 0RF tamsulosin 0.4 mg capsule 0.4 mg PO DAILY Qty: 30 2RF Januvia 100 mg tablet 100 mg PO DAILY 30 Days Qty: 30 0RF cyanocobalamin (vitamin B-12) [Vitamin B-12] 1,000 mcg Tablet 1,000 mcg PO DAILY 30 Days Qty: 30 0RF folic acid 1 mg tablet 1 mg PO DAILY 30 Days Qty: 30 2RF Centrum Silver Men 300-600-300 mcg tablet 1 tab PO DAILY 30 Days Qty: 30 0RF atorvastatin 80 mg tablet 80 mg PO DAILY Qty: 30 0RF metformin 500 mg tablet 500 mg PO BID loperamide [Anti-Diarrheal (loperamide)] 2 mg Tablet 2 mg PO Q4H PRN (Reason: Diarrhea) Rx Instructions: administer after each loose stool until symptoms controlled; do not exceed 8 mg per 24 hrs potassium chloride 10 mEq tablet,ER particles/crystals 10 meq PO BID oxycodone 5 mg tablet 5 mg PO DAILY Rx Instructions: 5 mg orally daily at 8 P.M. Discharge Orders: Discharge Order (Routine); Ordered 07/04/24 Ordered By: Wale Kern/Other Patient Handouts: Managing Type 2 Diabetes Admission Data Admit Date/Time: 07/01/24 03:32 Attending Provider: Wale Gutiérrez Admit Provider: Arnel Coelho Primary Care Provider: Gael Rogers Other Providers: Arnel Coelho Other Interventions: Discharge Summary Assessment (RN) Last Done: 07/04/24 12:02 Hospital Stay Data Consultations 07/01/24 03:03 ED Decision to Admit Stat Diagnostic Imagining Performed 06/30/24 23:03 CT head/brain wo con Stat Pending Results Patient Have Any Pending Studies at Discharge: No Discharge Instructions Given to Patient (Per Discharging Provider) Recommend close followup with your PCP in 1-2 weeks. Please continue with antibiotics until completed. Next dose of cefuroxime is tonight. Next dose of azithromycin can be either tonight or in the AM but it is once daily for 3 days. Your next and only dose of dexamethasone in tomorrow morning. Coding Diagnoses Pneumonia J18.9 Laterality: right Lung location: lower lobe of lung Pneumonia type: due to unspecified organism Paroxysmal A-fib I48.0 CVA (cerebrovascular accident) I63.9 CVA mechanism: unspecified Dementia F03.90 Dementia behavioral disturbance: without behavioral disturbance Dementia type: unspecified type
== END 2024-07-04 14:19 | disposition home or self-care (01) | DRG 177 ==
LOC: SUATTDRO → ED 22:48 → SUATTDRO 07-01 03:32 → 2W 07-01 03:32

== ENCOUNTER 2024-07-12 20:08 | Inpatient (IN) ==
--- NOTE | 2024-07-12 20:44 | Emergency Department Note ---
Impression & Plan Sepsis, Hypomagnesemia, Leukocytosis, Elevated lactic acid level, Elevated procalcitonin, Nausea, vomiting, and diarrhea ED Provider Note HISTORY OF PRESENT ILLNESS: Patient is a 78-year-old male presenting with generalized weakness. Patient presents from [facility]. History is obtained mainly from EMS. They report that the patient has had 4 days of nausea, vomiting and diarrhea. Staff went to get the patient up for a shower this evening and he was very weak and could not get up and around like normal. On arrival to the ER, the patient reports he feels completely fine. He denies any abdominal pain, chest pain or shortness of breath. He states that he had vomiting for most the night last night. He denies any recent antibiotic use. He was recently admitted to the hospital for COVID-19 infection. Patient denies any dysuria or hematuria. However, he is a poor historian. ROS: as above PHYSICAL EXAM: Constitutional: Patient appears in no acute distress. HENT: Head: Normocephalic and atraumatic. Eyes: EOMI, PERRL Mouth/Throat: Mucous membranes dry. Neck: Trachea midline. Neck supple. Cardiovascular: Tachycardic with regular rhythm. No murmurs, rubs or gallops. Intact distal pulses. Pulmonary/Chest: No respiratory distress. Breath sounds clear and equal bilaterally. No wheezes or rales. Abdominal: Abdomen soft, no tenderness, rebound or guarding. Musculoskeletal: No edema, tenderness or deformity noted. Skin: Warm and dry. No rash, erythema, pallor or cyanosis Psychiatric: Appropriate mood and affect for situation. Neurological: Alert and keenly responsive. CN II-XII grossly intact, moving all extremities equally and fully. MDM: - Vitals signs showed tachycardia. - History obtained via EMS, given patient's confusion. History as above. - Chronic conditions affecting care: CVA; right carotid stenosis; paroxysmal Afib; dementia; COPD; DM-2; HTN; alcoholism - Differential diagnoses include, but are not limited to: cholecystitis; colitis; diverticulitis; viral syndrome; dehydration; electrolyte abnormality; ACS; UTI - Order placed for continuous cardiac monitoring. At this time, monitor showed rate of 100 bpm with normal sinus rhythm, per my interpretation. - External medical records reviewed. Discharge summary dated 07/04/2024 was reviewed. Patient was admitted for acute respiratory failure with hypoxia secondary to right lower lobe pneumonia and subsequently found to be COVID- positive. - EKG interpreted by myself showed normal sinus rhythm. Rate tachycardic at 109 bpm. QT 340. No acute ischemic changes. Noted to have a right bundle branch block. - Laboratory workup interpreted by myself showed leukocytosis (WBC 22.93) with neutrophil predominance; normal PT/INR; elevated lactate (2.7); elevated anion gap (13); hypomagnesemia (Mg 1.1); normal liver function; normal troponin; elevated procalcitonin (3.35); normal lipase - Viral respiratory panel positive for COVID-19, though patient has been positive earlier in the month. - CT abdomen/pelvis with IV contrast negative for hide bowel obstruction. Noted to have fluid-filled small bowel loops in the inferior abdomen and pelvis concerning for enteritis. Noted to have focal thickening of the anterior margin of the fundus concerning for focal contraction versus gallbladder wall polyp. - CXR negative for pneumonia, per my interpretation - UA ordered - Stool studies and C diff ordered - Blood cultures ordered - Patient given 1g IV magnesium for electrolyte replacement. - Given 2L NS for hydration. Patient sepsis fluid volume calculation based on ideal body weight is 2181.60 mL. - Given IV zosyn empirically for sepsis coverage. - Discussion was had with ed case manager about patient's case and need for admission - Hospitalist, Dr. Coelho, consulted for admission - [facility] ASSESSMENT AND PLAN: Diagnosis: Sepsis; leukocytosis; elevated lactic acid level; hypomagnesemia; elevated procalcitonin; nausea, vomiting and diarrhea Plan: Admit Past Med/Surg History Problem List (Updated 07/12/24 @ 22:43 by Nicole Armenta MD) Nausea, vomiting, and diarrhea (Acute) Elevated procalcitonin (Acute) Elevated lactic acid level (Acute) Leukocytosis (Acute) Hypomagnesemia (Acute) Sepsis (Acute) Hypomagnesemia (Acute) Pneumonia (Acute) COVID-19 (Acute) Hypoxia (Acute) CVA (cerebrovascular accident) (Acute) Carotid stenosis, right Right hemiparesis Acute CVA (cerebrovascular accident) Ataxia Loss of protective sensation of skin of foot Diabetic peripheral neuropathy associated with type 2 diabetes mellitus Osteoporosis Paroxysmal A-fib Hyponatremia Dementia (Acute) Hypoxia (Acute) Anemia (Acute) Emotional lability Frequent falls (Acute) Ambulatory dysfunction (Acute) Thrombocytopenia (Acute) Elevated LFTs Vitamin D deficiency Rheumatoid arthritis involving multiple sites with positive rheumatoid factor Tinnitus, bilateral Sensorineural hearing loss of both ears Chronic obstructive pulmonary disease (Acute) Diabetes mellitus (Acute) Hypercholesterolemia (Acute) CKD (chronic kidney disease) (Acute) Tubular adenoma of colon (Acute) Hypertension (Acute) History of alcoholism (Acute) Medical History Weight loss Arthritis of both knees Depression with anxiety Closed fracture of left hip Acute hyperactive delirium due to multiple etiologies Acute encephalopathy Acute kidney injury superimposed on chronic kidney disease COVID-19 Internal hemorrhoids Diverticulitis Surgical History History of appendectomy Family History Mother Cancer Denies family history of Ovarian cancer Prostate cancer Myocardial infarction Breast cancer Colorectal cancer Social History Smoking Status: Never smoker Tobacco Type: Cigarettes Age Started Using Tobacco: 14; Age Quit Using Tobacco: 59; packs per day: 1; Second Hand Exposure: No; Do You Dip or Chew Tobacco: No; Hx Alcohol Use: No Hx Substance Use: No Preferred Language: Jordanian Communication Ability: Effective Visual Impairment: No Limitations Hearing Ability: Use of Hearing Aid Meeting Coordinator Required: No Beliefs That Will Affect Care: None marital status: Current Living Situation: Long Term current occupational status: 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 Feels Safe at Home: Yes Childhood Exposure to Second-Hand Smoke: No Dental Care, Regularly: Yes Physical Activity Frequency: Does not Exercise Seatbelt Use: always Sunscreen Use: Yes Gender Identity: Male Assistive Devices: Wheelchair Allergies Allergies Allergy/AdvReac Type Severity Reaction Status Date / Time No Known Allergies Allergy Verified 07/06/24 10:23 Home Meds Home Medications Medication Instructions Recorded Confirmed cholecalciferol (vitamin D3) 25 25 mcg PO DAILY 03/16/24 07/12/24 mcg (1,000 unit) capsule leflunomide 20 mg tablet 20 mg PO DAILY 03/16/24 07/12/24 lorazepam 0.5 mg tablet 0.25 mg PO Q4H PRN Anxiety 03/16/24 07/12/24 prednisone 5 mg tablet 5 mg PO DAILY 03/16/24 07/12/24 sertraline 25 mg tablet 25 mg PO DAILY 03/16/24 07/12/24 aspirin 81 mg capsule 81 mg PO DAILY 03/30/24 07/12/24 loperamide 2 mg tablet 2 mg PO Q4H PRN Diarrhea 07/01/24 07/12/24 (Anti-Diarrheal (loperamide)) metformin 500 mg tablet 500 mg PO BID 07/01/24 07/12/24 oxycodone 5 mg tablet 5 mg PO DAILY 07/01/24 07/12/24 potassium chloride 10 mEq 10 meq PO BID 07/01/24 07/12/24 tablet,extended release(part/cryst) memantine 10 mg tablet 10 mg PO QAM 07/12/24 07/12/24 tamsulosin 0.4 mg capsule 0.4 mg PO QAM 07/12/24 07/12/24 Previous Rx's Medication Instructions Recorded cyanocobalamin (vitamin B-12) 1,000 mcg PO DAILY 30 days #30 tabs 11/01/21 1,000 mcg tablet (Vitamin B-12) folic acid 1 mg tablet 1 mg PO DAILY 30 days #30 tabs 11/01/21 gwxicicz-lc-oxkyb 300 mcg-K 60 1 tab PO DAILY 30 days #30 tabs 11/01/21 mcg-lycop 600 mcg-lutein 300 mcg tablet (Centrum Silver Men) sitagliptin phosphate 100 mg 100 mg PO DAILY 30 days #30 tabs 11/01/21 tablet (Januvia) apixaban 5 mg tablet (Eliquis) 5 mg PO BID #10 tabs 02/19/22 atorvastatin 80 mg tablet 80 mg PO DAILY #30 tabs 03/24/24 Results & Data (ED) Vital Signs Vital Signs - 24 hr 07/12/24 20:02 07/12/24 20:19 07/12/24 20:33 Temperature 36.9 C Temperature Source Oral Pulse Rate 114 H 115 H 111 H Pulse Rate from SpO2 Sensor 111 H Pulse Rhythm Regular Pulse Strength Normal Respiratory Rate 20 20 Respiratory Effort / Characteristics Non-Labored Spontaneous Respiratory Depth Normal Respiratory Pattern Regular Blood Pressure 128/77 109/62 Blood Pressure Mean 94 77 Pulse Oximetry 96 91 Oxygen Delivery Method Room Air Room Air Sepsis Recent Fever Within 48 Hours No Sepsis New/Unexplained Change in Mental Status N/A Sepsis Action Taken by Nursing No Action Required 07/12/24 20:48 07/12/24 21:30 Temperature Temperature Source Pulse Rate 115 H 103 H Pulse Rate from SpO2 Sensor Pulse Rhythm Regular Pulse Strength Respiratory Rate 20 20 Respiratory Effort / Characteristics Respiratory Depth Respiratory Pattern Blood Pressure 122/66 Blood Pressure Mean 84 Pulse Oximetry 93 90 Oxygen Delivery Method Room Air Room Air Sepsis Recent Fever Within 48 Hours Sepsis New/Unexplained Change in Mental Status Sepsis Action Taken by Nursing Laboratory Data 07/12/24 20:15 07/12/24 20:15 Lab Results 07/12/24 07/12/24 07/12/24 Range/Units 20:14 20:15 21:00 WBC 22.93 H (4.8-10.8) K/ul RBC 3.89 L (4.70-6.10) M/uL Hgb 12.2 L (14.0-18.0) g/dl Hct 36.0 L (42.0-52.0) % MCV 92.5 (80.0-100.0) fL MCH 31.4 (25.0-34.0) pg MCHC 33.9 (32.0-36.0) g/dL RDW Std Deviation 48.8 H (36.4-46.3) fL RDW Coeff of [place] 14.4 (11.5-14.5) % Plt Count 169 (130-400) K/uL MPV 11.0 (9.4-12.4) fL Immature Gran % (Auto) 0.8 % Neut % (Auto) 92.5 % Lymph % (Auto) 1.9 % [place] % (Auto) 4.4 % Eos % (Auto) 0.2 % Baso % (Auto) 0.2 % Neut # (Auto) 21.20 H (1.40-6.50) K/uL Lymph # (Auto) 0.44 L (1.20-3.40) K/uL [place] # (Auto) 1.02 H (0.11-0.59) K/uL Eos # (Auto) 0.05 (0.00-0.50) K/uL Baso # (Auto) 0.04 (0.00-0.20) K/uL Immature Gran # (Auto) 0.18 (0.01-0.20) K/uL Polychromasia 1+ Ovalocytes 1+ PT 11.5 (9.0-12.0) Seconds INR 1.1 (0.9-1.1) Sodium 139 (136-145) mmol/L Potassium 4.3 (3.5-5.1) mmol/L Chloride 103 (98-107) mmol/L Carbon Dioxide 23 (21-32) mmol/L Anion Gap 13 H (3-11) BUN 18 (6-23) mg/dl Creatinine 1.21 (0.6-1.4) mg/dl Est Cr Clr Drug Dosing 47.1 ml/min eGFR 60.91 BUN/Creatinine Ratio 14.9 (10-20) Glucose 228 H (70-99(Fasting)) mg/dl Lactate 2.7 H* (0.4-2.0) mmol/L Calcium 8.8 (8.6-10.3) mg/dl Magnesium 1.1 L (1.7-2.4) mg/dl Total Bilirubin 0.7 (0.2-1.0) mg/dl AST 19 (13-39) U/L ALT 25 (7-52) U/L Alkaline Phosphatase 66 (34-104) U/L Troponin I High Sens 11.6 (0-20) pg/ml Total Protein 6.4 (6.0-8.3) gm/dl Albumin 3.7 (3.4-5.0) gm/dl Globulin 2.7 (2.5-4.0) gm/dl Albumin/Globulin Ratio 1.4 (0.9-2) Lipase 23 (11-82) U/L Procalcitonin 3.35 H (0-0.5) ng/ml Adenovirus (PCR) Not Detected (NotDetected) B. pertussis DNA (PCR) Not Detected (NotDetected) B.parapertussis DNA PCR Not Detected (NotDetected) C. pneumoniae DNA (PCR) Not Detected (NotDetected) Coronavirus OC43 (PCR) Not Detected (NotDetected) Coronavirus HKU1 (PCR) Not Detected (NotDetected) Coronavirus 229E (PCR) Not Detected (NotDetected) SARS-CoV-2 (PCR) DETECTED A (NotDetected) Coronavirus NL63 (PCR) Not Detected (NotDetected) Human Metapneumovir PCR Not Detected (NotDetected) Influenza Type A (PCR) Not Detected (NotDetected) Influenza Type B (PCR) Not Detected (NotDetected) M. pneumoniae (PCR) Not Detected (NotDetected) Parainfluenza 1 (PCR) Not Detected (NotDetected) Parainfluenza 2 (PCR) Not Detected (NotDetected) Parainfluenza 3 (PCR) Not Detected (NotDetected) Parainfluenza 4 (PCR) Not Detected (NotDetected) RSV (PCR) Not Detected (NotDetected) Entero/Rhino (PCR) Not Detected (NotDetected) Administered Medications Discontinued Medications Sodium Chloride (Nss) 1,000 mls @ 999 mls/hr IV .Q1H1M ONE Stop: 07/12/24 22:10 Last Admin: 07/12/24 22:14 Dose: 999 mls/hr Documented By: [facility] [place] Magnesium Sulfate/Dextrose (Magnesium Sulfate / D5w) 1 gm in 100 mls @ 100 mls/hr IV NOW STA Stop: 07/12/24 22:16 Last Admin: 07/12/24 22:11 Dose: 100 mls/hr Documented By: [facility] [place] Ioversol (Optiray 320 100ml) 91 ml IV ONCE ONE Stop: 07/12/24 21:46 Last Admin: 07/12/24 21:45 Dose: 91 ml Documented By: [facility] Imaging Data Radiologist's Impression: Abdomen/Pelvis CT 07/12/24 20:42 Exam(s): CT ABDOMEN + PELVIS With Contrast IV Amt: 91 cc opti 320 EXAM: CT Abdomen and Pelvis With Intravenous Contrast CLINICAL HISTORY: N/V/D; weakness. TECHNIQUE: Axial computed tomography images of the abdomen and pelvis with intravenous contrast. CTDI is 13.76 mGy and DLP is 734.1 mGy-cm. Automated exposure control was utilized for the study. A dose lowering technique was utilized adhering to the principles of ALARA. CONTRAST: Patient received 91 cc opti 320 of IV contrast COMPARISON: No relevant prior studies available. FINDINGS: Lung bases: Curvilinear changes noted at the lung bases. There is a somewhat rounded area along the posterior medial right lower lobe. No consolidation. ABDOMEN: Liver: Low attenuation focus in the liver which may be due to a cyst but is too small to characterize. Gallbladder and bile ducts: Focal thickening of the anterior margin of the fundus of the gallbladder is noted measuring 9 x 5 mm. No calcified stones. No ductal dilation. Pancreas: Scattered punctate calcifications noted throughout the pancreas. The pancreas demonstrates normal enhancement. There is a cyst along the anterior margin of the pancreatic neck measuring 10 mm. No obvious internal complex features on this [id number]-ecxphgkmvj examination. No pancreatic ductal dilation. Spleen: Unremarkable. No splenomegaly. Adrenals: Unremarkable. No mass. Kidneys and ureters: Unremarkable. No solid mass. No hydronephrosis. Stomach and bowel: The stomach is predominantly decompressed with minimal fluid and gas. Mild mucosal prominence is presumed related to under distention. No evidence for focal high-grade bowel obstruction. Fluid filled small bowel loops noted in the inferior abdomen and pelvis without dilation. No obvious asymmetric bowel mucosal abnormality. Mild stool burden. No appreciable diverticulitis. PELVIS: Appendix: The appendix is not clearly delineated. No secondary findings to suggest acute appendicitis. Bladder: Mild mucosal prominence of the mildly distended bladder is presumed related to under distention. No bladder stones. Reproductive: Unremarkable as visualized. ABDOMEN and PELVIS: Intraperitoneal space: Unremarkable. No free air. No significant fluid collection. Bones/joints: Multilevel degenerative changes of the lumbar spine. Straightening of the normal lumbar lordosis. No acute osseous abnormality. No dislocation. Soft tissues: Unremarkable. Vasculature: Atherosclerotic calcification of the abdominal aorta. No dissection or aneurysm. Lymph nodes: Unremarkable. No enlarged lymph nodes. IMPRESSION: 1. No evidence for focal high-grade bowel obstruction. Fluid filled small bowel loops noted in the inferior abdomen and pelvis without dilation. There is a nonspecific finding and is presumed normal variation; however, mild enteritis is also a consideration. No obvious asymmetric bowel mucosal abnormality. Mild stool burden. No appreciable diverticulitis. No free intraperitoneal fluid or pneumoperitoneum. 2. Focal thickening of the anterior margin of the fundus of the gallbladder is noted measuring 9 x 5 mm. This may represent focal contraction along the abdominal wall versus a gallbladder wall polyp. 3. Scattered punctate calcifications noted throughout the pancreas. The pancreas demonstrates normal enhancement. There is a cyst along the anterior margin of the pancreatic neck measuring 10 mm. No obvious internal complex features on this [id number]-ivlb-unmhrxiboy examination. Consider dedicated high-resolution imaging of the pancreas for further analysis. No pancreatic ductal dilation. 4. Presumed curvilinear atelectasis involving the lung bases. The somewhat nodular component in the medial right lower lobe is presumed rounded atelectasis. Electronically signed by: Mendel Guardado MD 07/12/24 22:32 PM Discharge Plan Visit Data Chief Complaint: GI Assessment Stated Complaint: N/V/D ED Provider: Nicole Armenta Discharge Problem: Sepsis, Hypomagnesemia, Leukocytosis, Elevated lactic acid level, Elevated procalcitonin, Nausea, vomiting, and diarrhea Forms Stand Alone Forms: My [facility] Prescriptions Prescriptions: No Action leflunomide 20 mg tablet 20 mg PO DAILY prednisone 5 mg tablet 5 mg PO DAILY sertraline 25 mg tablet 25 mg PO DAILY cholecalciferol (vitamin D3) 25 mcg (1,000 unit) capsule 25 mcg PO DAILY lorazepam 0.5 mg tablet 0.25 mg PO Q4H PRN (Reason: Anxiety) aspirin 81 mg capsule 81 mg PO DAILY Eliquis 5 mg Tablet 5 mg PO BID Qty: 10 0RF Januvia 100 mg tablet 100 mg PO DAILY 30 Days Qty: 30 0RF cyanocobalamin (vitamin B-12) [Vitamin B-12] 1,000 mcg Tablet 1,000 mcg PO DAILY 30 Days Qty: 30 0RF folic acid 1 mg tablet 1 mg PO DAILY 30 Days Qty: 30 2RF Centrum Silver Men 300-600-300 mcg tablet 1 tab PO DAILY 30 Days Qty: 30 0RF atorvastatin 80 mg tablet 80 mg PO DAILY Qty: 30 0RF metformin 500 mg tablet 500 mg PO BID loperamide [Anti-Diarrheal (loperamide)] 2 mg Tablet 2 mg PO Q4H PRN (Reason: Diarrhea) Rx Instructions: administer after each loose stool until symptoms controlled; do not exceed 8 mg per 24 hrs potassium chloride 10 mEq tablet,ER particles/crystals 10 meq PO BID oxycodone 5 mg tablet 5 mg PO DAILY Rx Instructions: 5 mg orally daily at 8 P.M. tamsulosin 0.4 mg capsule 0.4 mg PO QAM memantine 10 mg tablet 10 mg PO QAM Referrals Referrals: Pro,Gael Daily MD [Primary Care Provider] -
[2024-07-12 21:01] LABS: Hemoglobin 12.2 g/dl (14.0-18.0); Mean Corpuscular Hemoglobin 31.4 pg (25.0-34.0); Mean Corpuscular Hgb Conc 33.9 g/dL (32.0-36.0); Mean Corpuscular Volume 92.5 fL (80.0-100.0); Platelet Count 169 K/uL (130-400); RDW Coefficient of Variation 14.4 % (11.5-14.5); RDW Standard Deviation 48.8 fL (36.4-46.3); Red Blood Count 3.89 M/uL (4.70-6.10); White Blood Count 22.93 K/ul (4.8-10.8)
[2024-07-12 21:15] LABS: Albumin Globulin Ratio 1.4 (0.9-2); Albumin Level 3.7 gm/dl (3.4-5.0); BUN Creatinine Ratio 14.9 (10-20); Bilirubin,Total 0.7 mg/dl (0.2-1.0); Calcium 8.8 mg/dl (8.6-10.3); Creatinine Clr Calc Pharmacy 47.1 ml/min; Globulin 2.7 gm/dl (2.5-4.0); Magnesium 1.1 mg/dl (1.7-2.4); Potassium 4.3 mmol/L (3.5-5.1); Total Protein 6.4 gm/dl (6.0-8.3)
[2024-07-12 21:20] LABS: Troponin I High Sensitivity 11.6 pg/ml (0-20)
[2024-07-12 21:24] LABS: INR 1.1 (0.9-1.1); Prothrombin Time 11.5 Seconds (9.0-12.0)
[2024-07-12 21:26] LABS: Basophils # (auto) 0.04 K/uL (0.00-0.20); Basophils % (auto) 0.2 %; Eosinophils # (auto) 0.05 K/uL (0.00-0.50); Eosinophils % (auto) 0.2 %; Immature Granulocytes # (auto) 0.18 K/uL (0.01-0.20); Immature Granulocytes % (auto) 0.8 %; Lymphocytes # (auto) 0.44 K/uL (1.20-3.40); Lymphocytes % (auto) 1.9 %; Monocytes # (auto) 1.02 K/uL (0.11-0.59); Monocytes % (auto) 4.4 %; Neutrophils % (auto) 92.5 %; Ovalocytes 1+; Polychromasia 1+
[2024-07-12 21:40] LABS: Adenovirus PCR Not Detected (NotDetected); Bordetella parapertussis PCR Not Detected (NotDetected); Bordetella pertussis PCR Not Detected (NotDetected); Chlamydia pneumoniae PCR Not Detected (NotDetected); Coronavirus 229E PCR Not Detected (NotDetected); Coronavirus CoV-2 (COVID19)PCR DETECTED (NotDetected); Coronavirus HKU1 PCR Not Detected (NotDetected); Coronavirus NL63 PCR Not Detected (NotDetected); Coronavirus OC43PCR Not Detected (NotDetected); Human Metapneumovirus PCR Not Detected (NotDetected); Influenza A PCR Not Detected (NotDetected); Influenza B PCR Not Detected (NotDetected); Mycoplasma pneumoniae PCR Not Detected (NotDetected); Parainfluenza Virus 1 PCR Not Detected (NotDetected); Parainfluenza Virus 2 PCR Not Detected (NotDetected); Parainfluenza Virus 3 PCR Not Detected (NotDetected); Parainfluenza Virus 4 PCR Not Detected (NotDetected); Respiratory Syncytial VirusPCR Not Detected (NotDetected); Rhinovirus/Enterovirus PCR Not Detected (NotDetected)
[2024-07-12] MEDS: OPTIRAY 320 100ml IV ONE (21:45)
[2024-07-12] MEDS: MAGNESIUM SULFATE / D5W 1 GM/100 ML BAG IV STA (22:11)
[2024-07-12] MEDS: SODIUM CHLORIDE 0.9% 1,000 ML IV ONE ×2 (22:14→23:27)
--- NOTE | 2024-07-12 22:34 | CT Scan Report ---
Exam(s): CT ABDOMEN + PELVIS With Contrast IV Amt: 91 cc opti 320 EXAM: CT Abdomen and Pelvis With Intravenous Contrast CLINICAL HISTORY: N/V/D; weakness. TECHNIQUE: Axial computed tomography images of the abdomen and pelvis with intravenous contrast. CTDI is 13.76 mGy and DLP is 734.1 mGy-cm. Automated exposure control was utilized for the study. A dose lowering technique was utilized adhering to the principles of ALARA. CONTRAST: Patient received 91 cc opti 320 of IV contrast COMPARISON: No relevant prior studies available. FINDINGS: Lung bases: Curvilinear changes noted at the lung bases. There is a somewhat rounded area along the posterior medial right lower lobe. No consolidation. ABDOMEN: Liver: Low attenuation focus in the liver which may be due to a cyst but is too small to characterize. Gallbladder and bile ducts: Focal thickening of the anterior margin of the fundus of the gallbladder is noted measuring 9 x 5 mm. No calcified stones. No ductal dilation. Pancreas: Scattered punctate calcifications noted throughout the pancreas. The pancreas demonstrates normal enhancement. There is a cyst along the anterior margin of the pancreatic neck measuring 10 mm. No obvious internal complex features on this urp-nbdi-gsyqhmhggk examination. No pancreatic ductal dilation. Spleen: Unremarkable. No splenomegaly. Adrenals: Unremarkable. No mass. Kidneys and ureters: Unremarkable. No solid mass. No hydronephrosis. Stomach and bowel: The stomach is predominantly decompressed with minimal fluid and gas. Mild mucosal prominence is presumed related to under distention. No evidence for focal high-grade bowel obstruction. Fluid filled small bowel loops noted in the inferior abdomen and pelvis without dilation. No obvious asymmetric bowel mucosal abnormality. Mild stool burden. No appreciable diverticulitis. PELVIS: Appendix: The appendix is not clearly delineated. No secondary findings to suggest acute appendicitis. Bladder: Mild mucosal prominence of the mildly distended bladder is presumed related to under distention. No bladder stones. Reproductive: Unremarkable as visualized. ABDOMEN and PELVIS: Intraperitoneal space: Unremarkable. No free air. No significant fluid collection. Bones/joints: Multilevel degenerative changes of the lumbar spine. Straightening of the normal lumbar lordosis. No acute osseous abnormality. No dislocation. Soft tissues: Unremarkable. Vasculature: Atherosclerotic calcification of the abdominal aorta. No dissection or aneurysm. Lymph nodes: Unremarkable. No enlarged lymph nodes. IMPRESSION: 1. No evidence for focal high-grade bowel obstruction. Fluid filled small bowel loops noted in the inferior abdomen and pelvis without dilation. There is a nonspecific finding and is presumed normal variation; however, mild enteritis is also a consideration. No obvious asymmetric bowel mucosal abnormality. Mild stool burden. No appreciable diverticulitis. No free intraperitoneal fluid or pneumoperitoneum. 2. Focal thickening of the anterior margin of the fundus of the gallbladder is noted measuring 9 x 5 mm. This may represent focal contraction along the abdominal wall versus a gallbladder wall polyp. 3. Scattered punctate calcifications noted throughout the pancreas. The pancreas demonstrates normal enhancement. There is a cyst along the anterior margin of the pancreatic neck measuring 10 mm. No obvious internal complex features on this [id number] examination. Consider dedicated high-resolution imaging of the pancreas for further analysis. No pancreatic ductal dilation. 4. Presumed curvilinear atelectasis involving the lung bases. The somewhat nodular component in the medial right lower lobe is presumed rounded atelectasis. Electronically signed by: Mendel Guardado MD 07/12/24 22:32 PM
[2024-07-12] MEDS ORDERED: SODIUM CHLORIDE 0.9% 1,000 ML IV ONE (23:27)
[2024-07-12] MEDS: PIPERACILLIN/TAZOBACTAM 4.5 GM/100 ML BAG IV ONE (23:27)
--- NOTE | 2024-07-12 23:30 | History & Physical Report ---
Date of Service July 12, 2024 Assessment & Plan (1) Nausea, vomiting, and diarrhea: (2) Enteritis of small bowel: (3) Hypomagnesemia: (4) COVID-19: (5) Paroxysmal A-fib: (6) Rheumatoid arthritis involving multiple sites with positive rheumatoid factor: Plan Nausea, vomiting and diarrhea/small bowel enteritis- Patient unable to provide stool sample for stool PCR and stool for C. difficile He was given a one-time dose of Zosyn by the ED, which would not be continued His symptoms began 1 day after completing oral antibiotics following his previous discharge, for which she was treated for a right lower lobe pneumonia CT scan of the abdomen and pelvis suggested enteritis Differential considerations include not limited to: Antibiotic associated diarrhea, C. difficile colitis, diarrhea secondary to COVID Placed on full liquid diet Status post 2 L normal saline bolus in the ED Encourage oral fluid intake Repeat CBC with differential, chemistry profile and magnesium level in the a.m. Hypomagnesemia- Magnesium level 1.1, likely due to stool losses Will receive a total of 3 g magnesium sulfate IV daily, and recheck laboratories in the a.m. COVID positive- First positive test was on 06/30/24, with repeat positive this evening He was placed on dexamethasone during last admission from 07/01-07/04/2024, he was not placed on antivirals due to length of symptoms before admission Will place on COVID precautions, but not on any specific treatment Rheumatoid arthritis- Continue oral prednisone, hold on stress dosing, due to unsure nature of GI illness Continue leflunomide Atrial fibrillation- Continue aspirin, Eliquis, and potassium chloride Diabetes mellitus- Hold metformin and Januvia Glucose [address] on Accu-Cheks with NovoLog SSI Dementia- Continue memantine and aspirin History of alcoholism- Continue multivitamin and folic acid History of Present Illness Chief Complaint: The patient presents to the emergency department with complaint of 4 days of nausea, vomiting and diarrhea, generalized weakness, and feeling weak and having difficulty getting around Primary Care Provider: Gael Rogers MD The patient is a 78-year-old male with past medical history including admission for COVID-19 and right lower lobe pneumonia from 07/01-07/04/2024. He was on antibiotics during that admission, and was discharged on cefuroxime Mexitil and azithromycin for 3 days. His symptoms developed the day following completion of the end of next, and stool PCR testing and stool for C. difficile was ordered in the ED, but patient was not able to provide a sample. Respiratory BioFire was again positive for COVID, for which she will be placed on precautions, but does not need treatment Allergies Allergy/AdvReac Type Severity Reaction Status Date / Time No Known Allergies Allergy Verified 07/06/24 10:23 Home Medications Medication Instructions Recorded Confirmed Type cyanocobalamin (vitamin B-12) 1,000 mcg PO DAILY 30 days #30 tabs 11/01/21 07/12/24 Rx 1,000 mcg tablet (Vitamin B-12) folic acid 1 mg tablet 1 mg PO DAILY 30 days #30 tabs 11/01/21 07/12/24 Rx dwsbizri-nb-cnymc 300 mcg-K 60 1 tab PO DAILY 30 days #30 tabs 11/01/21 07/12/24 Rx mcg-lycop 600 mcg-lutein 300 mcg tablet (Centrum Silver Men) sitagliptin phosphate 100 mg 100 mg PO DAILY 30 days #30 tabs 11/01/21 07/12/24 Rx tablet (Januvia) apixaban 5 mg tablet (Eliquis) 5 mg PO BID #10 tabs 02/19/22 07/12/24 Rx cholecalciferol (vitamin D3) 25 25 mcg PO DAILY 03/16/24 07/12/24 History mcg (1,000 unit) capsule leflunomide 20 mg tablet 20 mg PO DAILY 03/16/24 07/12/24 History lorazepam 0.5 mg tablet 0.25 mg PO Q4H PRN Anxiety 03/16/24 07/12/24 History prednisone 5 mg tablet 5 mg PO DAILY 03/16/24 07/12/24 History sertraline 25 mg tablet 25 mg PO DAILY 03/16/24 07/12/24 History atorvastatin 80 mg tablet 80 mg PO DAILY #30 tabs 03/24/24 07/12/24 Rx aspirin 81 mg capsule 81 mg PO DAILY 03/30/24 07/12/24 History loperamide 2 mg tablet 2 mg PO Q4H PRN Diarrhea 07/01/24 07/12/24 History (Anti-Diarrheal (loperamide)) metformin 500 mg tablet 500 mg PO BID 07/01/24 07/12/24 History oxycodone 5 mg tablet 5 mg PO DAILY 07/01/24 07/12/24 History potassium chloride 10 mEq 10 meq PO BID 07/01/24 07/12/24 History tablet,extended release(part/cryst) memantine 10 mg tablet 10 mg PO QAM 07/12/24 07/12/24 History tamsulosin 0.4 mg capsule 0.4 mg PO QAM 07/12/24 07/12/24 History Past Med/Surg History Problem List (Updated 07/13/24 @ 01:48 by Arnel Coelho MD) Enteritis of small bowel Nausea, vomiting, and diarrhea (Acute) Elevated procalcitonin (Acute) Elevated lactic acid level (Acute) Leukocytosis (Acute) Hypomagnesemia (Acute) Sepsis (Acute) Hypomagnesemia (Acute) Pneumonia (Acute) COVID-19 (Acute) Hypoxia (Acute) CVA (cerebrovascular accident) (Acute) Carotid stenosis, right Right hemiparesis Acute CVA (cerebrovascular accident) Ataxia Loss of protective sensation of skin of foot Diabetic peripheral neuropathy associated with type 2 diabetes mellitus Osteoporosis Paroxysmal A-fib Hyponatremia Dementia (Acute) Hypoxia (Acute) Anemia (Acute) Emotional lability Frequent falls (Acute) Ambulatory dysfunction (Acute) Thrombocytopenia (Acute) Elevated LFTs Vitamin D deficiency Rheumatoid arthritis involving multiple sites with positive rheumatoid factor Tinnitus, bilateral Sensorineural hearing loss of both ears Chronic obstructive pulmonary disease (Acute) Diabetes mellitus (Acute) Hypercholesterolemia (Acute) CKD (chronic kidney disease) (Acute) Tubular adenoma of colon (Acute) Hypertension (Acute) History of alcoholism (Acute) Medical History Weight loss Arthritis of both knees Depression with anxiety Closed fracture of left hip Acute hyperactive delirium due to multiple etiologies Acute encephalopathy Acute kidney injury superimposed on chronic kidney disease COVID-19 Internal hemorrhoids Diverticulitis Surgical History History of appendectomy Family History Mother Cancer Denies family history of Ovarian cancer Prostate cancer Myocardial infarction Breast cancer Colorectal cancer Social History Smoking Status: Never smoker Tobacco Type: Cigarettes Age Started Using Tobacco: 14; Age Quit Using Tobacco: 59; packs per day: 1; Second Hand Exposure: No; Do You Dip or Chew Tobacco: No; Hx Alcohol Use: No Hx Substance Use: No Preferred Language: Gambian Communication Ability: Effective Visual Impairment: No Limitations Hearing Ability: Use of Hearing Aid Import/Export Agent Required: No Beliefs That Will Affect Care: None marital status: Current Living Situation: Retirement current occupational status: retired 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 Feels Safe at Home: Yes Childhood Exposure to Second-Hand Smoke: No Dental Care, Regularly: Yes Physical Activity Frequency: Does not Exercise Seatbelt Use: always Sunscreen Use: Yes Gender Identity: Male Assistive Devices: Glasses and Hearing Aid - Bilateral Review of Systems Review of Systems: The patient denies chest pain, palpitations, shortness of breath, dyspnea on exertion, cough, lower extremity swelling, sore throat, fevers, chills, sweats, weight change, abdominal pain, pelvic pain, blood in urine or stool, dysuria, urinary frequency or urgency, lightheadedness, dizziness, headache, rash, abnormal bruising or bleeding, focal weakness, numbness or tingling in arms or legs, generalized arthralgias or myalgias, back or neck pain, or night sweats. The review of systems is otherwise negative other than for that already noted above, and at least 10 systems have been reviewed. Physical Exam Physical Exam: The patient is awake, alert and oriented 3, well developed and well nourished, normocephalic and atraumatic, lying in bed and in no acute distress. HEENT--PERRL, EOMI, mucous membranes and oropharynx dry. Neck--supple. No JVD. No bruits. Thyroid normal, trachea midline, no adenopathy. Heart--normal S1 and S2. No murmurs, rubs or gallops. Lungs--clear bilaterally, no respiratory distress, no accessory muscle use. Abdomen--normal bowel sounds and soft. Nontender. Nondistended. Extremities--no cyanosis or clubbing. No edema. There are good distal pulses b/l. Dermatologic--normal skin turgor, normal color, no abnormal lymph nodes, no rash. Neurologic--cranial nerves II through XII grossly intact. Rheumatologic--normal range of motion. Psychiatric--normal affect. Results & Data Results & Data Vital Signs (Past 12 Hours) Vital Signs Temp Pulse Resp BP Pulse Ox O2 Del Method 07/12/24 21:30 103 H 20 122/66 90 Room Air 07/12/24 20:48 115 H 20 93 Room Air 07/12/24 20:33 111 H 20 109/62 91 Room Air 07/12/24 20:19 115 H 07/12/24 20:02 36.9 C 114 H 20 128/77 96 Room Air Laboratory Results Laboratory Results WBC 22.93 K/ul (4.8-10.8) H 07/12/24 20:15 RBC 3.89 M/uL (4.70-6.10) L 07/12/24 20:15 Hgb 12.2 g/dl (14.0-18.0) L 07/12/24 20:15 Hct 36.0 % (42.0-52.0) L 07/12/24 20:15 MCV 92.5 fL (80.0-100.0) 07/12/24 20:15 MCH 31.4 pg (25.0-34.0) 07/12/24 20:15 MCHC 33.9 g/dL (32.0-36.0) 07/12/24 20:15 RDW Std Deviation 48.8 fL (36.4-46.3) H 07/12/24 20:15 RDW Coeff of Sherrell 14.4 % (11.5-14.5) 07/12/24 20:15 Plt Count 169 K/uL (130-400) 07/12/24 20:15 MPV 11.0 fL (9.4-12.4) 07/12/24 20:15 Immature Gran % (Auto) 0.8 % 07/12/24 20:15 Neut % (Auto) 92.5 % 07/12/24 20:15 Lymph % (Auto) 1.9 % 07/12/24 20:15 [place] % (Auto) 4.4 % 07/12/24 20:15 Eos % (Auto) 0.2 % 07/12/24 20:15 Baso % (Auto) 0.2 % 07/12/24 20:15 Neut # (Auto) 21.20 K/uL (1.40-6.50) H 07/12/24 20:15 Lymph # (Auto) 0.44 K/uL (1.20-3.40) L 07/12/24 20:15 [place] # (Auto) 1.02 K/uL (0.11-0.59) H 07/12/24 20:15 Eos # (Auto) 0.05 K/uL (0.00-0.50) 07/12/24 20:15 Baso # (Auto) 0.04 K/uL (0.00-0.20) 07/12/24 20:15 Immature Gran # (Auto) 0.18 K/uL (0.01-0.20) 07/12/24 20:15 Polychromasia 1+ 07/12/24 20:15 Ovalocytes 1+ 07/12/24 20:15 PT 11.5 Seconds (9.0-12.0) 07/12/24 20:15 INR 1.1 (0.9-1.1) 07/12/24 20:15 Sodium 139 mmol/L (136-145) 07/12/24 20:15 Potassium 4.3 mmol/L (3.5-5.1) 07/12/24 20:15 Chloride 103 mmol/L (98-107) 07/12/24 20:15 Carbon Dioxide 23 mmol/L (21-32) 07/12/24 20:15 Anion Gap 13 (3-11) H 07/12/24 20:15 BUN 18 mg/dl (6-23) 07/12/24 20:15 Creatinine 1.21 mg/dl (0.6-1.4) 07/12/24 20:15 Est Cr Clr Drug Dosing 47.1 ml/min 07/12/24 20:15 eGFR 60.91 07/12/24 20:15 BUN/Creatinine Ratio 14.9 (10-20) 07/12/24 20:15 Glucose 228 mg/dl (70-99(Fasting)) H 07/12/24 20:15 Lactate 2.7 mmol/L (0.4-2.0) H* 07/12/24 21:00 Calcium 8.8 mg/dl (8.6-10.3) 07/12/24 20:15 Magnesium 1.1 mg/dl (1.7-2.4) L 07/12/24 20:15 Total Bilirubin 0.7 mg/dl (0.2-1.0) 07/12/24 20:15 AST 19 U/L (13-39) 07/12/24 20:15 ALT 25 U/L (7-52) 07/12/24 20:15 Alkaline Phosphatase 66 U/L (34-104) 07/12/24 20:15 Troponin I High Sens 11.6 pg/ml (0-20) 07/12/24 20:15 Total Protein 6.4 gm/dl (6.0-8.3) 07/12/24 20:15 Albumin 3.7 gm/dl (3.4-5.0) 07/12/24 20:15 Globulin 2.7 gm/dl (2.5-4.0) 07/12/24 20:15 Albumin/Globulin Ratio 1.4 (0.9-2) 07/12/24 20:15 Lipase 23 U/L (11-82) 07/12/24 20:15 Procalcitonin 3.35 ng/ml (0-0.5) H 07/12/24 20:14 Urine Color Yellow 07/12/24 23:19 Urine Appearance Clear (Clear) 07/12/24 23:19 Urine pH 5.0 (4.5-7.5) 07/12/24 23:19 Ur Specific Hardy 1.029 (1.000-1.030) 07/12/24 23:19 Urine Protein Negative (Negative) 07/12/24 23:19 Urine Glucose (UA) Negative (Negative) 07/12/24 23:19 Urine Ketones Trace (Negative) H 07/12/24 23:19 Urine Blood Negative (Negative) 07/12/24 23:19 Urine Nitrite Negative (Negative) 07/12/24 23:19 Urine Bilirubin Negative (Negative) 07/12/24 23:19 Urine Urobilinogen Negative (Negative) 07/12/24 23:19 Ur Leukocyte Esterase Negative (Negative) 07/12/24 23:19 Adenovirus (PCR) Not Detected (NotDetected) 07/12/24 20:15 B. pertussis DNA (PCR) Not Detected (NotDetected) 07/12/24 20:15 B.parapertussis DNA PCR Not Detected (NotDetected) 07/12/24 20:15 C. pneumoniae DNA (PCR) Not Detected (NotDetected) 07/12/24 20:15 Coronavirus OC43 (PCR) Not Detected (NotDetected) 07/12/24 20:15 Coronavirus HKU1 (PCR) Not Detected (NotDetected) 07/12/24 20:15 Coronavirus 229E (PCR) Not Detected (NotDetected) 07/12/24 20:15 SARS-CoV-2 (PCR) DETECTED (NotDetected) A 07/12/24 20:15 Coronavirus NL63 (PCR) Not Detected (NotDetected) 07/12/24 20:15 Human Metapneumovir PCR Not Detected (NotDetected) 07/12/24 20:15 Influenza Type A (PCR) Not Detected (NotDetected) 07/12/24 20:15 Influenza Type B (PCR) Not Detected (NotDetected) 07/12/24 20:15 M. pneumoniae (PCR) Not Detected (NotDetected) 07/12/24 20:15 Parainfluenza 1 (PCR) Not Detected (NotDetected) 07/12/24 20:15 Parainfluenza 2 (PCR) Not Detected (NotDetected) 07/12/24 20:15 Parainfluenza 3 (PCR) Not Detected (NotDetected) 07/12/24 20:15 Parainfluenza 4 (PCR) Not Detected (NotDetected) 07/12/24 20:15 RSV (PCR) Not Detected (NotDetected) 07/12/24 20:15 Entero/Rhino (PCR) Not Detected (NotDetected) 07/12/24 20:15 Impressions Abdomen/Pelvis CT 07/12/24 20:42 Exam(s): CT ABDOMEN + PELVIS With Contrast IV Amt: 91 cc opti 320 EXAM: CT Abdomen and Pelvis With Intravenous Contrast CLINICAL HISTORY: N/V/D; weakness. TECHNIQUE: Axial computed tomography images of the abdomen and pelvis with intravenous contrast. CTDI is 13.76 mGy and DLP is 734.1 mGy-cm. Automated exposure control was utilized for the study. A dose lowering technique was utilized adhering to the principles of ALARA. CONTRAST: Patient received 91 cc opti 320 of IV contrast COMPARISON: No relevant prior studies available. FINDINGS: Lung bases: Curvilinear changes noted at the lung bases. There is a somewhat rounded area along the posterior medial right lower lobe. No consolidation. ABDOMEN: Liver: Low attenuation focus in the liver which may be due to a cyst but is too small to characterize. Gallbladder and bile ducts: Focal thickening of the anterior margin of the fundus of the gallbladder is noted measuring 9 x 5 mm. No calcified stones. No ductal dilation. Pancreas: Scattered punctate calcifications noted throughout the pancreas. The pancreas demonstrates normal enhancement. There is a cyst along the anterior margin of the pancreatic neck measuring 10 mm. No obvious internal complex features on this [id number] examination. No pancreatic ductal dilation. Spleen: Unremarkable. No splenomegaly. Adrenals: Unremarkable. No mass. Kidneys and ureters: Unremarkable. No solid mass. No hydronephrosis. Stomach and bowel: The stomach is predominantly decompressed with minimal fluid and gas. Mild mucosal prominence is presumed related to under distention. No evidence for focal high-grade bowel obstruction. Fluid filled small bowel loops noted in the inferior abdomen and pelvis without dilation. No obvious asymmetric bowel mucosal abnormality. Mild stool burden. No appreciable diverticulitis. PELVIS: Appendix: The appendix is not clearly delineated. No secondary findings to suggest acute appendicitis. Bladder: Mild mucosal prominence of the mildly distended bladder is presumed related to under distention. No bladder stones. Reproductive: Unremarkable as visualized. ABDOMEN and PELVIS: Intraperitoneal space: Unremarkable. No free air. No significant fluid collection. Bones/joints: Multilevel degenerative changes of the lumbar spine. Straightening of the normal lumbar lordosis. No acute osseous abnormality. No dislocation. Soft tissues: Unremarkable. Vasculature: Atherosclerotic calcification of the abdominal aorta. No dissection or aneurysm. Lymph nodes: Unremarkable. No enlarged lymph nodes. IMPRESSION: 1. No evidence for focal high-grade bowel obstruction. Fluid filled small bowel loops noted in the inferior abdomen and pelvis without dilation. There is a nonspecific finding and is presumed normal variation; however, mild enteritis is also a consideration. No obvious asymmetric bowel mucosal abnormality. Mild stool burden. No appreciable diverticulitis. No free intraperitoneal fluid or pneumoperitoneum. 2. Focal thickening of the anterior margin of the fundus of the gallbladder is noted measuring 9 x 5 mm. This may represent focal contraction along the abdominal wall versus a gallbladder wall polyp. 3. Scattered punctate calcifications noted throughout the pancreas. The pancreas demonstrates normal enhancement. There is a cyst along the anterior margin of the pancreatic neck measuring 10 mm. No obvious internal complex features on this [id number] examination. Consider dedicated high-resolution imaging of the pancreas for further analysis. No pancreatic ductal dilation. 4. Presumed curvilinear atelectasis involving the lung bases. The somewhat nodular component in the medial right lower lobe is presumed rounded atelectasis. Electronically signed by: Mendel Guardado MD 07/12/24 22:32 PM Chest X-Ray 07/12/24 22:44 Exam(s): XR CXR 1 VIEW EXAM: XR Chest, 1 View CLINICAL HISTORY: sepsis. TECHNIQUE: Frontal view of the chest. COMPARISON: Portable chest single view 06/30/2024 FINDINGS: Lungs: Similar course reticulonodular interstitial changes, similar to the previous examination. No focal airspace consolidation. The pulmonary vascular tree demonstrates no significant renographic abnormality. Pleural space: Unremarkable. No pneumothorax. No large pleural effusion. Heart: Unremarkable. No cardiomegaly. Mediastinum: Evaluation of the media cell contours is slightly limited by obliquity. No obvious significant alteration. No significant tracheal deviation. Bones/joints: Unremarkable. No acute fracture. IMPRESSION: No acute cardiopulmonary process or significant alteration from the prior examination. Stable appearing presumed chronic senescent interstitial changes noted. Electronically signed by: Mendel Guardado MD 07/12/24 23:32 PM Code Status & VTE Plan Code Status DNR/DNI VTE Prophylaxis Plan VTE Prophylaxis will be ordered: Yes PG Care Time/CCT Total # of Minutes Spent Total Time Spent with Patient: Total time spent is greater than 50% in coordination of care (as documented) at patient's floor/unit and/or counseling patient: Coding Level of Care Code 09697 INT INP/OBS CARE 3/75MIN Diagnoses Nausea, vomiting, and diarrhea R11.2; R19.7 Enteritis of small bowel K52.9 Hypomagnesemia E83.42 COVID-19 U07.1 Paroxysmal A-fib I48.0 Rheumatoid arthritis involving multiple sites with positive rheumatoid factor M05.79
--- NOTE | 2024-07-12 23:33 | XRay Report ---
Exam(s): XR CXR 1 VIEW EXAM: XR Chest, 1 View CLINICAL HISTORY: sepsis. TECHNIQUE: Frontal view of the chest. COMPARISON: Portable chest single view 06/30/2024 FINDINGS: Lungs: Similar course reticulonodular interstitial changes, similar to the previous examination. No focal airspace consolidation. The pulmonary vascular tree demonstrates no significant renographic abnormality. Pleural space: Unremarkable. No pneumothorax. No large pleural effusion. Heart: Unremarkable. No cardiomegaly. Mediastinum: Evaluation of the media cell contours is slightly limited by obliquity. No obvious significant alteration. No significant tracheal deviation. Bones/joints: Unremarkable. No acute fracture. IMPRESSION: No acute cardiopulmonary process or significant alteration from the prior examination. Stable appearing presumed chronic senescent interstitial changes noted. Electronically signed by: Mendel Guardado MD 07/12/24 23:32 PM
[2024-07-12 23:34] LABS: Appearance Urine Clear (Clear); Bilirubin Urine Negative (Negative); Blood Urine Negative (Negative); Color Urine Yellow; Glucose Urine UA Negative (Negative); Ketones Urine Trace (Negative); Leukocyte Esterase Urine Negative (Negative); Nitrite Urine Negative (Negative); Protein Urine Negative (Negative); Specific Gravity Urine 1.029 (1.000-1.030); Urobilinogen Urine Negative (Negative)
[2024-07-13] MEDS ORDERED: GLUCOSE 40% GEL 15 GM TUBE PO PRN (00:27)
[2024-07-13] MEDS ORDERED: GLUCOSE 10 TAB/TUBE PO PRN (00:27)
[2024-07-13] MEDS ORDERED: CARBOHYDRATES FOR HYPOGLYCEMIA PO PRN (00:27)
[2024-07-13] MEDS ORDERED: DEXTROSE 50% 50 ML SYRINGE IV PRN (00:27)
[2024-07-13] MEDS ORDERED: GLUCAGON FOR INJ 1 MG VIAL SQ PRN (00:27)
[2024-07-13] MEDS ORDERED: LORazepam 0.5 MG TAB PO PRN (00:27)
[2024-07-13] MEDS ORDERED: ACETAMINOPHEN 325 MG TAB PO PRN (00:27)
[2024-07-13] MEDS ORDERED: ONDANSETRON INJ 2 MG/ML 2 ML VIAL IV PRN (00:27)
[2024-07-13] MEDS: MAGNESIUM SULFATE / D5W 1 GM/100 ML BAG IV SCH (00:56)
[2024-07-13 06:37] LABS: Basophils # (auto) 0.04 K/uL (0.00-0.20); Basophils % (auto) 0.3 %; Eosinophils # (auto) 0.07 K/uL (0.00-0.50); Eosinophils % (auto) 0.5 %; Hematocrit (blood only) 29.2 % (42.0-52.0); Hemoglobin 9.7 g/dl (14.0-18.0); Immature Granulocytes # (auto) 0.07 K/uL (0.01-0.20); Immature Granulocytes % (auto) 0.5 %; Lymphocytes # (auto) 0.98 K/uL (1.20-3.40); Lymphocytes % (auto) 7.6 %; Mean Corpuscular Hemoglobin 30.8 pg (25.0-34.0); Mean Corpuscular Hgb Conc 33.2 g/dL (32.0-36.0); Mean Corpuscular Volume 92.7 fL (80.0-100.0); Mean Platelet Volume 10.8 fL (9.4-12.4); Monocytes # (auto) 0.67 K/uL (0.11-0.59); Monocytes % (auto) 5.2 %; Neutrophils # (auto) 11.04 K/uL (1.40-6.50); Neutrophils % (auto) 85.9 %; Platelet Count 125 K/uL (130-400); RDW Coefficient of Variation 14.6 % (11.5-14.5); RDW Standard Deviation 48.8 fL (36.4-46.3); Red Blood Count 3.15 M/uL (4.70-6.10); White Blood Count 12.87 K/ul (4.8-10.8)
[2024-07-13 06:51] LABS: Albumin Level 3.2 gm/dl (3.4-5.0); Bilirubin,Total 0.5 mg/dl (0.2-1.0); Calcium 7.8 mg/dl (8.6-10.3); Potassium 3.9 mmol/L (3.5-5.1)
[2024-07-13 06:57] LABS: Albumin Globulin Ratio 1.5 (0.9-2); BUN Creatinine Ratio 15.4 (10-20); Creatinine Clr Calc Pharmacy 55.5 ml/min; Globulin 2.1 gm/dl (2.5-4.0); Total Protein 5.3 gm/dl (6.0-8.3)
--- NOTE | 2024-07-13 07:35 | Electrocardiogram Report ---
Test Reason : Blood Pressure : */* mmHG Vent. Rate : 109 BPM Atrial Rate : 109 BPM P-R Int : 144 ms QRS Dur : 116 ms QT Int : 340 ms P-R-T Axes : 69 -49 47 degrees QTcB Int : 457 ms Sinus tachycardia Left axis deviation Right bundle branch block Cannot rule out Inferior infarct Abnormal ECG When compared with ECG of 30-Jun-2024 22:54, No significant change was found Confirmed by Jason Rodriguez ([id number]) on 07/13/2024 7:35:08 AM Referred By: Jocelyn Wallace [place] Confirmed By: Jason Rodriguez
--- NOTE | 2024-07-13 07:35 | Electrocardiogram Report ---
Test Reason : Blood Pressure : */* mmHG Vent. Rate : 90 BPM Atrial Rate : 90 BPM P-R Int : 176 ms QRS Dur : 116 ms QT Int : 386 ms P-R-T Axes : 68 -36 -6 degrees QTcB Int : 472 ms Sinus rhythm with Premature atrial complexes Left axis deviation Right bundle branch block Inferior infarct , age undetermined Abnormal ECG When compared with ECG of 12-Jul-2024 20:57, Premature atrial complexes are now Present Nonspecific T wave abnormality, worse in Inferior leads Confirmed by Jason Rodriguez ([id number] on 07/13/2024 7:35:40 AM Referred By: Jocelyn Wallace [place] Confirmed By: Jason Rodrgiuez
[2024-07-13] MEDS: TAMSULOSIN HCL 0.4 MG CAP PO SCH (07:55)
[2024-07-13] MEDS: FOLIC ACID 1 MG TAB PO SCH (07:55)
[2024-07-13] MEDS: CYANOCOBALAMIN (B-12) 500 MCG TABLET PO SCH (07:55)
[2024-07-13] MEDS: APIXABAN 5 MG TABLET PO SCH (07:55)
[2024-07-13] MEDS: ATORVASTATIN 40 MG TAB PO SCH (07:55)
[2024-07-13] MEDS: CHOLECALCIFEROL 25 MCG (1000 UNITS) TAB PO SCH (07:56)
[2024-07-13] MEDS: predniSONE 5 MG TAB PO SCH (07:56)
[2024-07-13] MEDS: SERTRALINE HCL 50 MG TABLET PO SCH (07:56)
[2024-07-13] MEDS: MEMANTINE HCL 10 MG TAB PO SCH (07:56)
[2024-07-13] MEDS: LEFLUNOMIDE 10 MG TAB PO SCH (07:57)
[2024-07-13] MEDS: ASPIRIN 81 MG ECTAB PO SCH (07:57)
[2024-07-13] MEDS: INSULIN ASPART PER UNIT CHARGE SC SCH (08:43)
[2024-07-13] MEDS: POTASSIUM CHLORIDE 10 MEQ TABCR PO SCH (08:44)
--- NOTE | 2024-07-13 11:42 | Hospitalist Progress Note ---
Date of Service July 13, 2024 Assessment & Plan (1) Nausea, vomiting, and diarrhea: Plan: with radiographic evidence of enteritis on CT a/p all GI symptoms have resolved since presentation doubt COVID causing the GI symptoms; these symptoms would have occurred earlier in the month when he first developed his COVID illness can't rule out c diff but unlikely - c diff diarrhea typically does not stop spontaneously [id number], if he has diarrhea, will send for c diff testing & stool BioFire panel advance diet to DM/low-fiber diet will give 500cc additional fluid will give a small amount of stress dose steroids (10mg of prednisone extra today) (2) Enteritis of small bowel: Plan: as seen on admission CT see #1 above (3) Hypomagnesemia: Plan: s/p IV mag replacement now normal low mag was 2nd to vomiting/diarrhea/GI losses (4) COVID-19: Plan: admitted 07/01 to 07/04 here at [facility] for such had COVID pneumonia at that time Rx with dexamethasone/Remdesivir appears to have made a full recovery from his pneumonia is still COVID+ on PCR testing - not surprising this does not confer contagiousness infection control, per their protocols & guidelines, feels comfortable with discontinuation of airborne precautions which I agree with no indication for steroids/Remdesivir/etc at this time (5) Paroxysmal A-fib: Plan: none seen while here cont Eliquis 5mg BID he is not on AV ney agents at baseline (6) Rheumatoid arthritis involving multiple sites with positive rheumatoid factor: Plan: on chronic prednisone 5mg daily as well as leflunomide 20mg daily will give mild stress dose steroids with addition of 10mg extra today then extra 5mg tomorrow (7) Sepsis: Plan: 2nd to GI illness improved wbc count already has decreased lactic acidosis resolved defer on abx for now as GI symptoms all improved with supportive care only if he has ongoing diarrhea send for c diff testing & stool BioFire (8) Dementia: Plan: cont Namenda (9) Diabetes mellitus: Plan: last a1c was earlier this month --> 7.2% add lantus tighten novolog hold PO meds for now (10) History of stroke: Plan: 02/2024 left periventricular CVA cont Eliquis and asa for secondary prevention cont statin Plan BPH - cont flomax ordered PT/OT evals updated by telephone this evening Admission and Anticipated Discharge Date Admission Date: July 12, 2024 Subjective tele overnight wnl patient lying comfortably in bed very difficult to communicate with him because of hearing loss HOWEVER, patient denied any further nausea, emesis or diarrhea no abd pain tolerating full liquids good PO intake no dizziness with standing/walking denies any pulmonary complaints Review of Systems Review of Systems: gen - no fevers or chills cv - no orthopnea or chest pain pulm - no dyspnea GI - no pain - condom cath in place Physical Exam Physical Exam: gen - NAD, lying flat in bed comfortably mouth - MM still dry neck - no JVD heart - RRR, s1 s2, no murmur lungs - scant rales R base, otherwise CTA b/l abd - soft NT ND BS+, No HSM ext - no edema, pulses 2+ b/l HENT - hearing impaired Results & Data Results & Data Vital Signs (Past 12 Hours) Vital Signs Temp Pulse Pulse Resp BP BP Pulse Ox 07/13/24 11:36 36.3 C L 86 19 117/74 93 07/13/24 11:18 84 07/13/24 07:49 07/13/24 02:25 36.5 C 87 18 114/63 93 07/13/24 01:00 36.7 C 91 H 18 148/57 H 93 07/13/24 00:30 89 07/13/24 00:01 36.9 C 96 H 19 136/71 92 O2 Del Method 07/13/24 11:36 Room Air 07/13/24 11:18 07/13/24 07:49 Room Air 07/13/24 02:25 Room Air 07/13/24 01:00 Room Air 07/13/24 00:30 07/13/24 00:01 Room Air Laboratory Results Laboratory Results - last 24 hr 07/12/24 07/12/24 07/12/24 20:14 20:15 21:00 WBC 22.93 H RBC 3.89 L Hgb 12.2 L Hct 36.0 L MCV 92.5 MCH 31.4 MCHC 33.9 RDW Std Deviation 48.8 H RDW Coeff of Sherrell 14.4 Plt Count 169 MPV 11.0 Immature Gran % (Auto) 0.8 Neut % (Auto) 92.5 Lymph % (Auto) 1.9 [place] % (Auto) 4.4 Eos % (Auto) 0.2 Baso % (Auto) 0.2 Neut # (Auto) 21.20 H Lymph # (Auto) 0.44 L [place] # (Auto) 1.02 H Eos # (Auto) 0.05 Baso # (Auto) 0.04 Immature Gran # (Auto) 0.18 Polychromasia 1+ Ovalocytes 1+ PT 11.5 INR 1.1 Sodium 139 Potassium 4.3 Chloride 103 Carbon Dioxide 23 Anion Gap 13 H BUN 18 Creatinine 1.21 Est Cr Clr Drug Dosing 47.1 eGFR 60.91 BUN/Creatinine Ratio 14.9 Glucose 228 H POC Glucose Lactate 2.7 H* Calcium 8.8 Magnesium 1.1 L Total Bilirubin 0.7 AST 19 ALT 25 Alkaline Phosphatase 66 Troponin I High Sens 11.6 Total Protein 6.4 Albumin 3.7 Globulin 2.7 Albumin/Globulin Ratio 1.4 Lipase 23 Procalcitonin 3.35 H Urine Color Urine Appearance Urine pH Ur Specific [place] Urine Protein Urine Glucose (UA) Urine Ketones Urine Blood Urine Nitrite Urine Bilirubin Urine Urobilinogen Ur Leukocyte Esterase Nasal Screen MRSA (PCR) Adenovirus (PCR) Not Detected B. pertussis DNA (PCR) Not Detected B.parapertussis DNA PCR Not Detected C. pneumoniae DNA (PCR) Not Detected Coronavirus OC43 (PCR) Not Detected Coronavirus HKU1 (PCR) Not Detected Coronavirus 229E (PCR) Not Detected SARS-CoV-2 (PCR) DETECTED A Coronavirus NL63 (PCR) Not Detected Human Metapneumovir PCR Not Detected Influenza Type A (PCR) Not Detected Influenza Type B (PCR) Not Detected M. pneumoniae (PCR) Not Detected Parainfluenza 1 (PCR) Not Detected Parainfluenza 2 (PCR) Not Detected Parainfluenza 3 (PCR) Not Detected Parainfluenza 4 (PCR) Not Detected RSV (PCR) Not Detected Entero/Rhino (PCR) Not Detected 07/12/24 07/13/24 07/13/24 23:19 01:18 01:49 WBC RBC Hgb Hct MCV MCH MCHC RDW Std Deviation RDW Coeff of Sherrell Plt Count MPV Immature Gran % (Auto) Neut % (Auto) Lymph % (Auto) [place] % (Auto) Eos % (Auto) Baso % (Auto) Neut # (Auto) Lymph # (Auto) [place] # (Auto) Eos # (Auto) Baso # (Auto) Immature Gran # (Auto) Polychromasia Ovalocytes PT INR Sodium Potassium Chloride Carbon Dioxide Anion Gap BUN Creatinine Est Cr Clr Drug Dosing eGFR BUN/Creatinine Ratio Glucose POC Glucose Lactate 1.2 Calcium Magnesium Total Bilirubin AST ALT Alkaline Phosphatase Troponin I High Sens Total Protein Albumin Globulin Albumin/Globulin Ratio Lipase Procalcitonin Urine Color Yellow Urine Appearance Clear Urine pH 5.0 Ur Specific [place] 1.029 Urine Protein Negative Urine Glucose (UA) Negative Urine Ketones Trace H Urine Blood Negative Urine Nitrite Negative Urine Bilirubin Negative Urine Urobilinogen Negative Ur Leukocyte Esterase Negative Nasal Screen MRSA (PCR) Negative Adenovirus (PCR) B. pertussis DNA (PCR) B.parapertussis DNA PCR C. pneumoniae DNA (PCR) Coronavirus OC43 (PCR) Coronavirus HKU1 (PCR) Coronavirus 229E (PCR) SARS-CoV-2 (PCR) Coronavirus NL63 (PCR) Human Metapneumovir PCR Influenza Type A (PCR) Influenza Type B (PCR) M. pneumoniae (PCR) Parainfluenza 1 (PCR) Parainfluenza 2 (PCR) Parainfluenza 3 (PCR) Parainfluenza 4 (PCR) RSV (PCR) Entero/Rhino (PCR) 07/13/24 07/13/24 05:51 11:19 WBC 12.87 H D RBC 3.15 L Hgb 9.7 L Hct 29.2 L MCV 92.7 MCH 30.8 MCHC 33.2 RDW Std Deviation 48.8 H RDW Coeff of Sherrell 14.6 H Plt Count 125 L MPV 10.8 Immature Gran % (Auto) 0.5 Neut % (Auto) 85.9 Lymph % (Auto) 7.6 [place] % (Auto) 5.2 Eos % (Auto) 0.5 Baso % (Auto) 0.3 Neut # (Auto) 11.04 H Lymph # (Auto) 0.98 L [place] # (Auto) 0.67 H Eos # (Auto) 0.07 Baso # (Auto) 0.04 Immature Gran # (Auto) 0.07 Polychromasia Ovalocytes PT INR Sodium 140 Potassium 3.9 Chloride 109 H Carbon Dioxide 24 Anion Gap 7 BUN 16 Creatinine 1.04 Est Cr Clr Drug Dosing 55.5 eGFR 73.04 BUN/Creatinine Ratio 15.4 Glucose 190 H POC Glucose 208 H Lactate Calcium 7.8 L Magnesium 2.0 Total Bilirubin 0.5 AST 14 ALT 19 Alkaline Phosphatase 48 Troponin I High Sens Total Protein 5.3 L Albumin 3.2 L Globulin 2.1 L Albumin/Globulin Ratio 1.5 Lipase Procalcitonin Urine Color Urine Appearance Urine pH Ur Specific [place] Urine Protein Urine Glucose (UA) Urine Ketones Urine Blood Urine Nitrite Urine Bilirubin Urine Urobilinogen Ur Leukocyte Esterase Nasal Screen MRSA (PCR) Adenovirus (PCR) B. pertussis DNA (PCR) B.parapertussis DNA PCR C. pneumoniae DNA (PCR) Coronavirus OC43 (PCR) Coronavirus HKU1 (PCR) Coronavirus 229E (PCR) SARS-CoV-2 (PCR) Coronavirus NL63 (PCR) Human Metapneumovir PCR Influenza Type A (PCR) Influenza Type B (PCR) M. pneumoniae (PCR) Parainfluenza 1 (PCR) Parainfluenza 2 (PCR) Parainfluenza 3 (PCR) Parainfluenza 4 (PCR) RSV (PCR) Entero/Rhino (PCR) PG Care Time/CCT Total # of Minutes Spent Total Time Spent with Patient: Total time spent is greater than 50% in coordination of care (as documented) at patient's floor/unit and/or counseling patient: Coding Level of Care Code 07179 SUB INP/OBS CARE 3/50MIN Diagnoses Nausea, vomiting, and diarrhea R11.2; R19.7 Enteritis of small bowel K52.9 Hypomagnesemia E83.42 COVID-19 U07.1 Paroxysmal A-fib I48.0 Rheumatoid arthritis involving multiple sites with positive rheumatoid factor M05.79 Sepsis A41.9 Dementia F03.90 Dementia behavioral disturbance: without behavioral disturbance Dementia type: unspecified type Type 2 diabetes mellitus with stage 3 chronic kidney disease, without long-term current use of insulin, unspecified whether stage 3a or 3b CKD E11.22; N18.30 Diabetes mellitus type: type 2 Diabetes mellitus bed bug exterminator insulin use: without detention use Diabetes mellitus complication status: with kidney complications Diabetes mellitus complication detail: with chronic kidney disease Chronic kidney disease stage: stage 3 (moderate) Chronic kidney disease stage 3 subtype: unspecified whether 3a or 3b History of stroke Z86.73 (8) Dementia Dementia behavioral disturbance: without behavioral disturbance Dementia type: unspecified type Qualified Code(s): F03.90 - Unspecified dementia without behavioral disturbance (9) Diabetes mellitus Diabetes mellitus type: type 2 Diabetes mellitus bed bug exterminator insulin use: without detention use Diabetes mellitus complication status: with kidney complications Diabetes mellitus complication detail: with chronic kidney disease Chronic kidney disease stage: stage 3 (moderate) Chronic kidney disease stage 3 subtype: unspecified whether 3a or 3b Qualified Code(s): E11.22 - Type 2 diabetes mellitus with diabetic chronic kidney disease; N18.30 - Chronic kidney disease, stage 3 unspecified
[2024-07-13] MEDS: SODIUM CHLORIDE 0.9% 500 ML IV SCH (13:03)
[2024-07-13] MEDS: predniSONE 10 MG TABLET PO ONE (13:03)
[2024-07-13] MEDS: LANTUS PER UNIT CHARGE SQ SCH (20:36)
[2024-07-14 07:09] LABS: Basophils # (auto) 0.03 K/uL (0.00-0.20); Basophils % (auto) 0.3 %; Eosinophils # (auto) 0.03 K/uL (0.00-0.50); Eosinophils % (auto) 0.3 %; Hematocrit (blood only) 27.4 % (42.0-52.0); Hemoglobin 9.2 g/dl (14.0-18.0); Immature Granulocytes # (auto) 0.05 K/uL (0.01-0.20); Immature Granulocytes % (auto) 0.5 %; Lymphocytes # (auto) 0.95 K/uL (1.20-3.40); Lymphocytes % (auto) 9.7 %; Mean Corpuscular Hemoglobin 30.9 pg (25.0-34.0); Mean Corpuscular Hgb Conc 33.6 g/dL (32.0-36.0); Mean Corpuscular Volume 91.9 fL (80.0-100.0); Mean Platelet Volume 10.8 fL (9.4-12.4); Monocytes # (auto) 0.61 K/uL (0.11-0.59); Monocytes % (auto) 6.2 %; Neutrophils # (auto) 8.14 K/uL (1.40-6.50); Platelet Count 112 K/uL (130-400); RDW Coefficient of Variation 14.2 % (11.5-14.5); RDW Standard Deviation 47.8 fL (36.4-46.3); Red Blood Count 2.98 M/uL (4.70-6.10); White Blood Count 9.81 K/ul (4.8-10.8)
[2024-07-14 07:40] LABS: Albumin Globulin Ratio 1.4 (0.9-2); Albumin Level 3.2 gm/dl (3.4-5.0); BUN Creatinine Ratio 14.4 (10-20); Bilirubin,Total 0.4 mg/dl (0.2-1.0); Calcium 7.7 mg/dl (8.6-10.3); Creatinine Clr Calc Pharmacy 57.9 ml/min; Globulin 2.3 gm/dl (2.5-4.0); Magnesium 1.8 mg/dl (1.7-2.4); Total Protein 5.5 gm/dl (6.0-8.3)
[2024-07-14] MEDS: predniSONE 5 MG TAB PO ONE (07:59)
--- NOTE | 2024-07-14 20:20 | Hospitalist Progress Note ---
Date of Service July 14, 2024 Assessment & Plan (1) Nausea, vomiting, and diarrhea: Plan: resolved with radiographic evidence of enteritis on CT a/p doubt COVID causing the GI symptoms; these symptoms would have occurred earlier in the month when he first developed his COVID illness can't rule out c diff but unlikely - c diff diarrhea typically does not stop spontaneously [id number], if he has diarrhea, will send for c diff testing & stool BioFire panel will give a small amount of stress dose steroids (5mg of prednisone extra today) (2) Enteritis of small bowel: Plan: as seen on admission CT see #1 above resolved (3) Hypomagnesemia: Plan: s/p IV mag replacement now normal low mag was 2nd to vomiting/diarrhea/GI losses (4) COVID-19: Plan: admitted 07/01 to 07/04 here at [facility] for such had COVID pneumonia at that time Rx with dexamethasone/Remdesivir appears to have made a full recovery from his pneumonia infection control, per their protocols & guidelines, feels comfortable with discontinuation of airborne precautions no indication for steroids/Remdesivir/etc at this time (5) Paroxysmal A-fib: Plan: none seen while here cont Eliquis 5mg BID he is not on AV ney agents at baseline (6) Rheumatoid arthritis involving multiple sites with positive rheumatoid factor: Plan: on chronic prednisone 5mg daily as well as leflunomide 20mg daily will give mild stress dose steroids with addition of 5mg extra today (7) Sepsis: Plan: 2nd to GI illness resolved leukocytosis resolved lactic acidosis resolved if he has recurrent diarrhea send for c diff testing & stool BioFire (8) Dementia: Plan: cont Namenda (9) Diabetes mellitus: Plan: last a1c was earlier this month --> 7.2% increase lantus cont novolog hold PO meds for now (10) History of stroke: Plan: 02/2024 left periventricular CVA cont Eliquis and asa for secondary prevention cont statin Plan BPH - cont flomax PT/OT evals appreciated - can return to [facility] updated by telephone yesterday evening Admission and Anticipated Discharge Date Admission Date: July 12, 2024 Subjective no events overnight no nausea/emesis/diarrhea/abd pain no cough or dyspnea or congestion feels well eating well tele wn overnight Review of Systems Review of Systems: gen - no fevers or chills cv - no chest pain pulm - no dyspnea Physical Exam Physical Exam: gen - NAD, sitting in chair, looks well mouth - MMM neck - no JVD heart - RRR, s1 s2, no murmur lungs - mild dry rales R base, otherwise CTA b/l abd - soft NT ND BS+, No HSM ext - no edema, pulses 2+ b/l Results & Data Results & Data Vital Signs (Past 12 Hours) Vital Signs Temp Pulse Pulse Resp BP Pulse Ox O2 Del Method 07/14/24 19:54 177/89 H 07/14/24 19:39 36.3 C L 96 H 16 95 Room Air 07/14/24 16:07 36.7 C 83 17 135/87 97 Room Air 07/14/24 16:04 Room Air 07/14/24 15:19 88 07/14/24 11:09 36.6 C 73 16 133/68 97 Room Air Laboratory Results Laboratory Results - last 24 hr 07/14/24 07/14/24 07/14/24 06:24 07:20 11:34 WBC 9.81 RBC 2.98 L Hgb 9.2 L Hct 27.4 L MCV 91.9 MCH 30.9 MCHC 33.6 RDW Std Deviation 47.8 H RDW Coeff of Sherrell 14.2 Plt Count 112 L MPV 10.8 Immature Gran % (Auto) 0.5 Neut % (Auto) 83.0 Lymph % (Auto) 9.7 [place] % (Auto) 6.2 Eos % (Auto) 0.3 Baso % (Auto) 0.3 Neut # (Auto) 8.14 H Lymph # (Auto) 0.95 L [place] # (Auto) 0.61 H Eos # (Auto) 0.03 Baso # (Auto) 0.03 Immature Gran # (Auto) 0.05 Sodium 142 Potassium 4.0 Chloride 111 H Carbon Dioxide 26 Anion Gap 5 BUN 14 Creatinine 0.97 Est Cr Clr Drug Dosing 57.9 eGFR 79.41 BUN/Creatinine Ratio 14.4 Glucose 171 H POC Glucose 163 H 169 H Calcium 7.7 L Magnesium 1.8 Total Bilirubin 0.4 AST 13 ALT 16 Alkaline Phosphatase 48 Total Protein 5.5 L Albumin 3.2 L Globulin 2.3 L Albumin/Globulin Ratio 1.4 07/14/24 16:22 WBC RBC Hgb Hct MCV MCH MCHC RDW Std Deviation RDW Coeff of Sherrell Plt Count MPV Immature Gran % (Auto) Neut % (Auto) Lymph % (Auto) [place] % (Auto) Eos % (Auto) Baso % (Auto) Neut # (Auto) Lymph # (Auto) [place] # (Auto) Eos # (Auto) Baso # (Auto) Immature Gran # (Auto) Sodium Potassium Chloride Carbon Dioxide Anion Gap BUN Creatinine Est Cr Clr Drug Dosing eGFR BUN/Creatinine Ratio Glucose POC Glucose 273 H Calcium Magnesium Total Bilirubin AST ALT Alkaline Phosphatase Total Protein Albumin Globulin Albumin/Globulin Ratio PG Care Time/CCT Total # of Minutes Spent Total Time Spent with Patient: Total time spent is greater than 50% in coordination of care (as documented) at patient's floor/unit and/or counseling patient: Coding Level of Care Code 81552 SUB INP/OBS CARE 1/25MIN Diagnoses Nausea, vomiting, and diarrhea R11.2; R19.7 Enteritis of small bowel K52.9 Hypomagnesemia E83.42 COVID-19 U07.1 Paroxysmal A-fib I48.0 Rheumatoid arthritis involving multiple sites with positive rheumatoid factor M05.79 Sepsis A41.9 Dementia F03.90 Dementia behavioral disturbance: without behavioral disturbance Dementia type: unspecified type Type 2 diabetes mellitus with stage 3 chronic kidney disease, without long-term current use of insulin, unspecified whether stage 3a or 3b CKD E11.22; N18.30 Chronic kidney disease stage: stage 3 (moderate) Chronic kidney disease stage 3 subtype: unspecified whether 3a or 3b Diabetes mellitus complication detail: with chronic kidney disease Diabetes mellitus complication status: with kidney complications Diabetes mellitus half-way insulin use: without half-way use Diabetes mellitus type: type 2 History of stroke Z86.73 (8) Dementia Dementia behavioral disturbance: without behavioral disturbance Dementia type: unspecified type Qualified Code(s): F03.90 - Unspecified dementia without behavioral disturbance (9) Diabetes mellitus Chronic kidney disease stage: stage 3 (moderate) Chronic kidney disease stage 3 subtype: unspecified whether 3a or 3b Diabetes mellitus complication detail: with chronic kidney disease Diabetes mellitus complication status: with kidney complications Diabetes mellitus terminal carman insulin use: without terminal carman use Diabetes mellitus type: type 2 Qualified Code(s): E11.22 - Type 2 diabetes mellitus with diabetic chronic kidney disease; N18.30 - Chronic kidney disease, stage 3 unspecified
[2024-07-14] MEDS: LANTUS PER UNIT CHARGE SQ SCH (20:42)
--- NOTE | 2024-07-15 05:48 | Electrocardiogram Report ---
Test Reason : Blood Pressure : */* mmHG Vent. Rate : 69 BPM Atrial Rate : 69 BPM P-R Int : 156 ms QRS Dur : 128 ms QT Int : 454 ms P-R-T Axes : 70 -18 17 degrees QTcB Int : 486 ms Sinus rhythm with Premature atrial complexes Right bundle branch block Abnormal ECG When compared with ECG of 13-Jul-2024 05:16, T wave inversion no longer evident in Anterior leads Confirmed by Jason Rodriguez ([id number] on 07/15/2024 5:48:19 AM Referred By: Jocelyn Wallace [place] Confirmed By: Jason Rodriguez
[2024-07-15 05:58] LABS: Basophils # (auto) 0.03 K/uL (0.00-0.20); Basophils % (auto) 0.3 %; Eosinophils # (auto) 0.05 K/uL (0.00-0.50); Eosinophils % (auto) 0.6 %; Hematocrit (blood only) 29.9 % (42.0-52.0); Hemoglobin 10.2 g/dl (14.0-18.0); Immature Granulocytes # (auto) 0.04 K/uL (0.01-0.20); Immature Granulocytes % (auto) 0.5 %; Lymphocytes # (auto) 1.25 K/uL (1.20-3.40); Lymphocytes % (auto) 14.3 %; Mean Corpuscular Hgb Conc 34.1 g/dL (32.0-36.0); Mean Corpuscular Volume 90.9 fL (80.0-100.0); Mean Platelet Volume 10.6 fL (9.4-12.4); Monocytes # (auto) 0.63 K/uL (0.11-0.59); Monocytes % (auto) 7.2 %; Neutrophils # (auto) 6.72 K/uL (1.40-6.50); Neutrophils % (auto) 77.1 %; Platelet Count 122 K/uL (130-400); RDW Coefficient of Variation 14.2 % (11.5-14.5); RDW Standard Deviation 47.4 fL (36.4-46.3); Red Blood Count 3.29 M/uL (4.70-6.10); White Blood Count 8.72 K/ul (4.8-10.8)
[2024-07-15 06:18] LABS: BUN Creatinine Ratio 17.6 (10-20); Calcium 8.1 mg/dl (8.6-10.3); Creatinine Clr Calc Pharmacy 55.2 ml/min; Potassium 3.9 mmol/L (3.5-5.1)
--- NOTE | 2024-07-15 10:25 | Discharge Summary ---
Discharge Summary Date of Service July 15, 2024 Principal Dx & Hospital Course #1 = Principal Diagnosis (1) Nausea, vomiting, and diarrhea: resolved with radiographic evidence of enteritis on CT a/p doubt COVID causing the GI symptoms; these symptoms would have occurred earlier in the month when he first developed his COVID illness can't rule out c diff but unlikely - c diff diarrhea typically does not stop spontaneously [id number], if he has diarrhea, will send for c diff testing & stool BioFire panel will give a small amount of stress dose steroids (5mg of prednisone extra today) (2) Enteritis of small bowel: as seen on admission CT see #1 above resolved (3) Hypomagnesemia: s/p IV mag replacement now normal low mag was 2nd to vomiting/diarrhea/GI losses (4) COVID-19: admitted 07/01 to 07/04 here at [facility] for such had COVID pneumonia at that time Rx with dexamethasone/Remdesivir appears to have made a full recovery from his pneumonia infection control, per their protocols & guidelines, feels comfortable with discontinuation of airborne precautions no indication for steroids/Remdesivir/etc at this time (5) Paroxysmal A-fib: none seen while here cont Eliquis 5mg BID he is not on AV ney agents at baseline (6) Rheumatoid arthritis involving multiple sites with positive rheumatoid factor: on chronic prednisone 5mg daily as well as leflunomide 20mg daily will give mild stress dose steroids with addition of 5mg extra today (7) Sepsis: 2nd to GI illness resolved leukocytosis resolved lactic acidosis resolved if he has recurrent diarrhea send for c diff testing & stool BioFire (8) Dementia: cont Namenda (9) Diabetes mellitus: last a1c was earlier this month --> 7.2% increase lantus cont novolog hold PO meds for now (10) History of stroke: 02/2024 left periventricular CVA cont Eliquis and asa for secondary prevention cont statin Plan BPH - cont flomax PT/OT evals appreciated - can return to [facility] updated by telephone yesterday evening Admission HPI Per Admitting Provider The patient is a 78-year-old male with past medical history including admission for COVID-19 and right lower lobe pneumonia from 07/01-07/04/2024. He was on antibiotics during that admission, and was discharged on cefuroxime Mexitil and azithromycin for 3 days. His symptoms developed the day following completion of the end of next, and stool PCR testing and stool for C. difficile was ordered in the ED, but patient was not able to provide a sample. Respiratory BioFire was again positive for COVID, for which she will be placed on precautions, but does not need treatment Discharge Exam gen - NAD, sitting in chair, looks well mouth - MMM neck - no JVD heart - RRR, s1 s2, no murmur lungs - mild dry rales R base, otherwise CTA b/l abd - soft NT ND BS+, No HSM ext - no edema, pulses 2+ b/l Discharge Plan Discharge Items Patient Disposition: Personal Halfway Reason For Visit: ENTERITIS, HYPOMAGNSEMIA, DEHYDRATION Discharge Diagnosis: 1. nausea/vomiting/diarrhea due to enteritis - resolved 2. hypomagnesemia (low magnesium) - resolved 3. dehydration - resolved 4. recent COVID-19 infection - resolved 5. incidentally seen pancreatic cyst - recommend dedicated CT or MRI of the pancreas for more information 6. mildly low platelets - repeat CBC needed in 1-2 weeks Activity: Resume your previous activity Non-emergency contact: Primary Care Provider Call non-emergency contact if: you have any medication questions, your symptoms worsen and you have a fever Follow-up/Referrals: Pro,Gael Daily MD [Primary Care Provider] - (1 week ) Diet: Carb Consistent or DM2 Addtl Attending Provider Instructions: Mr Mariee, You were hospitalized due to having nausea, vomiting, diarrhea and dehydration. Your CT scan of the abdomen showed "enteritis" which is when the small intestine is sick/inflamed. The typical cause of enteritis is usually a virus ("stomach bug"). You improved with IV fluids, replacement of low electrolytes, and supportive care. Your symptoms resolved and the vomiting/diarrhea did not return. You are tolerating a normal diet. Recent COVID pneumonia was resolved on imaging taken during the stay. We did not make any changes in your chronic medicines while you were here. Your platelet count was mildly low during the stay. I suspect it was low due to recent COVID infection. Also, it is possible it went a little low due to the gastrointestinal illness. Your platelet count was 122 on day of discharge (normal >150). Finally, please note that we incidentally saw a small cyst on the pancreas. This was seen on your CT scan. This small cyst was not the cause of your presenting symptoms. I would recommend either a dedicated pancreas CT or MRI of your pancreas to get more information on this finding. Dr Rogers can set it up for you. Follow-up - see Dr Rogers within 1 week Additional recommendations - 1. repeat CBC in 1-2 weeks to recheck your platelet count 2. check your blood sugars at least once daily, preferably twice daily, for your diabetes Return to [facility] if - * you have fever over 100 degrees * you have worsening shortness of breath * you have chest pains * you have abdominal pain * you develop recurrent vomiting and/or diarrhea * any other concerns It was our pleasure to care for you! -Dr Edwards Pending Studies at Discharge: No Stand-Alone Forms: My [facility] Alarm, Smoking Cessation Skilled Items Patient informed of condition?: Yes DNR: Yes Discharge Level of Care: Other Communicable Disease: No Discharge Prognosis: Stable Lines: None Urinary Catheter: No Medications and DC Order Prescriptions: Continued leflunomide 20 mg tablet 20 mg PO DAILY prednisone 5 mg tablet 5 mg PO DAILY sertraline 25 mg tablet 25 mg PO DAILY cholecalciferol (vitamin D3) 25 mcg (1,000 unit) capsule 25 mcg PO DAILY lorazepam 0.5 mg tablet 0.25 mg PO Q4H PRN (Reason: Anxiety) aspirin 81 mg capsule 81 mg PO DAILY Eliquis 5 mg Tablet 5 mg PO BID Qty: 10 0RF Januvia 100 mg tablet 100 mg PO DAILY 30 Days Qty: 30 0RF cyanocobalamin (vitamin B-12) [Vitamin B-12] 1,000 mcg Tablet 1,000 mcg PO DAILY 30 Days Qty: 30 0RF folic acid 1 mg tablet 1 mg PO DAILY 30 Days Qty: 30 2RF Centrum Silver Men 300-600-300 mcg tablet 1 tab PO DAILY 30 Days Qty: 30 0RF atorvastatin 80 mg tablet 80 mg PO DAILY Qty: 30 0RF metformin 500 mg tablet 500 mg PO BID loperamide [Anti-Diarrheal (loperamide)] 2 mg Tablet 2 mg PO Q4H PRN (Reason: Diarrhea) Rx Instructions: administer after each loose stool until symptoms controlled; do not exceed 8 mg per 24 hrs potassium chloride 10 mEq tablet,ER particles/crystals 10 meq PO BID oxycodone 5 mg tablet 5 mg PO DAILY Rx Instructions: 5 mg orally daily at 8 P.M. tamsulosin 0.4 mg capsule 0.4 mg PO QAM memantine 10 mg tablet 10 mg PO QAM Discharge Orders: Discharge Order (Routine); Ordered 07/15/24 Ordered By: Kwadwo Edwards Admission Data Admit Date/Time: 07/12/24 23:30 Attending Provider: Kwadwo Edwards Admit Provider: Arnel Coelho Primary Care Provider: Gael Rogers Other Providers: Arnel Coelho Hospital Stay Data Consultations 07/12/24 22:38 ED Decision to Admit Stat Diagnostic Imagining Performed 07/12/24 20:42 CT abd pelvis IV con only Stat Pending Results Patient Have Any Pending Studies at Discharge: No Discharge Instructions Given to Patient (Per Discharging Provider) Mr Mariee, José were hospitalized due to having nausea, vomiting, diarrhea and dehydration. Your CT scan of the abdomen showed "enteritis" which is when the small intestine is sick/inflamed. The typical cause of enteritis is usually a virus ("stomach bug"). You improved with IV fluids, replacement of low electrolytes, and supportive care. Your symptoms resolved and the vomiting/diarrhea did not return. You are tolerating a normal diet. Recent COVID pneumonia was resolved on imaging taken during the stay. We did not make any changes in your chronic medicines while you were here. Your platelet count was mildly low during the stay. I suspect it was low due to recent COVID infection. Also, it is possible it went a little low due to the gastrointestinal illness. Your platelet count was 122 on day of discharge (normal >150). Finally, please note that we incidentally saw a small cyst on the pancreas. This was seen on your CT scan. This small cyst was not the cause of your presenting symptoms. I would recommend either a dedicated pancreas CT or MRI of your pancreas to get more information on this finding. Dr Rogers can set it up for you. Follow-up - see Dr Rogers within 1 week Additional recommendations - 1. repeat CBC in 1-2 weeks to recheck your platelet count 2. check your blood sugars at least once daily, preferably twice daily, for your diabetes Return to [facility] if - * you have fever over 100 degrees * you have worsening shortness of breath * you have chest pains * you have abdominal pain * you develop recurrent vomiting and/or diarrhea * any other concerns It was our pleasure to care for you! -Dr Edwards Coding Diagnoses Nausea, vomiting, and diarrhea R11.2; R19.7 Enteritis of small bowel K52.9 Hypomagnesemia E83.42 COVID-19 U07.1 Paroxysmal A-fib I48.0 Rheumatoid arthritis involving multiple sites with positive rheumatoid factor M05.79 Sepsis A41.9 Dementia F03.90 Dementia behavioral disturbance: without behavioral disturbance Dementia type: unspecified type Type 2 diabetes mellitus with stage 3 chronic kidney disease, without long-term current use of insulin, unspecified whether stage 3a or 3b CKD E11.22; N18.30 Diabetes mellitus type: type 2 Diabetes mellitus terminal supervisor insulin use: without terminal supervisor use Diabetes mellitus complication status: with kidney complications Diabetes mellitus complication detail: with chronic kidney disease Chronic kidney disease stage: stage 3 (moderate) Chronic kidney disease stage 3 subtype: unspecified whether 3a or 3b History of stroke Z86.73
[2024-07-15 10:44] VITALS: BP 152/72; PULSE 86; RESP 17; TEMP 97.9
[2024-07-15 10:45] VITALS: O2SAT 93
== END 2024-07-15 13:22 | disposition home or self-care (01) | DRG 872 ==
LOC: ED 20:08 → 2E 23:30 → SUATTDRO 23:30 → 2E 07-13 00:01